=== PATIENT | male | born 1950 | race Caucasian/White ===

== ENCOUNTER → 2018-01-04 10:09 | Outpatient (CLI) | payer MEDICARE, OTHER, SELFPAY ==
[2018-01-04 11:40] LABS: Add Manual Diff / Slide Review NO; Basophils Percent Auto 0.6 % (0-2); Eosinophils Percent Auto 1.9 % (2-4); Hematocrit 44.1 % (41-53); Hemoglobin 15.1 g/dL (13.5-17.5); Lymphocytes Percent Auto 40.2 % (25-40); Mean Corpuscular HGB Conc 34.2 % (30-36); Mean Corpuscular Hemoglobin 31.9 PG (26-34); Mean Corpuscular Volume 93.3 fL (80-100); Monocytes Percent Auto 10.6 % (3-14); Neutrophils Absolute Auto 2100 /uL (3000-5900); Neutrophils Percent Auto 46.7 % (50-75); Platelet Count 180 X10^3/uL (150-400); Red Blood Cell Count 4.73 X10^6/uL (4.5-5.9); Red Cell Distribution Width 13.1 % (11.6-14.8); White Blood Cell Count 4.4 X10^3/uL (4.5-11.0)
[2018-01-04 12:17] LABS: BUN Creatinine Ratio 25.6 (6-22); Calcium 9.6 mg/dL (8.4-10.2); Estimated Glomerular Filt Rate > 60.0 mL/min (>60); Glucose 111 mg/dL (80-110); HEMOLYSIS < 15 (0-50); Sodium 140 mmol/L (137-145)
== END ==
PROVIDERS: PCP Physician Assistant; Visit Provider Orthopaedic Surgery Orthopaedic Surgery of the Spine
DX: M47.26 Other spondylosis with radiculopathy, lumbar region (principal)
CPT/HCPCS: 36415; 80048; 85025; 93005

== ENCOUNTER 2018-01-27 11:27 | Inpatient (IN) | payer MEDICARE, OTHER, SELFPAY ==
[2017-12-27 14:55] VITALS: TEMP 37.2
[2018-01-07 13:58] VITALS: BMI 22.4
[2018-01-27] VITALS (19 sets, daily range): BP systolic 98–136; BP diastolic 65–81; PULSE 67–92; RESP 8–19; TEMP 36.1–36.9; O2SAT 94–100; BMI 23.6
--- NOTE | 2018-01-27 11:50 | PM.PREOP ---
Pre-operative Note Interval Note Pre-op Check: History & Physical Reviewed by Physician, Exam Performed and History & Physical exam performed today
[2018-01-27] MEDS: LACTATED RINGERS 1,000 ML 42 ML IV ×2 (11:58→13:50)
[2018-01-27] MEDS: CLINDAMYCIN 600 MG/50 ML PIGGYBACK 50 MG IV (12:40)
--- NOTE | 2018-01-27 13:00 | DI.RAD.S_ITS ---
PROCEDURE: XR LUMBAR SPINE 2-3V INDICATIONS: 67-year-old male status post lower lumbar spine fixation. TECHNIQUE: 2 intraoperative views of the lumbar spine were acquired. COMPARISON: [facility], , -SPINE 2-3 VIEWS, 05/10/2017, 15:35. FINDINGS: Bones: Patient is status post L4-L5 and L5-S1 discectomies with interbody fusion and bilateral posterior fixation. Surgical hardware appears intact and in expected positions. Soft tissues: Overlying bowel gas pattern is normal. No suspicious soft tissue calcifications. IMPRESSION: Fluoroscopic guidance for L4-S1 posterior lumbar interbody fusion. Dictated by: Kal Galvan M.D. on 01/27/2018 at 15:59 Approved by: Kal Galvan M.D. on 01/27/2018 at 16:00
--- NOTE | 2018-01-27 13:25 | SUR.OPER ---
Prone on spine table, head in foam head support, padded chest and pelvic supports, gel pad at knees, lower legs supported by pillows; nipples, genitalia and toes free of pressure, arms secured on foam padded arm boards at <90 degrees abduction. Tape over blanket at thigh secured to table.
[2018-01-27] MEDS: BUPIVACAINE 0.25% W/ EPI 50 ML VIAL 30 ML INJ (13:29)
[2018-01-27] MEDS: BUPIVACAINE LIPOSOME 266 MG/20 ML VIAL SUBCUT (13:29)
--- NOTE | 2018-01-27 15:51 | P.OP_ITS ---
Operative Date/Time/Diagnoses - Date of procedure: 01/27/18 Time of procedure: 12:48 Pre-op diagnosis: 1. Status post laminotomy with epidural scarring L4-5 2. Spinal stenosis L4-5, L5-S1 3. Spondylosis with radiculopathy Post-op diagnosis: same Procedure & Clinicians Procedure: 1. L4-5, L5-S1 Postero-lateral and posterior interbody fusion 2. L4-5, L5-S1 interbody cage placement. 3. L4-5, L5-S1 decompressive laminectomy with bilateral facetecomies 4. L4-5, L5-S1 Posterior segmental instrumentation 5. [place] of bone marrow from iliac crest 6. Utilization of microsurgical technique and operating microscope Indications: Patient has been having chronic back pain and worsening lumbar radiculopathy. Patient failed multiple conservative management with worsening pain weakness and numbness in her lower extremity. Patient has been having difficulty performing activity of daily living. After discussing risks benefits of treatment options, patient elected proceed with surgery. Surgeon: Italo Andre Soccer Player: Orly Galan Click Yes if Unassisted: No Anesthesia Type: General Operative Notes Closure Type: primary Specimen(s): none sent Implants & Drains: Globus revolve screws, Globus Caliber cage Applied: catheter Estimated Blood Loss (mL): 100 Blood products transfused: none Procedure in detail: Patient was seen in the preoperative area. Risks and benefits of the surgery was discussed with the patient. Informed consent was obtained from the patient and placed in the chart. Surgical site was marked. Patient was taken to the operative room. General anesthesia was administered. Prophylactic antibiotic was given to the patient less than 30 min before the incision was made. Patient was placed into a prone position on the Nithin table. Patient's back was then prepped and draped in the sterile fashion. Time- out was performed at this time. Using AP and lateral C-arm imaging the interval between L4-S1 was identified and marked on patient's back. A 2 inch incision 2 in from midline was made on the left side first. The fascia was incised in line with skin incision. Globus MARS retractors was placed inside the incision and docked onto the L4 and L5 lamina. Using microsurgical technique and operating microscope, a L4 and L5 laminectomy and L4-5 L5-S1 facetectomy was performed using a Kerrison rongeur. The disc space at L4-5, L5-S1 was identified. And a total diskectomy was performed at L4-5, L5-S1 level. The endplates were decorticated using a rasp and shaver. The total diskectomy and decortication was performed at L4-5, L5- S1 level in order to to accomplish a L4-5, L5-S1 fusion. The local bone from the laminectomy and facetectomy was saved for local bone grafting. After the total diskectomy and decortication was completed, Globus viacell bone graft material was combined with local bone that was harvested earlier. At this time , a separate skin is incision was made over the iliac crest. A Jamshidi needle was inserted into the iliac crest through a separate skin incision. 5 cc of bone marrow aspiration was obtained through the separate skin incision using a Jamshidi needle from the iliac crest. The bone marrow aspiration was combined with local bone and the via cell bone grafting material. The bone grafting material was placed into the L4-5, L5-S1 interbody space along with two cages, one expandable cage at each level. The cages were expanded to their maximum height using the torque limiting screwdriver. At this time a mirror image incision was made on the right side. The fascia was incised in line with the skin incision. Globus MARS retractor was inserted and docked onto the L4-5, L5-S1 posterolateral gutter. Using the power drill, posterior-lateral decortication was performed at L4-5, L5-S1 level until bleeding cortical bone was identified. The remaining bone grafting material was placed into the L4-5 L5-S1 posterior lateral gutter he order to accomplish posterolateral fusion at the L4-5 L5-S1 levels. Using the double C-arm technique, pedicle screws were placed into the L4, L5, S1 pedicles bilaterally. This was done by placing the Jamshidi needle into the pedicles, then placing the guidewires over the Jamshidi needle, and finally placing the cannulated screws over the guidewires bilaterally. After the pedicle screws were placed, 2 titanium rods was locked into the heads of the pedicle screws using locking caps and torque limiting screwdriver. Total 6 pedicles screws were placed. After all the hardware was placed, and confirmed with AP and lateral C-arm imaging, the wound was then irrigated with sterile normal saline and packed with Ray-Anh gauze for 3 min to accomplish hemostasis. After the gauze was removed the deep fascia was closed with #1 Vicryl suture. The subcutaneous layer was closed with 2-0 Vicryl. The skin was closed with skin tiara. Patient tolerated the procedure well. There were no complications. Complications: none Condition: stable Disposition: PACU Plan for aftercare: Admit to inpatient hospital
[2018-01-27] MEDS: LORazepam 2 MG/ML SYRINGE 0.25 MG IV (16:10)
[2018-01-27] MEDS: MORPHINE 10 MG/ML INJ 2 MG IV ×5 (16:20→16:50)
[2018-01-27] MEDS: HYDROMORPHONE 2 MG INJ 0.5 MG IV (17:16)
--- NOTE | 2018-01-27 19:10 | PC.NURSE ---
Addendum entered by Tennille Ruiz R.N. 01/27/18 21:49: Medicated for pain with IV Dilaudid 05/05 to lower back, CMS intact to BLE. No c/o nausea. Calm and cooperative, sensitive to noise, no SI noted. States his needs, keeps communication with staff, very pleasant. Calls appropriately for assistance. at bedside providing supportive care, will spend the night. Environment kept clean, dim, and quiet. No seizure activity noted. Original Note: Admit note: Patient admitted to AC from PACU with RN, waiting in room providing supportive care to patient. On O2 via NC at 2L, O2 sat 96%. Large dressing to mid lower back, CDI. FC secured in place draining clear yellow urine to gravity. CMS to upper and lower extremities intact, bilateral SCDs to feet in place. No c/o nausea, educated regarding mobility precautions, which include no bending or twisting. BA active, call light within reach, oriented to room, routine, and plan of care. Occasionally noted to be tearful, reassurance provided. Calm, quiet, and cooperative. VSS
[2018-01-27] MEDS: SODIUM CHLORIDE 0.9% 1,000 ML 100 ML IV (19:52)
[2018-01-27] MEDS: HYDROMORPHONE 1 MG INJ 0.5 MG IV (20:59)
[2018-01-27] MEDS: CLINDAMYCIN 900 MG/50 ML PIGGYBACK 50 MG IV (21:00)
[2018-01-27] MEDS: SENNOSIDES 8.6 MG TABLET 17.2 MG PO (21:00)
[2018-01-27] MEDS: DOCUSATE 100 MG CAPSULE PO (21:02)
[2018-01-27] MEDS: lamoTRIgine 100 MG TABLET 300 MG PO (21:02)
[2018-01-27] MEDS: OXYCODONE IR 5 MG TABLET 10 MG PO (22:31)
[2018-01-28] VITALS (7 sets, daily range): BP systolic 120–143; BP diastolic 76–96; PULSE 67–80; RESP 16–19; TEMP 36.6–37.1; O2SAT 96–98
[2018-01-28] MEDS: HYDROMORPHONE 0.5 MG INJ IV ×3 (00:25→06:55)
[2018-01-28] MEDS: OXYCODONE IR 5 MG TABLET 10 MG PO ×3 (02:04→11:56)
--- NOTE | 2018-01-28 03:20 | PC.NURSE ---
Assumed care of pt from outgoing shift at 2300 6-4. Pt awake asleep at this time. PT , Dossy at bedside. Pt belongings and call light within reach. Pt complains of pain and given pain med per MAR. Pt refuses ice. Pt moving bed to different angles. discussed plan of care with pt for noc. pt compliant and verbalized understanding. will continue to monitor pt for safety. Pt bed alarm on. side rails up x4 per pt request. 0300- pt having difficulty falling asleep. Pain seems better controlled. Pt denies needs at this time. will continue to monitor pt for safety.
[2018-01-28] MEDS: CLINDAMYCIN 900 MG/50 ML PIGGYBACK 50 MG IV (04:32)
[2018-01-28] MEDS: SODIUM CHLORIDE 0.9% 1,000 ML 100 ML IV (04:32)
[2018-01-28] MEDS: hydrOXYzine pamoate 25 MG CAPSULE PO ×3 (04:32→15:54)
[2018-01-28 05:34] LABS: Hematocrit 35.3 % (41-53); Hemoglobin 12.2 g/dL (13.5-17.5)
[2018-01-28] MEDS: ONDANSETRON 4 MG/2 ML INJ IV (06:52)
[2018-01-28] MEDS: DEXAMETHASONE 4 MG TABLET 10 MG PO (08:37)
[2018-01-28] MEDS: ACETAMINOPHEN 325 MG TABLET 650 MG PO (08:38)
[2018-01-28] MEDS: DOCUSATE 100 MG CAPSULE PO ×2 (09:21→21:05)
[2018-01-28] MEDS: TAMSULOSIN 0.4 MG CAPSULE PO (09:22)
[2018-01-28] MEDS: lamoTRIgine 100 MG TABLET 300 MG PO ×2 (09:22→21:05)
[2018-01-28] MEDS: LEVOTHYROXINE PO (09:33)
--- NOTE | 2018-01-28 09:37 | P.PN_ITS ---
Subjective Date Patient Seen: 01/28/18 Time Patient Seen: 07:10 Interval history: POD #1 s/p L4-S1 lumbar fusion with Dr. Andre. Patient had difficulty with pain control and increased muscle spasms this morning. He has a Mcdonald catheter in. He has not been up physical therapy at. Has no prior issues taking prednisone. Exam Vital Signs (past 8 hours): Vital Signs - 8 hr 3 01/28/18 04:37 01/28/18 07:55 Temperature 98.4 F 98.5 F Pulse Rate 70 67 Respiratory Rate 18 16 Blood Pressure 120/76 122/79 H Pulse Oximetry 98 96 Pulse Oximetry 96 Oxygen Delivery Method Nasal Cannula Oxygen Flow Rate 0 Narrative Exam Narrative: Patient lying in bed in no acute distress. He is alert and oriented x3. He is able to actively dorsiflex and plantar flex. Sensation intact to light touch throughout bilateral lower extremities. Calves are soft, compressible, nontender bilaterally. Pulses are symmetrical. Objective Labs Result Diagrams: 01/28/18 04:47 Labs: Laboratory Results - last 24 hr 01/28/18 04:47 Hgb 12.2 L Hct 35.3 L Assessment & Plan Post-op (1) Anxiety: Current Visit: No Status: Acute (2) S/P lumbar fusion: Current Visit: Yes Status: Acute Postoperative Procedures Operation Date: 01/27/18 12:45 Actual Procedures Side Surgeon p L4-5, L5-S1 TLIF w/Posterior Instru Italo Andre MD POD #1 status post L4-S1 TLIF with Dr[address] Andre. Will start 24 hr steroid burst, 10 mg now, then 4 mg every 6 hr. If patient's pain does not decrease with steroid consider oral Dilaudid. Patient will get up and ambulate with physical therapy today. Once more mobile can DC Mcdonald, has history of urinary retention. Plan to discharge home with in next 1-2 days once stable, ambulating, and adequate pain control. Time Spent With Patient less than 15 minutes Quality VTE Deep Vein Thrombosis/Pulmonary Embolism Present on Admission: No
--- NOTE | 2018-01-28 12:50 | PT.IIE ---
Current Diagnoses Anxiety disorder, unspecified (01/27/18) Other spondylosis with radiculopathy, lumbar region (01/27/18) Spinal stenosis, lumbar region without neurogenic claudication (01/27/18) Arthrodesis status (01/27/18) Other specified postprocedural states (01/27/18) Surgery Performed Operation Date: 01/27/18 12:45 Actual Procedures p L4-5, L5-S1 TLIF w/Posterior Viola Andre MD Surgical History (Last Updated 01/07/18 @ 14:25 by Genesis Price RN) H/O laminectomy (Acute) History of arthroscopy of both knees (Acute) Hx of appendectomy (Acute) Hx of tonsillectomy (Acute) S/P left unicompartmental knee replacement (Acute) S/P right unicompartmental knee replacement (Acute) History of cataract removal with insertion of prosthetic lens Medical History (Last Updated 01/07/18 @ 15:00 by Genesis Price RN) Bone spur (Acute) Depression (Acute) History of ankle fracture (Acute) Hyperlipidemia (Acute) Hypothyroidism (Acute) Kidney stones (Acute) Lupus (Acute) Seizure disorder (Acute) Sleep apnea (Acute) Suicidal ideations (Acute) UTI (urinary tract infection) (Acute) Urinary dribbling (Acute) Urinary stream slowing (Acute) Physical Therapy Inpatient Evaluation/Re-Eval M1 PT/OT-IP Prior Functional Status Start: 01/28/18 12:41 Freq: NEEDED Status: Active Protocol: Document 01/28/18 12:42 AB (Rec: 01/28/18 12:49 AB [id number]) Medical Review Prior Functional Status Medical History Reviewed Yes Mobility and Gait Pt stated that he is independent with all mobilities and ambulation without AD indoors but uses a SPC or his staff outdoors. Social History Household Members spouse Living Arrangements House Number of Stairs To Enter/Railing? 14 steps to enter with L rail and pt uses SPC on R side Home Environment Standard Height Toilet Tub/Shower Home Equipment Hand Held Shower Grab Bars In Shower Employment Status Retired M2 PT-IP Current Condition Start: 01/28/18 12:41 Freq: NEEDED Status: Active Protocol: Document 01/28/18 12:42 AB (Rec: 01/28/18 12:49 AB [id number]) Physical Therapy Current Condition Current Condition Evaluation Date 01/28/18 Treatment Diagnosis s/p TLIF and laminectomy Onset Date 01/27/18 Precautions Lumbar Precautions Log Roll No Twisting Limit Bending Lifting Restriction of 10 lbs Gait Belt above Incisional Area M3 PT-IP Subjective Start: 01/28/18 12:41 Freq: NEEDED Status: Active Protocol: Document 01/28/18 12:42 AB (Rec: 01/28/18 12:49 AB [id number]) Subjective Physical Therapy Visit Type Type Initial Evaluation Visit Start Time 10:29 Visit Stop Time 11:01 Total Visit Minutes 32 Number of HOT KETTLE TENDER Visits 0 Physical Therapy Visit Comments Patient Comments pt requires motivation to participate Therapy Pain Assessment Pain When Pain Assessed During Mobility Pain Present Pain Present Pain Reported Location Lower Back Intensity 10 Scale Used Numeric (1 - 10) Description Spasm Pain Management Techniques Apply Cold Re-positioning Timing of Activity with Medications M4 PT-IP Mobility and Gait Start: 01/28/18 12:41 Freq: NEEDED Status: Active Protocol: Document 01/28/18 12:42 AB (Rec: 01/28/18 12:49 AB [id number]) PT-Bed Mobility Assessment Rolling Type of Rolling Log Rolling Level of Assist Maximal Assistance 2 Person Assistance Supine to Sit Supine to Sit Maximum Assistance 2 Person Assistance Bedrails Scooting Scooting to Edge of Bed Maximum Assistance PT-Transfer Assessment Sit to and From Stand Sit to and from Stand Maximum Assistance 2 Person Assistance Equipment Transfer Assistive Device Gait Belt Front Wheeled Walker Transfers Transfer Destination Chair Transfer Technique Stand Step Pivot Transfer Ability Level of Assist Maximum Assistance 2 Person Assistance Gait Assessment Comments Gait Comments unable at this time PT-Balance Assessment Sitting Balance and Reactions Static Sitting Balance Ability Good Dynamic Sitting Balance Ability Fair Standing Balance and Reactions Static Standing Balance Ability Poor Dynamic Standing Balance Ability Poor M5 PT-IP Objective Assessments Start: 01/28/18 12:41 Freq: NEEDED Status: Active Protocol: Document 01/28/18 12:42 AB (Rec: 01/28/18 12:49 AB [id number]) Orientation Orientation/Cognition Level of Alertness Alert Orientation Name Place Situation Safety Awareness Decreased Safety Awareness Strength Lower Extremity Strength Assessment Bilaterally Impaired Comments Strength Comments BLE 3-/5 M6 PT-IP Treatment Start: 01/28/18 12:41 Freq: NEEDED Status: Active Protocol: Document 01/28/18 12:42 AB (Rec: 01/28/18 12:49 AB [id number]) Physical Therapy Treatment Education Education Provided Precautions Weight Bearing Status Post-Op Packet Safety M7 PT-IP Assessment and Plan Start: 01/28/18 12:41 Freq: NEEDED Status: Active Protocol: Document 01/28/18 12:42 AB (Rec: 01/28/18 12:49 AB [id number]) PT Summary Assessment and Plan Potential Rehabilitation Potential Fair Status of Condition at Evaluation Evolving Summary Impairments Pain ROM Strength Balance Coordination Sensation Tone Cognition Bed Mobility Transfers Gait Activity Tolerance Assessment Summary pt requiring 2 person assist with mobility at this time. d /c plan depending on progress but at this time may require SNF rehab. pt unable to tolerate much activity with c/ o increase pain affecting mobility. Goals Bed Mobility Goal Standby Assistance Transfer Goal Standby Assistance Gait Goal Standby Assistance Gait Distance 150 Other Goals up/down 14 steps with L rail ascending Days to Meet Goals 3 Frequency of Treatment Frequency Of Treatment Twice a Day Treatment Plan Physical Therapy Treatment Plan Bed Mobility Training Transfer Training Gait Training Therapeutic Exercise Balance Retraining Post Op Education Discharge Planning Hot or Cold Pack Neuromuscular Re-ed Coordination Retraining Manual Therapy Other Recommendations and Next Treatment ambulation, bed mobility Focus Recommendations To Nursing Amount of Assist Needed 2 Person Assist Discharge Recommendations PT Discharge Recommendations Home with 24/7 Assist Home Health SNF Rehab Other Discharge Recommendations snf vs home with 24/7 and home health PT Provider Visit Care Team Role Provider Type Taylor Licona PA-C Primary Care Provider Physician Specialty: Internal Medicine Italo Andre MD Admit Provider Physician Attending Provider Specialty: Orthopedic Surgery
[2018-01-28] MEDS: DEXAMETHASONE 4 MG TABLET PO ×3 (13:22→22:10)
[2018-01-28] MEDS: SODIUM CHLORIDE 0.9% FLUSH 10 ML IV ×2 (13:22→22:10)
[2018-01-28] MEDS: HYDROMORPHONE 2 MG TABLET 4 MG PO ×3 (13:50→22:09)
[2018-01-28] MEDS: LORazepam 0.5 MG TABLET PO (13:50)
--- NOTE | 2018-01-28 14:20 | CM.DANOTE ---
DCP: assessment: case received, EMR reviewed,spoke with PT Zahira after her initial session with pt and then met with pt. Introduced self and role. PT is a 67 year old male who admitted yesterday for a planned spinal surgery. Surgeon: Dr. Andre PCP: Taylor Licona/[facility] Payer: Medicare and Commercial Insurance DCP template completed with info available thus far. PT Zahira is recommending at this point that pt either consider snf setting or have 24/7 hands on assist and HHS. He is needing 2 person assist at this point. He is noted to be having pain, nausea and is very tearful when discussing experiences both positive and negative. P: assured pt that the CM/d/c planning team would be available each day of his stay to assist him and his with d/c issues and options. Brief discussion of snf setting/rehab and Medicare payment for same. Pt states: no matter what I can take care of myself as long as Dassy () can drive me. At this point pt does not seem to have a clear picture of his needs but is only post op day one of extensive spinal surgery....will follow closely.
--- NOTE | 2018-01-28 14:57 | DIET.PN ---
Attempted to visit pt several times today for dietary consult. Pt was either with other providers or sleeping, and had requested not to be disturbed. Will f/u first thing tomorrow to complete consult. Ursula Dale, security intern
--- NOTE | 2018-01-28 16:57 | PT.IPTN ---
Current Diagnoses Anxiety disorder, unspecified (01/27/18) Other spondylosis with radiculopathy, lumbar region (01/27/18) Spinal stenosis, lumbar region without neurogenic claudication (01/27/18) Arthrodesis status (01/27/18) Other specified postprocedural states (01/27/18) Surgery Performed Operation Date: 01/27/18 12:45 Actual Procedures p L4-5, L5-S1 TLIF w/Posterior Viola Andre MD Physical Therapy Treatment Note M2 PT-IP Current Condition Start: 01/28/18 12:41 Freq: NEEDED Status: Active Protocol: Document 01/28/18 12:42 AB (Rec: 01/28/18 12:49 AB [id number]) Physical Therapy Current Condition Current Condition Evaluation Date 01/28/18 Treatment Diagnosis s/p TLIF and laminectomy Onset Date 01/27/18 Precautions Lumbar Precautions Log Roll No Twisting Limit Bending Lifting Restriction of 10 lbs Gait Belt above Incisional Area M3 PT-IP Subjective Start: 01/28/18 12:41 Freq: NEEDED Status: Active Protocol: Document 01/28/18 16:51 AB (Rec: 01/28/18 16:57 AB [id number]) Subjective Physical Therapy Visit Type Type Treatment Note Visit Start Time 15:50 Visit Stop Time 16:25 Total Visit Minutes 35 Number of AUTO RENTAL SUPERVISOR Visits 0 Physical Therapy Visit Comments Patient Comments pt agreeable to do therapy Therapy Pain Assessment Pain When Pain Assessed At Rest Pain Present Pain Present Pain Reported Location Lower Back Intensity 7 Scale Used Numeric (1 - 10) Description Spasm Pain Behaviors Crying Guarding Pain Management Techniques Re-positioning Timing of Activity with Medications M4 PT-IP Mobility and Gait Start: 01/28/18 12:41 Freq: NEEDED Status: Active Protocol: Document 01/28/18 16:51 AB (Rec: 01/28/18 16:57 AB [id number]) PT-Bed Mobility Assessment Rolling Type of Rolling Log Rolling Level of Assist Maximal Assistance Supine to Sit Supine to Sit Maximum Assistance 1 Person Assistance PT-Transfer Assessment Sit to and From Stand Sit to and from Stand Maximum Assistance 1 Person Assistance Equipment Transfer Assistive Device Gait Belt Front Wheeled Walker Orthotic/Prosthetic Devices or Brace: No Gait Assessment Gait Gait Assistance Required: Moderate Assistance Maximum Assistance Distance (Feet) (feet) 25 Able to Maintain Weight Bearing Status Yes During Gait Assistive Devices Assistive Device Gait Belt Front Wheeled Walker Orthotic/Prosthetic Devices or Brace: No Gait Deviations General Gait Pattern Decreased Stride Length Decreased Feet Clearance Factors Limiting Gait Function Factors Limiting Gait Function Decreased Activity Tolerance Decreased Strength Limited Range of Motion Pain Poor Balance Poor Safety Awareness Comments Gait Comments pt with increase guarding with c/o ms spasm and tend to stiffen whole body affecting mobility. M5 PT-IP Objective Assessments Start: 01/28/18 12:41 Freq: NEEDED Status: Active Protocol: Document 01/28/18 12:42 AB (Rec: 01/28/18 12:49 AB [id number]) Orientation Orientation/Cognition Level of Alertness Alert Orientation Name Place Situation Safety Awareness Decreased Safety Awareness Strength Lower Extremity Strength Assessment Bilaterally Impaired Comments Strength Comments BLE 3-/5 M6 PT-IP Treatment Start: 01/28/18 12:41 Freq: NEEDED Status: Active Protocol: Document 01/28/18 12:42 AB (Rec: 01/28/18 12:49 AB [id number]) Physical Therapy Treatment Education Education Provided Precautions Weight Bearing Status Post-Op Packet Safety M7 PT-IP Assessment and Plan Start: 01/28/18 12:41 Freq: NEEDED Status: Active Protocol: Document 01/28/18 16:51 AB (Rec: 01/28/18 16:57 AB [id number]) PT Summary Assessment and Plan Potential Rehabilitation Potential Fair Summary Impairments Pain ROM Strength Balance Coordination Sensation Tone Cognition Bed Mobility Transfers Gait Activity Tolerance Progress Towards Goals Slow Progress due to Pain Slow Progress due to Medical Issues Slow Progress due to Activity Tolerance Assessment Summary pt making slow progress but still requires max A with mobility and max cues. pt continues to c/o pain affecting activity tolerance and mobility. set up caregiver training with spouse tomorrow. d/c plan depending on caregiver training and stair training. pt may require SNF rehab at this time . Goals Bed Mobility Goal Standby Assistance Transfer Goal Standby Assistance Gait Goal Standby Assistance Gait Distance 150 Other Goals up/down 14 steps with L rail ascending Days to Meet Goals 3 Frequency of Treatment Frequency Of Treatment Twice a Day Treatment Plan Physical Therapy Treatment Plan Bed Mobility Training Transfer Training Gait Training Therapeutic Exercise Balance Retraining Post Op Education Discharge Planning Hot or Cold Pack Neuromuscular Re-ed Coordination Retraining Manual Therapy Other Recommendations and Next Treatment ambulation, bed mobility; Focus caregiver training 10 am tomorrow Recommendations To Nursing Amount of Assist Needed 2 Person Assist Discharge Recommendations PT Discharge Recommendations Home with 24/7 Assist Home Health SNF Rehab Other Discharge Recommendations snf vs home with 24/7 and home health PT
--- NOTE | 2018-01-28 17:12 | OT.IP.EVAL ---
Addendum entered and electronically signed by Madalyn Osorio OT 01/28/18 17:24: Original Note: Current Diagnoses Anxiety disorder, unspecified (01/27/18) Other spondylosis with radiculopathy, lumbar region (01/27/18) Spinal stenosis, lumbar region without neurogenic claudication (01/27/18) Arthrodesis status (01/27/18) Other specified postprocedural states (01/27/18) Surgery Performed Operation Date: 01/27/18 12:45 Actual Procedures p L4-5, L5-S1 TLIF w/Posterior Viola - Italo Andre MD Past Medical History (Last Updated 01/07/18 @ 15:00 by Genesis Price RN) Bone spur (Acute) Depression (Acute) History of ankle fracture (Acute) Hyperlipidemia (Acute) Hypothyroidism (Acute) Kidney stones (Acute) Lupus (Acute) Seizure disorder (Acute) Sleep apnea (Acute) Suicidal ideations (Acute) UTI (urinary tract infection) (Acute) Urinary dribbling (Acute) Urinary stream slowing (Acute) Surgical History (Last Updated 01/07/18 @ 14:25 by Genesis Price RN) H/O laminectomy (Acute) History of arthroscopy of both knees (Acute) Hx of appendectomy (Acute) Hx of tonsillectomy (Acute) S/P left unicompartmental knee replacement (Acute) S/P right unicompartmental knee replacement (Acute) History of cataract removal with insertion of prosthetic lens Occupational Therapy Inpatient Evaluation/Re-Eval M1 PT/OT-IP Prior Functional Status Start: 01/28/18 16:54 Freq: NEEDED Status: Active Protocol: Document 01/28/18 16:54 PJM (Rec: 01/28/18 17:11 PJM [id number]) Medical Review Prior Functional Status Medical History Reviewed Yes Diet/Fluid Consistency Regular Communication Very soft spoken, intermittently tearful Mobility and Gait Pt stated that he is independent with all mobilities and ambulation without AD indoors but uses a SPC or his walking stick outdoors. Activities of Daily Living and IADL's Pt independent with all self care. He is unable to drive due to recent seizure. Prior Functional Level (Other details) Pt states he is remodeling his house including working on [employer] project. not present this session to confirm home situation. Social History Household Members spouse Living Arrangements House Number of Floors (Floors) One Floor Number of Stairs To Enter/Railing? 14 through garage entrance Home Environment Standard Height Toilet Tub/Shower Home Equipment Shower Seat without Backrest Hand Held Shower Grab Bars In Shower Employment Status Retired Additional Social History Comment Pt has high anxiety overlay, tearful/anxious throughout session. Pt states he will do better with present. M2 OT-IP Current Condition Start: 01/28/18 16:54 Freq: Status: Active Protocol: Document 01/28/18 16:54 PJM (Rec: 01/28/18 17:11 [facility] [id number]) Occupational Therapy Current Condition Current Condition Evaluation Date 01/28/18 Treatment Diagnosis decreased self care and functional mobility skills Post Operative Precautions Lumbar Precautions Log Roll No Twisting Limit Bending Lifting Restriction of 10 lbs Gait Belt above Incisional Area M3 OT- IP Subjective and Pain Start: 01/28/18 16:54 Freq: Status: Active Protocol: Document 01/28/18 16:54 PJM (Rec: 01/28/18 17:11 [facility] [id number]) OT- Subjective Occupational Therapy Visit Type Type Initial Evaluation Visit Start Time 10:28 Visit Stop Time 11:02 Total Visit Minutes 34 Occupational Therapy Visit Comments Patient Comments I need my . Can you call my ? Patient/Caregiver Goals to control pain and go home; get back to remodeling his house OT Pain Assessment Pain When Pain Assessed During Mobility Pain Present Pain Present Pain Reported Location Lower Back Intensity 9 Scale Used Numeric (1 - 10) Description Acute Spasm Pain Behaviors Crying Facial Grimacing Guarding Moaning Restlessness Wincing Management Techniques Apply Cold Distraction Re-positioning Timing of Activity with Medications M4 OT- IP ADL's Start: 01/28/18 16:54 Freq: Status: Active Protocol: Document 01/28/18 16:54 PJM (Rec: 01/28/18 17:11 [facility] [id number]) OT QQR-Emtc-Lahnpfl General Evaluation Self-Feeding Ability Independent OT ADL-Grooming General Evaluation Grooming Ability Standby Assistance Comments OT Grooming Comments to wash face seated in chair OT ADL-Oral Care Comments Oral Care Comments to be assessed as activity tolerance improves OT ADL-Dressing General Eval Lower Body Dressing Ability Total Assistance Areas Needing Assistance Socks Comments OT Dressing Comments Pt total assist with lower body dressing at present due to high pain level. OT ADL-Toileting General Evaluation Toileting Ability Total Assistance Comments OT Toileting Comments carlson still in place OT ADL-Bathing Comments OT Bathing Comments to be assessed as activity tolerance improves M5 OT- IP IADL's Start: 01/28/18 16:54 Freq: Status: Active Protocol: Document 01/28/18 16:54 PJM (Rec: 01/28/18 17:11 [facility] [id number]) OT-Instrumental Activities of Daily Living Deficits IADL Deficits Identified Deficits Home Safety Awareness Awareness of Need for Assistance at Home Good Awareness Medication Management Medication Management Caregiver Provides Supervision Meal Preparation Meal Preparation Caregiver Provides Assist Hand Slitter Hand Slitter Caregiver Provides Assist Driving Driving Caregiver Provides Assist Driving Comments Pt unable to drive due to recent seizure. M6 OT- IP Functional Cognition Start: 01/28/18 16:54 Freq: Status: Active Protocol: Document 01/28/18 16:54 PJM (Rec: 01/28/18 17:11 [facility] NRTM) Cognitive Factors Limiting Selfcare Function Cognitive Ability Level of Alertness Alert Attention Span Ability Unable to Sustain Attention Ability to Follow Commands Able to Follow One Step Commands Safety Awareness Decreased Recall of Precautions Problem Solving Ability Needs Assist to Identify Solutions Cognitive Comments Cognitive Assessment Comments Pt distracted by high pain level with tangential conversation and high anxiety this session. OT- Vision and Hearing OT- Hearing Assessment OT- Hearing Assessment WFL OT- Vision Assessment Visual Acuity WFL M7 OT- IP Mobility and Balance Start: 01/28/18 16:54 Freq: Status: Active Protocol: Document 01/28/18 16:54 PJM (Rec: 01/28/18 17:11 [facility] [id number]) OT- Bed Mobility Assessment Rolling Type of Rolling Log Rolling Level of Assistance Moderate Assistance 2 Person Assistance Supine to Sit Supine to Sit Assist Moderate Assistance 2 Person Assistance Scooting Scooting to Edge of Bed Contact Guard Assistance OT-Transfer Assessment Sit to and From Stand Sit to and from Stand Moderate Assistance 2 Person Assistance Transfers Transfer Ability Moderate Assistance 2 Person Assistance Technique Transfer Destination Chair Transfer Technique Stand Step Pivot Devices Transfer Assistive Devices Gait Belt Front Wheeled Walker Comments Mobility Comments Pt fearful of falling; needs cues to fully extend knees. OT- Gait Assessment Comments Gait Ability Comments did not occur this session OT- Balance Assessment Sitting Balance and Reactions Static Sitting Balance Ability Fair Dynamic Sitting Balance Ability Poor Standing Balance and Reactions Static Standing Balance Ability Poor Dynamic Standing Balance Ability Poor M8 OT- IP Objective Assessments Start: 01/28/18 16:54 Freq: Status: Active Protocol: Document 01/28/18 16:54 PJM (Rec: 01/28/18 17:11 PJM [id number]) OT Gross Range of Motion Upper Extremity Range of Motion Assessment Within Functional Limits OT Strength Upper Extremity Strength Assessment Within Functional Limits OT- Coordination Assessment Comments Coordination Comments Intermittent B hand tremors noted as anxiety increased. OT-Muscle Tone Assessment Muscle Tone WNL Yes OT Sensation Assessment Comments Summary Comments No functional deficits noted. M9 OT- IP Assessment and Plan Start: 01/28/18 16:54 Freq: Status: Active Protocol: Document 01/28/18 16:54 PJM (Rec: 01/28/18 17:11 PJM [id number]) OT Summary Assessment and Plan Potential Rehabilitation Potential Good Analytic Complexity at Evaluation Moderate Summary OT Impairments Pain Balance Functional Mobility Grooming Dressing Toileting Bathing Toilet Transfers Shower Transfers Assessment Summary Moderate complexity OT assessment completed due to strong psych overlay with pt hx of bipolar, very high anxiety, references to [place] War experiences, and decreased pain control today. Pt has performance deficits in all functional mobility, currently requiring 2 assist for transfers. Pt also has deficits in all self care and still has carlson in place due to decreased mobility. Pt's not here this session and pt feels he will perform better when she is present. Pt will benefit from further OT services to address the goals below. Pt may need SNF vs home with 24 hr assist from and HH services. Further recommendations to follow as pt progresses here. Goals Self-Feeding Goal Independent Grooming Goal Standby Assistance Dressing Goal Minimal Assistance Toileting Goal Independent Bathing Goal Minimal Assistance Toilet Transfer Goal Standby Assistance Shower Transfer Goal Contact Guard Assistance Patient/Caregiver Education Goal Demonstrate Post-Op Precautions Caregiver Independent Assisting Patient Frequency of Treatment Frequency Of Treatment Once a Day Treatment Plan OT Treatment Plan ADL Training Functional Mobility Patient/Family Education Discharge Planning Other Treatment Recommendations and Next see when present, LB AED Treatment Focus Discharge Recommendations OT Discharge Recommendations Home with 24/7 Assist SNF Rehab Other Discharge Recommendations further recommendations to follow pending pt progress here Home Equipment Needs LB dressing equipt, shower seat, raised toilet seat
--- NOTE | 2018-01-28 17:19 | OT.IP.TRT ---
Current Diagnoses Anxiety disorder, unspecified (01/27/18) Other spondylosis with radiculopathy, lumbar region (01/27/18) Spinal stenosis, lumbar region without neurogenic claudication (01/27/18) Arthrodesis status (01/27/18) Other specified postprocedural states (01/27/18) Surgery Performed Operation Date: 01/27/18 12:45 Actual Procedures p L4-5, L5-S1 TLIF w/Posterior Viola Andre MD Occupational Therapy Treatment Note M2 OT-IP Current Condition Start: 01/28/18 16:54 Freq: Status: Active Protocol: Document 01/28/18 16:54 PJM (Rec: 01/28/18 17:11 PJ [id number]) Occupational Therapy Current Condition Current Condition Evaluation Date 01/28/18 Treatment Diagnosis decreased self care and functional mobility skills Post Operative Precautions Lumbar Precautions Log Roll No Twisting Limit Bending Lifting Restriction of 10 lbs Gait Belt above Incisional Area M3 OT- IP Subjective and Pain Start: 01/28/18 16:54 Freq: Status: Active Protocol: Document 01/28/18 17:14 PJM (Rec: 01/28/18 17:19 PJM [id number]) OT- Subjective Occupational Therapy Visit Type Type Treatment Note Visit Start Time 11:35 Visit Stop Time 11:45 Total Visit Minutes 10 Notes Pt requesting to go back to bed after ~30 min up in recliner. Occupational Therapy Visit Comments Patient Comments 'I need to get back to bed. It 's been 30 minutes. OT Pain Assessment Pain When Pain Assessed During Mobility Pain Present Pain Present Pain Reported Location Lower Back Intensity 8 Scale Used Numeric (1 - 10) Description Aching Acute Spasm Pain Behaviors Facial Grimacing Guarding Holding Area Restlessness Wincing Management Techniques Re-positioning Timing of Activity with Medications M4 OT- IP ADL's Start: 01/28/18 16:54 Freq: Status: Active Protocol: Document 01/28/18 16:54 PJM (Rec: 01/28/18 17:11 PJM [id number]) OT ILC-Wtun-Ltypljg General Evaluation Self-Feeding Ability Independent OT ADL-Grooming General Evaluation Grooming Ability Standby Assistance Comments OT Grooming Comments to wash face seated in chair OT ADL-Oral Care Comments Oral Care Comments to be assessed as activity tolerance improves OT ADL-Dressing General Eval Lower Body Dressing Ability Total Assistance Areas Needing Assistance Socks Comments OT Dressing Comments Pt total assist with lower body dressing at present due to high pain level. OT ADL-Toileting General Evaluation Toileting Ability Total Assistance Comments OT Toileting Comments carlson still in place OT ADL-Bathing Comments OT Bathing Comments to be assessed as activity tolerance improves M5 OT- IP IADL's Start: 01/28/18 16:54 Freq: Status: Active Protocol: Document 01/28/18 16:54 PJM (Rec: 01/28/18 17:11 PJ [id number]) OT-Instrumental Activities of Daily Living Deficits IADL Deficits Identified Deficits Home Safety Awareness Awareness of Need for Assistance at Home Good Awareness Medication Management Medication Management Caregiver Provides Supervision Meal Preparation Meal Preparation Caregiver Provides Assist [employer] Systems Administrator [employer] Systems Administrator Caregiver Provides Assist Driving Driving Caregiver Provides Assist Driving Comments Pt unable to drive due to recent seizure. M6 OT- IP Functional Cognition Start: 01/28/18 16:54 Freq: Status: Active Protocol: Document 01/28/18 16:54 PJM (Rec: 01/28/18 17:11 [facility] NR) Cognitive Factors Limiting Selfcare Function Cognitive Ability Level of Alertness Alert Attention Span Ability Unable to Sustain Attention Ability to Follow Commands Able to Follow One Step Commands Safety Awareness Decreased Recall of Precautions Problem Solving Ability Needs Assist to Identify Solutions Cognitive Comments Cognitive Assessment Comments Pt distracted by high pain level with tangential conversation and high anxiety this session. OT- Vision and Hearing OT- Hearing Assessment OT- Hearing Assessment WFL OT- Vision Assessment Visual Acuity WFL M7 OT- IP Mobility and Balance Start: 01/28/18 16:54 Freq: Status: Active Protocol: Document 01/28/18 17:14 PJM (Rec: 01/28/18 17:19 [facility] [id number]) OT- Bed Mobility Assessment Sit to Supine Sit to Supine Assist Moderate Assistance 2 Person Assistance OT-Transfer Assessment Sit to and From Stand Sit to and from Stand Minimal Assistance 2 Person Assistance Transfers Transfer Ability Minimal Assistance 2 Person Assistance Technique Transfer Destination Bed Transfer Technique Stand Step Pivot Devices Transfer Assistive Devices Gait Belt Front Wheeled Walker OT- Balance Assessment Sitting Balance and Reactions Static Sitting Balance Ability Good Dynamic Sitting Balance Ability Good Standing Balance and Reactions Static Standing Balance Ability Fair Dynamic Standing Balance Ability Fair M8 OT- IP Objective Assessments Start: 01/28/18 16:54 Freq: Status: Active Protocol: Document 01/28/18 16:54 PJM (Rec: 01/28/18 17:11 PJM [id number]) OT Gross Range of Motion Upper Extremity Range of Motion Assessment Within Functional Limits OT Strength Upper Extremity Strength Assessment Within Functional Limits OT- Coordination Assessment Comments Coordination Comments Intermittent B hand tremors noted as anxiety increased. OT-Muscle Tone Assessment Muscle Tone WNL Yes OT Sensation Assessment Comments Summary Comments No functional deficits noted. M9 OT- IP Assessment and Plan Start: 01/28/18 16:54 Freq: Status: Active Protocol: Document 01/28/18 17:14 PJM (Rec: 01/28/18 17:19 PJM [id number]) OT Summary Assessment and Plan Potential Rehabilitation Potential Good Summary OT Impairments Pain Balance Functional Mobility Progress Towards Goals Slow Progress due to Pain Slow Progress due to Activity Tolerance Assessment Summary Pt demonstrating improved sit to stand and transfer skills when getting back to bed this session, but still needs 2 person assist for safety. Pt still has very low activity tolerance and c/o being sleep deprived. RN working closely with pt on pain control and anxiety issues. not present this session. Frequency of Treatment Frequency Of Treatment Once a Day Treatment Plan OT Treatment Plan ADL Training Functional Mobility Patient/Family Education Discharge Planning Discharge Recommendations OT Discharge Recommendations Home with 24/ Assist SNF Rehab Other Discharge Recommendations further recommendations to foolow pending progress tomorrow when present
[2018-01-28] MEDS: SENNOSIDES 8.6 MG TABLET 17.2 MG PO (21:05)
[2018-01-29] MEDS: hydrOXYzine pamoate 25 MG CAPSULE PO (02:15)
[2018-01-29] MEDS: HYDROMORPHONE 2 MG TABLET 4 MG PO (02:16)
[2018-01-29] MEDS: LORazepam 0.5 MG TABLET PO ×2 (02:16→12:20)
[2018-01-29] MEDS: DEXAMETHASONE 4 MG TABLET PO (04:24)
[2018-01-29 04:40] VITALS: BP 106/66; PULSE 70; RESP 16; TEMP 36.4; O2SAT 96
[2018-01-29] MEDS: LEVOTHYROXINE 88 MCG TABLET 44 MCG PO (06:11)
[2018-01-29 08:09] VITALS: BP 112/70; PULSE 69; RESP 18; TEMP 37.3; O2SAT 99
--- NOTE | 2018-01-29 09:17 | CM.DPC ---
Addendum entered by Ely Calabrese LPN 01/29/18 11:21: D/C to home order is noted. Checked in with pt and Humberto. Pt is very eager to go home, Humberto is a bit surprised but is reassured by PT Zahira that he has done well and no more PT is indicated today. Ot also notes he did well. Humberto does say that NR Lonnie, training with RN Leanna told her that her will not d/c today if he does not void so this is pending. [place] and Leanna are currently not available. Will check in with them prn. P: home today pending void. Original Note: DCP: continued: OT and PT report pt is doing markedly better today. Met briefly with pt and his Humberto this morning. Paulcharleen is here to be part of caregiver training and d/c planning process. OT was just finishing treatment with pt. (I feel so much better today, I slept well last night). David Cooper is seeing pt now. PT will work with pt and Paulcharleen again later this morning. P: now looks doable for a d/c to home as per pt's desire. Pt is not expected to be ready for d/c today. Will follow. Confirmed now that pt will need a FWW at d/c. Humberto says the ortho clinic told them a walker will be provided by the hospital if you need one. Explained [facility] consignment closet and that is provider ordered the walker it could be billed to pt's insurance and issues at d/c. Humberto agrees this will be best. David Cooper is updated, is putting in order for same and will be given to PT dept to process and issue accordingly.
[2018-01-29] MEDS: lamoTRIgine 100 MG TABLET 300 MG PO (09:30)
[2018-01-29] MEDS: DOCUSATE 100 MG CAPSULE PO (09:31)
[2018-01-29] MEDS: TAMSULOSIN 0.4 MG CAPSULE PO (09:31)
[2018-01-29] MEDS: SODIUM CHLORIDE 0.9% FLUSH 10 ML IV (09:31)
--- NOTE | 2018-01-29 10:27 | P.DS_ITS ---
History of Present Illness Date Patient Seen: 01/29/18 Time Patient Seen: 10:27 Chief complaint: L4 L5-S1 TLIF w/posterior instrumentation-see note Narrative: Status post lumbar fusion Discharge Providers Date of admission: 01/27/18 11:27 Primary care physician: Taylor Licona PA-C Consults: 01/27/18 18:12 Consult to Dietitian, Adult Routine Comment: Reason For Exam: has had some recent weight loss per Consult to Occupational Therapy Evaluate & Treat Comment: Physician Instructions: Evaluate and treat Consult to Physical Therapy Evaluate & Treat Comment: Physician Instructions: Evaluate and Treat Discharge provider: Isa Gage PA-C Summary Discharge Diagnosis: Status post lumbar fusion Hospital Course: Dago was admitted for L4-S1 lumbar fusion and patient consented to procedure. Hospital course was unremarkable. On postop day 2. He is feeling well and wanted to go home. He was urinating and eating without difficulty or assistance. He has been working with physical therapy throughout his stay. He had steroids on post op day 1. This had significant relief of his pain. Date of discharge cover site dressing applied, calves were soft, compressible, nontender bilaterally. Status at Discharge Functional status at discharge: uses cane/walker Exam Vital Signs (past 8 hours): Vital Signs - 8 hr 3 01/29/18 04:40 01/29/18 08:09 Temperature 97.5 F L 99.1 F Pulse Rate 70 69 Respiratory Rate 16 18 Blood Pressure 106/66 112/70 Pulse Oximetry 96 99 Pulse Oximetry 99 Oxygen Delivery Method Room Air Oxygen Flow Rate 0 Narrative Exam Narrative: Patient is sitting at bedside chair in no acute distress. He is alert and oriented x3. Dressing on back has shadow drainage but cover site dressing will be applied prior to discharge. Calves are soft, compressible, nontender bilaterally. Sensation intact to light touch throughout bilateral lower extremities. Pulses are symmetrical. Patient's pain significantly better controlled today. Denies any nausea, vomiting, chest pain, or shortness of breath. Objective Labs Result Diagrams: 01/28/18 04:47 Discharge Plan Discharge Plan Patient Disposition: Home, Self-Care Discharge comment: DC home with after physical therapy this afternoon. Cover site dressing at time of discharge. Discharge Med Rec/Prescriptions Prescriptions: New acetaminophen 325 mg Tablet 650 mg PO Q6HR PRN (Reason: Pain, Mild) Qty: 60 RF: 0 hydromorphone 2 mg Tablet 2 mg PO Q4HR PRN (Reason: Pain, Severe) Qty: 60 RF: 0 docusate sodium 100 mg Capsule 100 mg PO BID PRN (Reason: constipation) Qty: 0 RF: 0 hydroxyzine pamoate 25 mg Capsule 25 mg PO Q6HR Qty: 60 RF: 0 walker misc .ROUTE .MEDSUPPLY Qty: 1 RF: 0 Continue lamotrigine [Lamictal] 150 mg Tablet 300 mg PO BID RF: 0 ibuprofen 200 mg Capsule 800 mg PO BID RF: 0 aspirin [Aspir-81] 81 mg Tablet,Delayed Release (Dr/Ec) 81 mg PO DAILY RF: 0 levothyroxine 88 mcg Capsule 44 mcg PO QAM RF: 0 tamsulosin 0.4 mg Capsule,Extended Release 24hr 0.4 mg PO DAILY RF: 0 mirtazapine 30 mg Tablet 30 mg PO BEDTIME RF: 0 Follow up/Referrals: Italo Andre MD [Physician] - (Please follow up in 10-14 days) Provider Discharge Instructions Diet: Diet as Tolerated Activity: No excessive bending, lifting, or twisting. Wound Care Report to your healthcare provider any signs of infection, such as:: chills, fever and increased pain Dressing: Cover site dressing at time of discharge until follow-up with [facility]. Visit Report/Discharge Packet Instructions: DI for Transforaminal Lumbar Interbody Fusion Discharge Data Primary Care Provider: Taylor Licona Attending Provider: Italo Andre Admit Date/Time: 01/27/18 11:27 Quality VTE Deep Vein Thrombosis/Pulmonary Embolism Present on Admission: No
--- NOTE | 2018-01-29 12:04 | PT.IPTN ---
Current Diagnoses Anxiety disorder, unspecified (01/27/18) Other spondylosis with radiculopathy, lumbar region (01/27/18) Spinal stenosis, lumbar region without neurogenic claudication (01/27/18) Arthrodesis status (01/27/18) Other specified postprocedural states (01/27/18) Surgery Performed Operation Date: 01/27/18 12:45 Actual Procedures p L4-5, L5-S1 TLIF w/Posterior Viola Andre MD Physical Therapy Treatment Note M2 PT-IP Current Condition Start: 01/28/18 12:41 Freq: NEEDED Status: Active Protocol: Document 01/28/18 12:42 AB (Rec: 01/28/18 12:49 AB [id number]) Physical Therapy Current Condition Current Condition Evaluation Date 01/28/18 Treatment Diagnosis s/p TLIF and laminectomy Onset Date 01/27/18 Precautions Lumbar Precautions Log Roll No Twisting Limit Bending Lifting Restriction of 10 lbs Gait Belt above Incisional Area M3 PT-IP Subjective Start: 01/28/18 12:41 Freq: NEEDED Status: Active Protocol: Document 01/29/18 11:49 AB (Rec: 01/29/18 12:02 AB [id number]) Subjective Physical Therapy Visit Type Type Treatment Note Visit Start Time 09:55 Visit Stop Time 10:50 Total Visit Minutes 55 Number of ASSISTANT [place] ATTORNEY Visits 0 Physical Therapy Visit Comments Patient Comments i feel better Therapy Pain Assessment Pain Present Pain Present Denied Pain M4 PT-IP Mobility and Gait Start: 01/28/18 12:41 Freq: NEEDED Status: Active Protocol: Document 01/29/18 11:49 AB (Rec: 01/29/18 12:02 AB [id number]) PT-Bed Mobility Assessment Rolling Level of Assist Standby Assistance Supine to Sit Supine to Sit Standby Assistance Sit to Supine Sit to Supine Standby Assistance PT-Transfer Assessment Sit to and From Stand Sit to and from Stand Contact Guard Assistance Equipment Transfer Assistive Device Gait Belt Front Wheeled Walker Orthotic/Prosthetic Devices or Brace: No Gait Assessment Gait Gait Assistance Required: Contact Guard Assist Distance (Feet) (feet) 200 Able to Maintain Weight Bearing Status Yes During Gait Assistive Devices Assistive Device Gait Belt Front Wheeled Walker Orthotic/Prosthetic Devices or Brace: No Factors Limiting Gait Function Factors Limiting Gait Function Decreased Activity Tolerance Decreased Strength Comments Gait Comments caregiver training conducted for bed mobility, transfers and ambulation and spouse was able to assist pt safely Stair Climbing Assessment Evaluation Level of Assist On Stairs Contact Guard Assistance Devices Stair Climbing Assistive Devices Straight Cane Left Railing Technique/Endurance Stair Climbing Direction Ascend and Descend Stair Climbing Technique Step to Step Number of Steps Climbed 3 Query Text: Stair Climbing Set # Repetitions (reps) 2 Comments Stair Climbing Comments pt completed stairs with PT assisting initially and pt's spouse educated and assist pt afterwards and was able to provide necessary assistance M5 PT-IP Objective Assessments Start: 01/28/18 12:41 Freq: NEEDED Status: Active Protocol: Document 01/28/18 12:42 AB (Rec: 01/28/18 12:49 AB [id number]) Orientation Orientation/Cognition Level of Alertness Alert Orientation Name Place Situation Safety Awareness Decreased Safety Awareness Strength Lower Extremity Strength Assessment Bilaterally Impaired Comments Strength Comments BLE 3-/5 M6 PT-IP Treatment Start: 01/28/18 12:41 Freq: NEEDED Status: Active Protocol: Document 01/29/18 12:02 AB (Rec: 01/29/18 12:04 AB [id number]) Physical Therapy Treatment Education Education Provided Safety Equipment Issued Equipment Type and Company FWW issued from [employer]. pt signed paper Other Treatments Other Treatment Performed caregiver training conducted: bed mobility, sit<>stand, transfers, ambulation and stair climbing, use of safety belt and cueing pt if needed. spouse was able to assist pt safely with all tasks. M7 PT-IP Assessment and Plan Start: 01/28/18 12:41 Freq: NEEDED Status: Active Protocol: Document 01/29/18 11:49 AB (Rec: 01/29/18 12:02 AB [id number]) PT Summary Assessment and Plan Potential Rehabilitation Potential Good Summary Impairments Pain ROM Strength Balance Coordination Sensation Tone Cognition Bed Mobility Transfers Gait Activity Tolerance Progress Towards Goals Progressing Toward Goals Assessment Summary caregiver training conducted and spouse was able to assist pt safely. received prescription for FWW and dispensed to pt and pt signed papers for FWW. Goals Bed Mobility Goal Standby Assistance Transfer Goal Standby Assistance Gait Goal Standby Assistance Gait Distance 150 Other Goals up/down 14 steps with L rail ascending Days to Meet Goals 3 Frequency of Treatment Frequency Of Treatment Twice a Day Treatment Plan Physical Therapy Treatment Plan Bed Mobility Training Transfer Training Gait Training Therapeutic Exercise Balance Retraining Post Op Education Discharge Planning Hot or Cold Pack Neuromuscular Re-ed Coordination Retraining Manual Therapy Other Recommendations and Next Treatment ambulation, bed mobility; Focus caregiver training 10 am tomorrow Recommendations To Nursing Amount of Assist Needed Standby Assistance Discharge Recommendations PT Discharge Recommendations Home with Assistance
[2018-01-29] MEDS: HYDROMORPHONE 2 MG TABLET PO (12:20)
--- NOTE | 2018-01-29 13:13 | PC.NURSE ---
Covrsite dressing placed prior to discharge.
--- NOTE | 2018-01-29 16:07 | OT.IP.TRT ---
Current Diagnoses Anxiety disorder, unspecified (01/27/18) Other spondylosis with radiculopathy, lumbar region (01/27/18) Spinal stenosis, lumbar region without neurogenic claudication (01/27/18) Arthrodesis status (01/27/18) Other specified postprocedural states (01/27/18) Surgery Performed Operation Date: 01/27/18 12:45 Actual Procedures p L4-5, L5-S1 TLIF w/Posterior Viola Andre MD Occupational Therapy Treatment Note M3 OT- IP Subjective and Pain Start: 01/28/18 16:54 Freq: Status: Active Protocol: Document 01/29/18 09:55 PJM (Rec: 01/29/18 16:07 PJM [id number]) OT- Subjective Occupational Therapy Visit Type Type Treatment Note Visit Start Time 09:01 Visit Stop Time 09:55 Total Visit Minutes 54 Occupational Therapy Visit Comments Patient Comments 'I feel much better today. I got 6 hrs of sleep and my is here. Patient/Caregiver Goals to go home later today OT Pain Assessment Pain When Pain Assessed After Treatment Pain Present Pain Present Pain Reported Location Lower Back Intensity 3 Scale Used Numeric (1 - 10) Description Aching Pain Behaviors Guarding Management Techniques Re-positioning Timing of Activity with Medications M4 OT- IP ADL's Start: 01/28/18 16:54 Freq: Status: Active Protocol: Document 01/29/18 09:55 PJM (Rec: 01/29/18 16:07 PJM [id number]) OT ADL-Grooming Comments OT Grooming Comments Provided education to to/ re: body mechanics during grooming and they verbalize understanding. [employer] provided for home use with waterpic. OT ADL-Dressing General Eval Upper Body Dressing Ability Independent Lower Body Dressing Ability Standby Assistance Areas Needing Assistance Pants/Shorts Socks Shoes Assistive Devices Dressing Assistive Devices Long Handled Shoe [employer]ing Machine Operator Sock Aid Comments OT Dressing Comments Provided education and pt practice re: lower body dressing with AED with observing and able to assist pt PRN. OT ADL-Toileting Devices Toileting Assistive Devices Commode Comments OT Toileting Comments Provided education to re: use of their BSC over toilet or in tub as tub seat. Provided BSC over toilet for pt use here. OT ADL-Bathing Comments OT Bathing Comments Provided education re: use of BSC in tub as tub seat and grab bar options and resources M7 OT- IP Mobility and Balance Start: 01/28/18 16:54 Freq: Status: Active Protocol: Document 01/29/18 09:55 PJM (Rec: 01/29/18 16:07 [facility] [id number]) OT-Transfer Assessment Sit to and From Stand Sit to and from Stand Contact Guard Assistance Technique Transfer Destination Car Comments Mobility Comments Provided education/demo re: car transfer and tub/shower transfer techniques. OT- Balance Assessment Sitting Balance and Reactions Static Sitting Balance Ability Good Dynamic Sitting Balance Ability Good Standing Balance and Reactions Static Standing Balance Ability Good Dynamic Standing Balance Ability Good Comments Other Balance Tests/Deviations/Treatment Pt using FWW in standing. : M9 OT- IP Assessment and Plan Start: 01/28/18 16:54 Freq: Status: Active Protocol: Document 01/29/18 09:55 PJM (Rec: 01/29/18 16:07 [facility] [id number]) OT Summary Assessment and Plan Potential Rehabilitation Potential Good Summary OT Impairments Pain Progress Towards Goals Progressing Toward Goals Assessment Summary Pt presents with much better pain control today and much improved participation and independence in self care skills. Pt/ have many questions about adapted ADL techniques within lumbar spine precautions.Will return later today for shower, as pt requesting to rest at present. Frequency of Treatment Frequency Of Treatment Twice a Day Treatment Plan OT Treatment Plan ADL Training Patient/Family Education Discharge Planning Discharge Recommendations OT Discharge Recommendations Home with 24 Assist Home Equipment Needs Provided solar installation helper, sock aid, long shoe horn, long bath sponge.
--- NOTE | 2018-01-29 16:17 | OT.IP.TRT ---
Current Diagnoses Anxiety disorder, unspecified (01/27/18) Other spondylosis with radiculopathy, lumbar region (01/27/18) Spinal stenosis, lumbar region without neurogenic claudication (01/27/18) Arthrodesis status (01/27/18) Other specified postprocedural states (01/27/18) Surgery Performed Operation Date: 01/27/18 12:45 Actual Procedures p L4-5, L5-S1 TLIF w/Posterior Viola Andre MD Occupational Therapy Treatment Note M3 OT- IP Subjective and Pain Start: 01/28/18 16:54 Freq: Status: Active Protocol: Document 01/29/18 11:51 PJM (Rec: 01/29/18 16:16 PJM [id number]) OT- Subjective Occupational Therapy Visit Type Type Treatment Note Visit Start Time 11:26 Visit Stop Time 11:51 Total Visit Minutes 25 Occupational Therapy Visit Comments Patient Comments I have to go to the bathroom and I'm ready to shower. OT Pain Assessment Pain When Pain Assessed After Treatment Pain Present Pain Present Pain Reported Location Lower Back Intensity 5 Scale Used Numeric (1 - 10) Description Acute Pain Behaviors Guarding Management Techniques Re-positioning Timing of Activity with Medications M4 OT- IP ADL's Start: 01/28/18 16:54 Freq: Status: Active Protocol: Document 01/29/18 11:51 PJM (Rec: 01/29/18 16:16 PJM [id number]) OT ADL-Toileting General Evaluation Toileting Ability Standby Assistance Comments OT Toileting Comments Pt stood to urinate in bathroom OT ADL-Bathing Bathing Type Bathing Type Shower General Evaluation Bathing Ability Minimal Assistance Devices Bathing Equipment Long Handled Sponge or Twister Doffer Held Shower Sprayer Shower Chair with Arms Grab Bars Comments OT Bathing Comments Provided education re: body mechanics and precautions and provided min assist and mod verbal cues for thoroughness. Pt relying on grab bars today and does not have these at home. Recommend pt sponge bathe initially at home until endurance/balance improve. Provided further education re: grab bar options M7 OT- IP Mobility and Balance Start: 01/28/18 16:54 Freq: Status: Active Protocol: Document 01/29/18 11:51 PJM (Rec: 01/29/18 16:16 PJM [id number]) OT- Bed Mobility Assessment Rolling Type of Rolling Log Rolling Level of Assistance Standby Assistance Sit to Supine Sit to Supine Assist Minimal Assistance OT-Transfer Assessment Sit to and From Stand Sit to and from Stand Contact Guard Assistance Transfers Transfer Ability Contact Guard Assistance Technique Transfer Destination Bed Shower Stall Transfer Technique Stand Step Pivot Devices Transfer Assistive Devices Front Wheeled Walker Comments Mobility Comments Pt needs min assist to get BLE 's onto bed when fatigued after shower. OT- Gait Assessment Gait Gait Assistance Required: Contact Guard Assist Assistive Devices Assistive Device Front Wheeled Walker OT- Balance Assessment Sitting Balance and Reactions Static Sitting Balance Ability Good Dynamic Sitting Balance Ability Good Standing Balance and Reactions Static Standing Balance Ability Fair Dynamic Standing Balance Ability Fair Comments Other Balance Tests/Deviations/Treatment heavy use of grab bars in : shower stall M9 OT- IP Assessment and Plan Start: 01/28/18 16:54 Freq: Status: Active Protocol: Document 01/29/18 11:51 PJM (Rec: 01/29/18 16:16 PJM [id number]) OT Summary Assessment and Plan Potential Rehabilitation Potential Good Summary Progress Towards Goals Goals Met Assessment Summary able to assist pt appropriately with seated/ standing shower. All OT goals achieved for this admission. Goals Self-Feeding Goal Independent Grooming Goal Standby Assistance Dressing Goal Minimal Assistance Toileting Goal Independent Bathing Goal Minimal Assistance Toilet Transfer Goal Standby Assistance Bedside Commode Patient/Caregiver Education Goal Demonstrate Post-Op Precautions Caregiver Independent Assisting Patient Discharge Recommendations OT Discharge Recommendations Home with 18/03 Assist Other Discharge Recommendations No further OT services needed.
== END 2018-01-29 13:10 | disposition home or self-care (01) | DRG 454 ==
PROVIDERS: Admitting Provider Orthopaedic Surgery Orthopaedic Surgery of the Spine; PCP Physician Assistant; Visit Provider Orthopaedic Surgery Orthopaedic Surgery of the Spine
PROC: 0SG00AJ Fusion of Lumbar Vertebral Joint with Interbody Fusion Device, Posterior Approach, Anterior Column, Open Approach (ICD-10-PCS; principal; 2018-01-27 12:45)
DX: M48.061 Spinal stenosis, lumbar region without neurogenic claudication (principal); F31.89 Other bipolar disorder; G40.909 Epilepsy, unspecified, not intractable, without status epilepticus; M32.9 Systemic lupus erythematosus, unspecified; M48.07 Spinal stenosis, lumbosacral region; G47.33 Obstructive sleep apnea (adult) (pediatric); F32.9 Major depressive disorder, single episode, unspecified; E03.9 Hypothyroidism, unspecified; M47.20 Other spondylosis with radiculopathy, site unspecified; M62.838 Other muscle spasm
CPT/HCPCS: 72100; 76001; 85014; 85018; 94760; 97162; 97166; 97530; 97535; C1776; C9290; J0131; J0330; J1100; J1170; J2060; J2250; J2270; J2405; J2704; J3010

== ENCOUNTER → 2018-02-21 10:14 | Outpatient (CLI) | payer MEDICARE, OTHER, SELFPAY ==
[2018-01-27 18:05] VITALS: BMI 23.6
== END ==
PROVIDERS: PCP Physician Assistant; Visit Provider Physician Assistant
DX: R52 Pain, unspecified (principal)
CPT/HCPCS: 87086

== ENCOUNTER 2018-05-15 11:59 | Observation (INO) | payer MEDICARE, OTHER, SELFPAY ==
[2018-01-27 18:05] VITALS: BMI 23.6
[2018-05-15] VITALS (14 sets, daily range): BP systolic 108–152; BP diastolic 65–94; PULSE 60–97; RESP 12–20; TEMP 36.5–36.9; O2SAT 95–99; BMI 25.2
--- NOTE | 2018-05-15 | DI.CT.S_ITS ---
PROCEDURE: CT HEAD/BRAIN WO CON INDICATIONS: CODE STROKE POSSIBLE TPA TECHNIQUE: Noncontrast 4.5 mm thick angled axial sections acquired from the foramen magnum to the vertex, with coronal and sagittal reformats. For radiation dose reduction, the following was used: automated exposure control, adjustment of mA and/or kV according to patient size. COMPARISON: [facility], CT, HEAD WITHOUT CONTRAST, 06/20/2016, 19:29. FINDINGS: Image quality: Excellent. CSF spaces: Basal cisterns are patent. No extra-axial fluid collections. The ventricles are symmetric in size and shape. Brain: No intracranial bleeds or masses. There is cerebral volume loss for age, with resultant ventricular and sulcal prominence. There are periventricular and deep white matter chronic small vessel ischemic changes. There is intracranial internal carotid artery atherosclerosis. Skull and face: Calvarium and visualized facial bones appear intact, without suspicious lesions. Sinuses: Visualized sinuses and mastoids are clear. IMPRESSION: No CT evidence of acute intracranial pathology. No significant changes from previous study. Findings were reported to the ER to Dr. Martinez at 12:23 PM on 05/15/18. Dictated by: Alfredito Gandhi M.D. on 05/15/2018 at 12:22 Approved by: Alfredito Gandhi M.D. on 05/15/2018 at 12:23
--- NOTE | 2018-05-15 12:54 | ED.NEUROSD ---
HPI - Neuro Symptoms/Deficit General Chief Complaint: Neuro Symptoms/Deficit Stated Complaint: CAN'T FOCUS,TINGLY AND NUMB Time Seen by Provider: 05/15/18 12:31 Source: patient and family () Mode of arrival: ambulatory Limitations: no limitations History of Present Illness HPI Narrative: This is a 68-year-old male comes to the emergency department with complaint of bloody vision. Healing surgical off balance, and feeling tingly in both of his arms and all over his body. Patient states that this started this morning he thinks around 8:00 a.m.. He was able to go take his dog for a walk he states that his vision feels fuzzy when he is evaluated it seems to be more on 1 side. Um he has had a little bit of a mild headache, he has felt slightly nauseated but had no vomiting. He denies any chest pain or shortness of breath. He has not had any new urinary or GI issues. He states he able to walk and does not really feel weak on 1 side or the other but feels weird. He does take Lamictal for seizure disorder. His last level was over a month ago and at that time was in the normal range. He states he is typically in her normal range for his Lamictal. He has not really had any issues with speech specifically. On Anticoagulants: No Related Data Home Medications Medication Instructions Recorded Confirmed ibuprofen 800 mg PO BID 01/07/18 05/15/18 lamotrigine [Lamictal] 300 mg PO BID 01/07/18 05/15/18 fluoxetine 1 cap PO BEDTIME 05/15/18 05/15/18 lamotrigine 25 mg PO BID 05/15/18 05/15/18 levothyroxine 44 mcg PO DAILY 05/15/18 05/15/18 methocarbamol 500 mg PO QID PRN 05/15/18 05/15/18 mirtazapine 0.5 tab PO BEDTIME 05/15/18 05/15/18 Previous Rx's Medication Instructions Recorded acetaminophen 650 mg PO Q6HR PRN #60 tab 01/29/18 docusate sodium 100 mg PO BID PRN #0 cap 01/29/18 hydroxyzine pamoate 25 mg PO Q6HR #60 cap 01/29/18 walker #1 each 01/29/18 Allergies Allergy/AdvReac Type Severity Reaction Status Date / Time latex Allergy Severe Rash Verified 02/21/18 10:08 Penicillins [PENICILLINS] Allergy Severe ANAPHYLAXIS Verified 02/21/18 10:08 vortioxetine AdvReac Severe Nausea Verified 02/21/18 10:08 [From Trintellix] Review of Systems Review of Systems All systems reviewed & are unremarkable except as noted in HPI and below PFSH Medical History Bone spur (Acute) Depression (Acute) History of ankle fracture (Acute) Hyperlipidemia (Acute) Hypothyroidism (Acute) Kidney stones (Acute) Lupus (Acute) Seizure disorder (Acute) Sleep apnea (Acute) Suicidal ideations (Acute) UTI (urinary tract infection) (Acute) Urinary dribbling (Acute) Urinary stream slowing (Acute) Surgical History H/O laminectomy (Acute) History of arthroscopy of both knees (Acute) Hx of appendectomy (Acute) Hx of tonsillectomy (Acute) S/P left unicompartmental knee replacement (Acute) S/P right unicompartmental knee replacement (Acute) History of cataract removal with insertion of prosthetic lens Family History Father Heart disease Hypertension High cholesterol Social History household members: spouse Smoking Status: Former smoker alcohol intake: current Exam Initial Vital Signs Initial Vital Signs: Vital Signs Pulse Rate 97 H 05/15/18 12:20 Respiratory Rate 18 05/15/18 12:20 Blood Pressure 152/94 H 05/15/18 12:20 Pulse Oximetry 97 05/15/18 12:20 Const General: cooperative and well developed Nutritional Appearance: well nourished Orientation: alert, awake, oriented x3 and not confused Eyes General: appearance normal, both eyes and all related structures Eyelids: eyelids normal Conjunctivae: conjunctivae normal Sclera: sclerae normal Pupils: PERRL EOM: EOM intact bilaterally Resp Effort & Inspection: normal respiratory effort, able to speak in complete sentences, no respiratory distress and no use of accessory muscles Auscultation: clear to auscultation bilaterally, no rales, no rhonchi and no wheezes Cardio Rate: regular rate Rhythm: regular rhythm Heart Sounds: no click, no gallops, no murmurs and no rubs Pulses: normal peripheral pulses GI Inspection: non-distended Palpation: soft, no hepatosplenomegaly, No guarding, No pulsatile mass and No tender Auscultation: normal bowel sounds Skin General: no rashes or lesions noted, No jaundice and No petechiae Neuro General: alert, oriented x3, gait normal and no focal motor deficits Cognition: normal cognition Speech: speech normal (patient occasionally has stutter) Gait: normal gait Motor: muscle tone normal throughout and strength 5/5 throughout Sensory Exam: no sensory deficits noted DTR's: Rt Biceps: 2+, Lt Biceps: 2+, Rt Patellar: 2+ and Lt Patellar: 2+ Coordination: [id number] test normal and dggo-[id number]-[id number] test normal Pupils: Normal pupillary reactivity/response: bilateral Scores NIH Stroke Scale Level of Conciousness: Alert, keenly responsive Ask month/age: Answers both questions correctly. Open/close eyes, close hand: Performs both tasks correctly Best gaze horizontal: Normal Visual guevara: Partial hemianopia (fuzzy vision, not a clear hemianopia.) Facial palsy: Normal symetrical movement Left arm drift: No drift for full 10 sec Right arm drift: No drift for full 10 sec Left leg drift: No drift for full 10 sec Right leg drift: No drift for full 10 sec Limb ataxia: Absent Sensory on face/arms/legs: Normal, no sensory loss Best language: No aphasia, normal Dysarthria: Normal Extinction or inattention: No abnormality Total NIH Stroke scale score: 1 Course Orders Ordered: ED Orders 05/15/18 12:25 Basic Metabolic Panel Stat Complete Blood Count AUTO DIFF Stat Lamotrigine Lamictal Stat Partial Thromboplastin Time Stat Prothrombin Time INR Stat 05/15/18 13:26 CT angio head and neck Stat 05/15/18 13:46 XR chest 1V Stat 05/15/18 13:52 Urine Drug Screen, Rapid Stat 05/15/18 18:05 Education, smoking cessation ONGOING 05/15/18 18:07 Consult to Physical Therapy Evaluate & Treat 05/16/18 MR head/brain wo con Routine 05/16/18 06:15 Basic Metabolic Panel DAILY Acetaminophen (Tylenol) 650 mg PO Q6HR PRN PRN Reason: As Needed for Fever/Mild Pain Enoxaparin Sodium (Lovenox) 40 mg SUBCUT DAILY LA Sodium Chloride (Normal Saline 0.9%) 1,000 mls @ 150 mls/hr IV CONT LA Last Infusion: 05/15/18 18:12 Dose: 75 mls/hr Infusion: 05/15/18 17:13 Dose: 0 mls/hr Admin: 05/15/18 13:13 Dose: 150 mls/hr Lamotrigine (Lamictal) 25 mg PO 0700,1900 [facility] Last Admin: 05/15/18 19:36 Dose: 25 mg Lamotrigine (Lamictal) 300 mg PO 0700,1900 [facility] Last Admin: 05/15/18 19:36 Dose: 300 mg Levothyroxine Sodium (Synthroid) 50 mcg PO 0600 [facility] Methocarbamol (Robaxin) 500 mg PO QID PRN PRN Reason: Muscle Spasm Last Admin: 05/15/18 19:36 Dose: 500 mg Mirtazapine (Remeron) 15 mg PO BEDTIME [facility] Last Admin: 05/15/18 19:36 Dose: 15 mg Morphine Sulfate (Morphine) 2 mg IV Q4HR PRN PRN Reason: Pain, Moderate (4-6) Ondansetron HCl (Zofran) 4 mg IV Q8HR PRN PRN Reason: Nausea And Vomiting Oxycodone HCl (Percolone) 5 mg PO Q6HR PRN PRN Reason: Pain, Moderate (4-6) Vital Signs - 8 hr 05/15/18 13:00 05/15/18 13:45 05/15/18 14:00 Temperature Pulse Rate 62 62 63 Respiratory Rate 16 16 13 Blood Pressure Blood Pressure [Right Arm] 135/88 146/85 H 135/81 Pulse Oximetry 05/15/18 14:30 05/15/18 15:30 05/15/18 16:00 Temperature Pulse Rate 60 64 66 Respiratory Rate 12 12 16 Blood Pressure Blood Pressure [Right Arm] 136/83 121/74 140/78 Pulse Oximetry 96 98 97 05/15/18 17:06 05/15/18 17:23 05/15/18 18:52 Temperature 97.9 F Pulse Rate 61 60 Respiratory Rate 20 18 Blood Pressure 139/87 138/93 H Blood Pressure [Right Arm] Pulse Oximetry 99 96 96 05/15/18 19:10 Temperature 98.1 F Pulse Rate 60 Respiratory Rate 16 Blood Pressure 108/65 Blood Pressure [Right Arm] Pulse Oximetry 96 MDM - Neuro Symptoms/Deficit Lab Data Attestation: I reviewed the patient's lab results. Result diagrams: 05/15/18 12:25 05/15/18 12:25 Lab Results 05/15/18 05/15/18 05/15/18 Range/Units 12:25 12:25 12:25 WBC 5.1 (4.5-11.0) X10^3/uL RBC 4.77 (4.5-5.9) X10^6/uL Hgb 14.4 (13.5-17.5) g/dL Hct 42.8 (41-53) % MCV 89.6 (80-100) fL MCH 30.2 (26-34) PG MCHC 33.7 (30-36) % RDW 13.9 (11.6-14.8) % Plt Count 187 (150-400) X10^3/uL Neut % (Auto) 51.0 (50-75) % Lymph % (Auto) 36.4 (25-40) % [place] % (Auto) 10.0 (3-14) % Eos % (Auto) 1.8 L (2-4) % Baso % (Auto) 0.8 (0-2) % Neut # (Auto) 2600 L (6100-8361) /uL PT 9.9 L (10.1-12.7) SECONDS INR 0.9 (0.9-1.3) APTT 29 (26.4-36.2) SECONDS Sodium 144 (137-145) mmol/L Potassium 4.1 (3.4-5.1) mmol/L Chloride 106 (98-107) mmol/L Carbon Dioxide 26 (22-32) mmol/L BUN 17 (9-20) mg/dL Creatinine 0.90 (0.66-1.25) mg/dL Estimated GFR > 60.0 (>60) mL/min BUN/Creatinine Ratio 18.9 (6-22) Glucose 97 (80-110) mg/dL Calcium 9.8 (8.4-10.2) mg/dL Urine Opiates Screen (Negative) Ur Oxycodone Screen (Negative) Urine Methadone Screen (Negative) Ur Barbiturates Screen (Negative) U Tricyclic Antidepress (Negative) Ur Phencyclidine Scrn (Negative) Ur Amphetamines Screen (Negative) U Methamphetamines Scrn (Negative) Ur MDMA Scrn (Ecstasy) (Negative) U Benzodiazepines Scrn (Negative) Urine Cocaine Screen (Negative) U Marijuana (THC) Screen (Negative) 05/15/18 Range/Units 13:52 WBC (4.5-11.0) X10^3/uL RBC (4.5-5.9) X10^6/uL Hgb (13.5-17.5) g/dL Hct (41-53) % MCV (80-100) fL MCH (26-34) PG MCHC (30-36) % RDW (11.6-14.8) % Plt Count (150-400) X10^3/uL Neut % (Auto) (50-75) % Lymph % (Auto) (25-40) % Blanco % (Auto) (3-14) % Eos % (Auto) (2-4) % Baso % (Auto) (0-2) % Neut # (Auto) (4907-7862) /uL PT (10.1-12.7) SECONDS INR (0.9-1.3) APTT (26.4-36.2) SECONDS Sodium (137-145) mmol/L Potassium (3.4-5.1) mmol/L Chloride (98-107) mmol/L Carbon Dioxide (22-32) mmol/L BUN (9-20) mg/dL Creatinine (0.66-1.25) mg/dL Estimated GFR (>60) mL/min BUN/Creatinine Ratio (6-22) Glucose (80-110) mg/dL Calcium (8.4-10.2) mg/dL Urine Opiates Screen Negative (Negative) Ur Oxycodone Screen Negative (Negative) Urine Methadone Screen Negative (Negative) Ur Barbiturates Screen Negative (Negative) U Tricyclic Antidepress Negative (Negative) Ur Phencyclidine Scrn Positive H (Negative) Ur Amphetamines Screen Negative (Negative) U Methamphetamines Scrn Negative (Negative) Ur MDMA Scrn (Ecstasy) Negative (Negative) U Benzodiazepines Scrn Positive H (Negative) Urine Cocaine Screen Negative (Negative) U Marijuana (THC) Screen Positive H (Negative) Point of Care Testing Glucose POC 95 Urine Dip Bedside Urine Glucose Negative Bedside Urine Bilirubin - Negative Bedside Urine Ketone - Negative Urine Specific [place] 1.015 Bedside Urine Occult Blood - Negative Bedside Urine pH 7.5 Bedside Urine Protein - Negative Bedside Urine Urobilinogen - Negative Bedside Urine Nitrite - Negative Bedside Urine Leukocytes - Negative Esterase Imaging Data CT scan - head: Radiologist's impression: [address] [address] [address] Scan Report Signed Patient: Dago Ferrara GMR#: [id number] : 8Acct:[id number] Age/Sex: 68 / MDate of Service: 05/15/18 Loc: ED Accession Number: [id number] Procedure: CT head/brain wo con Ordering Provider: Nusrat Martinez D.O. PROCEDURE: CT HEAD/BRAIN WO CON INDICATIONS: CODE STROKE POSSIBLE TPA TECHNIQUE: Noncontrast 4.5 mm thick angled axial sections acquired from the foramen magnum to the vertex, with coronal and sagittal reformats. For radiation dose reduction, the following was used: automated exposure control, adjustment of mA and/or kV according to patient size. COMPARISON: [facility], CT, HEAD WITHOUT CONTRAST, 06/20/2016, 19:29. FINDINGS: Image quality: Excellent. CSF spaces: Basal cisterns are patent. No extra-axial fluid collections. The ventricles are symmetric in size and shape. Brain: No intracranial bleeds or masses. There is cerebral volume loss for age, with resultant ventricular and sulcal prominence. There are periventricular and deep white matter chronic small vessel ischemic changes. There is intracranial internal carotid artery atherosclerosis. Skull and face: Calvarium and visualized facial bones appear intact, without suspicious lesions. Sinuses: Visualized sinuses and mastoids are clear. IMPRESSION: No CT evidence of acute intracranial pathology. No significant changes from previous study. Findings were reported to the ER to Dr. Martinez at 12:23 PM on 05/15/18. Dictated by: Alfredito Gandhi M.D. on 05/15/2018 at 12:22 Approved by: Alfredito Gandhi M.D. on 05/15/2018 at 12:23 CTA head and neck: Radiologist's impression: [address] [address] [address] Scan Report Signed Patient: Dago Ferrara GMR#: [id number] : 8Acct:[id number] Age/Sex: 68 / MDate of Service: 05/15/18 Loc: ED Accession Number: [id number] Procedure: CT head/brain wo con Ordering Provider: Nusrat Martinez D.O. PROCEDURE: CT HEAD/BRAIN WO CON INDICATIONS: CODE STROKE POSSIBLE TPA TECHNIQUE: Noncontrast 4.5 mm thick angled axial sections acquired from the foramen magnum to the vertex, with coronal and sagittal reformats. For radiation dose reduction, the following was used: automated exposure control, adjustment of mA and/or kV according to patient size. COMPARISON: [facility], CT, HEAD WITHOUT CONTRAST, 06/20/2016, 19:29. FINDINGS: Image quality: Excellent. CSF spaces: Basal cisterns are patent. No extra-axial fluid collections. The ventricles are symmetric in size and shape. Brain: No intracranial bleeds or masses. There is cerebral volume loss for age, with resultant ventricular and sulcal prominence. There are periventricular and deep white matter chronic small vessel ischemic changes. There is intracranial internal carotid artery atherosclerosis. Skull and face: Calvarium and visualized facial bones appear intact, without suspicious lesions. Sinuses: Visualized sinuses and mastoids are clear. IMPRESSION: No CT evidence of acute intracranial pathology. No significant changes from previous study. Findings were reported to the ER to Dr. Martinez at 12:23 PM on 05/15/18. Dictated by: Alfredito Gandhi M.D. on 05/15/2018 at 12:22 Approved by: Alfredito Gandhi M.D. on 05/15/2018 at 12:23 Chest x-ray: My impression: no acute process, mediastinum is normal, no cardiomegaly, no signs of infiltrates or pneumothorax. ECG Data Attestation: I personally reviewed and interpreted this ECG as follows: Interpretation: A rate of 71, P are 188, QRS of 98 and QTC of 418. Patient does not have any ST changes. MDM Narrative Medical decision making narrative: On evaluation patient is able to ambulate without major issues in the room. His NIH scale is 1, he does not clearly have a hemianopsia but more fuzzy vision from his description and possibly a visual field defect but it is difficult to know. he really notices it more with the imaging cards from the NIH scale and not on actual visual testing. Patient does have a Lamictal level pending although his is typically been normal this could potentially be a cause of his symptoms. Possible is also TIA versus CVA versus other causes or complications from his Lamictal. Does not sound like he has had any postictal period or seizure-like activity. Discussed with Dr. durant about observing him as there is questionable stroke-like symptoms. She asked that we contact his neurologist to have their input. I spoke with Dr. Mendez his neurologist we discussed his findings and that they were not clear cut stroke or TIA symptoms. He did recommend that patient be observed overnight for potential MRI. I re-contacted Dr. Wei and she accepts patient. Discharge Plan Departure Patient Disposition: Admitted as Observation Clinical Impression: Acute CVA (cerebrovascular accident) Discharge Date/Time: 05/15/18 17:04 Interventions: ED Discharge Assessment Last Done: 05/15/18 17:06 Admit Date/Time: 05/15/18 17:02 Admit Provider: Yenny Wei
[2018-05-15 12:59] LABS: Add Manual Diff / Slide Review NO; Basophils Percent Auto 0.8 % (0-2); Eosinophils Percent Auto 1.8 % (2-4); Hematocrit 42.8 % (41-53); Hemoglobin 14.4 g/dL (13.5-17.5); Lymphocytes Percent Auto 36.4 % (25-40); Mean Corpuscular HGB Conc 33.7 % (30-36); Mean Corpuscular Hemoglobin 30.2 PG (26-34); Mean Corpuscular Volume 89.6 fL (80-100); Neutrophils Absolute Auto 2600 /uL (3000-5900); Platelet Count 187 X10^3/uL (150-400); Red Blood Cell Count 4.77 X10^6/uL (4.5-5.9); Red Cell Distribution Width 13.9 % (11.6-14.8); White Blood Cell Count 5.1 X10^3/uL (4.5-11.0)
[2018-05-15 13:00] LABS: INR 0.9 (0.9-1.3); Prothrombin Time 9.9 SECONDS (10.1-12.7)
[2018-05-15 13:03] LABS: PTT Partial Thromboplastin Tim 29 SECONDS (26.4-36.2)
[2018-05-15 13:07] LABS: BUN Creatinine Ratio 18.9 (6-22); Blood Urea Nitrogen 17 mg/dL (9-20); Calcium 9.8 mg/dL (8.4-10.2); Carbon Dioxide 26 mmol/L (22-32); Chloride 106 mmol/L (98-107); Estimated Glomerular Filt Rate > 60.0 mL/min (>60); Glucose 97 mg/dL (80-110); HEMOLYSIS 18 (0-50); Potassium 4.1 mmol/L (3.4-5.1); Sodium 144 mmol/L (137-145)
[2018-05-15] MEDS: SODIUM CHLORIDE 0.9% 1,000 ML 150 ML IV (13:13)
--- NOTE | 2018-05-15 13:26 | DI.CT.S_ITS ---
PROCEDURE: CT ANGIO HEAD AND NECK INDICATIONS: feels off balance, fuzzy vision, tingling both sides arms TECHNIQUE: Noncontrast images were performed earlier in the day and were not repeated. After the administration of intravenous contrast, 1 mm thick sections acquired from the aortic arch through the [place]. Post-contrast 4.5 mm thick sections then re-acquired from the foramen magnum to the vertex. 3-dimensional ofkbvpl-vrpsdpxns-yeudxqtxfe (MIP) and/or volume rendering reformats were acquired of the central intracranial vasculature and neck separately. COMPARISON: [facility], CT, HEAD WITHOUT CONTRAST, 01/27/2015, 22:21. [facility], CT, HEAD WITHOUT CONTRAST, 06/20/2016, 19:29. [facility], CT, CT HEAD/BRAIN WO CON, 05/15/2018, 12:05. FINDINGS: Image quality: Excellent. BRAIN: CSF spaces: Ventricles are normal in size and shape. Basal cisterns are patent. No extra-axial fluid collections. Brain: No midline shift. No intracranial bleeds or masses. Chery-white matter interface appears intact. Skull and face: Calvarium and facial bones appear intact, without suspicious lesions. Orbits appear normal. Sinuses: Sinuses and mastoids are clear. HEAD CT ANGIOGRAPHY: Anterior circulation: Intracranial internal carotid arteries are normal in size and flow. The flow within the paired anterior cerebral arteries is normal and symmetric. The flow within the middle cerebral arteries is normal and symmetric. The anterior communicating artery is seen. No aneurysms are seen. Posterior circulation: Visualized portions of the vertebral arteries demonstrate normal caliber, and join to form a normal appearing basilar artery. Flow within the posterior cerebral arteries is normal and symmetric. No aneurysms are seen. NECK CT ANGIOGRAPHY: Carotid system: The great vessels demonstrate a conventional anatomy as they arise from the aortic arch. The origins of the common carotid arteries appear patent. The common carotid arteries demonstrate normal caliber and courses. The bifurcation regions are both widely patent. The internal carotid arteries demonstrate normal calibers and courses. Posterior circulation: The origins of the vertebral arteries both appear widely patent. The more superior extracranial portions of both vertebral arteries also demonstrate normal courses and calibers. They join to form a normal appearing basilar artery. Soft tissues: Visualized neck soft tissues demonstrate no suspicious abnormalities. Bones: No suspicious bony lesions. Visualized cervical spine appears normally aligned. There is mild degenerative changes are seen, which are more prominent on the left side than on the right. IMPRESSION: No significant intracranial arterial abnormality can be seen. No hemodynamically significant stenosis can be seen of the neck arteries. No enhancing lesions are seen. Any quantitative measurements of stenosis were performed using NASCET criteria. Dictated by: Sammy Matta M.D. on 05/15/2018 at 13:51 Approved by: Sammy Matta M.D. on 05/15/2018 at 13:53
--- NOTE | 2018-05-15 13:46 | DI.RAD.S_ITS ---
PROCEDURE: XR CHEST 1V INDICATIONS: feels off balance, fuzzy vision TECHNIQUE: One view of the chest was acquired. COMPARISON: [facility], CT, CT ANGIO HEAD AND NECK, 05/15/2018, 13:18. [facility], CT, CT HEAD/BRAIN WO CON, 05/15/2018, 12:05. FINDINGS: Surgical changes and devices: None. Lungs and pleura: An incomplete inspiratory result is noted, causing a crowded appearance to the lung markings. No focal infiltrates are seen. No pneumothorax or significant pleural effusions are seen. Mediastinum: Mediastinal contours appear normal. Heart size is normal. Bones and chest wall: No suspicious bony lesions. Age-appropriate bony degenerative changes are seen. Overlying soft tissues appear unremarkable. IMPRESSION: Limited portable chest examination, without a significant cardiopulmonary abnormality identified. Dictated by: Sammy Matta M.D. on 05/15/2018 at 14:21 Approved by: Sammy Matta M.D. on 05/15/2018 at 14:21
[2018-05-15 14:04] LABS: Urine Amphetamines Negative (Negative); Urine Barbiturates Negative (Negative); Urine Cocaine Negative (Negative); Urine MDMA Negative (Negative); Urine Methamphetamines Negative (Negative); Urine Morphine/Opi cutoff 2000 Negative (Negative); Urine Phencyclidine Positive (Negative); Urine Tetrahydrocannabinol Positive (Negative)
[2018-05-15 14:05] LABS: Urine Benzodiazepines Positive (Negative); Urine Methadone Negative (Negative); Urine Oxycodone Negative (Negative); Urine Tricyclic Antidepressant Negative (Negative)
--- NOTE | 2018-05-15 17:55 | PC.NURSE ---
1723: Pt to acute care from ER, transferred via stretcher/pivot transferred to bed. Reports dizzines with transfer. Pain 4/10 in lower back/spasms. Lami surgery on January 27. Reports blurry vision, intermittent nausea, headache on the left side and tingling in hands/arms/face/hair. Oriented to room/call light. Shift RN in room assessing per stroke protocol.
--- NOTE | 2018-05-15 18:22 | P.HP_ITS ---
History of Present Illness Date Patient Seen: 05/15/18 Chief complaint: CAN'T FOCUS,TINGLY AND NUMB Narrative: Patient awoke at 8:15 in his usual state. After breakfast he felt he could not focus with his in front of him. He developed tingling on the face and felt unsteady with walking. They symptoms did not subside and continue at present. He had no slurred speech, facial weakness, or unilateral focal weakness. He had not tonic/ clonic activity. no loss of bowel or bladder function. Patient developed a shart pain on the left side of the head that lasted a few minutes. He had no numbness on exam. Patient was evaluated in the ED. CTA/CT was negative. The patient is followed by his neurologist in [facility] who recomended observation and MRI of the brain. Patient is brought in for observation and further evaluation. Patient History Medical History Bone spur (Acute) Depression (Acute) History of ankle fracture (Acute) Hyperlipidemia (Acute) Hypothyroidism (Acute) Kidney stones (Acute) Lupus (Acute) Seizure disorder (Acute) Sleep apnea (Acute) Suicidal ideations (Acute) UTI (urinary tract infection) (Acute) Urinary dribbling (Acute) Urinary stream slowing (Acute) Surgical History H/O laminectomy (Acute) History of arthroscopy of both knees (Acute) Hx of appendectomy (Acute) Hx of tonsillectomy (Acute) S/P left unicompartmental knee replacement (Acute) S/P right unicompartmental knee replacement (Acute) History of cataract removal with insertion of prosthetic lens Family & Social History Social History: household members spouse Prior Living Arrangements House Safety & Behavioral: Feels Safe in Current Yes Environment Been Physically Hurt or No Threatened By a Person Suicidal Ideation Description None Tobacco & Substance use: Smoking Status Former smoker alcohol intake current alcohol intake frequency 0-2 drinks per day Substance Use Type does not use Meds Home Medications Medication Instructions Recorded Confirmed Type ibuprofen 800 mg PO BID 01/07/18 05/15/18 History lamotrigine [Lamictal] 300 mg PO BID 01/07/18 05/15/18 History acetaminophen 650 mg PO Q6HR PRN #60 tab 01/29/18 05/15/18 Rx docusate sodium 100 mg PO BID PRN #0 cap 01/29/18 05/15/18 Rx hydroxyzine pamoate 25 mg PO Q6HR #60 cap 01/29/18 05/15/18 Rx walker #1 each 01/29/18 05/15/18 Rx fluoxetine 1 cap PO BEDTIME 05/15/18 05/15/18 History lamotrigine 25 mg PO BID 05/15/18 05/15/18 History levothyroxine 44 mcg PO DAILY 05/15/18 05/15/18 History methocarbamol 500 mg PO QID PRN 05/15/18 05/15/18 History mirtazapine 0.5 tab PO BEDTIME 05/15/18 05/15/18 History Allergies Allergy/AdvReac Type Severity Reaction Status Date / Time latex Allergy Severe Rash Verified 02/21/18 10:08 Penicillins [PENICILLINS] Allergy Severe ANAPHYLAXIS Verified 02/21/18 10:08 vortioxetine AdvReac Severe Nausea Verified 02/21/18 10:08 [From [employer]] Review of Systems Review of Systems All systems reviewed & are unremarkable except as noted in HPI and below Exam Vital Signs (past 8 hours): - 05/15/18 12:20 05/15/18 12:24 05/15/18 12:30 Temperature 98.5 F Pulse Rate 97 H 75 65 Respiratory Rate 18 15 18 Blood Pressure Blood Pressure [Right Arm] 152/94 H 152/94 H 149/88 H Pulse Oximetry 97 97 95 05/15/18 13:00 05/15/18 13:45 05/15/18 14:00 Temperature Pulse Rate 62 62 63 Respiratory Rate 16 16 13 Blood Pressure Blood Pressure [Right Arm] 135/88 146/85 H 135/81 Pulse Oximetry 05/15/18 14:30 05/15/18 15:30 05/15/18 16:00 Temperature Pulse Rate 60 64 66 Respiratory Rate 12 12 16 Blood Pressure Blood Pressure [Right Arm] 136/83 121/74 140/78 Pulse Oximetry 96 98 97 05/15/18 17:06 05/15/18 17:23 Temperature 97.9 F Pulse Rate 61 60 Respiratory Rate 20 18 Blood Pressure 139/87 138/93 H Blood Pressure [Right Arm] Pulse Oximetry 99 96 Oxygen Delivery Method Room Air Oxygen Flow Rate 0 Narrative Exam Narrative: Patient is awake/alert, and in no acute distress HEENT: NC/ AT, EOMI, no facial droop, tongue is midline Neck : supple no adenopathy Lungs: clear to auscultation CV: RRR nl Sl S2 Abd: soft/ non tender/ non distended/ no HSM Ext: no edema Neuro: cranial nerves intact, strength symmetric and equal, sensation grossly intact, no pronator drift, heel to pisano in tact toes down going, gait not assessemd Psych: no active delusions or psychosis Objective Labs Result Diagrams: 05/15/18 12:25 05/15/18 12:25 Labs: Laboratory Results - last 24 hr 05/15/18 05/15/18 05/15/18 12:25 12:25 12:25 WBC 5.1 RBC 4.77 Hgb 14.4 Hct 42.8 MCV 89.6 MCH 30.2 MCHC 33.7 RDW 13.9 Plt Count 187 Neut % (Auto) 51.0 Lymph % (Auto) 36.4 Glades % (Auto) 10.0 Eos % (Auto) 1.8 L Baso % (Auto) 0.8 Neut # (Auto) 2600 L PT 9.9 L INR 0.9 APTT 29 Sodium 144 Potassium 4.1 Chloride 106 Carbon Dioxide 26 BUN 17 Creatinine 0.90 Estimated GFR > 60.0 BUN/Creatinine Ratio 18.9 Glucose 97 Calcium 9.8 Urine Opiates Screen Ur Oxycodone Screen Urine Methadone Screen Ur Barbiturates Screen U Tricyclic Antidepress Ur Phencyclidine Scrn Ur Amphetamines Screen U Methamphetamines Scrn Ur MDMA Scrn (Ecstasy) U Benzodiazepines Scrn Urine Cocaine Screen U Marijuana (THC) Screen 05/15/18 13:52 WBC RBC Hgb Hct MCV MCH MCHC RDW Plt Count Neut % (Auto) Lymph % (Auto) Glades % (Auto) Eos % (Auto) Baso % (Auto) Neut # (Auto) PT INR APTT Sodium Potassium Chloride Carbon Dioxide BUN Creatinine Estimated GFR BUN/Creatinine Ratio Glucose Calcium Urine Opiates Screen Negative Ur Oxycodone Screen Negative Urine Methadone Screen Negative Ur Barbiturates Screen Negative U Tricyclic Antidepress Negative Ur Phencyclidine Scrn Positive H Ur Amphetamines Screen Negative U Methamphetamines Scrn Negative Ur MDMA Scrn (Ecstasy) Negative U Benzodiazepines Scrn Positive H Urine Cocaine Screen Negative U Marijuana (THC) Screen Positive H Assessment & Plan (1) Anxiety: Problem details: Continue prozac Current visit: No Status: Acute (2) Blurred vision: Problem details: Will obtain MRI of brain to r/o CVA. IF negative, consider outpatient ophthalmology evaluation Current visit: Yes Status: Acute (3) TIA due to embolism: Current visit: Yes Status: Acute (4) TIA (transient ischemic attack): Problem details: MRI in am to confirm Current visit: Yes Status: Acute (5) Seizure disorder: Problem details: continue lamictal Current visit: Yes Status: Acute (6) Hypothyroidism: Problem details: continue levothyroxine, check TSH Current visit: Yes Status: Acute Plan: Assessment/Plan Narrative: Full code Quality VTE Deep Vein Thrombosis/Pulmonary Embolism Present on Admission: No
--- NOTE | 2018-05-15 18:43 | PC.NURSE ---
Lily shift note: Patient admitted to AC from ED in stable condition. Awake, alert, and oriented. Reports blurry vision, R > L, tingling to hands, extending from finger tips to lower arms bilaterally and tingling to BLE. No numbness. No weakness. No slurred speech. Facial symmetry noted, and is able to articulate well. Swallow evaluation performed and no cough, gurgling or difficulty swallowing. at bedside providing supportive care. Occasional muscle spasms noted, which is baseline. VSS. Call light within reach.
[2018-05-15] MEDS: METHOCARBAMOL 500 MG TABLET PO (19:36)
[2018-05-15] MEDS: MIRTAZAPINE 15 MG TABLET PO (19:36)
[2018-05-15] MEDS: lamoTRIgine 25 MG CHEW TABLET PO (19:36)
[2018-05-15] MEDS: lamoTRIgine 100 MG TABLET 300 MG PO (19:36)
[2018-05-15] MEDS: SODIUM CHLORIDE 0.9% 1,000 ML 75 ML IV (22:03)
[2018-05-16] VITALS: O2SAT 97
--- NOTE | 2018-05-16 | DI.MRI.S_ITS ---
PROCEDURE: MR HEAD/BRAIN WO CON INDICATIONS: blurred vision r/o CVA TECHNIQUE: Non-contrast axial T1 spin echo, axial T2 fast spin echo, sagittal and axial FLAIR, coronal T2 fast spin echo, axial gradient echo, axial diffusion and ADC through the brain. COMPARISON: [facility], CT, CT ANGIO HEAD AND NECK, 05/15/2018, 13:18. [facility], CT, CT HEAD/BRAIN WO CON, 05/15/2018, 12:05. [facility], MR, BRAIN WITHOUT CONTRAST, 05/23/2007, 7:05. FINDINGS: Image quality: Excellent. CSF spaces: Ventricles appear symmetric in size and shape. Basal cisterns are patent. No extra-axial fluid collections. Brain: No intracranial bleeds or mass effects. There is mild cerebral volume loss for age. Brainstem appears normal. Diffusion-weighted images show no acute ischemic insults. No chronic ischemic insults. Normal intravascular flow voids are present. Skull and face: Calvarial bone marrow is normal in signal. Orbits are normal. Sinuses: Mastoids are clear. Mild ethmoid and maxillary sinus mucosal thickening bilaterally. IMPRESSION: 1. No acute intracranial abnormalities. 2. Mild cerebral volume loss. 3. Mild ethmoid and maxillary sinus mucosal thickening bilaterally. Dictated by: Bev Vigil M.D. on 05/16/2018 at 10:04 Approved by: Bev Vigil M.D. on 05/16/2018 at 10:11
[2018-05-16] MEDS: SODIUM CHLORIDE 0.9% 1,000 ML 75 ML IV (00:27)
[2018-05-16 03:50] VITALS: BP 122/77; PULSE 63; RESP 22; TEMP 36.4; O2SAT 96
[2018-05-16] MEDS: LEVOTHYROXINE 50 MCG TABLET PO (05:37)
[2018-05-16] MEDS: lamoTRIgine 100 MG TABLET 300 MG PO (06:41)
[2018-05-16] MEDS: lamoTRIgine 25 MG CHEW TABLET PO (06:44)
[2018-05-16] MEDS: METHOCARBAMOL 500 MG TABLET PO ×2 (06:45→10:46)
[2018-05-16 07:00] VITALS: O2SAT 98
[2018-05-16 07:22] LABS: BUN Creatinine Ratio 15.6 (6-22); Blood Urea Nitrogen 14 mg/dL (9-20); Calcium 8.9 mg/dL (8.4-10.2); Carbon Dioxide 25 mmol/L (22-32); Chloride 108 mmol/L (98-107); Estimated Glomerular Filt Rate > 60.0 mL/min (>60); Glucose 96 mg/dL (80-110); HEMOLYSIS < 15 (0-50); Potassium 4.4 mmol/L (3.4-5.1); Sodium 141 mmol/L (137-145)
[2018-05-16 07:30] VITALS: BP 146/98; PULSE 73; RESP 16; TEMP 36.8; O2SAT 95
[2018-05-16] MEDS: ENOXAPARIN 40 MG/0.4 ML SYRINGE SUBCUT (08:23)
[2018-05-16] MEDS: ACETAMINOPHEN 325 MG TABLET 650 MG PO ×2 (08:24→15:42)
[2018-05-16 09:25] VITALS: O2SAT 96
--- NOTE | 2018-05-16 09:55 | PT.IIE ---
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) Surgical History (Last Updated 01/07/18 @ 14:25 by Genesis Price RN) H/O laminectomy (Acute) History of arthroscopy of both knees (Acute) Hx of appendectomy (Acute) Hx of tonsillectomy (Acute) S/P left unicompartmental knee replacement (Acute) S/P right unicompartmental knee replacement (Acute) History of cataract removal with insertion of prosthetic lens Medical History (Last Reviewed 05/15/18 @ 18:13 by Yenny Wei MD) Bone spur (Acute) Depression (Acute) History of ankle fracture (Acute) Hyperlipidemia (Acute) Hypothyroidism (Acute) Kidney stones (Acute) Lupus (Acute) Seizure disorder (Acute) Sleep apnea (Acute) Suicidal ideations (Acute) UTI (urinary tract infection) (Acute) Urinary dribbling (Acute) Urinary stream slowing (Acute) Physical Therapy Inpatient Evaluation/Re-Eval M1 PT/OT-IP Prior Functional Status Start: 05/16/18 11:31 Freq: NEEDED Status: Active Protocol: Document 05/16/18 09:55 AB (Rec: 05/16/18 11:59 AB [id number]) Medical Review Prior Functional Status Medical History Reviewed Yes Communication able to make needs known Mobility and Gait stated that he is independent with all mobilities and ambulation without AD. recently just stopped using a SPC a few weeks ago. used SPC after his back surgery january of this year. Social History Household Members spouse Living Arrangements House Number of Floors (Floors) One Floor Number of Stairs To Enter/Railing? from front of the house 5 steps L rail+walkway+7 steps L rail ascending from the garage: 14 steps with L rail ascending Home Environment Standard Height Toilet Tub/Shower Home Equipment Bedside Commode Hand Held Shower Employment Status Retired M2 PT-IP Current Condition Start: 05/16/18 11:31 Freq: NEEDED Status: Active Protocol: Document 05/16/18 09:55 AB (Rec: 05/16/18 11:59 AB [id number]) Physical Therapy Current Condition Current Condition Evaluation Date 01/28/18 Treatment Diagnosis CVA Onset Date 05/15/18 Precautions Other Precautions Falls M3 PT-IP Subjective Start: 05/16/18 11:31 Freq: NEEDED Status: Active Protocol: Document 05/16/18 09:55 AB (Rec: 05/16/18 11:59 AB [id number]) Subjective Physical Therapy Visit Type Type Initial Evaluation Visit Start Time 09:55 Visit Stop Time 10:10 Total Visit Minutes 15 Number of WELDER FITTER APPRENTICE Visits 0 Physical Therapy Visit Comments Patient Comments stated that he is steady on his feet but has difficulty with focusing and needs to have his eye closed Therapy Pain Assessment Pain When Pain Assessed During Mobility Pain Present Pain Present Pain Reported Location Lower Back Scale Used 8 Description Spasm M4 PT-IP Mobility and Gait Start: 05/16/18 11:31 Freq: NEEDED Status: Active Protocol: Document 05/16/18 09:55 AB (Rec: 05/16/18 11:59 AB [id number]) PT-Bed Mobility Assessment Rolling Type of Rolling Log Rolling Level of Assist Standby Assistance Supine to Sit Supine to Sit Standby Assistance Sit to Supine Sit to Supine Standby Assistance Scooting Scooting to Edge of Bed Standby Assistance PT-Transfer Assessment Sit to and From Stand Sit to and from Stand Contact Guard Assistance Equipment Transfer Assistive Device Gait Belt Front Wheeled Walker Orthotic/Prosthetic Devices or Brace: No Comments Mobility Comments pt does not want to sit up on chair and requested to go back to bed after ambulation Gait Assessment Gait Gait Assistance Required: Contact Guard Assist Distance (Feet) 40 Able to Maintain Weight Bearing Status Yes During Gait Assistive Devices Assistive Device None Gait Belt Orthotic/Prosthetic Devices or Brace: No Gait Deviations General Gait Pattern Antalgic Wide Based Gait Factors Limiting Gait Function Factors Limiting Gait Function Decreased Activity Tolerance Pain PT-Balance Assessment Sitting Balance and Reactions Static Sitting Balance Ability Good Dynamic Sitting Balance Ability Good Standing Balance and Reactions Static Standing Balance Ability Fair Dynamic Standing Balance Ability Fair Device Used without AD M5 PT-IP Objective Assessments Start: 05/16/18 11:31 Freq: NEEDED Status: Active Protocol: Document 05/16/18 09:55 AB (Rec: 05/16/18 11:59 AB [id number]) Orientation Orientation/Cognition Level of Alertness Alert Safety Awareness Understands Safety Issues Gross Range of Motion Lower Extremity ROM Assessment Within Functional Limits Strength Lower Extremity Strength Assessment Within Functional Limits Sensation Assessment Sensation Gross Sensation Left UE Impaired Left LE Impaired Sensation Description Numbness Tingling Comments Sensation Comments c/o L facial area tinglingling and numbness Muscle Tone Muscle Tone WNL Yes M6 PT-IP Treatment Start: 05/16/18 11:31 Freq: NEEDED Status: Active Protocol: Document 05/16/18 09:55 AB (Rec: 05/16/18 11:59 AB [id number]) Physical Therapy Treatment Education Education Provided Safety M7 PT-IP Assessment and Plan Start: 05/16/18 11:31 Freq: NEEDED Status: Active Protocol: Document 05/16/18 09:55 AB (Rec: 05/16/18 11:59 AB [id number]) PT Summary Assessment and Plan Potential Rehabilitation Potential Good Status of Condition at Evaluation Evolving Summary Impairments Pain ROM Strength Balance Coordination Sensation Tone Bed Mobility Transfers Gait Activity Tolerance Assessment Summary pt requiring SBA to CGA with mobility but able to tolerate much activity with c/o low back muscle spasm and unable to focus with his vision. d/c plan depending on progress. Pt wants to go home with spouse to assist him. Goals Bed Mobility Goal Independent Transfer Goal Independent Gait Goal Independent Gait Distance 200 ft Other Goals USP goal: up/down 14 steps with L rail ascending Days to Meet Goals 2 Frequency of Treatment Frequency Of Treatment Twice a Day Treatment Plan Physical Therapy Treatment Plan Bed Mobility Training Transfer Training Gait Training Therapeutic Exercise Balance Retraining Post Op Education Discharge Planning Hot or Cold Pack Neuromuscular Re-ed Coordination Retraining Manual Therapy Other Recommendations and Next Treatment stair climbing Focus Recommendations To Nursing Amount of Assist Needed 1 Person Assist Discharge Recommendations PT Discharge Recommendations Home with 18/03 Assist Outpatient PT
--- NOTE | 2018-05-16 09:55 | PT.IIE ---
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) Surgical History (Last Updated 01/07/18 @ 14:25 by Genesis Price RN) H/O laminectomy (Acute) History of arthroscopy of both knees (Acute) Hx of appendectomy (Acute) Hx of tonsillectomy (Acute) S/P left unicompartmental knee replacement (Acute) S/P right unicompartmental knee replacement (Acute) History of cataract removal with insertion of prosthetic lens Medical History (Last Reviewed 05/15/18 @ 18:13 by Yenny Wei MD) Bone spur (Acute) Depression (Acute) History of ankle fracture (Acute) Hyperlipidemia (Acute) Hypothyroidism (Acute) Kidney stones (Acute) Lupus (Acute) Seizure disorder (Acute) Sleep apnea (Acute) Suicidal ideations (Acute) UTI (urinary tract infection) (Acute) Urinary dribbling (Acute) Urinary stream slowing (Acute) Physical Therapy Inpatient Evaluation/Re-Eval M1 PT/OT-IP Prior Functional Status Start: 05/16/18 11:31 Freq: NEEDED Status: Active Protocol: Document 05/16/18 09:55 AB (Rec: 05/16/18 11:59 AB [id number]) Medical Review Prior Functional Status Medical History Reviewed Yes Communication able to make needs known Mobility and Gait stated that he is independent with all mobilities and ambulation without AD. recently just stopped using a SPC a few weeks ago. used SPC after his back surgery january of this year. Social History Household Members spouse Living Arrangements House Number of Floors (Floors) One Floor Number of Stairs To Enter/Railing? from front of the house 5 steps L rail+walkway+7 steps L rail ascending from the garage: 14 steps with L rail ascending Home Environment Standard Height Toilet Tub/Shower Home Equipment Bedside Commode Hand Held Shower Employment Status Retired M2 PT-IP Current Condition Start: 05/16/18 11:31 Freq: NEEDED Status: Active Protocol: Document 05/16/18 09:55 AB (Rec: 05/16/18 11:59 AB [id number]) Physical Therapy Current Condition Current Condition Evaluation Date 05/16/18 Treatment Diagnosis CVA Onset Date 05/15/18 Precautions Other Precautions Falls M3 PT-IP Subjective Start: 05/16/18 11:31 Freq: NEEDED Status: Active Protocol: Document 05/16/18 09:55 AB (Rec: 05/16/18 11:59 AB [id number]) Subjective Physical Therapy Visit Type Type Initial Evaluation Visit Start Time 09:55 Visit Stop Time 10:10 Total Visit Minutes 15 Number of QUANTITATIVE ANALYST Visits 0 Physical Therapy Visit Comments Patient Comments stated that he is steady on his feet but has difficulty with focusing and needs to have his eye closed Therapy Pain Assessment Pain When Pain Assessed During Mobility Pain Present Pain Present Pain Reported Location Lower Back Scale Used 8 Description Spasm M4 PT-IP Mobility and Gait Start: 05/16/18 11:31 Freq: NEEDED Status: Active Protocol: Document 05/16/18 09:55 AB (Rec: 05/16/18 11:59 AB [id number]) PT-Bed Mobility Assessment Rolling Type of Rolling Log Rolling Level of Assist Standby Assistance Supine to Sit Supine to Sit Standby Assistance Sit to Supine Sit to Supine Standby Assistance Scooting Scooting to Edge of Bed Standby Assistance PT-Transfer Assessment Sit to and From Stand Sit to and from Stand Contact Guard Assistance Equipment Transfer Assistive Device Gait Belt Front Wheeled Walker Orthotic/Prosthetic Devices or Brace: No Comments Mobility Comments pt does not want to sit up on chair and requested to go back to bed after ambulation Gait Assessment Gait Gait Assistance Required: Contact Guard Assist Distance (Feet) 40 Able to Maintain Weight Bearing Status Yes During Gait Assistive Devices Assistive Device None Gait Belt Orthotic/Prosthetic Devices or Brace: No Gait Deviations General Gait Pattern Antalgic Wide Based Gait Factors Limiting Gait Function Factors Limiting Gait Function Decreased Activity Tolerance Pain PT-Balance Assessment Sitting Balance and Reactions Static Sitting Balance Ability Good Dynamic Sitting Balance Ability Good Standing Balance and Reactions Static Standing Balance Ability Fair Dynamic Standing Balance Ability Fair Device Used without AD M5 PT-IP Objective Assessments Start: 05/16/18 11:31 Freq: NEEDED Status: Active Protocol: Document 05/16/18 09:55 AB (Rec: 05/16/18 11:59 AB [id number]) Orientation Orientation/Cognition Level of Alertness Alert Safety Awareness Understands Safety Issues Gross Range of Motion Lower Extremity ROM Assessment Within Functional Limits Strength Lower Extremity Strength Assessment Within Functional Limits Sensation Assessment Sensation Gross Sensation Left UE Impaired Left LE Impaired Sensation Description Numbness Tingling Comments Sensation Comments c/o L facial area tinglingling and numbness Muscle Tone Muscle Tone WNL Yes M6 PT-IP Treatment Start: 05/16/18 11:31 Freq: NEEDED Status: Active Protocol: Document 05/16/18 09:55 AB (Rec: 05/16/18 11:59 AB [id number]) Physical Therapy Treatment Education Education Provided Safety M7 PT-IP Assessment and Plan Start: 05/16/18 11:31 Freq: NEEDED Status: Active Protocol: Document 05/16/18 09:55 AB (Rec: 05/16/18 11:59 AB [id number]) PT Summary Assessment and Plan Potential Rehabilitation Potential Good Status of Condition at Evaluation Evolving Summary Impairments Pain ROM Strength Balance Coordination Sensation Tone Bed Mobility Transfers Gait Activity Tolerance Assessment Summary pt requiring SBA to CGA with mobility but able to tolerate much activity with c/o low back muscle spasm and unable to focus with his vision. d/c plan depending on progress. Pt wants to go home with spouse to assist him. Goals Bed Mobility Goal Independent Transfer Goal Independent Gait Goal Independent Gait Distance 200 ft Other Goals care home goal: up/down 14 steps with L rail ascending Days to Meet Goals 2 Frequency of Treatment Frequency Of Treatment Twice a Day Treatment Plan Physical Therapy Treatment Plan Bed Mobility Training Transfer Training Gait Training Therapeutic Exercise Balance Retraining Post Op Education Discharge Planning Hot or Cold Pack Neuromuscular Re-ed Coordination Retraining Manual Therapy Other Recommendations and Next Treatment stair climbing Focus Recommendations To Nursing Amount of Assist Needed 1 Person Assist Discharge Recommendations PT Discharge Recommendations Home with 18/03 Assist Outpatient PT
--- NOTE | 2018-05-16 11:31 | CM.DANOTE ---
Addendum entered by Fanny Limon 05/16/18 12:22: PT notes that loaded into the assessment recommending SNF loaded from the previous admission in January. Original Note: Addendum entered by Fanny Limon 05/16/18 11:44: Plan: Per PT notes may need SNF so ongoing. Patient is admitted under OBS so would be self pay. Discussed briefly with patient and that 3 day IP stay is required to access SNF benefit. Original Note: Discharge Planning/Care Management CM Discharge Assessment Start: 05/16/18 11:28 Freq: Status: Active Protocol: Document 05/16/18 11:29 TH (Rec: 05/16/18 11:31 TH [id number]) Discharge Planning Assessment DPOA/Assigned Designee Name Humberto Ferrara Advance Directives? Yes History Provided By Patient Family Member Significant Other Medical Record Has Patient been admitted in last 30 No days? Prior Living Arrangements House Household Members spouse Type of transporation used prior to Relies on Others admit Independent with ADL's Yes Is patient alert and oriented? Yes Caregiver for Another No Comment At this time PT has seen pt once with recomendation for snf vs home/18/03 hands on care and HH. DC dispo will become clearer as POC unfolds. Comment 14 stairs L railing Transportation Arrangement to be determined. If home, will be Humberto Whiteboard Updated in Patient Room with Yes name and ext. # of Fund Development Manager Review Status In Process Next Review Type Continued Stay Review Patient is a 68 yo male admitted for development of unsteady walking and facial tingling. Insurance; Medicare and commercial insurance. PCP Taylor Licona Met with the patient and his at the bedside. Patient is alert and oriented but not feeling well. He was hospitalized in January and they are expressing regret that he didn't go to SNF but they weren't given the option. I explained I wasn't familiar with that hospitalization so couldn't say why SNF wasn't discussed but he is out side the timeframe for SNF for that hospitalization and is admitted under OBS this visit. Patient doesn't drive but his does. They live [place] is [place]. They have 4 children 2 local and 2 out of state. states one of the daughters could come help is needed at discharge./
[2018-05-16 13:00] VITALS: BP 132/79; PULSE 74; RESP 14; TEMP 36.8; O2SAT 96
--- NOTE | 2018-05-16 13:32 | PC.NURSE ---
Pt states that his face did feel numb on the left side earlier and some of that has resolved now. He is on tele and IVF, tolerating well. Down to MRI earlier, Family waiting for to see him about results of MRI. Up with sba to the bathroom. States that he is seeing better now. NIH 0.
--- NOTE | 2018-05-16 14:46 | OT.IP.EVAL ---
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) Past Medical History (Last Reviewed 05/15/18 @ 18:13 by Yenny Wei MD) Bone spur (Acute) Depression (Acute) History of ankle fracture (Acute) Hyperlipidemia (Acute) Hypothyroidism (Acute) Kidney stones (Acute) Lupus (Acute) Seizure disorder (Acute) Sleep apnea (Acute) Suicidal ideations (Acute) UTI (urinary tract infection) (Acute) Urinary dribbling (Acute) Urinary stream slowing (Acute) Surgical History (Last Updated 01/07/18 @ 14:25 by Genesis Price RN) H/O laminectomy (Acute) History of arthroscopy of both knees (Acute) Hx of appendectomy (Acute) Hx of tonsillectomy (Acute) S/P left unicompartmental knee replacement (Acute) S/P right unicompartmental knee replacement (Acute) History of cataract removal with insertion of prosthetic lens Occupational Therapy Inpatient Evaluation/Re-Eval M1 PT/OT-IP Prior Functional Status Start: 05/16/18 11:31 Freq: NEEDED Status: Active Protocol: Document 05/16/18 09:55 AB (Rec: 05/16/18 11:59 AB [id number]) Medical Review Prior Functional Status Medical History Reviewed Yes Communication able to make needs known Mobility and Gait stated that he is independent with all mobilities and ambulation without AD. recently just stopped using a SPC a few weeks ago. used SPC after his back surgery january of this year. Social History Household Members spouse Living Arrangements House Number of Floors (Floors) One Floor Number of Stairs To Enter/Railing? from front of the house 5 steps L rail+walkway+7 steps L rail ascending from the garage: 14 steps with L rail ascending Home Environment Standard Height Toilet Tub/Shower Home Equipment Bedside Commode Hand Held Shower Employment Status Retired M1 PT/OT-IP Prior Functional Status Start: 05/16/18 14:16 Freq: NEEDED Status: Active Protocol: Document 05/16/18 14:20 [facility] (Rec: 05/16/18 14:44 [facility] [email or web address]) Medical Review Prior Functional Status Medical History Reviewed Yes Communication able to make needs known Mobility and Gait stated that he is independent with all mobilities and ambulation without AD. recently just stopped using a SPC a few weeks ago. used SPC after his back surgery january of this year. Activities of Daily Living and IADL's Pt states completely independent with all needs, does bills and shopping. Social History Household Members spouse Living Arrangements House Number of Floors (Floors) One Floor Number of Stairs To Enter/Railing? from front of the house 5 steps L rail+walkway+7 steps L rail ascending from the garage: 14 steps with L rail ascending Home Environment Standard Height Toilet Tub/Shower Home Equipment Bedside Commode Hand Held Shower Employment Status Retired M2 OT-IP Current Condition Start: 05/16/18 14:16 Freq: Status: Active Protocol: Document 05/16/18 14:20 [facility] (Rec: 05/16/18 14:44 [facility] [email or web address]) Occupational Therapy Current Condition Current Condition Evaluation Date 05/16/18 Treatment Diagnosis numbness, weakness, blurred vision Diagnosis Onset Date 05/15/18 Post Operative Precautions Other Precautions Falls M3 OT- IP Subjective and Pain Start: 05/16/18 14:16 Freq: Status: Active Protocol: Document 05/16/18 14:20 [facility] (Rec: 05/16/18 14:44 [facility] [email or web address]) OT- Subjective Occupational Therapy Visit Type Type Initial Evaluation Visit Start Time 13:35 Visit Stop Time 14:10 Total Visit Minutes 35 Occupational Therapy Visit Comments Patient/Caregiver Goals Pt wanting to go home today. OT Pain Assessment Pain When Pain Assessed At Rest Pain Present Pain Present Denied Pain M4 OT- IP ADL's Start: 05/16/18 14:16 Freq: Status: Active Protocol: Document 05/16/18 14:20 [facility] (Rec: 05/16/18 14:44 [facility] [email or web address]) OT [id number] Comments OT Self-Feeding Comments Per pt independent to take a few bites and drink some water , but not hungry to eat much. M5 OT- IP IADL's Start: 05/16/18 14:16 Freq: Status: Active Protocol: Document 05/16/18 14:20 [facility] (Rec: 05/16/18 14:44 [facility] [email or web address]) OT-Instrumental Activities of Daily Living Driving Driving Comments Pt states will not drive at this time due to decreased vision. M6 OT- IP Functional Cognition Start: 05/16/18 14:16 Freq: Status: Active Protocol: Document 05/16/18 14:20 [facility] (Rec: 05/16/18 14:44 [facility] [email or web address]) Cognitive Factors Limiting Selfcare Function Cognitive Ability Level of Alertness Alert Patient Orientation Name Age Birthday Month Date Year Day of Week Place Situation Attention Span Ability Capable of Focused Attention Capable of Sustained Attention Ability to Follow Commands Able to Follow Multi-Step Commands Memory Description No Deficits Noted Safety Awareness No Deficits Noted Cognitive Comments Cognitive Assessment Comments Pt scored 150 seconds on the [place] making Part b however needing 2 verbal cues to remember the directions. A score of 180 seconds or greater implies per [employer] someone would be at a greater risk for a car accident. Pt able to accurately answer all home safety situation questionnaire 100%. OT- Vision and Hearing OT- Hearing Assessment OT- Hearing Assessment WFL OT- Vision Assessment Visual Acuity Glasses All The Time Occular Pursuits WFL Visual [place] Impaired Vision Assessment Comments Pt having difficulty with lower right quadrant for visual field. Complaining of slight blurred vision. M7 OT- IP Mobility and Balance Start: 05/16/18 14:16 Freq: Status: Active Protocol: Document 05/16/18 14:20 [facility] (Rec: 05/16/18 14:44 [facility] [email or web address]) OT- Bed Mobility Assessment Rolling Type of Rolling Roll to Right Supine to Sit Supine to Sit Assist Independent Sit to Supine Sit to Supine Assist Independent OT-Transfer Assessment Sit to and From Stand Sit to and from Stand Standby Assistance Transfers Transfer Ability Standby Assistance Contact Guard Assistance Technique Transfer Destination Bed Comments Mobility Comments CGA to stand as having back spasms while standing. OT- Gait Assessment Comments Gait Ability Comments After back spasms able to walk in the room with SBA and wide base of support for gait without a device. 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 OT- Coordination Assessment Comments Coordination Comments Increased difficulty for in hand manipulation, speed, and coordination for right hand to brain picker coins and for hand writing. OT-Muscle Tone Assessment Muscle Tone WNL Yes OT Sensation Assessment Comments Summary Comments Decreased proprioception and kinesthesia for right fingers and wrist. Pt complaining of numbness in left hand. M9 OT- IP Assessment and Plan Start: 05/16/18 14:16 Freq: Status: Active Protocol: Document 05/16/18 14:20 [facility] (Rec: 05/16/18 14:44 [facility] [email or web address]) OT Summary Assessment and Plan Potential Rehabilitation Potential Excellent Analytic Complexity at Evaluation Low Summary OT Impairments Pain Coordination Functional Cognition Dressing Toileting Bathing Progress Towards Goals Progressing Toward Goals Assessment Summary Pt low complexity and main barrier is back spasms, decreased coordination and strength of right hand, and pt would benefit from outpt OT for the issues above and outpt PT to mobility needs. Goals Grooming Goal Independent Dressing Goal Independent Toileting Goal Independent Bathing Goal Standby Assistance Toilet Transfer Goal Independent Shower Transfer Goal Standby Assistance Patient/Caregiver Education Goal Demonstrate Energy Conservation and Pacing Caregiver Independent Assisting Patient OT-Other Goals STG: Independent with all hand exercises for coordination and strength. LTG: Pt to be independent to do IADl needs at home with good safety. Days to Meet Goals 3 Frequency of Treatment Frequency Of Treatment Once a Day Treatment Plan OT Treatment Plan ADL Training Functional Cognition Training Functional Mobility Therapeutic Exercises Vision Retraining Patient/Family Education Discharge Planning Other Treatment Recommendations and Next Family training, BUE exercises Treatment Focus . Discharge Recommendations OT Discharge Recommendations Home with Assistance Outpatient PT/OT
--- NOTE | 2018-05-16 15:03 | PT.IPTN ---
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) Physical Therapy Treatment Note M2 PT-IP Current Condition Start: 05/16/18 11:31 Freq: NEEDED Status: Discharge Protocol: Document 05/16/18 09:55 AB (Rec: 05/16/18 11:59 AB [id number]) Physical Therapy Current Condition Current Condition Evaluation Date 05/16/18 Treatment Diagnosis CVA Onset Date 05/15/18 Precautions Other Precautions Falls M3 PT-IP Subjective Start: 05/16/18 11:31 Freq: NEEDED Status: Discharge Protocol: Document 05/16/18 15:03 AB (Rec: 05/16/18 16:58 AB [email or web address]) Subjective Physical Therapy Visit Type Type Treatment Note Visit Start Time 15:03 Visit Stop Time 15:15 Total Visit Minutes 10 Number of MORTICIAN INVESTIGATOR Visits 0 Physical Therapy Visit Comments Patient Comments i want to go home Therapy Pain Assessment Pain When Pain Assessed At Rest Pain Present Pain Present Pain Reported Location Lower Back Scale Used pain scale not stated Description Spasm M4 PT-IP Mobility and Gait Start: 05/16/18 11:31 Freq: NEEDED Status: Discharge Protocol: Document 05/16/18 15:03 AB (Rec: 05/16/18 16:58 AB [email or web address]) PT-Bed Mobility Assessment Supine to Sit Supine to Sit Independent PT-Transfer Assessment Sit to and From Stand Sit to and from Stand Standby Assistance Gait Assessment Gait Gait Assistance Required: Standby Assistance Distance (Feet) 150 Able to Maintain Weight Bearing Status Yes During Gait Assistive Devices Assistive Device Gait Belt Gait Deviations General Gait Pattern Wide Based Gait Factors Limiting Gait Function Factors Limiting Gait Function Decreased Activity Tolerance Decreased Strength Pain Comments Gait Comments pt completed ambulation ~ 150 ft x 2 without AD SBA. Stair Climbing Assessment Evaluation Level of Assist On Stairs Contact Guard Assistance 1 Person Assistance Devices Stair Climbing Assistive Devices Left Railing Technique/Endurance Stair Climbing Direction Ascend and Descend Stair Climbing Technique Step Over Step Number of Steps Climbed 3 Query Text: Stair Climbing Set # Repetitions (reps) 2 M5 PT-IP Objective Assessments Start: 05/16/18 11:31 Freq: NEEDED Status: Discharge Protocol: Document 05/16/18 09:55 AB (Rec: 05/16/18 11:59 AB [id number]) Orientation Orientation/Cognition Level of Alertness Alert Safety Awareness Understands Safety Issues Gross Range of Motion Lower Extremity ROM Assessment Within Functional Limits Strength Lower Extremity Strength Assessment Within Functional Limits Sensation Assessment Sensation Gross Sensation Left UE Impaired Left LE Impaired Sensation Description Numbness Tingling Comments Sensation Comments c/o L facial area tinglingling and numbness Muscle Tone Muscle Tone WNL Yes M6 PT-IP Treatment Start: 05/16/18 11:31 Freq: NEEDED Status: Discharge Protocol: Document 05/16/18 15:03 AB (Rec: 05/16/18 16:58 AB [email or web address]) Physical Therapy Treatment Education Education Provided Safety M7 PT-IP Assessment and Plan Start: 05/16/18 11:31 Freq: NEEDED Status: Discharge Protocol: Document 05/16/18 15:03 AB (Rec: 05/16/18 16:58 AB [email or web address]) PT Summary Assessment and Plan Potential Rehabilitation Potential Good Summary Impairments Pain ROM Strength Balance Bed Mobility Transfers Gait Activity Tolerance Progress Towards Goals Progressing Toward Goals Assessment Summary pt steadier with ambulation this afternoon and able to do stair climbing with CGA. pt wanting to go home. pt will have his spouse to assist him at home. Goals Bed Mobility Goal Independent Transfer Goal Independent Gait Goal Independent Gait Distance 200 ft Other Goals manager intermediate goal: up/down 14 steps with L rail ascending Days to Meet Goals 2 Frequency of Treatment Frequency Of Treatment Twice a Day Treatment Plan Physical Therapy Treatment Plan Bed Mobility Training Transfer Training Gait Training Therapeutic Exercise Balance Retraining Post Op Education Discharge Planning Hot or Cold Pack Neuromuscular Re-ed Coordination Retraining Manual Therapy Other Recommendations and Next Treatment stair climbing Focus Recommendations To Nursing Amount of Assist Needed 1 Person Assist Discharge Recommendations PT Discharge Recommendations Home with 18/03 Assist Outpatient PT
--- NOTE | 2018-05-16 15:32 | P.DS_ITS ---
History of Present Illness Chief complaint: CAN'T FOCUS,TINGLY AND NUMB Discharge Providers Date of admission: 05/15/18 17:02 Primary care physician: Taylor Licona PA-C Consults: 05/15/18 18:07 Consult to Physical Therapy Evaluate & Treat Comment: Physician Instructions: Evaluate and Treat 05/16/18 12:14 Consult to Occupational Therapy Evaluate & Treat Comment: Physician Instructions: Evaluate and treat Discharge provider: Xavier Hirsch MD Summary Discharge Diagnosis: 1. Visual disturbance and bilateral finger numbness 2. Gait disturbance 3. seizure disorder 4. hypothyroidism CONSULTATION None PROCEDURES MRI brain without contrast: No acute intracranial abnormalities. Mild cerebral volume loss. Chest x-ray: Limited portable chest exam without significant cardiopulmonary abnormality CTA head and neck: No significant intracranial arterial abnormality. No hemodynamically significant stenosis of the arteries of the neck: No enhancing lesions CT head noncontrast: No CT evidence of acute intracranial abnormality no significant change from prior study Hospital Course: The patient is 68-year-old male who presented with difficulty focusing and having tingling of his face and fingers bilaterally. There was no facial weakness or droop slurred speech dysphagia tonic-clonic movements bowel or bladder incontinence. He was admitted to the hospital for further neurologic evaluation and workup. With the symptoms that he described of the tingling of his face and fingers bilaterally will wonder about anxiety reaction. Patient has not had a similar type of symptoms. He does have a history of seizure disorder and his seizures had not presented in this way. He also had gait instability at the time of his symptoms. With the bilateral nature of his tingling and facial tingling this is not consistent with stroke or TIA. Therefore do not think such problem was the cause of his symptomatology. At this time is hemodynamically stable symptoms have completely resolved. He was seen ambulating with physical therapy prior to discharge and was doing so without any assistance or guidance. He is therefore felt stable and ready for discharge. He has been advised to follow up with his neurologist with the [facility] [place]. Status at Discharge Cognitive/behavioral status at discharge: Hemodynamically stable He is cognitively intact Functional status at discharge: independent ambulation Time Spent with Patient Greater than 30 minutes Exam Vital Signs (past 8 hours): - 05/16/18 07:30 05/16/18 09:25 05/16/18 13:00 Temperature 98.3 F 98.2 F Pulse Rate 73 74 Respiratory Rate 16 14 Blood Pressure 146/98 H 132/79 Pulse Oximetry 95 96 96 Oxygen Delivery Method Room Air Oxygen Flow Rate 0 Narrative Exam Narrative: General: In no acute distress HEENT normocephalic atraumatic extraocular movement intact pupils equal round reactive fundi not visualized sclera were nonicteric oropharynx was clear Neck supple without thyromegaly bruits or jugular venous distention Respiratory clear to auscultation Cardiovascular regular rhythm S1-S2 is normal there are no lifts use rubs murmurs gallops present Abdomen rotund benign bowel sounds active Neurologic cranial nerves 2-12 were intact Motor was the 4 to 5+ over 5+ Gait was normal Psychiatric mood and affect were normal patient was awake alert oriented x4 Objective Labs Result Diagrams: 05/15/18 12:25 05/16/18 07:02 Labs: Laboratory Results - last 24 hr 05/16/18 07:02 Sodium 141 Potassium 4.4 Chloride 108 H Carbon Dioxide 25 BUN 14 Creatinine 0.90 Estimated GFR > 60.0 BUN/Creatinine Ratio 15.6 Glucose 96 Calcium 8.9 Discharge Plan Discharge Plan Patient Disposition: Home Discharge comment: Follow-up with their she is at [facility] in this upcoming week Discharge Med Rec/Prescriptions Prescriptions: Continue lamotrigine [Lamictal] 150 mg Tablet 300 mg PO BID RF: 0 ibuprofen 200 mg Capsule 800 mg PO BID RF: 0 acetaminophen 325 mg Tablet 650 mg PO Q6HR PRN (Reason: Pain, Mild) Qty: 60 RF: 0 docusate sodium 100 mg Capsule 100 mg PO BID PRN (Reason: constipation) Qty: 0 RF: 0 hydroxyzine pamoate 25 mg Capsule 25 mg PO Q6HR Qty: 60 RF: 0 walker misc .ROUTE .MEDSUPPLY Qty: 1 RF: 0 methocarbamol 500 mg tablet 500 mg PO QID PRN (Reason: Muscle Spasm) RF: 0 lamotrigine 25 mg tablet 25 mg PO BID RF: 0 mirtazapine 45 mg tablet 0.5 tab PO BEDTIME RF: 0 fluoxetine 20 mg capsule 1 cap PO BEDTIME RF: 0 levothyroxine 88 mcg Tablet 44 mcg PO DAILY RF: 0 Provider Discharge Instructions Diet: Diet as Tolerated Discharge Data Primary Care Provider: Taylor Licona Attending Provider: Wei,Yenny Admit Date/Time: 05/15/18 17:02 Quality VTE Deep Vein Thrombosis/Pulmonary Embolism Present on Admission: No
== END 2018-05-16 15:59 | disposition home or self-care (01) ==
LOC: ED 16:56 → AC 17:03
PROVIDERS: Admitting Provider Internal Medicine; Emergency Provider Emergency Medicine; PCP Physician Assistant; Visit Provider Internal Medicine
DX: H53.9 Unspecified visual disturbance (principal); R20.0 Anesthesia of skin; R26.9 Unspecified abnormalities of gait and mobility; G40.909 Epilepsy, unspecified, not intractable, without status epilepticus; E03.9 Hypothyroidism, unspecified
CPT/HCPCS: 36415; 36591; 70450; 70496; 70498; 70551; 71045; 80048; 80175; 80305; 81003; 82962; 85025; 85610; 85730; 93005; 94762; 96360; 96361; 97116; 97162; 97165; 97530; 99283; 99285; G0378; J1650; Q9967

== ENCOUNTER → 2018-05-29 09:28 | Outpatient (CLI) | payer MEDICARE, SELFPAY ==
[2018-05-15 17:30] VITALS: BMI 25.2
[2018-06-02 08:29] LABS: Lamotrigine Lamictal 10.2 mcg/mL (4.0-18.0)
== END ==
PROVIDERS: PCP Physician Assistant; Visit Provider Specialist
DX: G40.119 Localization-related (focal) (partial) symptomatic epilepsy and epileptic syndromes with simple partial seizures, intractable, without status epilepticus (principal)
CPT/HCPCS: 36415; 80175

== ENCOUNTER → 2018-12-08 12:26 | Outpatient (CLI) | payer MEDICARE, SELFPAY ==
[2018-05-15 17:30] VITALS: BMI 25.2
[2018-12-10 18:34] LABS: Lamotrigine Lamictal 6.3 mcg/mL (4.0-18.0)
== END ==
PROVIDERS: PCP Physician Assistant; Visit Provider Specialist
DX: G40.119 Localization-related (focal) (partial) symptomatic epilepsy and epileptic syndromes with simple partial seizures, intractable, without status epilepticus (principal)
CPT/HCPCS: 36415; 80175

== ENCOUNTER → 2018-12-31 12:43 | Outpatient (CLI) | payer MEDICARE, OTHER, SELFPAY ==
[2018-05-15 17:30] VITALS: BMI 25.2
--- NOTE | 2018-12-31 | DI.CT.S_ITS ---
PROCEDURE: CT LUMBAR SPINE WO CON INDICATIONS: LUMBAR STENOSIS TECHNIQUE: Noncontrast 3 mm thick sections acquired from the T12 level to the sacrum. Sagittal and coronal reformats were constructed. For radiation dose reduction, the following was used: automated exposure control. COMPARISON: [facility], MR, L-SPINE WITHOUT CONTRAST, 10/02/2016, 10:41. [facility], CR, L-SPINE 2-3 VIEWS, 05/10/2017, 15:35. FINDINGS: Image quality: Excellent. Bones: No acute vertebral body compression fractures. There is a remote appearing anterior wedge deformity seen involving the T10 level. No suspicious lytic or blastic bony lesions. No pars defects. Postoperative changes are seen, with bilateral pedicle screws at the L4, L5, and S1 levels. The screws appear well placed. Vertical fixation rods are seen. Disc spaces are seen at L4-L5 and L5-S1. No findings of hardware failure or hardware loosening are seen. There is streak artifact associated with the metallic hardware. There has been removal of portions of the posterior elements. Minimal levoconvex curvature is seen. Minimal retrolisthesis is seen at L5-S1 and T12-L1: Unremarkable. L1-L2: Within normal limits. L2-L3: The disc height is well-preserved. Moderate generalized disc bulge is seen. [id number] bilateral neural foraminal narrowing is seen. Mild to central canal narrowing is seen. When comparison is made with the prior examination, these findings are similar. L3-L4: The disc height is well-preserved. Moderate disc bulge is seen, which is eccentric to the left. Moderate bilateral neural foraminal narrowing is seen. Moderate central canal narrowing is seen. When comparison is made with the prior examination, these findings are similar. L4-L5: Postoperative changes are seen at this level. There is no left-sided neural foraminal narrowing. There is moderate right-sided neural foraminal narrowing. The central canal is widely patent. This level is improved compared to the preoperative MRI. L5-S1: There are postoperative changes at this level. Moderate generalized disc bulge is seen. Obio-ph-dzapofoq facet hypertrophy is seen. Mild bilateral neural foraminal narrowing is seen. No significant central canal narrowing is seen. The degree of neural foraminal narrowing is improved compared to the prior MRI. Soft tissues: No retroperitoneal masses or hematomas. Visualized aorta is normal in caliber. Atherosclerotic calcification is noted. Left-sided nonobstructing kidney stones are seen, with the largest seen on series 3 image 33 measuring 4-5 mm. IMPRESSION: Lumbosacral postoperative changes are seen, without postoperative complication identified. The degrees of degenerative narrowing are improved at L4-L5 and L5-S1 compared to the preoperative MRI. Incidental note is made of: Left-sided nonobstructing kidney stones Dictated by: Sammy Matta M.D. on 12/31/2018 at 14:29 Approved by: Sammy Matta M.D. on 12/31/2018 at 14:37
== END ==
PROVIDERS: PCP Student in an Organized Health Care Education/Training Program; Visit Provider Orthopaedic Surgery Orthopaedic Surgery of the Spine
DX: M48.061 Spinal stenosis, lumbar region without neurogenic claudication (principal); M48.07 Spinal stenosis, lumbosacral region; N20.0 Calculus of kidney; Z98.1 Arthrodesis status
CPT/HCPCS: 72131

== ENCOUNTER → 2019-01-28 11:49 | Outpatient (CLI) | payer MEDICARE, OTHER, SELFPAY ==
[2018-05-15 17:30] VITALS: BMI 25.2
[2019-01-28 12:32] LABS: Add Manual Diff / Slide Review NO; Basophils Absolute Auto 0 /uL (0-100); Basophils Percent Auto 0.7 % (0-2); Eosinophils Absolute Auto 100 /uL (0-450); Eosinophils Percent Auto 1.4 % (2-4); Hematocrit 47.1 % (41-53); Hemoglobin 15.8 g/dL (13.5-17.5); Lymphocytes Absolute Auto 2000 /uL (1100-4500); Lymphocytes Percent Auto 35.4 % (25-40); Mean Corpuscular HGB Conc 33.6 % (30-36); Mean Corpuscular Hemoglobin 30.5 PG (26-34); Mean Corpuscular Volume 90.9 fL (80-100); Monocytes Absolute Auto 600 /uL (0-900); Monocytes Percent Auto 10.9 % (3-14); Neutrophils Absolute Auto 2900 /uL (1500-7000); Neutrophils Percent Auto 51.6 % (50-75); Platelet Count 211 X10^3/uL (150-400); Red Blood Cell Count 5.18 X10^6/uL (4.5-5.9); Red Cell Distribution Width 13.5 % (11.6-14.8); White Blood Cell Count 5.6 X10^3/uL (4.5-11.0)
[2019-01-28 13:05] LABS: BUN Creatinine Ratio 31.1 (6-22); Blood Urea Nitrogen 28 mg/dL (9-20); Calcium 10.2 mg/dL (8.4-10.2); Carbon Dioxide 25 mmol/L (22-32); Chloride 103 mmol/L (98-107); Estimated Glomerular Filt Rate > 60.0 mL/min (>60); Glucose 99 mg/dL (80-110); HEMOLYSIS < 15 (0-50); Potassium 4.4 mmol/L (3.4-5.1); Sodium 137 mmol/L (137-145)
== END ==
PROVIDERS: PCP Student in an Organized Health Care Education/Training Program; Visit Provider Orthopaedic Surgery Orthopaedic Surgery of the Spine
DX: Z01.818 Encounter for other preprocedural examination (principal)
CPT/HCPCS: 36415; 80048; 85025; 93005

== ENCOUNTER 2019-02-04 12:19 | Inpatient (IN) | payer MEDICARE, OTHER, SELFPAY ==
[2018-05-15 17:30] VITALS: BMI 25.2
[2019-01-28 12:47] VITALS: BMI 25.8
[2019-02-04] VITALS (8 sets, daily range): BP systolic 115–146; BP diastolic 71–94; PULSE 70–83; RESP 12–17; TEMP 36.2–36.9; O2SAT 96–99; BMI 24.7
--- NOTE | 2019-02-04 | DI.RAD.S_ITS ---
PROCEDURE: XR LUMBAR SPINE 2-3V INDICATIONS: NEW SCREWS TO FIX LOOSE SCREWS TECHNIQUE: 32views of the lumbar spine were acquired. COMPARISON: [facility] [place], CR, XR LUMBAR SPINE 2 OR 3 VIEWS, 08/13/2018, 9:08. [facility], CR, XR LUMBAR SPINE 2-3V, 01/27/2018, 13:12. FINDINGS: 2 intraoperative fluoroscopy images demonstrate discectomy and revision of posterior fusion screws at L4-L5 and L5-S1. Surgical hardware are in appropriate position. IMPRESSION: Discectomy and posterior fusion at L4-L5 and L5-S1 with surgical hardware in expected position. Dictated by: Bev Vigil M.D. on 02/04/2019 at 16:48 Approved by: Bev Vigil M.D. on 02/04/2019 at 16:51
[2019-02-04] MEDS: LACTATED RINGERS 1,000 ML 42 ML IV ×2 (13:18→15:15)
--- NOTE | 2019-02-04 13:38 | PM.PREOP ---
Pre-operative Note Interval Note History & Physical reviewed/Exam performed by Physician: Yes Changes to H&P: No
[2019-02-04] MEDS: CLINDAMYCIN 600 MG/50 ML PIGGYBACK 50 MG IV (13:55)
[2019-02-04] MEDS: BUPIVACAINE 0.25% W/ EPI 30 ML VIAL INJ (14:49)
--- NOTE | 2019-02-04 15:42 | P.OP_ITS ---
Operative Date/Time/Diagnoses Date of procedure: 02/04/19 Time of procedure: 13:33 Pre-op diagnosis: 1. Hx of L4-5, L5-S1 fusion with hardware loosening 2. Epidural scarring and radiculopathy post laminectomies 3. Spondylosis with radiculopathy Post-op diagnosis: same Procedure & Clinicians Procedure: 1. L4-5, L5-S1 posterior segmental hardware removal 2. L4-5, L5-S1 revision decompression with repeat laminectomies at L4-5, L5-S1 3. L4-5, L5-S1 posterior segmental instrumentation with pedicle screw placement in L4, L5, S1 4. L4-5, L5-S1 posterolateral fusion 5. Utilization of microsurgical technique and operating microscope Same procedure as scheduled: Yes Indications: Patient has been having chronic back pain and worsening lumbar radiculopathy. Patient had lumbar fusion 1 year ago with relief of his pain over the prior 6 months. Patient has been having worsening back pain and leg pain over the last 6 month. Patient failed multiple conservative management with worsening pain weakness and numbness in her lower extremity. Patient has been having difficulty performing activity of daily living. After discussing risks benefits of treatment options, patient elected proceed with surgery. Surgeon: Italo Andre Wire Photo Operator News: Orly Galan Click Yes if Unassisted: No Anesthesia Type: General Operative Notes Closure Type: primary Specimen(s): none sent Prosthetic devices, grafts, tissues, transplants, or devices: Globus revolve screws Estimated Blood Loss (mL): 50 Blood products transfused: none Procedure in detail: Patient was seen in the preoperative area. Risks and benefits of the surgery was discussed with the patient. Informed consent was obtained from the patient and placed in the chart. Surgical site was marked. Patient was taken to the operative room. General anesthesia was administered. Prophylactic antibiotic was given to the patient less than 30 min before the incision was made. Patient was placed into a prone position on the Nithin table. Patient's back was then prepped and draped in the sterile fashion. Time- out was performed at this time. Using patient's previous scar incision was made over the L4-S1 interval on the left side. Fascia was incised in line with skin incision. Patient's previously placed hardware over the L4-5, L5-S1 level was identified by dissecting down to the level the hardware using a Bovie and a Leblanc. The locking caps which was removed using globus screwdriver. The locking sreedhar was then removed from the tulips of the pedicle screws using a Jose Antonio. The pedicle screws were then removed using the screwdriver. The screws were found to have loose purchase at S1 level. The Globus and MARS retractors was then placed into the wound and docked onto the L4, L5 lamina using C-arm guidance. Using microsurgical technique and operating microscope a revision laminectomy was performed by removing the L4, L5 lamina and epidural scarring from previous decompression surgery. There was some epidural scarring adjacent to patient's thecal sac and nerve roots without gross compression. The epidural scar was debridement using Kerrison rongeur and pituitary. The epidural space was fully decompressed at both the L4-5 L5-S1 level after the repeat decompression was completed. The fusion mass on the left side was exposed by performing a left-sided laminectomy at L4-5, L5-S1 level. The laminectomy was performed using the Kerrison rongeur to undercut the lamina as well removing additional epidural scar tissue for purpose of decompressing the epidural space. The fusion mass was explored and was found have visible motion indicating pseudoarthrosis. Globus MARS retractor was inserted and docked onto the L4-5, L5-S1 posterolateral gutter. Using the power drill, posterior-lateral decortication was performed at L4-5, L5-S1 level until bleeding cortical bone was identified. The remaining bone grafting material was placed into the L4-5, L5-S1 posterior lateral gutter he order to accomplish posterolateral fusion at the L4-5, L5-S1 level. Using the double C-arm technique, pedicle screws were placed into the L4, L5, S1 pedicles on the left. This was done by placing the Jamshidi needle into the pedicles, then placing the guidewires over the Jamshidi needle, and finally placing the cannulated screws over the guidewires bilaterally. After the pedicle screws were placed, a titanium sreedhar was locked into the heads of the pedicle screws using locking caps and torque limiting screwdriver. After all the hardware was placed, and confirmed with AP and lateral C-arm imaging, the wound was then irrigated with sterile normal saline and packed with Ray-Anh gauze for 3 min to accomplish hemostasis. After the gauze was removed the deep fascia was closed with #1 Vicryl suture. The subcutaneous layer was closed with 2-0 Vicryl. The skin was closed with skin tiara. Patient tolerated the procedure well. There were no complications. Complications: none Condition: stable Disposition: PACU Plan for aftercare: Discharge to home when criteria met
[2019-02-04] MEDS: OXYCODONE IR 5 MG TABLET PO (16:31)
--- NOTE | 2019-02-04 17:05 | SUR.PHASEII ---
Pt reported 3/10 back pain. Back drsg cdi. IV saline locked. +pp x2, BLE strong, cap refill wnl. Pt denied tingling or numbness to BLE.
== END 2019-02-04 22:57 | disposition home or self-care (01) | DRG 460 ==
PROVIDERS: Admitting Provider Orthopaedic Surgery Orthopaedic Surgery of the Spine; PCP Student in an Organized Health Care Education/Training Program; Visit Provider Orthopaedic Surgery Orthopaedic Surgery of the Spine
PROC: 0SG00K1 Fusion of Lumbar Vertebral Joint with Nonautologous Tissue Substitute, Posterior Approach, Posterior Column, Open Approach (ICD-10-PCS; principal; 2019-02-04 14:00)
DX: M48.061 Spinal stenosis, lumbar region without neurogenic claudication (principal); M96.0 Pseudarthrosis after fusion or arthrodesis; M54.16 Radiculopathy, lumbar region; M96.1 Postlaminectomy syndrome, not elsewhere classified
CPT/HCPCS: 72100; 76000; C1776; J0330; J1170; J2250; J2405; J2704; J3010

== ENCOUNTER → 2019-02-27 12:32 | Outpatient (CLI) | payer MEDICARE, OTHER, SELFPAY ==
[2018-05-15 17:30] VITALS: BMI 25.2
[2019-03-03 16:59] LABS: Lamotrigine Lamictal 11.8 mcg/mL (4.0-18.0)
== END ==
PROVIDERS: PCP Student in an Organized Health Care Education/Training Program; Visit Provider Specialist
DX: G40.119 Localization-related (focal) (partial) symptomatic epilepsy and epileptic syndromes with simple partial seizures, intractable, without status epilepticus (principal)
CPT/HCPCS: 36415; 80175

== ENCOUNTER → 2019-03-02 11:10 | Outpatient (CLI) | payer MEDICARE, OTHER, SELFPAY ==
[2018-05-15 17:30] VITALS: BMI 25.2
--- NOTE | 2019-03-02 | DI.RAD.S_ITS ---
PROCEDURE: XR RIBS LT MIN 3V W CXR1V INDICATIONS: rib pain, left side TECHNIQUE: 2 views of the left ribs were acquired, along with a single view chest. COMPARISON: None. FINDINGS: Surgical changes and devices: None. Bones and chest wall: No fractures or dislocations. No suspicious bony lesions. Overlying soft tissues appear unremarkable. Lungs and pleura: No pleural effusions or pneumothorax. Lungs appear clear. Mediastinum: Mediastinal contours appear normal. Heart size is normal. IMPRESSION: Normal for age, source of current left-sided rib pain symptoms is not seen. Dictated by: Naga Patterson M.D. on 03/02/2019 at 12:02 Approved by: Naga Patterson M.D. on 03/02/2019 at 12:03
== END ==
PROVIDERS: PCP Student in an Organized Health Care Education/Training Program; Visit Provider Student in an Organized Health Care Education/Training Program
DX: R07.81 Pleurodynia (principal)
CPT/HCPCS: 71101

== ENCOUNTER 2019-03-28 09:48 | Emergency (ER) | payer MEDICARE, OTHER, SELFPAY ==
[2018-05-15 17:30] VITALS: BMI 25.2
[2019-03-28 09:50] VITALS: BP 161/102; PULSE 68; RESP 21; TEMP 36.7; O2SAT 98
--- NOTE | 2019-03-28 10:02 | DI.CT.S_ITS ---
PROCEDURE: CT ABDOMEN PELVIS W CON INDICATIONS: pain gi bleed TECHNIQUE: After the administration of intravenous contrast, 5 mm thick sections acquired from the diaphragm to the symphysis. 5 mm coronal and sagittal reformats were acquired. For radiation dose reduction, the following was used: automated exposure control, adjustment of mA and/or kV according to patient size. COMPARISON: [facility], CR, XR LUMBAR SPINE 2-3V, 02/04/2019, 15:11. [facility], MR, MR HEAD/BRAIN WO CON, 05/16/2018, 9:21. [facility], CT, CT LUMBAR SPINE WO CON, 12/31/2018, 12:53. [facility], CT, KIDNEY/ URETER/BLADDER, 08/13/2017, 9:18. FINDINGS: Image quality: Excellent. ABDOMEN: Lung bases: Lung bases are clear. Heart size is normal. A small hiatal hernia is incidentally noted. Solid organs: Liver is normal in size and enhancement. Diffuse fatty liver infiltration is noted. Gallbladder wall is not thickened. Biliary system is non dilated. Pancreas enhances normally. Spleen is normal in size and enhancement. No adrenal nodules. Within the distal left ureter, there is a stone seen that measures 5 mm craniocaudal, as on series 2 image 75 and on series 4 image 43. There is no definite associated left-sided hydronephrosis. The kidneys demonstrate normal size. No right-sided hydronephrosis is seen. Peritoneum and bowel: Bowel loops demonstrate normal wall thickness and caliber. No free fluid or air. Diverticulosis is seen, without findings of active diverticulitis. Nodes and vessels: No retroperitoneal or mesenteric adenopathy by size criteria. Aorta and inferior vena cava are normal in size. Miscellaneous: No ventral hernias. PELVIS: Genitourinary: Bladder wall thickness is normal. The prostate is enlarged, measuring 5.7 cm transversely. Miscellaneous: No enlarged inguinal or pelvic lymph nodes are seen. There is a fat-containing left inguinal hernia seen. Bones: No suspicious bony lesions. No vertebral body compression fractures. Lumbosacral fixation hardware is seen. Degenerative changes are seen throughout. Mild levoconvex scoliotic curvature is noted. IMPRESSION: A cause of GI bleed is not identified on this study. There is a 2-3 mm stone seen within the distal left ureter, without associated hydronephrosis. This stone is smaller than in 2017. Incidental note is made of: Small hiatal hernia Fatty liver infiltration Diverticulosis, without findings of active diverticulitis. Lumbosacral fixation hardware Enlarged prostate Fat-containing left inguinal hernia Dictated by: Sammy Matta M.D. on 03/28/2019 at 10:19 Approved by: Sammy Matta M.D. on 03/28/2019 at 10:25
--- NOTE | 2019-03-28 10:04 | ED.GIBLEED ---
HPI - GI Bleed General Chief complaint: GI Bleed Stated complaint: BLOOD IN STOOL/DIZZY Time Seen by Provider: 03/28/19 09:54 Source: patient Mode of arrival: ambulatory Limitations: no limitations History of Present Illness HPI Narrative: Patient is a 69-year-old male who presents with rectal bleeding. He is on Plavix for what sounds like stroke prevention, he said he had a normal bowel movement at around 2 or 3:00 a.m. and then he has had multiple gross bloody bowel movement since then. He has had a colonoscopy he was noted to have multiple polyps however due to the Plavix that they did not know he was on they were unable to remove the polyps. He is scheduled to have a repeat colonoscopy for May to remove polyps. He is having some mild lower abdominal cramping as well. He denies any fever no nausea or vomiting. MD complaint: gross hematochezia Onset (ago): hour(s) Relieving factors: none Exacerbating factors: none Associated symptoms: abdominal pain Related Data Home Medications Medication Instructions Recorded Confirmed lamotrigine [Lamictal] 325 mg PO BID 01/07/18 02/04/19 fluoxetine 1 cap PO BEDTIME 05/15/18 02/04/19 levothyroxine 44 mcg PO DAILY 05/15/18 02/04/19 methocarbamol 500 mg PO QID PRN 05/15/18 02/04/19 mirtazapine 0.5 tab PO BEDTIME 05/15/18 02/04/19 clopidogrel 75 mg PO DAILY 01/28/19 02/04/19 Previous Rx's Medication Instructions Recorded acetaminophen 650 mg PO Q6HR PRN #60 tab 01/29/18 walker #1 each 01/29/18 oxycodone 10 mg PO Q4-6H PRN #60 each 02/04/19 Allergies Allergy/AdvReac Type Severity Reaction Status Date / Time latex Allergy Severe Rash Verified 02/04/19 12:54 Penicillins [PENICILLINS] Allergy Severe ANAPHYLAXIS Verified 02/04/19 12:54 vortioxetine AdvReac Severe Nausea Verified 02/04/19 12:54 [From Trintellix] Review of Systems Review of Systems GENERAL: Denies chills, fatigue, malaise, fever, sweats, travel HEENT: Denies sinus pain, ear pain, sore throat, difficulty swallowing, neck pain RESPIRATORY: Denies dyspnea, cough, wheezing, hemoptysis, sputum. CARDIOVASCULAR: Denies chest pain, palpitations, orthopnea, edema GASTROINTESTINAL: See HPI : Denies dysuria, frequency, incontinence, hematuria, urinary retention, flank pain. MUSCULOSKELETAL: Denies weakness, joint pain, or bony pain SKIN: No rash, no erythema, no pruritus NEUROLOGIC: Denies weakness, dizziness, headache, numbness, change in speech, confusion PSYCHIATRIC: No concerning psychosocial issues. 12 point review of systems is negative except for those stated above and HPI FORMERLY [facility] Medical History Bone spur (Acute) Depression (Acute) Epilepsy (Acute) History of ankle fracture (Acute) History of prosthetic unicompartmental arthroplasty of left knee (Acute) History of prosthetic unicompartmental arthroplasty of right knee (Acute) Hyperlipidemia (Acute) Hypothyroidism (Acute) Kidney stones (Acute) Lupus (Acute) Paresthesias (Acute ~03/2018) Sleep apnea (Acute) Suicidal ideations (Acute) UTI (urinary tract infection) (Acute) Urinary dribbling (Acute) Urinary stream slowing (Acute) Surgical History H/O laminectomy (Acute) History of arthroscopy of both knees (Acute) History of lumbar spinal fusion (Acute 01/27/18) Hx of appendectomy (Acute) Hx of tonsillectomy (Acute) S/P left unicompartmental knee replacement (Acute) S/P right unicompartmental knee replacement (Acute) History of cataract removal with insertion of prosthetic lens Family History (Updated 06/16/17 @ 00:00 by Conversion Provider) Father Heart disease Hypertension High cholesterol Social History household members: spouse Smoking Status: Former smoker alcohol intake: current Family History Father Heart disease Hypertension High cholesterol Social History household members: spouse Smoking Status: Former smoker alcohol intake: current Exam Initial Vital Signs Initial Vital Signs: Vital Signs Temperature 98.1 F 03/28/19 09:50 Pulse Rate 68 03/28/19 09:50 Respiratory Rate 21 03/28/19 09:50 Blood Pressure 161/102 H 03/28/19 09:50 Pulse Oximetry 98 03/28/19 09:50 GENERAL: Well-appearing, well-nourished and in no acute distress. HEENT: Head atraumatic,EOMI, pupils reactive, face symmetric CARDIOVASCULAR: Regular rate and rhythm without murmurs, rubs or gallops. RESPIRATORY: Breath sounds equal bilaterally, no wheezes rales or rhonchi. ABDOMEN: Soft, nontender. Normoactive bowel sounds all 4 quadrants. No guarding or rebound. RECTAL: guaiac-negative no hemorrhoid : No CVA tenderness EXTREMITIES: Normal range of motion, no clubbing or edema. Neurovascularly intact NEUROLOGICAL: Alert and oriented x4.Normal gait and speech. Cranial nerves II through XII grossly intact. SKIN: Warm, dry, no laceration, no petechiae, no rashes or lesions. Course Orders Ordered: ED Orders 03/28/19 09:51 EKG-12 Lead Stat 03/28/19 10:02 CT abdomen pelvis w con Stat 03/28/19 10:15 Complete Blood Count AUTO DIFF Stat Comprehensive Metabolic Panel Stat Lactate (Lactic Acid) Stat Partial Thromboplastin Time Stat Prothrombin Time INR Stat Type and Screen Stat 03/28/19 11:58 Consult to General Surgery Stat Vital Signs - 8 hr 03/28/19 09:50 03/28/19 10:29 03/28/19 11:08 Temperature 98.1 F Pulse Rate 68 66 69 Respiratory Rate 21 23 18 Blood Pressure 161/102 H Blood Pressure [Left Arm] 146/86 H 135/97 H Pulse Oximetry 98 98 03/28/19 12:30 03/28/19 13:00 03/28/19 13:22 Temperature Pulse Rate 67 67 67 Respiratory Rate 15 12 16 Blood Pressure 125/76 Blood Pressure [Left Arm] 127/88 125/85 Pulse Oximetry 96 97 99 MDM - GI Bleed Lab Data Attestation: I reviewed the patient's lab results. Result diagrams: 03/28/19 10:15 03/28/19 10:15 Lab Results 03/28/19 03/28/19 03/28/19 Range/Units 10:15 10:15 10:15 WBC 4.6 (4.5-11.0) X10^3/uL RBC 5.04 (4.5-5.9) X10^6/uL Hgb 15.1 (13.5-17.5) g/dL Hct 45.5 (41-53) % MCV 90.3 (80-100) fL MCH 30.1 (26-34) PG MCHC 33.3 (30-36) % RDW 13.8 (11.6-14.8) % Plt Count 220 (150-400) X10^3/uL Neut % (Auto) 58.0 (50-75) % Lymph % (Auto) 29.6 (25-40) % Camden % (Auto) 11.0 (3-14) % Eos % (Auto) 0.9 L (2-4) % Baso % (Auto) 0.5 (0-2) % Neut # (Auto) 2700 (8632-8969) /uL Lymph # (Auto) 1400 (5278-2097) /uL Camden # (Auto) 500 (0-900) /uL Eos # (Auto) 0 (0-450) /uL Baso # (Auto) 0 (0-100) /uL PT 11.0 (10.1-12.7) SECONDS INR 1.0 (0.9-1.3) APTT 31 D (26.4-36.2) SECONDS Sodium 140 (137-145) mmol/L Potassium 4.0 (3.4-5.1) mmol/L Chloride 107 (98-107) mmol/L Carbon Dioxide 23 (22-32) mmol/L BUN 23 H (9-20) mg/dL Creatinine 0.80 (0.66-1.25) mg/dL Estimated GFR > 60.0 (>60) mL/min BUN/Creatinine Ratio 28.8 H (6-22) Glucose 105 (80-110) mg/dL Lactate (0.7-2.1) mmol/L Calcium 9.7 (8.4-10.2) mg/dL Total Bilirubin 0.6 (0.2-1.3) mg/dL AST 29 (17-59) IU/L ALT 39 (21-72) IU/L Alkaline Phosphatase 98 (38-126) U/L Total Protein 6.9 (6.3-8.2) g/dL Albumin 4.6 (3.5-5.0) g/dL Globulin 2.3 (1.7-4.1) g/dL Albumin/Globulin Ratio 2.0 (1.0-2.8) Blood Type Antibody Screen 03/28/19 03/28/19 Range/Units 10:15 10:15 WBC (4.5-11.0) X10^3/uL RBC (4.5-5.9) X10^6/uL Hgb (13.5-17.5) g/dL Hct (41-53) % MCV (80-100) fL MCH (26-34) PG MCHC (30-36) % RDW (11.6-14.8) % Plt Count (150-400) X10^3/uL Neut % (Auto) (50-75) % Lymph % (Auto) (25-40) % Camden % (Auto) (3-14) % Eos % (Auto) (2-4) % Baso % (Auto) (0-2) % Neut # (Auto) (6652-0711) /uL Lymph # (Auto) (5227-9476) /uL Camden # (Auto) (0-900) /uL Eos # (Auto) (0-450) /uL Baso # (Auto) (0-100) /uL PT (10.1-12.7) SECONDS INR (0.9-1.3) APTT (26.4-36.2) SECONDS Sodium (137-145) mmol/L Potassium (3.4-5.1) mmol/L Chloride (98-107) mmol/L Carbon Dioxide (22-32) mmol/L BUN (9-20) mg/dL Creatinine (0.66-1.25) mg/dL Estimated GFR (>60) mL/min BUN/Creatinine Ratio (6-22) Glucose (80-110) mg/dL Lactate 0.9 (0.7-2.1) mmol/L Calcium (8.4-10.2) mg/dL Total Bilirubin (0.2-1.3) mg/dL AST (17-59) IU/L ALT (21-72) IU/L Alkaline Phosphatase (38-126) U/L Total Protein (6.3-8.2) g/dL Albumin (3.5-5.0) g/dL Globulin (1.7-4.1) g/dL Albumin/Globulin Ratio (1.0-2.8) Blood Type AB Positive Antibody Screen Negative ECG Data Attestation: I personally reviewed and interpreted this ECG as follows: Prior ECG tracings: available for review Interpretation: Normal sinus rhythm rate [address] changes or T-wave inversions appear interval 187 MDM Narrative Medical decision making narrative: Patient has had no further episodes of rectal bleeding in the ED. He is hemodynamically stable. Guaiac was negative. Surgery Dr. Perez in the ED to see and evaluate patient. At this time they have arranged outpatient follow-up for colonoscopy he is to call the office and schedule 1. He will return to the ED if he should have any more significant episodes of bleeding Discharge Plan Departure Patient Disposition: Home Clinical Impression: Acute GI bleeding Discharge Date/Time: 03/28/19 13:26 Interventions: ED Discharge Assessment Last Done: 03/28/19 13:22 Instructions: Gastrointestinal Bleeding Activity Restrictions/Additional Instructions: *You have been diagnosed with GI bleeding *What to do: If you should have further episodes of gross blood. Dizziness lightheadedness increased pain you need to return to the emergency department You will need a colonoscopy once her Plavix has stopped. *Continue to take medications as directed *Follow up with your primary care provider in 2-3 days *Return to ER if you should have worsening blood passing out dizziness lightheadedness or any new, worsening or concerning symptoms Prescriptions: No Action lamotrigine [Lamictal] 150 mg Tablet 325 mg PO BID RF: 0 acetaminophen 325 mg Tablet 650 mg PO Q6HR PRN (Reason: Pain, Mild) Qty: 60 RF: 0 walker misc .ROUTE .MEDSUPPLY Qty: 1 RF: 0 methocarbamol 500 mg tablet 500 mg PO QID PRN (Reason: Muscle Spasm) RF: 0 mirtazapine 45 mg tablet 0.5 tab PO BEDTIME RF: 0 fluoxetine 20 mg capsule 1 cap PO BEDTIME RF: 0 levothyroxine 88 mcg Tablet 44 mcg PO DAILY RF: 0 clopidogrel 75 mg Tablet 75 mg PO DAILY RF: 0 oxycodone 5 mg tablet, oral only 10 mg PO Q4-6H PRN (Reason: pain) Qty: 60 RF: 0 Referrals: Sherly Jara PA-C [Primary Care Provider] - Henry Perez MD [Physician] -
[2019-03-28 10:29] VITALS: BP 146/86; PULSE 66; RESP 23; O2SAT 98
[2019-03-28 10:30] LABS: Add Manual Diff / Slide Review NO; Basophils Absolute Auto 0 /uL (0-100); Basophils Percent Auto 0.5 % (0-2); Eosinophils Absolute Auto 0 /uL (0-450); Eosinophils Percent Auto 0.9 % (2-4); Hematocrit 45.5 % (41-53); Hemoglobin 15.1 g/dL (13.5-17.5); Lymphocytes Absolute Auto 1400 /uL (1100-4500); Lymphocytes Percent Auto 29.6 % (25-40); Mean Corpuscular HGB Conc 33.3 % (30-36); Mean Corpuscular Hemoglobin 30.1 PG (26-34); Mean Corpuscular Volume 90.3 fL (80-100); Monocytes Absolute Auto 500 /uL (0-900); Neutrophils Absolute Auto 2700 /uL (1500-7000); Platelet Count 220 X10^3/uL (150-400); Red Blood Cell Count 5.04 X10^6/uL (4.5-5.9); Red Cell Distribution Width 13.8 % (11.6-14.8); White Blood Cell Count 4.6 X10^3/uL (4.5-11.0)
[2019-03-28 10:37] LABS: PTT Partial Thromboplastin Tim 31 SECONDS (26.4-36.2)
[2019-03-28 10:44] LABS: Lactate (Lactic Acid) 0.9 mmol/L (0.7-2.1)
[2019-03-28 10:45] LABS: Alanine Aminotransferase 39 IU/L (21-72); Albumin 4.6 g/dL (3.5-5.0); Alkaline Phosphatase 98 U/L (38-126); Aspartate Aminotransferase 29 IU/L (17-59); BUN Creatinine Ratio 28.8 (6-22); Bilirubin Total 0.6 mg/dL (0.2-1.3); Blood Urea Nitrogen 23 mg/dL (9-20); Calcium 9.7 mg/dL (8.4-10.2); Carbon Dioxide 23 mmol/L (22-32); Chloride 107 mmol/L (98-107); Estimated Glomerular Filt Rate > 60.0 mL/min (>60); Globulin 2.3 g/dL (1.7-4.1); Glucose 105 mg/dL (80-110); HEMOLYSIS < 15 (0-50); Sodium 140 mmol/L (137-145); Total Protein 6.9 g/dL (6.3-8.2)
[2019-03-28 11:08] VITALS: BP 135/97; PULSE 69; RESP 18
[2019-03-28 12:30] VITALS: BP 127/88; PULSE 67; RESP 15; O2SAT 96
[2019-03-28 13:00] VITALS: BP 125/85; PULSE 67; RESP 12; O2SAT 97
[2019-03-28 13:22] VITALS: BP 125/76; PULSE 67; RESP 16; O2SAT 99
--- NOTE | 2019-03-28 13:28 | P.CONS_ITS ---
History of Present Illness Date Patient Seen: 03/28/19 Time Patient Seen: 13:23 Chief complaint: BLOOD IN STOOL/DIZZY Narrative: The patient is a 69-year-old male who presents to the emergency room for evaluation of hematochezia. Patient had a patient had the patient reports and several episodes of dark bloody stools over the past 24 hours period associated with feeling lightheaded and because of this he presented to the emergency room. He has had no further bloody bowel movements since his admission to ER. He has had no prior episodes of hematochezia. He is on Plavix for stroke prevention. He has had a recent colonoscopy in December of 2018 that demonstrated polyps but they were not removed at that time since he was on Plavix during the colonoscopy. He reports that he does have some baseline lightheadedness and dizziness related to his history of seizures. [facility] Medical History Bone spur (Acute) Depression (Acute) Epilepsy (Acute) History of ankle fracture (Acute) History of prosthetic unicompartmental arthroplasty of left knee (Acute) History of prosthetic unicompartmental arthroplasty of right knee (Acute) Hyperlipidemia (Acute) Hypothyroidism (Acute) Kidney stones (Acute) Lupus (Acute) Paresthesias (Acute ~03/2018) Sleep apnea (Acute) Suicidal ideations (Acute) UTI (urinary tract infection) (Acute) Urinary dribbling (Acute) Urinary stream slowing (Acute) Surgical History H/O laminectomy (Acute) History of arthroscopy of both knees (Acute) History of lumbar spinal fusion (Acute 01/27/18) Hx of appendectomy (Acute) Hx of tonsillectomy (Acute) S/P left unicompartmental knee replacement (Acute) S/P right unicompartmental knee replacement (Acute) History of cataract removal with insertion of prosthetic lens Family History (Updated 06/16/17 @ 00:00 by Conversion Provider) Father Heart disease Hypertension High cholesterol Social History household members: spouse Smoking Status: Former smoker alcohol intake: current Family History Father Heart disease Hypertension High cholesterol Social History household members: spouse Smoking Status: Former smoker alcohol intake: current Meds Home Medications Medication Instructions Recorded Confirmed Type lamotrigine [Lamictal] 325 mg PO BID 01/07/18 02/04/19 History acetaminophen 650 mg PO Q6HR PRN #60 tab 01/29/18 02/04/19 Rx walker #1 each 01/29/18 05/15/18 Rx fluoxetine 1 cap PO BEDTIME 05/15/18 02/04/19 History levothyroxine 44 mcg PO DAILY 05/15/18 02/04/19 History methocarbamol 500 mg PO QID PRN 05/15/18 02/04/19 History mirtazapine 0.5 tab PO BEDTIME 05/15/18 02/04/19 History clopidogrel 75 mg PO DAILY 01/28/19 02/04/19 History oxycodone 10 mg PO Q4-6H PRN #60 each 02/04/19 Rx Allergies Allergy/AdvReac Type Severity Reaction Status Date / Time latex Allergy Severe Rash Verified 02/04/19 12:54 Penicillins [PENICILLINS] Allergy Severe ANAPHYLAXIS Verified 02/04/19 12:54 vortioxetine AdvReac Severe Nausea Verified 02/04/19 12:54 [From Trintellix] Review of Systems Review of Systems General-no weight loss, fever or chills Head and Neck-no change in voice, no neck swelling Pulmonary-No cough, no shortness of breath at rest, no wheezing Cardiac-No syncope, caludiacation, palpitations or lower extremity edema Gastrointestinal-No nausea or vomiting, no abdominal distention, or jaundice Genitourinary-No hematuria or dysuria Hematology-No hypercoagulability, no bruising Neurological- +seizures, +dizziness, no new weakness Endocrine-No diabetes, no thyroid or adrenal disorders Psychiatric-No anxiety, depression or substance abuse disorder Exam Vital Signs (past 8 hours): - 03/28/19 09:50 03/28/19 10:29 03/28/19 11:08 Temperature 98.1 F Pulse Rate 68 66 69 Respiratory Rate 21 23 18 Blood Pressure 161/102 H Blood Pressure [Left Arm] 146/86 H 135/97 H Pulse Oximetry 98 98 03/28/19 12:30 03/28/19 13:00 Temperature Pulse Rate 67 67 Respiratory Rate 15 12 Blood Pressure Blood Pressure [Left Arm] 127/88 125/85 Pulse Oximetry 96 97 Oxygen Delivery Method Room Air Narrative Exam Narrative: General-Adult male no acute distress, well nourished HEENT-Moist mucous membranes, no scleral icteris Neck-Supple with full range of motion, no lymphadenopathy Chest- No labored respirations, clear to auscultation bilaterally Cardiac-Regular rate and rhythm Abdomen-Soft, nontender, non distended Extremities-No edema, warm well perfused Neurological-Alert and oriented x 3. No focal deficits Skin-Normal temperature and turgor, no rashes or ulcers Objective Labs Result Diagrams: 03/28/19 10:15 03/28/19 10:15 Labs: Laboratory Results - last 24 hr 03/28/19 03/28/19 03/28/19 10:15 10:15 10:15 WBC 4.6 RBC 5.04 Hgb 15.1 Hct 45.5 MCV 90.3 MCH 30.1 MCHC 33.3 RDW 13.8 Plt Count 220 Neut % (Auto) 58.0 Lymph % (Auto) 29.6 [place] % (Auto) 11.0 Eos % (Auto) 0.9 L Baso % (Auto) 0.5 Neut # (Auto) 2700 Lymph # (Auto) 1400 [place] # (Auto) 500 Eos # (Auto) 0 Baso # (Auto) 0 PT 11.0 INR 1.0 APTT 31 D Sodium 140 Potassium 4.0 Chloride 107 Carbon Dioxide 23 BUN 23 H Creatinine 0.80 Estimated GFR > 60.0 BUN/Creatinine Ratio 28.8 H Glucose 105 Lactate Calcium 9.7 Total Bilirubin 0.6 AST 29 ALT 39 Alkaline Phosphatase 98 Total Protein 6.9 Albumin 4.6 Globulin 2.3 Albumin/Globulin Ratio 2.0 Blood Type Antibody Screen 03/28/19 03/28/19 10:15 10:15 WBC RBC Hgb Hct MCV MCH MCHC RDW Plt Count Neut % (Auto) Lymph % (Auto) [place] % (Auto) Eos % (Auto) Baso % (Auto) Neut # (Auto) Lymph # (Auto) [place] # (Auto) Eos # (Auto) Baso # (Auto) PT INR APTT Sodium Potassium Chloride Carbon Dioxide BUN Creatinine Estimated GFR BUN/Creatinine Ratio Glucose Lactate 0.9 Calcium Total Bilirubin AST ALT Alkaline Phosphatase Total Protein Albumin Globulin Albumin/Globulin Ratio Blood Type AB Positive Antibody Screen Negative Assessment & Plan Assessment & Plan narrative: 69-year-old male on Plavix with 2 episodes of dark bloody stools. Hemodynamically stable. Hematocrit 46 medically at 46 platelets 220 INR 1.0. He has had no further bleeding at this time. He underwent a recent colonoscopy several months ago which demonstrated polyps which were not removed at the time because him being on Plavix. The Plavix is for stroke prevention and according to his neurologist he may be off for 5 days. Unless hemodynamically unstable, and or major GI bleed would not proceed with colonoscopy at this time. Ideally he would undergo bowel prep and have been off his Plavix for 5 days prior to the colonoscopy. We will follow him if he is admitted to the hospital or he may see us in the outpatient setting for his colonoscopy. Time Spent With Patient Time with patient: 25 - 35 minutes
== END 2019-03-28 13:26 | disposition home or self-care (01) ==
PROVIDERS: Emergency Provider Emergency Medicine; PCP Student in an Organized Health Care Education/Training Program
DX: K92.2 Gastrointestinal hemorrhage, unspecified (principal); Z79.01 Long term (current) use of anticoagulants
CPT/HCPCS: 36591; 74177; 80053; 83605; 85025; 85610; 85730; 86850; 86900; 86901; 93005; 99283; 99285; Q9967

== ENCOUNTER 2019-03-29 06:59 | Emergency (ER) | payer MEDICARE, OTHER, SELFPAY ==
[2018-05-15 17:30] VITALS: BMI 25.2
[2019-03-29 07:06] VITALS: BP 180/111; PULSE 76; RESP 19; TEMP 37.2; O2SAT 100; BMI 27.3
[2019-03-29] MEDS: SODIUM CHLORIDE 0.9% 1,000 ML 150 ML IV (07:16)
[2019-03-29] MEDS: MORPHINE 4 MG/ML INJ IV ×2 (07:16→08:44)
--- NOTE | 2019-03-29 07:18 | ED_ITS ---
HPI - Abdominal Pain General Chief Complaint: Abdominal Pain Stated Complaint: Abdominal pain Time Seen by Provider: 03/29/19 07:01 Source: patient Mode of arrival: ambulatory Limitations: no limitations History of Present Illness HPI narrative: This a 69-year-old male comes to emergency department for complaint left-sided abdominal pain back/flank pain. Patient states that he was actually here yesterday for bright red bleeding with bowel movements. Patient had 2 episodes after he left the emergency department. He states he was offered hospitalization but deferred and return home. Overnight he developed left-sided abdominal pain that is also into his flank. He states he has felt like he would need to have some bowel movements but has not had any stool. Patient denies any fevers. No chest pain or shortness of breath. No nausea or vomiting. Patient does take Plavix daily. He does stop it yesterday after being seen. He takes it for TIA or CVA. Patient states that he does drink about 4 alcoholic drinks daily. Chart notes that he was seen by General surgery yesterday in the emergency department. He has a history of polyps. Then scheduled for repeat colonoscopy in May the recovery to do sooner. Related Data Home Medications Medication Instructions Recorded Confirmed lamotrigine [Lamictal] 325 mg PO BID 01/07/18 02/04/19 fluoxetine 1 cap PO BEDTIME 05/15/18 02/04/19 levothyroxine 44 mcg PO DAILY 05/15/18 02/04/19 methocarbamol 500 mg PO QID PRN 05/15/18 02/04/19 mirtazapine 0.5 tab PO BEDTIME 05/15/18 02/04/19 clopidogrel 75 mg PO DAILY 01/28/19 02/04/19 Previous Rx's Medication Instructions Recorded acetaminophen 650 mg PO Q6HR PRN #60 tab 01/29/18 walker #1 each 01/29/18 oxycodone 10 mg PO Q4-6H PRN #60 each 02/04/19 ciprofloxacin HCl 500 mg PO Q12H #14 tab 03/29/19 oxycodone-acetaminophen [Percocet] 1 tab PO Q4-6H PRN #14 tab 03/29/19 tamsulosin [Flomax] 0.4 mg PO DAILY #5 cap 03/29/19 Allergies Allergy/AdvReac Type Severity Reaction Status Date / Time latex Allergy Severe Rash Verified 03/29/19 07:06 Penicillins [PENICILLINS] Allergy Severe ANAPHYLAXIS Verified 03/29/19 07:06 vortioxetine AdvReac Severe Nausea Verified 03/29/19 07:06 [From Trintellix] morphine AdvReac Verified 03/29/19 08:59 Review of Systems Review of Systems ROS Unobtainable: All systems reviewed & are unremarkable except as noted in HPI and below Constitutional Denies fever(s) and Denies lethargy Gastrointestinal Gastrointestinal: Reports abdominal pain, Denies melena, Denies hematochezia (had yesterday), Denies change in bowel habits, Denies diarrhea, Denies nausea and Denies vomiting Genitourinary Denies hematuria, Denies dysuria, Reports flank pain (Left), Denies urinary incontinence and Denies urinary urgency Musculoskeletal Reports back pain (Left) [facility] Medical History Bone spur (Acute) Depression (Acute) Epilepsy (Acute) History of ankle fracture (Acute) History of prosthetic unicompartmental arthroplasty of left knee (Acute) History of prosthetic unicompartmental arthroplasty of right knee (Acute) Hyperlipidemia (Acute) Hypothyroidism (Acute) Kidney stones (Acute) Lupus (Acute) Paresthesias (Acute ~03/2018) Sleep apnea (Acute) Suicidal ideations (Acute) UTI (urinary tract infection) (Acute) Urinary dribbling (Acute) Urinary stream slowing (Acute) Surgical History H/O laminectomy (Acute) History of arthroscopy of both knees (Acute) History of lumbar spinal fusion (Acute 01/27/18) Hx of appendectomy (Acute) Hx of tonsillectomy (Acute) S/P left unicompartmental knee replacement (Acute) S/P right unicompartmental knee replacement (Acute) History of cataract removal with insertion of prosthetic lens Family History Father Heart disease Hypertension High cholesterol Social History household members: spouse Smoking Status: Former smoker alcohol intake: current Family History Father Heart disease Hypertension High cholesterol Social History household members: spouse Smoking Status: Former smoker alcohol intake: current Exam Narrative Exam Narrative: GENERAL: Alert and oriented x three, well-nourished male in moderate distress. HEENT: Head normocephalic, atraumatic, EOMI, pupils reactive, face symmetric, moist mucous membranes NECK: Supple, full range of motion CARDIOVASCULAR: Regular rate and rhythm without murmurs, rubs or gallops. RESPIRATORY: Breath sounds equal bilaterally, no wheezes rales or rhonchi. ABDOMEN: Soft, mildly tender with left-sided palpation in the upper and lower quadrant. Normoactive bowel sounds all 4 quadrants. No guarding or rebound, rigidity, no mass. Stool occult is negative. Patient has some small hemorrhoids. No masses noted on [place]. : No CVA tenderness BACK: No cervical, thoracic or lumbar vertebral point tenderness. Patient has normal range of motion. Patient's gait is not tested. EXTREMITIES: Normal range of motion, no clubbing or edema. Neurovascularly intact NEUROLOGICAL: Cranial nerves II through XII grossly intact. Moving all extremities SKIN: Warm, dry, no petechiae, no rashes or lesions. Initial Vital Signs Initial Vital Signs: Vital Signs Temperature 98.9 F 03/29/19 07:06 Pulse Rate 76 03/29/19 07:06 Respiratory Rate 19 03/29/19 07:06 Blood Pressure 180/111 H 03/29/19 07:06 Pulse Oximetry 100 03/29/19 07:06 Course Orders Ordered: ED Orders 03/29/19 10:00 Urine Culture Stat Urine Microscopic Stat Discontinued Medications Sodium Chloride (Normal Saline 0.9%) 1,000 mls @ 150 mls/hr IV CONT LA Last Infusion: 03/29/19 11:13 Dose: 0 mls/hr Admin: 03/29/19 07:16 Dose: 150 mls/hr Morphine Sulfate (Morphine) 4 mg IV NOW ONE Stop: 03/29/19 07:10 Last Admin: 03/29/19 07:16 Dose: 4 mg Morphine Sulfate (Morphine) 4 mg IV NOW ONE Stop: 03/29/19 08:39 Last Admin: 03/29/19 08:44 Dose: 4 mg Oxycodone/Acetaminophen (Percocet 5/325) 2 tab PO NOW ONE Stop: 03/29/19 09:09 Last Admin: 03/29/19 09:19 Dose: 2 tab Tamsulosin HCl (Flomax) 0.4 mg PO NOW ONE Stop: 03/29/19 09:17 Last Admin: 03/29/19 09:19 Dose: 0.4 mg Vital Signs - 8 hr 03/29/19 11:00 Pulse Rate 66 Respiratory Rate 13 Blood Pressure [Right Arm] 128/83 Pulse Oximetry 97 MDM - Abdominal Pain Lab Data Attestation: I reviewed the patient's lab results. Result diagrams: 03/29/19 07:09 03/29/19 07:40 Lab Results 03/29/19 03/29/19 03/29/19 Range/Units 07:09 07:09 07:40 WBC 5.4 (4.5-11.0) X10^3/uL RBC 5.18 (4.5-5.9) X10^6/uL Hgb 15.8 (13.5-17.5) g/dL Hct 46.9 (41-53) % MCV 90.5 (80-100) fL MCH 30.5 (26-34) PG MCHC 33.7 (30-36) % RDW 14.0 (11.6-14.8) % Plt Count 294 (150-400) X10^3/uL Neut % (Auto) 42.3 L (50-75) % Lymph % (Auto) 44.6 H (25-40) % [place] % (Auto) 10.5 (3-14) % Eos % (Auto) 2.1 (2-4) % Baso % (Auto) 0.5 (0-2) % Neut # (Auto) 2300 (3291-1561) /uL Lymph # (Auto) 2400 (0504-5542) /uL [place] # (Auto) 600 (0-900) /uL Eos # (Auto) 100 (0-450) /uL Baso # (Auto) 0 (0-100) /uL PT 10.3 (10.1-12.7) SECONDS INR 0.9 (0.9-1.3) APTT 32 (26.4-36.2) SECONDS Sodium 143 (137-145) mmol/L Potassium 4.3 (3.4-5.1) mmol/L Chloride 111 H (98-107) mmol/L Carbon Dioxide 21 L (22-32) mmol/L BUN 25 H (9-20) mg/dL Creatinine 1.00 (0.66-1.25) mg/dL Estimated GFR > 60.0 (>60) mL/min BUN/Creatinine Ratio 25.0 H (6-22) Glucose 123 H (80-110) mg/dL Calcium 9.4 (8.4-10.2) mg/dL Total Bilirubin 0.5 (0.2-1.3) mg/dL AST 25 (17-59) IU/L ALT 30 (21-72) IU/L Alkaline Phosphatase 87 (38-126) U/L Total Protein 6.3 (6.3-8.2) g/dL Albumin 4.2 (3.5-5.0) g/dL Globulin 2.1 (1.7-4.1) g/dL Albumin/Globulin Ratio 2.0 (1.0-2.8) Lipase 157 (23-300) U/L Urine RBC (0-5/HPF) Urine WBC (0-5/HPF) Urine Bacteria (None) Ur Culture Indicated? Blood Type Rho(D) Type Antibody Screen 03/29/19 03/29/19 Range/Units 07:40 10:00 WBC (4.5-11.0) X10^3/uL RBC (4.5-5.9) X10^6/uL Hgb (13.5-17.5) g/dL Hct (41-53) % MCV (80-100) fL MCH (26-34) PG MCHC (30-36) % RDW (11.6-14.8) % Plt Count (150-400) X10^3/uL Neut % (Auto) (50-75) % Lymph % (Auto) (25-40) % [place] % (Auto) (3-14) % Eos % (Auto) (2-4) % Baso % (Auto) (0-2) % Neut # (Auto) (1204-5898) /uL Lymph # (Auto) (3116-3116) /uL [place] # (Auto) (0-900) /uL Eos # (Auto) (0-450) /uL Baso # (Auto) (0-100) /uL PT (10.1-12.7) SECONDS INR (0.9-1.3) APTT (26.4-36.2) SECONDS Sodium (137-145) mmol/L Potassium (3.4-5.1) mmol/L Chloride (98-107) mmol/L Carbon Dioxide (22-32) mmol/L BUN (9-20) mg/dL Creatinine (0.66-1.25) mg/dL Estimated GFR (>60) mL/min BUN/Creatinine Ratio (6-22) Glucose (80-110) mg/dL Calcium (8.4-10.2) mg/dL Total Bilirubin (0.2-1.3) mg/dL AST (17-59) IU/L ALT (21-72) IU/L Alkaline Phosphatase (38-126) U/L Total Protein (6.3-8.2) g/dL Albumin (3.5-5.0) g/dL Globulin (1.7-4.1) g/dL Albumin/Globulin Ratio (1.0-2.8) Lipase (23-300) U/L Urine RBC >100/hpf (0-5/HPF) Urine WBC 0-1/hpf (0-5/HPF) Urine Bacteria None seen (None) Ur Culture Indicated? Specimen cultured Blood Type Cancelled Rho(D) Type Cancelled Antibody Screen Cancelled Point of care testing: Urine Dip Bedside Urine Glucose Negative Bedside Urine Bilirubin - Negative Bedside Urine Ketone +/- 5 Urine Specific [place] 1.010 Bedside Urine Occult Blood +++ Bedside Urine pH 8.5 Bedside Urine Protein +/- 15 Bedside Urine Urobilinogen - Negative Bedside Urine Nitrite - Negative Bedside Urine Leukocytes +/- [address] scan - abdomen: Radiologist's impression: [address] [address] [address] Scan Report Signed Patient: Dago Ferrara GMR#: [id number] : 8Acct:[id number] Age/Sex: 69 / MDate of Service: 03/28/19 Loc: ED Accession Number: [id number] Procedure: CT abdomen pelvis w con Ordering Provider: Sophia Yates D.O. PROCEDURE: CT ABDOMEN PELVIS W CON INDICATIONS: pain gi bleed TECHNIQUE: After the administration of intravenous contrast, 5 mm thick sections acquired from the diaphragm to the symphysis. 5 mm coronal and sagittal reformats were acquired. For radiation dose reduction, the following was used: automated exposure control, adjustment of mA and/or kV according to patient size. COMPARISON: [facility], CR, XR LUMBAR SPINE 2-3V, 02/04/2019, 15:11. [facility], MR, MR HEAD/BRAIN WO CON, 05/16/2018, 9:21. [facility], CT, CT LUMBAR SPINE WO CON, 12/31/2018, 12:53. [facility], CT, KIDNEY/ URETER/BLADDER, 08/13/2017, 9:18. FINDINGS: Image quality: Excellent. ABDOMEN: Lung bases: Lung bases are clear. Heart size is normal. A small hiatal hernia is incidentally noted. Solid organs: Liver is normal in size and enhancement. Diffuse fatty liver infiltration is noted. Gallbladder wall is not thickened. Biliary system is non dilated. Pancreas enhances normally. Spleen is normal in size and enhancement. No adrenal nodules. Within the distal left ureter, there is a stone seen that measures 5 mm craniocaudal, as on series 2 image 75 and on series 4 image 43. There is no definite associated left-sided hydronephrosis. The kidneys demonstrate normal size. No right-sided hydronephrosis is seen. Peritoneum and bowel: Bowel loops demonstrate normal wall thickness and caliber. No free fluid or air. Diverticulosis is seen, without findings of active diverticulitis. Nodes and vessels: No retroperitoneal or mesenteric adenopathy by size criteria. Aorta and inferior vena cava are normal in size. Miscellaneous: No ventral hernias. PELVIS: Genitourinary: Bladder wall thickness is normal. The prostate is enlarged, measuring 5.7 cm transversely. Miscellaneous: No enlarged inguinal or pelvic lymph nodes are seen. There is a fat-containing left inguinal hernia seen. Bones: No suspicious bony lesions. No vertebral body compression fractures. Lumbosacral fixation hardware is seen. Degenerative changes are seen throughout. Mild levoconvex scoliotic curvature is noted. IMPRESSION: A cause of GI bleed is not identified on this study. There is a 2-3 mm stone seen within the distal left ureter, without associated hydronephrosis. This stone is smaller than in 2017. Incidental note is made of: Small hiatal hernia Fatty liver infiltration Diverticulosis, without findings of active diverticulitis. Lumbosacral fixation hardware Enlarged prostate Fat-containing left inguinal hernia Dictated by: Sammy Matta M.D. on 03/28/2019 at 10:19 Approved by: Sammy Matta M.D. on 03/28/2019 at 10:25 ECG Data Attestation: I personally reviewed and interpreted this ECG as follows: Interpretation: Sinus bradycardia with rate of 67 NM 187 QRS of [address] elevation or depression. MDM Narrative Medical decision making narrative: Patient has CT from yesterday which shows some diffuse fatty liver infiltration, a distal left ureteral stone that is 5 mm, no left-sided hydro. Bowel loops were normal, prostate was enlarged. A fat containing left inguinal hernia. Stone noted in the distal left ureter and is smaller than in 2017. Enlarged prostate. Prelim renal US shows large stone in distal ureter, patient has hematuria when voiding. Labs did not show an elevated white count, hemoglobin is stable, coags are normal. Patient's chloride is slightly elevated and CO2 is 21. This could be related to recent IV fluids yesterday as well as today. Creatinine is in normal range with no acute changes. Electrolytes are otherwise normal. Urine shows Patient has not had any further GI/rectal bleeding yesterday with stable hemoglobin and hematocrit. Patient was hypertensive on arrival but has been improving during stay and as patient is more comfortable. Most recent BP was 143/67 while I was in the room. Discussed all findings with patient and . He has seen urology before in [facility] with prior kidney stone which he successfully passed at home. Patient pain is likely secondary to kidney stone. CT imaging yesterday showed a stone that was 5 mm. No hydro noted today on US. Patient is feeling much better after Morphine. He had two doses as pain had returned. Plan for oral pain medication for longer relief. Patient forgot to give sample when doing post void for US and waiting for urine sample. Discussed a length regarding repeat CT vs. using imaging yesterday, along with todays US and labs. Plan to wait on CT unless cannot control pain in ED, pain control, and follow up with urology. Discharge Plan Departure Patient Disposition: Home Clinical Impression: Kidney stone on left side Discharge Date/Time: 03/29/19 11:14 Interventions: ED Discharge Assessment Last Done: 03/29/19 11:13 Instructions: DI for Kidney Stones Activity Restrictions/Additional Instructions: Follow up in the next 24-48 hours for recheck. Call tomorrow morning to set up your follow up with General surgery for colonoscopy this week as discussed with Dr. Perez yesterday. Continue home medication as prescribed except for your plavix. Continue to hold in anticipation of your colonoscopy with Dr. Perez. Take pain medication as prescribed, this medication can make you sleepy do not drive, perform hazardous activities or make any major decisions while taking it. Take flomax once daily until gone. Return to the emergency department for fevers greater 100.4 F, new or worsening abdominal or flank pain, persistent vomiting, black or bloody stools that are continuing or increasing in frequency, lightheadedness, passing out, inability to urinate or other new or concerning symptoms. Prescriptions: New tamsulosin [Flomax] 0.4 mg capsule 0.4 mg PO DAILY Qty: 5 RF: 0 oxycodone-acetaminophen [Percocet] 5-325 mg tablet 1 tab PO Q4-6H PRN (Reason: pain) Qty: 14 RF: 0 ciprofloxacin HCl 500 mg tablet 500 mg PO Q12H Qty: 14 RF: 0 No Action lamotrigine [Lamictal] 150 mg Tablet 325 mg PO BID RF: 0 acetaminophen 325 mg Tablet 650 mg PO Q6HR PRN (Reason: Pain, Mild) Qty: 60 RF: 0 walker misc .ROUTE .MEDSUPPLY Qty: 1 RF: 0 methocarbamol 500 mg tablet 500 mg PO QID PRN (Reason: Muscle Spasm) RF: 0 mirtazapine 45 mg tablet 0.5 tab PO BEDTIME RF: 0 fluoxetine 20 mg capsule 1 cap PO BEDTIME RF: 0 levothyroxine 88 mcg Tablet 44 mcg PO DAILY RF: 0 clopidogrel 75 mg Tablet 75 mg PO DAILY RF: 0 oxycodone 5 mg tablet, oral only 10 mg PO Q4-6H PRN (Reason: pain) Qty: 60 RF: 0 Referrals: Scarlett Carrion MD [Non-Staff] - Sherly Jara PA-C [Primary Care Provider] -
[2019-03-29 07:19] LABS: Add Manual Diff / Slide Review NO; Basophils Absolute Auto 0 /uL (0-100); Basophils Percent Auto 0.5 % (0-2); Eosinophils Absolute Auto 100 /uL (0-450); Eosinophils Percent Auto 2.1 % (2-4); Hematocrit 46.9 % (41-53); Hemoglobin 15.8 g/dL (13.5-17.5); Lymphocytes Absolute Auto 2400 /uL (1100-4500); Lymphocytes Percent Auto 44.6 % (25-40); Mean Corpuscular HGB Conc 33.7 % (30-36); Mean Corpuscular Hemoglobin 30.5 PG (26-34); Mean Corpuscular Volume 90.5 fL (80-100); Monocytes Absolute Auto 600 /uL (0-900); Monocytes Percent Auto 10.5 % (3-14); Neutrophils Absolute Auto 2300 /uL (1500-7000); Neutrophils Percent Auto 42.3 % (50-75); Platelet Count 294 X10^3/uL (150-400); Red Blood Cell Count 5.18 X10^6/uL (4.5-5.9); White Blood Cell Count 5.4 X10^3/uL (4.5-11.0)
--- NOTE | 2019-03-29 07:22 | DI.US.S_ITS ---
PROCEDURE: US RENAL COMPLETE INDICATIONS: LEFT FLANK PAIN TECHNIQUE: Real-time scanning was performed of the kidneys and bladder, with image documentation. COMPARISON: [facility], CT, CT ABDOMEN PELVIS W CON, 03/28/2019, 10:51. [facility], US, RENAL COMPLETE, 09/04/2017, 9:01. FINDINGS: Kidneys: Kidneys are normal in size. Right kidney measures 10.7 cm long; left kidney measures 11.4 cm long. Right renal cortical thickness is 1.5 cm; left renal cortical thickness is 1.8 cm. Renal cortical echotexture is normal. No hydronephrosis is seen. There is an 8mm nonobstructing stone seen within the upper pole the left renal collecting system No suspicious solid mass lesions. Bladder: There is a 9 mm stone seen within the left ureterovesicular junction. This stone measured up to 5 mm on the recent prior CT. Pre-void bladder volume is 243 mL. Post-void residual is 0 mL. Pre-void images demonstrate no intraluminal masses or stones. On pre-void images, only the right ureteral jet can be seen with color Doppler interrogation. (Of note, ureteral jets may not be detectable in up to 25% of cases due to insufficient differences in specific gravity between ureteral and bladder urine). Miscellaneous: No free pelvic fluid. IMPRESSION: Obstructing stone seen at the left ureterovesicular junction. Of interest, no hydronephrosis is seen. There is a nonobstructing 8mm left-sided kidney stone seen. Dictated by: Sammy Matta M.D. on 03/29/2019 at 8:16 Approved by: Sammy Matta M.D. on 03/29/2019 at 8:20
[2019-03-29 07:26] LABS: INR 0.9 (0.9-1.3); Prothrombin Time 10.3 SECONDS (10.1-12.7)
[2019-03-29 07:28] LABS: PTT Partial Thromboplastin Tim 32 SECONDS (26.4-36.2)
[2019-03-29 08:06] LABS: Alanine Aminotransferase 30 IU/L (21-72); Albumin 4.2 g/dL (3.5-5.0); Alkaline Phosphatase 87 U/L (38-126); Aspartate Aminotransferase 25 IU/L (17-59); Bilirubin Total 0.5 mg/dL (0.2-1.3); Blood Urea Nitrogen 25 mg/dL (9-20); Calcium 9.4 mg/dL (8.4-10.2); Carbon Dioxide 21 mmol/L (22-32); Chloride 111 mmol/L (98-107); Estimated Glomerular Filt Rate > 60.0 mL/min (>60); Globulin 2.1 g/dL (1.7-4.1); Glucose 123 mg/dL (80-110); HEMOLYSIS < 15 (0-50); Lipase 157 U/L (23-300); Potassium 4.3 mmol/L (3.4-5.1); Sodium 143 mmol/L (137-145); Total Protein 6.3 g/dL (6.3-8.2)
[2019-03-29 08:45] VITALS: BP 168/90; PULSE 72; RESP 25; O2SAT 99
[2019-03-29] MEDS: TAMSULOSIN 0.4 MG CAPSULE PO (09:19)
[2019-03-29] MEDS: OXYCODONE/ACETAMINOPHEN 5/325 TABLET 2 TAB PO (09:19)
[2019-03-29 10:00] VITALS: BP 132/87; PULSE 69; RESP 15; O2SAT 96
[2019-03-29 10:35] LABS: Bacteria Urine None Seen
[2019-03-29 10:46] LABS: Culture Indicated Urine Specimen Cultured; RBC Urine >100/HPF (0-5/HPF); WBC Urine 0-1/HPF (0-5/HPF)
[2019-03-29 11:00] VITALS: BP 128/83; PULSE 66; RESP 13; O2SAT 97
== END 2019-03-29 11:14 | disposition home or self-care (01) ==
PROVIDERS: Emergency Provider Emergency Medicine; PCP Student in an Organized Health Care Education/Training Program
DX: N20.0 Calculus of kidney (principal); R00.1 Bradycardia, unspecified; R10.9 Unspecified abdominal pain
CPT/HCPCS: 36415; 36591; 76770; 80053; 81003; 81015; 83690; 85025; 85610; 85730; 87086; 93005; 96361; 96374; 96375; 99283; 99285; J2270

== ENCOUNTER 2019-04-02 14:59 | Day surgery (SDC) | payer MEDICARE, OTHER, SELFPAY ==
[2018-05-15 17:30] VITALS: BMI 25.2
[2019-04-02] VITALS (8 sets, daily range): BP systolic 126–140; BP diastolic 77–97; PULSE 68–79; RESP 8–19; TEMP 36.7–36.9; O2SAT 94–99; BMI 26.1
--- NOTE | 2019-04-02 | PATH_ITS ---
[facility] Accession Number: [id number] . 01 Material submitted: . PART A: colon - CECAL POLYP PART B: colon - POLYP AT 30 CM . 02 Diagnosis: A. Cecal Polyp: Portion of tubular adenoma x1; negative for high-grade dysplasia. Superficial portions of colorectal mucosa x2 with occasional prominent benign lymphoid aggregates and no significant histomorphologic abnormality. Additional levels through the block are noncontributory. . B. Polyp at 30 cm: Very scant portions of colorectal mucosa with no significant histomorphologic abnormality. The specimen consists predominantly of vegetable matter. . MRV/04/06/2019 . 02 Electronically signed: . Lucía Chapman MD, Pathologist NPI- [id number] . 01 Gross description: . Part A: CECAL POLYP: Received in formalin 3 fragment(s) of plummer, soft tissue measuring 0.2 x 0.2 x 0.2 cm to 0.3 x 0.2 x 0.2 cm which is entirely submitted and submitted entirely in 1 cassette(s). Part B: POLYP AT 30 CM: Received in formalin are multiple fragment of plummer soft tissue measuring 0.1 x 0.1 x 0.1 cm in aggregate. Specimen is submitted in its entirety in 1 cassette. /D[facility] /DM . 02 Pathologist provided ICD-10: K63.5 . 02 CPT . 795241, [id number] Performed at: 01 [facility] [address] [facility] [place][note 2], [place], [place] [id number] MD Denver Haider MD Phone: [phone] Performed at: [address] [facility] [address] [place], [place] [id number] MD Gertrudis Lorenzo MD Phone: [phone]
--- NOTE | 2019-04-02 15:29 | PM.PREOP ---
Pre-operative Note Interval Note History & Physical reviewed/Exam performed by Physician: Yes Changes to H&P: No ASA Class (for procedural sedation): II
[2019-04-02] MEDS: SODIUM CHLORIDE 0.9% 1,000 ML 200 ML IV (15:30)
[2019-04-02] MEDS: GLUCAGON,HUMAN RECOMBINANT 1 MG/ML VIAL IV (16:00)
--- NOTE | 2019-04-02 16:57 | P.OP.ENDO_ITS ---
Operative Date/Time/Diagnoses Date of procedure: 04/02/19 Time of procedure: 16:53 Pre-op diagnosis: Melena Post-op diagnosis: same Procedure & Clinicians Study performed: Colonoscopy Esophagoduodenoscopy Same procedure as scheduled: Yes Indications: Melena Surgeon: Henry Perez Procedure Notes SCOAP/Timeout: performed Procedure in detail: Patient was placed in the left lateral decubitus position. A digital rectal exam was performed that demonstrated normal prostate. The scope was gently inserted into the anus rectum sigmoid descending colon transverse colon and reached the ileocecal valve. A polyp was identified at the cecum and was biopsied. The scope was then carefully withdrawn. Another polyp approximately 2 cm was identified at 30 cm from the anal verge and this was removed with snare electrocautery. The site was found to be hemostatic. The scope was then removed. We next proceeded with EGD. Bite block was placed. The endoscope was inserted into the mouth passed down into the esophagus stoma ch. The scope was retroflexed and there was no evidence of hiatal hernia. The pylorus was examined ports was intubated in demonstrated no peptic ulcer disease. The stomach was notable for gastritis. The scope was stomach was then desufflated and the scope was carefully withdrawn. The total sedation was 450 mcg and fentanyl 10 mg of Versed. Scope withdrawal time: 12 Sedation minutes: 20 Findings: gastritis and polyp Specimen(s): other (polyp from cecum and at 30 cm) Impression: gastritis Recommendations: Colonscopy in 10 years Plan for aftercare: Protonix 20 mg once daily Follow up: as needed Disposition: same day surgery
[2019-04-02] MEDS: MIDAZOLAM 5 MG/5 ML VIAL IV (17:08)
[2019-04-02] MEDS: fentaNYL 250 MCG/5 ML INJ IV (17:09)
== END 2019-04-02 18:01 | disposition home or self-care (01) ==
PROVIDERS: PCP Student in an Organized Health Care Education/Training Program; Visit Provider Surgery
PROC: 0DJD8ZZ Inspection of Lower Intestinal Tract, Via Natural or Artificial Opening Endoscopic (ICD-10-PCS; CPT 45378; principal; 2019-04-02 16:00)
PROC: 0DJ08ZZ Inspection of Upper Intestinal Tract, Via Natural or Artificial Opening Endoscopic (ICD-10-PCS; CPT 43235; 2019-04-02 16:00)
DX: K92.1 Melena (principal); D12.0 Benign neoplasm of cecum; K63.5 Polyp of colon; K29.70 Gastritis, unspecified, without bleeding; R42 Dizziness and giddiness; F32.9 Major depressive disorder, single episode, unspecified; G40.909 Epilepsy, unspecified, not intractable, without status epilepticus; E78.5 Hyperlipidemia, unspecified; E03.9 Hypothyroidism, unspecified; G47.30 Sleep apnea, unspecified; Z79.02 Long term (current) use of antithrombotics/antiplatelets; Z87.891 Personal history of nicotine dependence
CPT/HCPCS: 45385; 45380; 43235; 88305; 99152; J1610; J2250; J3010

== ENCOUNTER → 2019-05-11 11:33 | Outpatient (CLI) | payer MEDICARE, OTHER, SELFPAY ==
[2018-05-15 17:30] VITALS: BMI 25.2
--- NOTE | 2019-05-11 | DI.US.S_ITS ---
PROCEDURE: US ABDOMEN COMPLETE INDICATIONS: GASTRITIS TECHNIQUE: Real-time scanning was performed of the abdominal and retroperitoneal organs, with image documentation. COMPARISON: [facility], CT, CT ABDOMEN PELVIS W CON, 03/28/2019, 10:51. FINDINGS: Liver: The liver demonstrates normal size. The liver demonstrates generalized increased echogenicity. This decreases ultrasound sensitivity for detection of hepatic masses. Focal fatty sparing can be seen adjacent to the gallbladder. Gallbladder: No findings of gallstones or sludge are seen. The gallbladder wall is not thickened, measuring 3 mm or less. No specific pericholecystic fluid is seen. The sonographic Altman sign is negative. Biliary ducts: Intrahepatic bile ducts are non-dilated. Extrahepatic bile duct caliber measures 5-6 mm. Normal is 6-7 mm or less in diameter, or 10 mm or less post-cholecystectomy. Pancreas: Visualized portions of the pancreas are sonographically normal. Spleen: Spleen is normal in size and homogeneous in echotexture. Kidneys: Kidneys are normal in size and echotexture. Right kidney measures 10.9 cm long; left kidney measures 11 cm long. No hydronephrosis. There is a 7 mm stone seen involving the left kidney. No solid masses. Aorta: Visualized aorta is normal in caliber at less than 3 cm. Iliacs: Proximal common iliac arteries are normal in caliber at less than 2.5 cm. IVC: Intrahepatic inferior vena cava is patent. Miscellaneous: No free abdominal fluid. Additional, dedicated ultrasound scanning is performed at the area of abdominal wall palpable abnormality involving the left abdomen. There is apparent lipoma seen at this site measures 3.3 x 1.5 x 0.6 cm. No hernias can be seen at this site. IMPRESSION: The gallbladder demonstrates a normal sonographic appearance. No biliary dilatation is seen. There is a likely lipoma seen involving the area of palpable abnormality of the left abdominal wall. 7 mm nonobstructing left-sided kidney stone. Fatty liver infiltration, with focal fatty sparing adjacent to the gallbladder. Dictated by: Sammy Matta M.D. on 05/11/2019 at 16:33 Approved by: Sammy Matta M.D. on 05/11/2019 at 16:36
== END ==
PROVIDERS: PCP Student in an Organized Health Care Education/Training Program; Visit Provider Student in an Organized Health Care Education/Training Program
DX: K29.70 Gastritis, unspecified, without bleeding (principal); N20.0 Calculus of kidney; K76.0 Fatty (change of) liver, not elsewhere classified
CPT/HCPCS: 76700

== ENCOUNTER → 2020-02-11 12:13 | Outpatient (CLI) | payer MEDICARE, OTHER, SELFPAY ==
[2018-05-15 17:30] VITALS: BMI 25.2
[2020-02-11 12:50] LABS: Add Manual Diff / Slide Review NO; Basophils Absolute Auto 0 /uL (0-100); Basophils Percent Auto 0.5 % (0-2); Eosinophils Absolute Auto 100 /uL (0-450); Hemoglobin 14.8 g/dL (13.5-17.5); Lymphocytes Absolute Auto 1700 /uL (1100-4500); Mean Corpuscular HGB Conc 34.3 % (30-36); Mean Corpuscular Hemoglobin 30.5 PG (26-34); Mean Corpuscular Volume 88.8 fL (80-100); Monocytes Absolute Auto 500 /uL (0-900); Monocytes Percent Auto 9.1 % (3-14); Neutrophils Absolute Auto 3300 /uL (1500-7000); Neutrophils Percent Auto 59.4 % (50-75); Platelet Count 205 X10^3/uL (150-400); Red Blood Cell Count 4.84 X10^6/uL (4.5-5.9); Red Cell Distribution Width 14.1 % (11.6-14.8); White Blood Cell Count 5.6 X10^3/uL (4.5-11.0)
[2020-02-11 14:38] LABS: Alanine Aminotransferase 23 IU/L (<50); Albumin 4.7 g/dL (3.5-5.0); Albumin Globulin Ratio 2.4 (1.0-2.8); Alkaline Phosphatase 67 U/L (38-126); Aspartate Aminotransferase 25 IU/L (17-59); Bilirubin Total 0.4 mg/dL (0.2-1.3); Bilirubin Unconjugated 0.2 mg/dL (0.0-1.1); HEMOLYSIS < 15 (0-50); Total Protein 6.7 g/dL (6.3-8.2)
[2020-02-16 08:09] LABS: Lamotrigine Lamictal 10.5 ug/mL (2.0-20.0)
== END ==
PROVIDERS: PCP Student in an Organized Health Care Education/Training Program; Referring Provider Specialist; Visit Provider Specialist
DX: G40.109 Localization-related (focal) (partial) symptomatic epilepsy and epileptic syndromes with simple partial seizures, not intractable, without status epilepticus (principal)
CPT/HCPCS: 36415; 80076; 80175; 85025

== ENCOUNTER → 2020-03-03 15:35 | Outpatient (CLI) | payer MEDICARE, OTHER, SELFPAY ==
[2018-05-15 17:30] VITALS: BMI 25.2
[2020-03-07 09:06] LABS: Lamotrigine Lamictal 7.8 ug/mL (2.0-20.0)
== END ==
PROVIDERS: PCP Student in an Organized Health Care Education/Training Program; Referring Provider Specialist; Visit Provider Specialist
DX: G40.109 Localization-related (focal) (partial) symptomatic epilepsy and epileptic syndromes with simple partial seizures, not intractable, without status epilepticus (principal)
CPT/HCPCS: 36415; 80175

== ENCOUNTER → 2020-03-08 11:58 | Outpatient (CLI) | payer MEDICARE, OTHER, SELFPAY ==
[2018-05-15 17:30] VITALS: BMI 25.2
[2020-03-08 12:49] LABS: Add Manual Diff / Slide Review NO; Basophils Absolute Auto 0 /uL (0-100); Basophils Percent Auto 0.8 % (0-2); Eosinophils Absolute Auto 100 /uL (0-450); Eosinophils Percent Auto 2.5 % (2-4); Hematocrit 39.9 % (41-53); Hemoglobin 13.3 g/dL (13.5-17.5); Lymphocytes Absolute Auto 1500 /uL (1100-4500); Lymphocytes Percent Auto 36.2 % (25-40); Mean Corpuscular HGB Conc 33.4 % (30-36); Mean Corpuscular Hemoglobin 29.8 PG (26-34); Mean Corpuscular Volume 89.2 fL (80-100); Monocytes Absolute Auto 400 /uL (0-900); Monocytes Percent Auto 10.4 % (3-14); Neutrophils Absolute Auto 2100 /uL (1500-7000); Neutrophils Percent Auto 50.1 % (50-75); Platelet Count 202 X10^3/uL (150-400); Red Blood Cell Count 4.47 X10^6/uL (4.5-5.9); Red Cell Distribution Width 13.8 % (11.6-14.8); White Blood Cell Count 4.2 X10^3/uL (4.5-11.0)
[2020-03-08 13:17] LABS: Alanine Aminotransferase 23 IU/L (<50); Albumin 4.2 g/dL (3.5-5.0); Albumin Globulin Ratio 2.5 (1.0-2.8); Alkaline Phosphatase 57 U/L (38-126); Aspartate Aminotransferase 26 IU/L (17-59); Bilirubin Total 0.4 mg/dL (0.2-1.3); Bilirubin Unconjugated 0.4 mg/dL (0.0-1.1); Globulin 1.7 g/dL (1.7-4.1); HEMOLYSIS < 15 (0-50); Total Protein 5.9 g/dL (6.3-8.2)
[2020-03-09 04:08] LABS: Valproic Acid (Depakene) Total 38 ug/mL (50-100)
== END ==
PROVIDERS: PCP Student in an Organized Health Care Education/Training Program; Referring Provider Specialist; Visit Provider Specialist
DX: G40.109 Localization-related (focal) (partial) symptomatic epilepsy and epileptic syndromes with simple partial seizures, not intractable, without status epilepticus (principal); G44.89 Other headache syndrome
CPT/HCPCS: 36415; 80076; 80164; 85025

== ENCOUNTER → 2020-03-23 13:44 | Outpatient (CLI) | payer MEDICARE, OTHER, SELFPAY ==
[2018-05-15 17:30] VITALS: BMI 25.2
[2020-03-23 14:17] LABS: Add Manual Diff / Slide Review NO; Basophils Absolute Auto 0 /uL (0-100); Basophils Percent Auto 0.5 % (0-2); Eosinophils Absolute Auto 100 /uL (0-450); Eosinophils Percent Auto 2.6 % (2-4); Hematocrit 40.6 % (41-53); Hemoglobin 13.9 g/dL (13.5-17.5); Lymphocytes Absolute Auto 1900 /uL (1100-4500); Lymphocytes Percent Auto 35.5 % (25-40); Mean Corpuscular HGB Conc 34.2 % (30-36); Mean Corpuscular Hemoglobin 30.5 PG (26-34); Mean Corpuscular Volume 89.1 fL (80-100); Monocytes Absolute Auto 600 /uL (0-900); Monocytes Percent Auto 10.5 % (3-14); Neutrophils Absolute Auto 2700 /uL (1500-7000); Neutrophils Percent Auto 50.9 % (50-75); Platelet Count 185 X10^3/uL (150-400); Red Blood Cell Count 4.55 X10^6/uL (4.5-5.9); Red Cell Distribution Width 13.9 % (11.6-14.8); White Blood Cell Count 5.3 X10^3/uL (4.5-11.0)
[2020-03-24 07:40] LABS: Valproic Acid (Depakene) Total 38 ug/mL (50-100)
[2020-03-25 14:08] LABS: Lamotrigine Lamictal 10.5 ug/mL (2.0-20.0)
== END ==
PROVIDERS: PCP Student in an Organized Health Care Education/Training Program; Referring Provider Specialist; Visit Provider Specialist
DX: R26.9 Unspecified abnormalities of gait and mobility (principal); G40.109 Localization-related (focal) (partial) symptomatic epilepsy and epileptic syndromes with simple partial seizures, not intractable, without status epilepticus; D64.9 Anemia, unspecified; D72.819 Decreased white blood cell count, unspecified
CPT/HCPCS: 36415; 80164; 80175; 85025

== ENCOUNTER → 2020-04-20 13:22 | Outpatient (CLI) | payer MEDICARE, OTHER, SELFPAY ==
[2018-05-15 17:30] VITALS: BMI 25.2
[2020-04-20 14:08] LABS: Add Manual Diff / Slide Review NO; Basophils Absolute Auto 0 /uL (0-100); Basophils Percent Auto 0.8 % (0-2); Eosinophils Absolute Auto 100 /uL (0-450); Eosinophils Percent Auto 1.5 % (2-4); Hematocrit 42.4 % (41-53); Hemoglobin 14.5 g/dL (13.5-17.5); Lymphocytes Absolute Auto 1900 /uL (1100-4500); Lymphocytes Percent Auto 38.9 % (25-40); Mean Corpuscular HGB Conc 34.1 % (30-36); Mean Corpuscular Hemoglobin 30.6 PG (26-34); Mean Corpuscular Volume 89.7 fL (80-100); Monocytes Absolute Auto 500 /uL (0-900); Monocytes Percent Auto 9.3 % (3-14); Neutrophils Absolute Auto 2400 /uL (1500-7000); Neutrophils Percent Auto 49.5 % (50-75); Platelet Count 164 X10^3/uL (150-400); Red Blood Cell Count 4.73 X10^6/uL (4.5-5.9); White Blood Cell Count 4.9 X10^3/uL (4.5-11.0)
[2020-04-20 14:19] LABS: Alanine Aminotransferase 40 IU/L (<50); Albumin 4.3 g/dL (3.5-5.0); Albumin Globulin Ratio 2.5 (1.0-2.8); Alkaline Phosphatase 55 U/L (38-126); Aspartate Aminotransferase 33 IU/L (17-59); Bilirubin Total 0.4 mg/dL (0.2-1.3); Bilirubin Unconjugated 0.3 mg/dL (0.0-1.1); Globulin 1.7 g/dL (1.7-4.1); HEMOLYSIS < 15 (0-50)
[2020-04-21 05:10] LABS: Valproic Acid (Depakene) Total 62 ug/mL (50-100)
[2020-04-22 09:08] LABS: Lamotrigine Lamictal 8.7 ug/mL (2.0-20.0)
== END ==
PROVIDERS: PCP Student in an Organized Health Care Education/Training Program; Referring Provider Specialist; Visit Provider Specialist
DX: G40.109 Localization-related (focal) (partial) symptomatic epilepsy and epileptic syndromes with simple partial seizures, not intractable, without status epilepticus (principal); D72.819 Decreased white blood cell count, unspecified; D64.9 Anemia, unspecified
CPT/HCPCS: 36415; 80076; 80164; 80175; 85025

== ENCOUNTER → 2020-07-20 09:38 | Outpatient (CLI) | payer MEDICARE, OTHER, SELFPAY ==
[2018-05-15 17:30] VITALS: BMI 25.2
[2020-07-20 10:51] LABS: Add Manual Diff / Slide Review NO; Basophils Absolute Auto 0 /uL (0-100); Basophils Percent Auto 0.7 % (0-2); Eosinophils Absolute Auto 100 /uL (0-450); Eosinophils Percent Auto 2.4 % (2-4); Hemoglobin 14.1 g/dL (13.5-17.5); Lymphocytes Absolute Auto 1800 /uL (1100-4500); Lymphocytes Percent Auto 39.9 % (25-40); Mean Corpuscular HGB Conc 33.5 % (30-36); Mean Corpuscular Hemoglobin 30.5 PG (26-34); Mean Corpuscular Volume 91.2 fL (80-100); Monocytes Absolute Auto 500 /uL (0-900); Monocytes Percent Auto 10.8 % (3-14); Neutrophils Absolute Auto 2100 /uL (1500-7000); Neutrophils Percent Auto 46.2 % (50-75); Platelet Count 148 X10^3/uL (150-400); Red Blood Cell Count 4.61 X10^6/uL (4.5-5.9); Red Cell Distribution Width 14.2 % (11.6-14.8); White Blood Cell Count 4.6 X10^3/uL (4.5-11.0)
[2020-07-20 11:16] LABS: Alanine Aminotransferase 47 IU/L (<50); Albumin 4.1 g/dL (3.5-5.0); Albumin Globulin Ratio 2.2 (1.0-2.8); Alkaline Phosphatase 58 U/L (38-126); Aspartate Aminotransferase 47 IU/L (17-59); Bilirubin Total 0.4 mg/dL (0.2-1.3); Bilirubin Unconjugated 0.4 mg/dL (0.0-1.1); Globulin 1.9 g/dL (1.7-4.1); HEMOLYSIS < 15 (0-50)
== END ==
PROVIDERS: PCP Student in an Organized Health Care Education/Training Program; Referring Provider Specialist; Visit Provider Specialist
DX: G40.109 Localization-related (focal) (partial) symptomatic epilepsy and epileptic syndromes with simple partial seizures, not intractable, without status epilepticus (principal)
CPT/HCPCS: 36415; 80076; 85025

== ENCOUNTER 2020-10-09 18:57 | Inpatient (IN) | payer MEDICARE, OTHER, SELFPAY ==
[2018-05-15 17:30] VITALS: BMI 25.2
[2020-10-09] VITALS (51 sets, daily range): BP systolic 69–190; BP diastolic 45–111; PULSE 50–74; RESP 0–40; TEMP 35.9; O2SAT 99–100; BMI 25.0; BMI 23.6
--- NOTE | 2020-10-09 19:00 | PC.NURSE ---
argument with took 150mg Valium and drank Sake.
[2020-10-09] MEDS: KETAMINE 500 MG/5 ML INJ (19:05)
--- NOTE | 2020-10-09 19:10 | DI.RAD.S_ITS ---
PROCEDURE: XR CHEST 1V INDICATIONS: post intubation TECHNIQUE: One view of the chest was acquired. COMPARISON: [facility], CR, XR CHEST 1V, 05/15/2018, 13:51. FINDINGS: Surgical changes and devices: Endotracheal tube is in place with the distal tip projecting approximately 7 cm above the nathanael. A nasogastric tube is visualized although the distal tip is not definitively visualized and is difficult to determine if it extends beyond the field of view. The most likely candidate for the tip appears to project over the T11 vertebral body, to the left of midline. Distal side port seen a short distance proximally. Lungs and pleura: Minimal diffuse interstitial prominence. No focal consolidation. No pleural effusions or pneumothorax. Mediastinum: Mediastinal contours appear normal. Heart size is normal. Bones and chest wall: No suspicious bony lesions. Overlying soft tissues appear unremarkable. IMPRESSION: Status post intubation with the distal tip of the endotracheal tube projecting approximately 7.0 cm above the nathanael. The distal tip of the nasogastric tube not definitively visualized although the most likely candidate appears to project at the level of the T10 vertebral body and above the level of the diaphragm. Recommend repositioning by advancing the nasogastric to at least 12-15 cm. No change in cardiopulmonary examination. Findings were discussed with Dr. Araiza at 1958 hrs. Dictated by: Gerber Coffman M.D. on 10/09/2020 at 19:51 Approved by: Gerber Coffman M.D. on 10/09/2020 at 20:00
[2020-10-09] MEDS: propofoL 200 MG/20 ML VIAL 40 MG IV (19:12)
--- NOTE | 2020-10-09 19:14 | PC.NURSE ---
Patient pre oxygenated 15L NRB, Medic, ER Dr Capellan, RT and two RN at bedside. Patient medicated with Ketamine 200mg @1906 Rocuronium 100mg 1906. 8 ET tube 23 at teeth. Positive color change, equal breath sounds. Post intubation medicated with 40mg Propofol by Dr Capellan. OG and carlson placed.
[2020-10-09] MEDS: SODIUM CHLORIDE 0.9% 1,000 ML 150 ML IV (19:21)
[2020-10-09] MEDS: propofoL 1,000 MG/100 ML VIAL 2.517 MG IV ×2 (19:21→21:45)
[2020-10-09] MEDS: propofoL 1,000 MG/100 ML VIAL 2.5 MG IV (19:21)
[2020-10-09 19:22] LABS: COVID19 -Nasal RAPID Negative (Negative)
[2020-10-09 19:26] LABS: Add Manual Diff / Slide Review NO; Basophils Absolute Auto 0 /uL (0-100); Basophils Percent Auto 0.5 % (0-2); Eosinophils Absolute Auto 100 /uL (0-450); Eosinophils Percent Auto 2.2 % (2-4); Hematocrit 45.3 % (41-53); Hemoglobin 15.2 g/dL (13.5-17.5); Lymphocytes Absolute Auto 1800 /uL (1100-4500); Lymphocytes Percent Auto 42.3 % (25-40); Mean Corpuscular HGB Conc 33.6 % (30-36); Mean Corpuscular Hemoglobin 31.2 PG (26-34); Mean Corpuscular Volume 92.9 fL (80-100); Monocytes Absolute Auto 400 /uL (0-900); Neutrophils Absolute Auto 1900 /uL (1500-7000); Platelet Count 153 X10^3/uL (150-400); Red Blood Cell Count 4.88 X10^6/uL (4.5-5.9); Red Cell Distribution Width 13.7 % (11.6-14.8); White Blood Cell Count 4.3 X10^3/uL (4.5-11.0)
[2020-10-09 19:30] LABS: Lactate (Lactic Acid) 1.8 mmol/L (0.7-2.1)
[2020-10-09 19:31] LABS: Alanine Aminotransferase 36 IU/L (<50); Albumin 4.3 g/dL (3.5-5.0); Albumin Globulin Ratio 1.9 (1.0-2.8); Alkaline Phosphatase 63 U/L (38-126); Aspartate Aminotransferase 38 IU/L (17-59); BUN Creatinine Ratio 18.7 (6-22); Bilirubin Total 0.2 mg/dL (0.2-1.3); Blood Urea Nitrogen 20 mg/dL (9-20); Calcium 9.1 mg/dL (8.4-10.2); Carbon Dioxide 28 mmol/L (22-32); Chloride 106 mmol/L (98-107); Creatine Kinase 53 U/L (55-170); Estimated Glomerular Filt Rate > 60.0 mL/min (>60); Globulin 2.3 g/dL (1.7-4.1); Glucose 95 mg/dL (80-110); HEMOLYSIS < 15 (0-50); Potassium 3.7 mmol/L (3.4-5.1); Sodium 140 mmol/L (137-145); Total Protein 6.6 g/dL (6.3-8.2)
[2020-10-09 19:43] LABS: Acetaminophen < 10 ug/mL (10-30); Ethanol (ETOH) 75 mg/dL; Salicylate < 1.0 mg/dL (<20); Troponin I < 0.012 ng/mL (0.01-0.034)
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
[2020-10-09 19:45] LABS: Ur Creatinine Normal (Normal); Ur Specific Gravity Normal (Normal); Urine pH Normal (Normal)
[2020-10-09 19:46] LABS: UR Morphine/Opiate cutoff 300 Negative (Negative); Urine Amphetamines Negative (Negative); Urine Barbiturates Negative (Negative); Urine Benzodiazepines Positive (Negative); Urine Cocaine Negative (Negative); Urine MDMA Negative (Negative); Urine Methadone Negative (Negative); Urine Methamphetamines Negative (Negative); Urine Oxycodone Negative (Negative); Urine Phencyclidine Negative (Negative); Urine Tetrahydrocannabinol Positive (Negative); Urine Tricyclic Antidepressant Negative (Negative)
--- NOTE | 2020-10-09 19:50 | PC.NURSE ---
Proprofal overide done ofr intubation, obtained order for titration, see MAR.
--- NOTE | 2020-10-09 20:08 | PC.NURSE ---
At 2004, ET tube advanced to 25 at the teeth by the RT, OG tube advance a few centimeter as well. X-ray taken to recheck placement.
--- NOTE | 2020-10-09 20:09 | DI.RAD.S_ITS ---
PROCEDURE: XR CHEST 1V INDICATIONS: tube placement TECHNIQUE: One view of the chest was acquired. COMPARISON: [facility], CR, XR CHEST 1V, 10/09/2020, 19:13. FINDINGS: Surgical changes and devices: Endotracheal tube tip projects approximately 5.0 cm above the nathanael. Nasogastric tube has been advanced and is now noted below the level of the diaphragm . Lungs and pleura: Previously described diffuse interstitial prominence is not as evident on this exam. Minimal left basilar atelectasis. No focal consolidation. No pleural effusions or pneumothorax. Mediastinum: Mediastinal contours appear normal. Heart size is normal. Bones and chest wall: No suspicious bony lesions. Overlying soft tissues appear unremarkable. IMPRESSION: 1. Endotracheal tube tip projects approximately 5.0 cm above the nathanael. 2. Nasogastric tube has been repositioned with the distal tip below the level of the diaphragm. Dictated by: Gerber Coffman M.D. on 10/09/2020 at 20:30 Approved by: Gerber Coffman M.D. on 10/09/2020 at 20:31
[2020-10-09] MEDS: fentaNYL 100 MCG/2 ML INJ (20:32)
[2020-10-09 20:35] LABS: Fractionated Inspired Oxygen 45; HCO3 ABG 23 mmol/L (22-26); Oxygen Saturation ABG 99 % (95-100); PCO2 ABG 44.1 mmHg (35-45); TCO2 ABG 24 mmol/L (21-31); pH ABG 7.32 (7.35-7.45)
[2020-10-09 20:36] LABS: PO2 ABG 162 mmHg (80-100)
--- NOTE | 2020-10-09 21:25 | PC.NURSE ---
2049 Propofol paused due to BP, NS bolus started, at 2099 propofol restarted at 5ml/hr. IVP fentanyl given prior to transfer to ICU. Pt transferred to room 227 at 2114.
[2020-10-09] MEDS: fentaNYL 1,000 MCG in DEXTROSE 5% IN WATER 230 ML 14.685 ML IV (21:39)
[2020-10-09] MEDS: LACTATED RINGERS 1,000 ML 100 ML IV (21:49)
[2020-10-09] MEDS: LORazepam 2 MG/ML INJ (22:14)
[2020-10-09] MEDS: NOREPINEPHRINE 4 MG in DEXTROSE 5% IN WATER 250 ML 30.48 ML IV (22:23)
[2020-10-09 23:26] LABS: Fractionated Inspired Oxygen 25; HCO3 ABG 21 mmol/L (22-26); Oxygen Saturation ABG 98 % (95-100); PCO2 ABG 46.7 mmHg (35-45); PO2 ABG 115 mmHg (80-100); TCO2 ABG 23 mmol/L (21-31); pH ABG 7.27 (7.35-7.45)
[2020-10-09 23:35] LABS: HCO3 ABG 20 mmol/L (22-26); PO2 ABG 132 mmHg (80-100); TCO2 ABG 21 mmol/L (21-31)
[2020-10-09 23:36] LABS: Fractionated Inspired Oxygen 25; Oxygen Saturation ABG 99 % (95-100)
[2020-10-09 23:37] LABS: pH ABG 7.38 (7.35-7.45)
[2020-10-10] VITALS (128 sets, daily range): BP systolic 79–135; BP diastolic 50–86; PULSE 48–92; RESP 0–46; TEMP 35.8–37.2; O2SAT 93–100
--- NOTE | 2020-10-10 00:02 | PC.NURSE ---
0000- Patient is wide awake. Feels uncomfortable able to nod yes/no to questions. Able to write on note pad. Patient states he is cold. Covered with a warm blanket. Rass score 1. Sedation increased for comfort. Levophed titrated down to 5mic/min. Uop is adequate will monitor every two hours. Urine is clear yellow. Vitals are stable at this time.
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
[2020-10-10] MEDS: LACTATED RINGERS 1,000 ML 150 ML IV (04:21)
[2020-10-10 04:33] LABS: PTT Partial Thromboplastin Tim 30 SECONDS (26.4-36.2)
[2020-10-10 04:38] LABS: Add Manual Diff / Slide Review NO; Basophils Absolute Auto 0 /uL (0-100); Basophils Percent Auto 0.5 % (0-2); Eosinophils Absolute Auto 100 /uL (0-450); Eosinophils Percent Auto 1.3 % (2-4); Hematocrit 39.2 % (41-53); Hemoglobin 13.1 g/dL (13.5-17.5); Lymphocytes Absolute Auto 3200 /uL (1100-4500); Lymphocytes Percent Auto 39.7 % (25-40); Mean Corpuscular HGB Conc 33.5 % (30-36); Mean Corpuscular Hemoglobin 30.9 PG (26-34); Monocytes Absolute Auto 800 /uL (0-900); Monocytes Percent Auto 10.5 % (3-14); Neutrophils Absolute Auto 3800 /uL (1500-7000); Platelet Count 161 X10^3/uL (150-400); Red Blood Cell Count 4.25 X10^6/uL (4.5-5.9); Red Cell Distribution Width 13.7 % (11.6-14.8)
[2020-10-10 04:40] LABS: Triglycerides 193 mg/dL (35-150)
[2020-10-10 04:41] LABS: Alanine Aminotransferase 31 IU/L (<50); Albumin 3.2 g/dL (3.5-5.0); Albumin Globulin Ratio 1.8 (1.0-2.8); Alkaline Phosphatase 48 U/L (38-126); Aspartate Aminotransferase 35 IU/L (17-59); BUN Creatinine Ratio 23.2 (6-22); Bilirubin Total 0.3 mg/dL (0.2-1.3); Blood Urea Nitrogen 19 mg/dL (9-20); Calcium 8.2 mg/dL (8.4-10.2); Carbon Dioxide 26 mmol/L (22-32); Chloride 110 mmol/L (98-107); Estimated Glomerular Filt Rate > 60.0 mL/min (>60); Globulin 1.8 g/dL (1.7-4.1); Glucose 103 mg/dL (80-110); HEMOLYSIS < 15 (0-50); Potassium 3.8 mmol/L (3.4-5.1); Sodium 137 mmol/L (137-145)
[2020-10-10] MEDS: propofoL 1,000 MG/100 ML VIAL 12.587 MG IV (04:51)
[2020-10-10 05:31] LABS: TSH w/ Reflex to FT4 2.42 uIU/mL (0.47-4.68)
[2020-10-10] MEDS: PANTOPRAZOLE 40 MG VIAL IV (09:56)
[2020-10-10] MEDS: ENOXAPARIN 40 MG/0.4 ML SYRINGE SUBCUT (09:56)
--- NOTE | 2020-10-10 09:57 | PC.NURSE ---
Rt [place] at bedside for SBT at 0900. Propofol drip and fentanyl drip paused. Pt alert and moves all four extremities. Pt apneic with SBT trial. Pt placed back on vent at SIMV setting at 0925 and is resting calmly in bed.
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
[2020-10-10] MEDS: SODIUM CHLORIDE 0.9% 1,000 ML 150 ML IV (11:12)
[2020-10-10] MEDS: LACTATED RINGERS 1,000 ML 100 ML IV ×2 (11:30→20:42)
--- NOTE | 2020-10-10 13:11 | PC.NURSE ---
Pt was on SBT trial from 1000 to 1310. Pt is easily arrousable to voice but when unstimulated has apneic periods. Pt placed on SIMV setting on the ventilator at 1310 due to apneic episodes.
--- NOTE | 2020-10-10 14:25 | PC.NURSE ---
Amarjit from Poison Control called for an update on patient condition at 1425.
--- NOTE | 2020-10-10 15:06 | P.PN_ITS ---
Subjective Subjective Date Patient Seen: 10/10/20 Time Patient Seen: 15:06 Interval history: Patient is a 68-year-old male Dago Browner with a past medical history of hypothyroidism, epilepsy, lupus, GERD, hyperlipidemia who was admitted after an intentional overdose/suicide attempt with benzodiazepines and alcohol. He had a pressure support trial today but continued to be bradypnic and fell asleep easily, likely due to continued benzodiazepine and alcohol. Patient was placed back on ventilatory support. Will re-attempt tomorrow likely. Exam Vital Signs (past 8 hours): - 10/10/20 07:10 10/10/20 07:15 10/10/20 07:18 Temperature 96.5 F L Pulse Rate 49 L 49 L Respiratory Rate 18 18 Blood Pressure 83/55 L Pulse Oximetry 100 99 10/10/20 07:20 10/10/20 07:30 10/10/20 07:40 Temperature Pulse Rate 49 L 49 L 49 L Respiratory Rate 18 18 18 Blood Pressure 86/57 L Pulse Oximetry 99 99 99 10/10/20 07:45 10/10/20 07:50 10/10/20 08:00 Temperature Pulse Rate 48 L 48 L 49 L Respiratory Rate 18 18 19 Blood Pressure 87/54 L Pulse Oximetry 100 100 100 10/10/20 08:01 10/10/20 08:10 10/10/20 08:15 Temperature Pulse Rate 49 L 56 L 57 L Respiratory Rate 18 25 H 20 Blood Pressure 92/55 L 114/71 Pulse Oximetry 100 99 100 10/10/20 08:20 10/10/20 08:30 10/10/20 08:31 Temperature Pulse Rate 50 L 50 L 54 L Respiratory Rate 18 18 Blood Pressure 86/60 L Pulse Oximetry 100 100 99 10/10/20 09:01 10/10/20 10:00 10/10/20 10:40 Temperature Pulse Rate 57 L 67 60 Respiratory Rate 15 11 L Blood Pressure 112/69 103/74 Pulse Oximetry 100 100 100 10/10/20 10:50 10/10/20 11:00 10/10/20 11:10 Temperature Pulse Rate 65 64 63 Respiratory Rate Blood Pressure 113/73 Pulse Oximetry 100 100 100 10/10/20 11:16 10/10/20 12:00 10/10/20 13:00 Temperature 98.2 F Pulse Rate 75 60 Respiratory Rate 12 8 L Blood Pressure 125/74 109/65 Pulse Oximetry 100 100 Oxygen Delivery Method Mechanical Ventilation Oxygen Flow Rate 25 Narrative Exam Narrative: General: Patient is a well-developed, well-nourished male intubated. falls asleep easily, opens eyes to name, follows commands. HEENT: Normocephalic, atraumatic, extraocular muscles intact, oral pharynx is clear and mucous membranes are moist. Neck is supple and symmetric, trachea is midline. ETT and gastric tube in place. Chest: Normal AP diameter and contour without kyphoscoliosis, equal rise bilaterally with ventilator. Lungs: Auscultation of all lung guevara are clear without adventitious sounds, wheezes, rhonchi, or rales. Cardio: S1 & S2 with regular rate and rhythm without murmur, rubs, or gallops. Abdomen: S NT ND Musculoskeletal: Muscle strength and tone are equal within normal limits, no deformities. Skin: Warm dry and intact without rashes, ulcerations or petechiae. Neuro: No gross deficits observed on initial exam. Moves all extremities equally when alert. falls asleep easily despite sedation vacation. Objective Labs Result Diagrams: 10/10/20 04:10 10/10/20 04:10 Labs: Laboratory Results - last 24 hr 10/09/20 10/09/20 10/09/20 19:00 19:00 19:00 WBC 4.3 L RBC 4.88 Hgb 15.2 Hct 45.3 MCV 92.9 MCH 31.2 MCHC 33.6 RDW 13.7 Plt Count 153 Neut % (Auto) 45.0 L Lymph % (Auto) 42.[address] [place] % (Auto) 10.0 Eos % (Auto) 2.2 Baso % (Auto) 0.5 Neut # (Auto) 1900 Lymph # (Auto) 1800 [facility] # (Auto) 400 Eos # (Auto) 100 Baso # (Auto) 0 APTT ABG pH ABG pCO2 ABG pO2 ABG HCO3 ABG Total CO2 ABG O2 Saturation ABG Base Excess FiO2 Sodium 140 Potassium 3.7 Chloride 106 Carbon Dioxide 28 BUN 20 Creatinine 1.07 Estimated GFR > 60.0 BUN/Creatinine Ratio 18.7 Glucose 95 Lactate Calcium 9.1 Total Bilirubin 0.2 AST 38 ALT 36 Alkaline Phosphatase 63 Total Creatine Kinase 53 L CK-MB (CK-2) TNP CK-MB (CK-2) Rel Index TNP Troponin I < 0.012 Total Protein 6.6 Albumin 4.3 Globulin 2.3 Albumin/Globulin Ratio 1.9 Triglycerides TSH Nasal Screen MRSA (PCR) Salicylates < 1.0 U Opiates 300ng/mL cut Ur Oxycodone Screen Urine Methadone Screen Acetaminophen < 10 L Ur Barbiturates Screen U Tricyclic Antidepress Ur Phencyclidine Scrn Ur Amphetamines Screen U Methamphetamines Scrn Ur MDMA Scrn (Ecstasy) U Benzodiazepines Scrn Urine Cocaine Screen U Marijuana (THC) Screen Ethyl Alcohol 75 H SARS-CoV-2 (PCR) Negative 10/09/20 10/09/20 10/09/20 19:00 19:15 19:28 WBC RBC Hgb Hct MCV MCH MCHC RDW Plt Count Neut % (Auto) Lymph % (Auto) [facility] [place] % (Auto) Eos % (Auto) Baso % (Auto) Neut # (Auto) Lymph # (Auto) [facility] # (Auto) Eos # (Auto) Baso # (Auto) APTT ABG pH 7.32 L ABG pCO2 44.1 ABG pO2 162 H ABG HCO3 23 ABG Total CO2 24 ABG O2 Saturation 99 ABG Base Excess -4.0 L FiO2 45 Sodium Potassium Chloride Carbon Dioxide BUN Creatinine Estimated GFR BUN/Creatinine Ratio Glucose Lactate 1.8 Calcium Total Bilirubin AST ALT Alkaline Phosphatase Total Creatine Kinase CK-MB (CK-2) CK-MB (CK-2) Rel Index Troponin I Total Protein Albumin Globulin Albumin/Globulin Ratio Triglycerides TSH Nasal Screen MRSA (PCR) Salicylates U Opiates 300ng/mL cut Negative Ur Oxycodone Screen Negative Urine Methadone Screen Negative Acetaminophen Ur Barbiturates Screen Negative U Tricyclic Antidepress Negative Ur Phencyclidine Scrn Negative Ur Amphetamines Screen Negative U Methamphetamines Scrn Negative Ur MDMA Scrn (Ecstasy) Negative U Benzodiazepines Scrn Positive H Urine Cocaine Screen Negative U Marijuana (THC) Screen Positive H Ethyl Alcohol SARS-CoV-2 (PCR) 10/09/20 10/09/20 10/09/20 21:43 22:30 22:55 WBC RBC Hgb Hct MCV MCH MCHC RDW Plt Count Neut % (Auto) Lymph % (Auto) [facility] [place] % (Auto) Eos % (Auto) Baso % (Auto) Neut # (Auto) Lymph # (Auto) [facility] [place] # (Auto) Eos # (Auto) Baso # (Auto) APTT ABG pH 7.27 L* 7.38 ABG pCO2 46.7 H 34.0 L ABG pO2 115 H 132 H ABG HCO3 21 L 20 L ABG Total CO2 23 21 ABG O2 Saturation 98 99 ABG Base Excess -6.0 L -5.0 L FiO2 25 25 Sodium Potassium Chloride Carbon Dioxide BUN Creatinine Estimated GFR BUN/Creatinine Ratio Glucose Lactate Calcium Total Bilirubin AST ALT Alkaline Phosphatase Total Creatine Kinase CK-MB (CK-2) CK-MB (CK-2) Rel Index Troponin I Total Protein Albumin Globulin Albumin/Globulin Ratio Triglycerides TSH Nasal Screen MRSA (PCR) Negative for mrsa Salicylates U Opiates 300ng/mL cut Ur Oxycodone Screen Urine Methadone Screen Acetaminophen Ur Barbiturates Screen U Tricyclic Antidepress Ur Phencyclidine Scrn Ur Amphetamines Screen U Methamphetamines Scrn Ur MDMA Scrn (Ecstasy) U Benzodiazepines Scrn Urine Cocaine Screen U Marijuana (THC) Screen Ethyl Alcohol SARS-CoV-2 (PCR) 10/10/20 10/10/20 10/10/20 04:10 04:10 04:10 WBC 8.0 D RBC 4.25 L Hgb 13.1 L Hct 39.2 L MCV 92.0 MCH 30.9 MCHC 33.5 RDW 13.7 Plt Count 161 Neut % (Auto) 48.0 L Lymph % (Auto) 39.7 [facility] [place] % (Auto) 10.5 Eos % (Auto) 1.3 L Baso % (Auto) 0.5 Neut # (Auto) 3800 Lymph # (Auto) 3200 [facility] [place] # (Auto) 800 Eos # (Auto) 100 Baso # (Auto) 0 APTT ABG pH ABG pCO2 ABG pO2 ABG HCO3 ABG Total CO2 ABG O2 Saturation ABG Base Excess FiO2 Sodium 137 Potassium 3.8 Chloride 110 H Carbon Dioxide 26 BUN 19 Creatinine 0.82 Estimated GFR > 60.0 BUN/Creatinine Ratio 23.2 H Glucose 103 Lactate Calcium 8.2 L Total Bilirubin 0.3 AST 35 ALT 31 Alkaline Phosphatase 48 Total Creatine Kinase CK-MB (CK-2) CK-MB (CK-2) Rel Index Troponin I Total Protein 5.0 L Albumin 3.2 L Globulin 1.8 Albumin/Globulin Ratio 1.8 Triglycerides 193 H TSH Nasal Screen MRSA (PCR) Salicylates U Opiates 300ng/mL cut Ur Oxycodone Screen Urine Methadone Screen Acetaminophen Ur Barbiturates Screen U Tricyclic Antidepress Ur Phencyclidine Scrn Ur Amphetamines Screen U Methamphetamines Scrn Ur MDMA Scrn (Ecstasy) U Benzodiazepines Scrn Urine Cocaine Screen U Marijuana (THC) Screen Ethyl Alcohol SARS-CoV-2 (PCR) 10/10/20 10/10/20 04:10 04:10 WBC RBC Hgb Hct MCV MCH MCHC RDW Plt Count Neut % (Auto) Lymph % (Auto) [facility] [place] % (Auto) Eos % (Auto) Baso % (Auto) Neut # (Auto) Lymph # (Auto) [facility] [place] # (Auto) Eos # (Auto) Baso # (Auto) APTT 30 ABG pH ABG pCO2 ABG pO2 ABG HCO3 ABG Total CO2 ABG O2 Saturation ABG Base Excess FiO2 Sodium Potassium Chloride Carbon Dioxide BUN Creatinine Estimated GFR BUN/Creatinine Ratio Glucose Lactate Calcium Total Bilirubin AST ALT Alkaline Phosphatase Total Creatine Kinase CK-MB (CK-2) CK-MB (CK-2) Rel Index Troponin I Total Protein Albumin Globulin Albumin/Globulin Ratio Triglycerides TSH 2.42 Nasal Screen MRSA (PCR) Salicylates U Opiates 300ng/mL cut Ur Oxycodone Screen Urine Methadone Screen Acetaminophen Ur Barbiturates Screen U Tricyclic Antidepress Ur Phencyclidine Scrn Ur Amphetamines Screen U Methamphetamines Scrn Ur MDMA Scrn (Ecstasy) U Benzodiazepines Scrn Urine Cocaine Screen U Marijuana (THC) Screen Ethyl Alcohol SARS-CoV-2 (PCR) PFSH Medical History Bone spur Depression Epilepsy GERD (gastroesophageal reflux disease) History of ankle fracture History of prosthetic unicompartmental arthroplasty of left knee Hyperlipidemia Hypothyroidism Kidney stones Lupus Paresthesias (~03/2018) Sleep apnea Suicidal ideations Urinary dribbling Urinary stream slowing UTI (urinary tract infection) Surgical History H/O laminectomy History of arthroscopy of both knees History of cataract removal with insertion of prosthetic lens History of knee replacement History of lumbar spinal fusion (01/27/18) History of prosthetic unicompartmental arthroplasty of right knee Hx of appendectomy Hx of tonsillectomy S/P left unicompartmental knee replacement S/P right unicompartmental knee replacement Family History Father Heart disease Hypertension High cholesterol Mother Leukemia Social History marital status: household members: spouse Smoking Status: Former smoker alcohol intake: never Assessment & Plan Assessment & Plan narrative: Patient is a 68-year-old male Dago Ferrara with a past medical history of hypothyroidism, epilepsy, lupus, GERD, hyperlipidemia who was admitted after an intentional overdose/suicide attempt with benzodiazepines and alcohol. 1. Acute hypoxic respiratory failure secondary to intential benzodiazepine and alcohol intoxication, present on admission - patient remains intubated, failed pressure support trial today with continued bradypnea in setting of intentional benzo and EtOH intoxication. - will assess suicidality after extubation, as attempt does show features of impulsivity but also features of reaching out for assistance including calling family and driving to a location for assistance. - SW consulted, appreciate assistance. - continue pressure support and sedation vacations during the daylight hours, anticipate extubation likely tomorrow. 2. Seizure disorder reported secondarily to lupus, chronic, not present on admission, control unknown -will hold patient Divalproex as he is expected to be extubated tomorrow, will p rovide keppra 500 mg q24 hours as a precaution today. -patient on seizure precautions 3.Major depressive disorder, acute, present on admission -Patient's fluoxetine lamotrigine Remeron are held at this time due to intubation. -recommend social service consult tomorrow following extubation for suicidal ideation, depression. -patient on CIWA and suicide precautions 4. Hypothyroidism, chronic, stability unknown, not present on admission -TSH unremkarkable, patient's levothyroxine 44 mcg held today, resume tomorrow via g-tube or PO if extubated. I spent 32 minutes providing critical care management this patient. This excludes time spent in performing separately billed procedures. Code: full
[2020-10-10] MEDS: levETIRAcetam 500 MG in SODIUM CHLORIDE 0.9% 100 ML 420 ML IV (16:16)
[2020-10-10] MEDS: propofoL 1,000 MG/100 ML VIAL 15.105 MG IV (19:52)
[2020-10-10 20:21] LABS: Add Manual Diff / Slide Review NO; Basophils Absolute Auto 0 /uL (0-100); Basophils Percent Auto 0.4 % (0-2); Eosinophils Absolute Auto 100 /uL (0-450); Eosinophils Percent Auto 1.7 % (2-4); Hematocrit 36.6 % (41-53); Hemoglobin 12.4 g/dL (13.5-17.5); Lymphocytes Absolute Auto 1700 /uL (1100-4500); Mean Corpuscular HGB Conc 33.8 % (30-36); Mean Corpuscular Volume 91.6 fL (80-100); Monocytes Absolute Auto 700 /uL (0-900); Monocytes Percent Auto 12.2 % (3-14); Neutrophils Absolute Auto 3200 /uL (1500-7000); Neutrophils Percent Auto 56.7 % (50-75); Platelet Count 126 X10^3/uL (150-400); Red Cell Distribution Width 13.6 % (11.6-14.8); White Blood Cell Count 5.7 X10^3/uL (4.5-11.0)
[2020-10-10 20:33] LABS: Alanine Aminotransferase 27 IU/L (<50); Albumin Globulin Ratio 1.8 (1.0-2.8); Alkaline Phosphatase 47 U/L (38-126); Aspartate Aminotransferase 28 IU/L (17-59); BUN Creatinine Ratio 18.5 (6-22); Bilirubin Total 0.4 mg/dL (0.2-1.3); Blood Urea Nitrogen 15 mg/dL (9-20); Carbon Dioxide 24 mmol/L (22-32); Chloride 109 mmol/L (98-107); Estimated Glomerular Filt Rate > 60.0 mL/min (>60); Globulin 1.7 g/dL (1.7-4.1); Glucose 90 mg/dL (80-110); HEMOLYSIS < 15 (0-50); Potassium 3.8 mmol/L (3.4-5.1); Sodium 134 mmol/L (137-145); Total Protein 4.7 g/dL (6.3-8.2)
[2020-10-10] MEDS: fentaNYL 1,000 MCG in DEXTROSE 5% IN WATER 230 ML 14.685 ML IV (21:21)
--- NOTE | 2020-10-10 22:36 | PC.NURSE ---
Shift Note: Pt Intubated and sedated with propofol and fentanyl to RASS score of 0 to -1. Cooperative when awake but forgetful and impulsive. Soft limb restraints remain in place and order renewed per hospitalist. Tube feeding of Glucerna 1.5 for BG 78. Will titrate TF as ordered. Mcdonald draining clear yellow urine. Pt aware of plans to extubate in AM if SBT goes well.
[2020-10-11] VITALS (31 sets, daily range): BP systolic 88–149; BP diastolic 53–80; PULSE 60–86; RESP 0–21; TEMP 36.3–37.2; O2SAT 92–100
[2020-10-11 04:54] LABS: BUN Creatinine Ratio 16.8 (6-22); Blood Urea Nitrogen 16 mg/dL (9-20); Calcium 8.2 mg/dL (8.4-10.2); Carbon Dioxide 26 mmol/L (22-32); Chloride 108 mmol/L (98-107); Estimated Glomerular Filt Rate > 60.0 mL/min (>60); Glucose 110 mg/dL (80-110); HEMOLYSIS < 15 (0-50); Sodium 135 mmol/L (137-145)
[2020-10-11] MEDS: propofoL 1,000 MG/100 ML VIAL 10.07 MG IV (05:25)
[2020-10-11] MEDS: LACTATED RINGERS 1,000 ML 100 ML IV (06:37)
--- NOTE | 2020-10-11 06:48 | PC.NURSE ---
Church Musician Note-Patient remained on ventilator overnight, FIO2 .25, TV 470, PEEP 5, RR 16, SpO2 98-100%, lung sounds CTA. Oriented x4, propofol gtt 10-25mcg/min, Fentanyl gtt started at 0.77mcg/min, titrated down to 0.5mcg/min by 0645, anticipating extubation this am. Glucerna 1.5 tube feed infused at 30ml/hr until 0500, then titrated up to goal rate of 40ml/hr per order, tolerating well with zero residuals. 200ml osmel UOP in Mcdonald. SR, VSS, see trends. Soft wrist restraints on to keep patient from pulling at ETT.
--- NOTE | 2020-10-11 08:53 | PC.NURSE ---
Addendum entered by Can Martínez R.N. 10/11/20 12:56: Pt did well on second SBT. No episodes of apnea. Maintained RR 10-12 and SPO2 98-100%. Order received to extubate. Pt was extubated to RA at 1100. Pt is coughing and expectorating small amounts of clear-white thin sputum. He is able to use the yankeur and orally suction himself independently. Voice is raspy but he is AO x4 and able to make his needs known. Utilizing 1:1 sitter for safety per protocol. Original Note: 0815- Pt sedated to RASS -1. Sedative gtts titrated to off for SBT. Pt is alert and cooperative when engaged. RT at bedside- started pressure support trial. Pt becomes bradypneic/apneac with decreased stimuli. RR as low as 7. Pt awakens to alarms and is able to initiate breaths pulling volumes greater than 1000. SPO2 remains 98-100% throughout the trial. Pt was placed back on vent settings per RT at 0835. Will leave sedation off. Plan to reinitiate PS/CPAP when pt is more awake and participative.
[2020-10-11] MEDS: PANTOPRAZOLE 40 MG VIAL IV (09:31)
[2020-10-11] MEDS: ENOXAPARIN 40 MG/0.4 ML SYRINGE SUBCUT (09:31)
[2020-10-11] MEDS: SODIUM CHLORIDE 0.9% FLUSH 10 ML IV ×2 (09:31→21:42)
--- NOTE | 2020-10-11 15:20 | PM.PN.1 ---
Subjective Subjective Date Patient Seen: 10/11/20 Time Patient Seen: 15:21 Interval history: Patient is a 68-year-old male Dago Browner with a past medical history of hypothyroidism, epilepsy, lupus, GERD, hyperlipidemia who was admitted after an intentional overdose/suicide attempt with benzodiazepines and alcohol. He had a pressure support trial today but continued to be bradypnic and fell asleep easily, but repeated later in the afternoon and he did well after 30 minutes. Patient was successfully extubated to room air, now doing well. Exam Vital Signs (past 8 hours): - 10/11/20 10:45 10/11/20 11:00 10/11/20 11:05 Temperature 99.0 F Pulse Rate 70 73 Respiratory Rate Blood Pressure 129/72 Pulse Oximetry 99 92 99 10/11/20 14:18 10/11/20 14:19 Temperature 98.6 F Pulse Rate 69 72 Respiratory Rate 18 Blood Pressure 103/57 L Pulse Oximetry 84 L 97 Fraction of Inspired Oxygen 0.25 Oxygen Delivery Method Room Air Oxygen Flow Rate 25 Narrative Exam Narrative: (prior to extubation) General: Patient is a well-developed, well-nourished male intubated. HEENT: Normocephalic, atraumatic, extraocular muscles intact, oral pharynx is clear and mucous membranes are moist. Neck is supple and symmetric, trachea is midline. ETT and gastric tube in place. Chest: Normal AP diameter and contour without kyphoscoliosis, equal rise bilaterally with ventilator. Lungs: Auscultation of all lung guevara are clear without adventitious sounds, wheezes, rhonchi, or rales. Cardio: S1 & S2 with regular rate and rhythm without murmur, rubs, or gallops. Abdomen: S NT ND Musculoskeletal: Muscle strength and tone are equal within normal limits, no deformities. Skin: Warm dry and intact without rashes, ulcerations or petechiae. Neuro: No gross deficits observed on initial exam. Moves all extremities equally when alert. falls asleep easily despite sedation vacation. Objective Labs Result Diagrams: 10/10/20 20:15 10/11/20 04:35 Labs: Laboratory Results - last 24 hr 10/09/20 10/10/20 10/10/20 22:45 20:15 20:15 WBC 5.7 RBC 4.00 L Hgb 12.4 L Hct 36.6 L MCV 91.6 MCH 31.0 MCHC 33.8 RDW 13.6 Plt Count 126 L Neut % (Auto) 56.7 Lymph % (Auto) 29.0 Webb % (Auto) 12.2 Eos % (Auto) 1.7 L Baso % (Auto) 0.4 Neut # (Auto) 3200 Lymph # (Auto) 1700 [place] # (Auto) 700 Eos # (Auto) 100 Baso # (Auto) 0 ABG pH 7.38 ABG pCO2 34.0 L ABG pO2 132 H ABG HCO3 20 L ABG Total CO2 21 ABG O2 Saturation 99 ABG Base Excess -5.0 L FiO2 25 Sodium 134 L Potassium 3.8 Chloride 109 H Carbon Dioxide 24 BUN 15 Creatinine 0.81 Estimated GFR > 60.0 BUN/Creatinine Ratio 18.5 Glucose 90 Calcium 8.0 L Magnesium Total Bilirubin 0.4 AST 28 ALT 27 Alkaline Phosphatase 47 Total Protein 4.7 L Albumin 3.0 L Globulin 1.7 Albumin/Globulin Ratio 1.8 10/11/20 04:35 WBC RBC Hgb Hct MCV MCH MCHC RDW Plt Count Neut % (Auto) Lymph % (Auto) Webb % (Auto) Eos % (Auto) Baso % (Auto) Neut # (Auto) Lymph # (Auto) Webb # (Auto) Eos # (Auto) Baso # (Auto) ABG pH ABG pCO2 ABG pO2 ABG HCO3 ABG Total CO2 ABG O2 Saturation ABG Base Excess FiO2 Sodium 135 L Potassium 4.0 Chloride 108 H Carbon Dioxide 26 BUN 16 Creatinine 0.95 Estimated GFR > 60.0 BUN/Creatinine Ratio 16.8 Glucose 110 Calcium 8.2 L Magnesium 2.0 Total Bilirubin AST ALT Alkaline Phosphatase Total Protein Albumin Globulin Albumin/Globulin Ratio [facility] Medical History Bone spur Depression Epilepsy GERD (gastroesophageal reflux disease) History of ankle fracture History of prosthetic unicompartmental arthroplasty of left knee Hyperlipidemia Hypothyroidism Kidney stones Lupus Paresthesias (~03/2018) Sleep apnea Suicidal ideations Urinary dribbling Urinary stream slowing UTI (urinary tract infection) Surgical History H/O laminectomy History of arthroscopy of both knees History of cataract removal with insertion of prosthetic lens History of knee replacement History of lumbar spinal fusion (01/27/18) History of prosthetic unicompartmental arthroplasty of right knee Hx of appendectomy Hx of tonsillectomy S/P left unicompartmental knee replacement S/P right unicompartmental knee replacement Family History Father Heart disease Hypertension High cholesterol Mother Leukemia Social History marital status: household members: spouse Smoking Status: Former smoker alcohol intake: never Assessment & Plan Assessment & Plan narrative: Patient is a 68-year-old male Dago Ferrara with a past medical history of hypothyroidism, epilepsy, lupus, GERD, hyperlipidemia who was admitted after an intentional overdose/suicide attempt with benzodiazepines and alcohol. 1. Acute hypoxic respiratory failure secondary to intential benzodiazepine and alcohol intoxication, present on admission, resolved - patient initially failed pressure support trials on HD#1 and morning of HD#2. Successfully extubated HD#2 to room air. - continue to monitor for signs of respiratory depression and continue supportive care. O2 to maintain oxygen saturation >90%. 2. Seizure disorder reported secondarily to lupus, chronic, not present on admission, control unknown -can now resume home medications after extubation. Given a dose of keppra yesterday out of an abundance of precaution. 3.Major depressive disorder, acute, present on admission -continue home medications. - will need further discussions with patient after extubation about his intentions and assessment on risk moving forward. Social work consulted for assistance. 4. Hypothyroidism, chronic, stability unknown, not present on admission -TSH unremkarkable, can now resume home levothyroxine. 5. Alcohol use / intoxication - placed on CIWA protocol, monitor for signs of withdrawal. - EtOH level 70 on admission. I spent 30 minutes providing critical care management this patient. This excludes time spent in performing separately billed procedures. Code: full
[2020-10-11] MEDS: ACETAMINOPHEN 325 MG TABLET 650 MG PO (15:59)
--- NOTE | 2020-10-11 16:52 | DIET.PN ---
Dietary Progress Note 70y M extubated this afternoon and assigned general diet. Pt dinner and breakfast POs will be monitored by RD, will add ONS or appropriate food based suppplement if POs <75% such as yogurt c trays or ONS Ensure.
--- NOTE | 2020-10-11 20:15 | DI.RAD.S_ITS ---
PROCEDURE: XR CHEST 1V INDICATIONS: Intubation TECHNIQUE: One view of the chest was acquired. COMPARISON: [facility], CR, XR CHEST 1V, 10/09/2020, 20:11. FINDINGS: Surgical changes and devices: Enteric tube is present with the tip not included on the study however beyond the GE junction. Endotracheal tube with the tip projecting approximately 3 cm above the nathanael. Lungs and pleura: Lungs are clear. No pleural effusions or pneumothorax. Mediastinum: Mediastinal contours appear normal. Heart size is normal. Bones and chest wall: No suspicious bony lesions. Overlying soft tissues appear unremarkable. IMPRESSION: Support equipment as above. No acute consolidation. Dictated by: Can Hernandez M.D. on 10/11/2020 at 9:38 Approved by: Can Hernandez M.D. on 10/11/2020 at 9:40
--- NOTE | 2020-10-11 20:45 | PC.NURSE ---
Patient is resting and has been sleeping off and on since 1799.
[2020-10-11] MEDS: MIRTAZAPINE 15 MG TABLET 45 MG PO (21:42)
[2020-10-11] MEDS: DIVALPROEX ER 250 MG TAB 500 MG PO (21:42)
[2020-10-11] MEDS: FLUoxetine 20 MG CAPSULE PO (21:42)
[2020-10-11] MEDS: lamoTRIgine 100 MG TABLET PO (21:56)
[2020-10-12 05:00] VITALS: BP 150/72; PULSE 70; RESP 16; TEMP 37; O2SAT 97
[2020-10-12 05:31] LABS: Blood Urea Nitrogen 14 mg/dL (9-20); Calcium 8.5 mg/dL (8.4-10.2); Carbon Dioxide 30 mmol/L (22-32); Chloride 110 mmol/L (98-107); Estimated Glomerular Filt Rate > 60.0 mL/min (>60); Glucose 87 mg/dL (80-110); HEMOLYSIS < 15 (0-50); Magnesium 2.2 mg/dL (1.6-2.3); Potassium 4.7 mmol/L (3.4-5.1); Sodium 141 mmol/L (137-145)
[2020-10-12] MEDS: ENOXAPARIN 40 MG/0.4 ML SYRINGE SUBCUT (08:03)
[2020-10-12] MEDS: DIVALPROEX ER 250 MG TAB PO (08:03)
[2020-10-12] MEDS: SODIUM CHLORIDE 0.9% FLUSH 10 ML IV (08:03)
[2020-10-12] MEDS: LEVOTHYROXINE 88 MCG TABLET 44 MCG PO (08:03)
[2020-10-12] MEDS: lamoTRIgine 100 MG TABLET PO (08:03)
[2020-10-12 08:26] VITALS: BP 116/69; PULSE 71; RESP 17; TEMP 36.6; O2SAT 97
--- NOTE | 2020-10-12 08:44 | PC.NURSE ---
Addendum entered by Can Martínez R.N. 10/12/20 14:08: Pt left via w/c with all belongings in no distress at 1300. 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 Addendum entered by Can Martínez R.N. 10/12/20 12:05: Plan is for pt to dc home with outpt psych f/u this afternoon. Reviewed d/c packet, educational materials, and medication schedule with pt and . Both verbalize understanding of teaching. Pt continues to deny SI at this time and feels safe with current plan to dc home. Removed PIV with cath tip intact. is going to get clothes for pt and return around 1230 to transport pt home. Original Note: Rec'd pt in bed sleeping. Pt woke 0800. AO x4 and making his needs known with clear, logical speech. VSS. He denies SI at this time. Reports a hx of ongoing SI without previous attempt. Pleasant with appropriate affect. Calm and cooperative with care. Ambulated to BR independently with a steady gait. Pt does not require any AD for mobility. He is able to perform ADLs independently. He verbalizes understanding of safety measures in place. Maintaining 1:1 sitter per policy. Awaiting safe dc plan.
--- NOTE | 2020-10-12 10:16 | P.DS_ITS ---
History of Present Illness History of Present Illness Date Patient Seen: 10/12/20 Time Patient Seen: 08:00 Chief complaint: OD/SI Narrative: As per SAVAGE Gilliam: Patient is a 68-year-old male Dago Ferrara who was presented to the ED via EMS, for overdose/suicide attempt. 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 In the ED the patient's reported the following 1 prior suicide attempt, tonight reportedly the pt got into a fight with his took somewhere between 30 and 4o 5 mg diazepam tablets (150- 200mg wifes prescription) along with some sake in an attempt to kill himself. He apparently called his daughter and drove to a fire house. He was sedated and becoming more more sedated and was transported to the emergency department. On arrival in the emergency department had shallow respirations with decreasing respiratory rate and clearly and impending respiratory arrest and unprotected airway. He was safely intubated almost immediately on arrival. He was too sedated to answer further questions or remainder of history as well as review of systems are per medics. Upon admit to the floor patient was intubated, transported respiratory at bedside. Patient's admit vital signs BP 74/49, HR 51, RR 16, O2 saturation 99% on ventilator. ABGs pH 7.32, PO2 162, base excess -4.0, FiO2 45. Labs WBC 4.3, lactate negative, troponin negative, drug screen positive for benzodiazepine, marijuana, alcohol 75. Patient was restless and continued to robert the vent and was consistently producing abdominal contents coffee grounds in appearance, NG tube was in place and was connected to intermittent suction on a medium setting, pt was not alert, nor did he respond to commands, patient had a drop in his map and became hypotensive, fentanyl and norepinephrine drips were ordered along with LR. Provided bedside critical care management with the nursing and respiratory staff for approximately an hour and half until patient was stabilized with a blood pressure of 108/69, HR 56, R 16, O2 saturation rate 100 on 15 liters/minute map of 83. Patient's youngest daughter Stella, came up with her father and was outside the room. Reviewed patient's health instructions, we reviewed the health instructions with the patient's daughter, and the nursing human resources department supervisor. It was agreed that the patient's instructions gave for revisions to implement intubation and life saving measures in the event of a curable or reversible health condition his daughter verbalize that his over does met those parameters and to continue with a full code status at this time. Discharge Providers Provider Date of admission: 10/09/20 20:11 Discharge Date: 10/12/20 Primary care physician: Sherly Jara PA-C Consults: 10/09/20 20:11 Consult to Dietitian, Adult Routine Comment: Reason For Exam: Patient on Ventilator and NPO Discharge provider: Nain Wahl DO Summary Hospital Course Discharge Diagnosis: 1. Acute hypoxic respiratory failure secondary to intential benzodiazepine and alcohol intoxication, present on admission, resolved 2. Seizure disorder reported secondarily to lupus, chronic, not present on admission, control unknown 3.Major depressive disorder, acute, present on admission 4. Hypothyroidism, chronic 5. Alcohol use / intoxication, present on admission. Hospital Course: Patient is a 68-year-old male Dago Ferrara with a past medical history of hypothyroidism, epilepsy, lupus, GERD, hyperlipidemia who was admitted after an intentional overdose/suicide attempt with benzodiazepines and alcohol. He was intubated the emergency room. On hospital day 1 he failed multiple pressure support trials due to bradypnea. He was able to be extubated successfully on hospital day 2. Afterwards he remained in no acute respiratory distress and was doing well. The patient felt embarrassed about his attempt and was deemed not actively suicidal after extensive evaluation with the assistance of care management and older adult social work specialist. He was able to be scheduled for follow-up with his regular psychologist later in the afternoon and was discharged home. Status at Discharge Cognitive/behavioral status at discharge: oriented Functional status at discharge: independent ambulation Overall status at discharge: patient is back to baseline Exam Vital Signs (past 8 hours): - 10/12/20 05:00 10/12/20 08:26 Temperature 98.6 F 97.9 F Pulse Rate 70 71 Respiratory Rate 16 17 Blood Pressure 150/72 H 116/69 Pulse Oximetry 97 97 Fraction of Inspired Oxygen 0.25 Oxygen Delivery Method Room Air Oxygen Flow Rate 0 Narrative Exam Narrative: GENERAL APPEARANCE: Well developed, well nourished, in no acute distress. SKIN: Inspection of the skin reveals no rashes, ulcerations or petechiae. HEENT: Normocephalic atraumatic, extraocular muscles are intact, oropharynx is clear and mucous membranes are moist, neck is supple without adenopathy NECK: Supple and symmetric. There was no thyroid enlargement, and no tenderness, or masses were felt. CHEST: Normal AP diameter and normal contour without any kyphoscoliosis. LUNGS: Auscultation of the lungs revealed no wheezes, rhonchi, or rales. CARDIOVASCULAR: There was a regular rate and rhythm without any murmurs, gallops, rubs. Peripheral pulses were 2+ and symmetric. ABDOMEN: Soft and nontender with normal bowel sounds. No ascites was noted. MUSCULOSKELETAL: There was no tenderness or effusions noted. Muscle strength and tone were normal. EXTREMITIES: No cyanosis, clubbing or edema. NEUROLOGIC: Alert and oriented x 3. Gait was normal. Strength is +5/5 in the Upper Extremities and Lower Extremities Bilaterally. Sensation to touch was normal. PSYCH: Slightly flat affect, calm cooperative with stable behavior. Denies active SI or HI. Objective Labs Result Diagrams: 10/10/20 20:15 10/12/20 04:35 Labs: Laboratory Results - last 24 hr 10/09/20 10/12/20 22:32 04:35 ABG pH 7.38 ABG pCO2 34.0 L ABG pO2 132 H ABG HCO3 20 L ABG Total CO2 21 ABG O2 Saturation 99 ABG Base Excess -5.0 L FiO2 25 Sodium 141 Potassium 4.7 Chloride 110 H Carbon Dioxide 30 BUN 14 Creatinine 1.00 Estimated GFR > 60.0 BUN/Creatinine Ratio 14.0 Glucose 87 Calcium 8.5 Magnesium 2.2 PFSH Medical History Bone spur Depression Epilepsy GERD (gastroesophageal reflux disease) History of ankle fracture History of prosthetic unicompartmental arthroplasty of left knee Hyperlipidemia Hypothyroidism Kidney stones Lupus Paresthesias (~03/2018) Sleep apnea Suicidal ideations Urinary dribbling Urinary stream slowing UTI (urinary tract infection) Surgical History H/O laminectomy History of arthroscopy of both knees History of cataract removal with insertion of prosthetic lens History of knee replacement History of lumbar spinal fusion (01/27/18) History of prosthetic unicompartmental arthroplasty of right knee Hx of appendectomy Hx of tonsillectomy S/P left unicompartmental knee replacement S/P right unicompartmental knee replacement Family History Father Heart disease Hypertension High cholesterol Mother Leukemia Social History marital status: household members: spouse Smoking Status: Former smoker alcohol intake: never Discharge Plan Discharge Plan Patient Disposition: Home Provider Discharge Comment: You were admitted to the hospital after an overdose with benzodiazepines. You needed to be intubated for difficulty breathing. It took a while for these medications to wear off but once the breathing tube was removed you did well. You have a follow up with your psychiatrist this aftern oon. No medication changes are recommended at this time. Discharge orders & Medications Prescriptions: Continued multivitamin Capsule 1 cap PO DAILY RF: 0 divalproex 500 mg Tablet Extended Release 24 Hr 500 mg PO QPM RF: 0 lamotrigine 100 mg Tablet 100 mg PO BID RF: 0 divalproex 250 mg Tablet Extended Release 24 Hr 250 mg PO QAM RF: 0 fluoxetine 20 mg capsule 1 cap PO BEDTIME RF: 0 levothyroxine 88 mcg Tablet 44 mcg PO DAILY RF: 0 mirtazapine 45 mg tablet 45 mg PO BEDTIME RF: 0 Follow up/Referrals: Sherly Jara PA-C [Primary Care Provider] - Visit Report/Discharge Packet Instructions: DI for Drug Overdose in Adults, How to Create a Suicide Prevention Safety Plan Discharge Data Primary Care Provider: Sherly Jara
--- NOTE | 2020-10-12 14:15 | CM.DANOTE ---
GERENTOLOGICAL PHYSIOTHERAPIST Note: Reviewed chart. Spoke with Dr. Wahl this AM. Provider reports that patient is medically stable. GERENTOLOGICAL PHYSIOTHERAPIST to evaluate for discharge disposition. Met with patient explained role. Patient alert, oriented, and ambulating in room at time of visit. Patient reports that he has had h/o depression. Patient denies current SI and reports that he would like to d/c home today. Patient currently resides with spouse/Dascharleen in [place]. Patient reports that he took overdose of sedatives after agrguement with spouse. Per notes, spouse and daughter were made aware of patient's intention. Patient denies any previous attempts but does report that he has had thoughts of suicide for years. Patient active with psychiatrist//Dr. Wong in [place]. Pateint in agreement for GERENTOLOGICAL PHYSIOTHERAPIST to call office and make follow up appointment. Release of information signed. Placed call to Dr. Wong's office and spoke with Vanessa. She indicates that patient can be seen today by Dr. Wong at 3:00pm. Dr. Wahl updated and agreeable for patient to d/c home. Pateint reports no active suicidal ideation. In addition to the above with patient's permission met with spouse. Spouse reports concerns about patient's depression and mood changes. Spouse in agreement to take patient to appointment today. Spouse also reports that daughter will be coming to stay with them. Clinical faxed to Dr. Wong's office for afternoon appointment. Resources provided to spouse for outpatient follow up. P: Home today with psychiatry appointment made for today at 3:00pm. SULTANA Marmolejo
--- NOTE | 2020-11-04 13:46 | PC.NURSE ---
Late entry for 10/10/20 at 1300- Bilateral soft wrist restraints continued due to pt's inconsistent ability to follow directions and repeated spontaneous attempts to reach toward ETT with BUE. Pt is drowsy/forgetful. Soft wrist restraints checked/left in place and order continued. Bed locked/low, call light in reach.
== END 2020-10-12 13:00 | disposition home or self-care (01) | DRG 917 ==
LOC: ED 19:00 → AC 20:12 → ICU 20:23
PROVIDERS: Internal Medicine; Admitting Provider Nurse Practitioner Family; Emergency Provider Emergency Medicine; PCP Student in an Organized Health Care Education/Training Program; Referring Provider Emergency Medicine; Visit Provider Nurse Practitioner Family
DX: T42.4X2A Poisoning by benzodiazepines, intentional self-harm, initial encounter (principal); J96.01 Acute respiratory failure with hypoxia; F33.9 Major depressive disorder, recurrent, unspecified; G40.909 Epilepsy, unspecified, not intractable, without status epilepticus; M32.19 Other organ or system involvement in systemic lupus erythematosus; F10.129 Alcohol abuse with intoxication, unspecified; I95.2 Hypotension due to drugs; T41.295A Adverse effect of other general anesthetics, initial encounter; E03.9 Hypothyroidism, unspecified; F10.120 Alcohol abuse with intoxication, uncomplicated; Y90.3 Blood alcohol level of 60-79 mg/100 ml; Z87.891 Personal history of nicotine dependence; Z20.822 Contact with and (suspected) exposure to COVID-19
CPT/HCPCS: 36415; 36600; 71045; 80048; 80053; 80305; 80320; 80329; 82550; 82805; 82962; 83605; 83735; 84443; 84478; 84484; 85025; 85730; 87635; 87797; 93005; 93010; 94002; 94003; 94010; 94762; 94799; 96360; 96361; 99285; 99291; C9803; C9113; G0480; J1650; J1953; J2060; J2704; J3010

== ENCOUNTER → 2020-11-02 07:05 | Outpatient (CLI) | payer MEDICARE, OTHER, SELFPAY ==
[2020-10-09 22:27] VITALS: BMI 23.6
[2020-10-11 10:27] VITALS: PULSE 68; RESP 11; O2SAT 99
[2020-11-02 08:04] LABS: Add Manual Diff / Slide Review NO; Basophils Absolute Auto 0 /uL (0-100); Basophils Percent Auto 0.3 % (0-2); Eosinophils Absolute Auto 200 /uL (0-450); Eosinophils Percent Auto 2.5 % (2-4); Hematocrit 42.8 % (41-53); Hemoglobin 14.2 g/dL (13.5-17.5); Lymphocytes Absolute Auto 2000 /uL (1100-4500); Lymphocytes Percent Auto 32.4 % (25-40); Mean Corpuscular HGB Conc 33.2 % (30-36); Mean Corpuscular Hemoglobin 30.2 PG (26-34); Monocytes Absolute Auto 500 /uL (0-900); Neutrophils Absolute Auto 3400 /uL (1500-7000); Neutrophils Percent Auto 55.8 % (50-75); Platelet Count 214 X10^3/uL (150-400); Red Cell Distribution Width 13.6 % (11.6-14.8); White Blood Cell Count 6.1 X10^3/uL (4.5-11.0)
[2020-11-02 08:30] LABS: Alanine Aminotransferase 26 IU/L (<50); Albumin 4.2 g/dL (3.5-5.0); Alkaline Phosphatase 59 U/L (38-126); Aspartate Aminotransferase 30 IU/L (17-59); BUN Creatinine Ratio 19.6 (6-22); Bilirubin Total 0.4 mg/dL (0.2-1.3); Blood Urea Nitrogen 21 mg/dL (9-20); Calcium 9.7 mg/dL (8.4-10.2); Carbon Dioxide 28 mmol/L (22-32); Chloride 106 mmol/L (98-107); Cholesterol 200 mg/dL (140-199); Estimated Glomerular Filt Rate > 60.0 mL/min (>60); Globulin 2.1 g/dL (1.7-4.1); Glucose 106 mg/dL (80-110); HDL Cholesterol 50 mg/dL (40-60); HEMOLYSIS < 15 (0-50); LDL Cholesterol Calculated 121 mg/dL (<100); Potassium 4.2 mmol/L (3.4-5.1); Sodium 140 mmol/L (137-145); Total Protein 6.3 g/dL (6.3-8.2); Triglycerides 147 mg/dL (35-150)
[2020-11-02 08:54] LABS: Thyroid Stimulating Hormone 2.45 uIU/mL (0.47-4.68)
== END ==
PROVIDERS: PCP Student in an Organized Health Care Education/Training Program; Referring Provider Student in an Organized Health Care Education/Training Program; Visit Provider Student in an Organized Health Care Education/Training Program
DX: E03.9 Hypothyroidism, unspecified (principal)
CPT/HCPCS: 80053; 80061; 84443; 85025

== ENCOUNTER 2021-03-02 15:47 | Emergency (ER) | payer MEDICARE, OTHER, SELFPAY ==
[2020-10-09 22:27] VITALS: BMI 23.6
[2020-10-11 10:27] VITALS: PULSE 68; RESP 11; O2SAT 99
[2021-03-02 15:52] VITALS: BP 173/96; PULSE 68; RESP 14; TEMP 36.2; O2SAT 99
--- NOTE | 2021-03-02 15:54 | DI.RAD.S_ITS ---
PROCEDURE: XR CHEST 1V INDICATIONS: Chest pain TECHNIQUE: One view of the chest was acquired. COMPARISON: [facility], CR, XR CHEST 1V, 10/11/2020, 5:11. FINDINGS: Surgical changes and devices: None. Lungs and pleura: Lungs are clear. No pleural effusions or pneumothorax. Mediastinum: Mediastinal contours appear normal. Heart size is normal. Bones and chest wall: No suspicious bony lesions. Overlying soft tissues appear unremarkable. IMPRESSION: No acute cardiopulmonary process demonstrated radiographically. Dictated by: Fawad Mcdowell M.D. on 03/02/2021 at 16:46 Approved by: Fawad Mcdowell M.D. on 03/02/2021 at 16:46
[2021-03-02 17:07] LABS: Alanine Aminotransferase 37 IU/L (<50); Albumin 4.1 g/dL (3.5-5.0); Albumin Globulin Ratio 2.3 (1.0-2.8); Alkaline Phosphatase 49 U/L (38-126); Aspartate Aminotransferase 35 IU/L (17-59); BUN Creatinine Ratio 21.7 (6-22); Bilirubin Total 0.3 mg/dL (0.2-1.3); Blood Urea Nitrogen 20 mg/dL (9-20); Calcium 9.5 mg/dL (8.4-10.2); Carbon Dioxide 25 mmol/L (22-32); Chloride 106 mmol/L (98-107); Creatine Kinase 52 U/L (55-170); Estimated Glomerular Filt Rate > 60.0 mL/min (>60); Globulin 1.8 g/dL (1.7-4.1); Glucose 114 mg/dL (80-110); HEMOLYSIS 18 (0-50); Lipase 210 U/L (23-300); Potassium 3.9 mmol/L (3.4-5.1); Sodium 139 mmol/L (137-145); Total Protein 5.9 g/dL (6.3-8.2)
[2021-03-02 17:11] LABS: Add Manual Diff / Slide Review NO; Basophils Absolute Auto 0 /uL (0-100); Basophils Percent Auto 0.7 % (0-2); Eosinophils Absolute Auto 100 /uL (0-450); Eosinophils Percent Auto 1.9 % (2-4); Hematocrit 42.2 % (41-53); Hemoglobin 14.1 g/dL (13.5-17.5); Lymphocytes Absolute Auto 1800 /uL (1100-4500); Lymphocytes Percent Auto 32.3 % (25-40); Mean Corpuscular HGB Conc 33.5 % (30-36); Mean Corpuscular Hemoglobin 30.6 PG (26-34); Mean Corpuscular Volume 91.2 fL (80-100); Monocytes Absolute Auto 600 /uL (0-900); Monocytes Percent Auto 10.5 % (3-14); Neutrophils Absolute Auto 3000 /uL (1500-7000); Neutrophils Percent Auto 54.6 % (50-75); Platelet Count 166 X10^3/uL (150-400); Red Blood Cell Count 4.63 X10^6/uL (4.5-5.9); Red Cell Distribution Width 13.3 % (11.6-14.8); White Blood Cell Count 5.5 X10^3/uL (4.5-11.0)
[2021-03-02 17:18] LABS: Troponin I < 0.012 ng/mL (0.01-0.034)
[2021-03-02 17:38] LABS: TSH w/ Reflex to FT4 2.12 uIU/mL (0.47-4.68)
[2021-03-02 19:05] VITALS: PULSE 66; O2SAT 96
[2021-03-02 19:08] VITALS: BP 137/88; PULSE 65; RESP 16; O2SAT 96
--- NOTE | 2021-03-02 19:18 | ED_ITS ---
HPI - General Adult General Chief complaint: Abdominal Pain Stated complaint: chest pain, not going away Time Seen by Provider: 03/02/21 19:10 Source: patient Mode of arrival: Ambulatory Limitations: no limitations History of Present Illness HPI narrative: 70-year-old male who is here for evaluation of what was initially described as chest discomfort however upon further evaluation was more left upper quadrant discomfort. He states that earlier today he had a fairly sudden onset of very sharp and uncomfortable left upper quadrant pain. Unsure as to how long it has lasted and has improved somewhat however does not completely gone. Did not seem to get worse with movement or palpation. Not worse with breathing. Not worse with urination. He has had kidney stones in the past and states this feels different than a kidney stone. No skin rashes. Related Data Home Medications Medication Instructions Recorded Confirmed fluoxetine 20 mg capsule 1 cap PO BEDTIME 05/15/18 10/09/20 levothyroxine 88 mcg tablet 44 mcg PO DAILY 05/15/18 10/09/20 multivitamin 1 cap PO DAILY 07/16/19 10/09/20 mirtazapine 45 mg tablet 45 mg PO BEDTIME tab 05/06/20 10/09/20 divalproex 250 mg tablet,extended 250 mg PO QAM 10/09/20 10/09/20 release 24 hr divalproex 500 mg tablet,extended 500 mg PO QPM 10/09/20 10/09/20 release 24 hr lamotrigine 100 mg tablet 100 mg PO BID 10/09/20 10/09/20 Allergies Allergy/AdvReac Type Severity Reaction Status Date / Time latex Allergy Severe Rash Verified 03/02/21 15:54 Penicillins [PENICILLINS] Allergy Severe ANAPHYLAXIS Verified 03/02/21 15:54 vortioxetine AdvReac Severe Nausea Verified 03/02/21 15:54 [From Trintellix] morphine AdvReac Verified 03/02/21 15:54 Review of Systems Constitutional Constitutional: Denies fever(s) Cardiovascular Cardiovascular: Denies chest pain and Reports dyspnea Respiratory Respiratory: Reports dyspnea Gastrointestinal Gastrointestinal: Reports as per HPI Genitourinary Genitourinary: Denies dysuria, Denies genital pain and Denies testicular pain Musculoskeletal Musculoskeletal: Reports system reviewed and no additional complaints, except as documented Integumentary/Breasts Skin/Breast: Denies rash Neurologic Neurologic: Reports system reviewed and no additional complaints, except as documented Psychiatric Psychiatric: Reports system reviewed and no additional complaints, except as documented Hematologic/Lymphatic On Anticoagulants: No Allergic/Immunologic Allergic/Immunologic: Reports system reviewed and no additional complaints, except as documented Patient History Medical History Bone spur Depression Epilepsy GERD (gastroesophageal reflux disease) History of ankle fracture History of prosthetic unicompartmental arthroplasty of left knee Hyperlipidemia Hypothyroidism Kidney stones Lupus Paresthesias (~03/2018) Sleep apnea Suicidal ideations Urinary dribbling Urinary stream slowing UTI (urinary tract infection) Surgical History H/O laminectomy History of arthroscopy of both knees History of cataract removal with insertion of prosthetic lens History of knee replacement History of lumbar spinal fusion (01/27/18) History of prosthetic unicompartmental arthroplasty of right knee Hx of appendectomy Hx of tonsillectomy S/P left unicompartmental knee replacement S/P right unicompartmental knee replacement Family History Father Heart disease Hypertension High cholesterol Mother Leukemia Social History marital status: household members: spouse Smoking Status: Former smoker alcohol intake: never Smoking Status: Former smoker alcohol intake frequency: 3 or more drinks per day Substance Use Type: does not use and other Exam Initial Vital Signs Initial Vital Signs: Vital Signs Temperature 97.1 F L 03/02/21 15:52 Pulse Rate 68 03/02/21 15:52 Respiratory Rate 14 03/02/21 15:52 Blood Pressure 173/96 H 03/02/21 15:52 Pulse Oximetry 99 03/02/21 15:52 Const General: cooperative HENMT Head: normal to inspection and normocephalic Resp Effort & Inspection: normal respiratory effort Auscultation: clear to auscultation bilaterally Cardio Rate: regular rate Rhythm: regular rhythm GI Inspection: normal to inspection Palpation: soft and tender (Left upper quadrant) Back/Spine/Pelvis Back: No CVA tenderness Skin General: no rashes or lesions noted Neuro General: patient alert, patient awake and patient oriented x3 Extrem General: normal to inspection and capillary refill normal Psych Appearance: grossly normal and well kempt Course Orders Ordered: ED Orders 03/02/21 15:54 XR chest 1V Stat EKG-12 Lead Stat 03/02/21 16:45 Complete Blood Count AUTO DIFF Stat Comprehensive Metabolic Panel Stat Lipase Stat Magnesium Stat TSH w/ Reflex to FT4 Stat Troponin & CK Cardiac Panel Stat Vital Signs Vital signs: Vital Signs - 8 hr 03/02/21 19:05 03/02/21 19:08 Pulse Rate 66 65 Respiratory Rate 16 Blood Pressure 137/88 Pulse Oximetry 96 96 Medical Decision Making Lab Data Lab results reviewed: Yes I reviewed the patient's lab results. Result diagrams: 03/02/21 16:45 03/02/21 16:45 Labs: Lab Results 03/02/21 03/02/21 03/02/21 Range/Units 16:45 16:45 16:45 WBC 5.5 (4.5-11.0) X10^3/uL RBC 4.63 (4.5-5.9) X10^6/uL Hgb 14.1 (13.5-17.5) g/dL Hct 42.2 (41-53) % MCV 91.2 (80-100) fL MCH 30.6 (26-34) PG MCHC 33.5 (30-36) % RDW 13.3 (11.6-14.8) % Plt Count 166 (150-400) X10^3/uL Neut % (Auto) 54.6 (50-75) % Lymph % (Auto) 32.3 (25-40) % [place] % (Auto) 10.5 (3-14) % Eos % (Auto) 1.9 L (2-4) % Baso % (Auto) 0.7 (0-2) % Neut # (Auto) 3000 (6069-1419) /uL Lymph # (Auto) 1800 (4742-1410) /uL [place] # (Auto) 600 (0-900) /uL Eos # (Auto) 100 (0-450) /uL Baso # (Auto) 0 (0-100) /uL Sodium 139 (137-145) mmol/L Potassium 3.9 (3.4-5.1) mmol/L Chloride 106 (98-107) mmol/L Carbon Dioxide 25 (22-32) mmol/L BUN 20 (9-20) mg/dL Creatinine 0.92 (0.66-1.25) mg/dL Estimated GFR > 60.0 (>60) mL/min BUN/Creatinine Ratio 21.7 (6-22) Glucose 114 H (80-110) mg/dL Calcium 9.5 (8.4-10.2) mg/dL Magnesium 2.0 (1.6-2.3) mg/dL Total Bilirubin 0.3 (0.2-1.3) mg/dL AST 35 (17-59) IU/L ALT 37 (<50) IU/L Alkaline Phosphatase 49 (38-126) U/L Total Creatine Kinase 52 L (55-170) U/L CK-MB (CK-2) TNP CK-MB (CK-2) Rel Index TNP Troponin I < 0.012 (0.01-0.034) ng/mL Total Protein 5.9 L (6.3-8.2) g/dL Albumin 4.1 (3.5-5.0) g/dL Globulin 1.8 (1.7-4.1) g/dL Albumin/Globulin Ratio 2.3 (1.0-2.8) Lipase 210 (23-300) U/L TSH 2.12 (0.47-4.68) uIU/mL Imaging Data Chest x-ray: Radiologist's Impression: [place] [id number] 21XRay ReportSigned Patient: Dago Ferrara GMR#: [id number]: 8Acct:[id number] /Sex: 70 / MDate of Service: 03/02/21Loc: EDAccession Number: [id number] Procedure: XR chest 1V Ordering Provider: Nusrat Martinez D.O. PROCEDURE: XR CHEST 1V INDICATIONS: Chest pain TECHNIQUE: One view of the chest was acquired. COMPARISON: [facility], , XR CHEST 1V, 10/11/2020, 5:11. FINDINGS: Surgical changes and devices: None. Lungs and pleura: Lungs are clear. No pleural effusions or pneumothorax. Mediastinum: Mediastinal contours appear normal. Heart size is normal. Bones and chest wall: No suspicious bony lesions. Overlying soft tissues appear unremarkable. IMPRESSION: No acute cardiopulmonary process demonstrated radiographically. Dictated by: Fawad Mcdowell M.D. on 03/02/2021 at 16:46 Approved by: Fawad Mcdowell M.D. on 03/02/2021 at 16:46 ECG Data Attestation: I personally reviewed and interpreted this ECG as follows: Interpretation: Sinus rhythm Ventricular rate is 74 Normal axis Normal QRS Normal QTC No ST T wave changes MDM Narrative Medical decision making narrative: Labs are unremarkable. Skin does not have any concern for zoster. His discomfort has improved since the onset earlier today but is not completely resolved. Had a discussion with him regarding his labs. We discussed the possibility of obtaining a CT scan for further evaluation verses observing at home to see if his symptoms do not change. After this discussion he would like to hold on any radiologic studies for now. He expressed understanding of the return precautions. Discharge Plan Departure Patient Disposition: Home Clinical Impression: Abdominal pain Instructions: DI for Abdominal Pain-Adult Activity Restrictions/Additional Instructions: After our discussion we will hold on any CT scan for now. You have no restrictions on your activities. Recommend you continue all of your medications as directed. Return to the emergency department for any new or worsening symptoms. Prescriptions: No Action multivitamin Capsule 1 cap PO DAILY RF: 0 divalproex 500 mg Tablet Extended Release 24 Hr 500 mg PO QPM RF: 0 lamotrigine 100 mg Tablet 100 mg PO BID RF: 0 divalproex 250 mg Tablet Extended Release 24 Hr 250 mg PO QAM RF: 0 fluoxetine 20 mg capsule 1 cap PO BEDTIME RF: 0 levothyroxine 88 mcg Tablet 44 mcg PO DAILY RF: 0 mirtazapine 45 mg tablet 45 mg PO BEDTIME RF: 0 Referrals: Sherly Jara PA-C [Primary Care Provider] -
== END 2021-03-02 19:32 | disposition home or self-care (01) ==
PROVIDERS: Emergency Medicine; Emergency Provider Emergency Medicine; PCP Student in an Organized Health Care Education/Training Program
DX: R10.12 Left upper quadrant pain (principal); R06.00 Dyspnea, unspecified; R07.9 Chest pain, unspecified
CPT/HCPCS: 36415; 71045; 80053; 82550; 83690; 83735; 84443; 84484; 85025; 93005; 99284

== ENCOUNTER 2021-08-01 11:21 | Emergency (ER) | payer MEDICARE, OTHER, SELFPAY ==
[2020-10-09 22:27] VITALS: BMI 23.6
[2020-10-11 10:27] VITALS: PULSE 68; RESP 11; O2SAT 99
[2021-08-01] VITALS (10 sets, daily range): BP systolic 123–187; BP diastolic 81–118; PULSE 66–73; RESP 12–30; TEMP 36.9; O2SAT 94–99; BMI 26.6
--- NOTE | 2021-08-01 11:35 | DI.RAD.S_ITS ---
PROCEDURE: XR CHEST 1V INDICATIONS: chest pain TECHNIQUE: One view of the chest was acquired. COMPARISON: [facility], CR, XR CHEST 1V, 05/15/2018, 13:51. [facility], CR, XR CHEST 1V, 10/09/2020, 20:11. [facility], CR, XR CHEST 1V, 10/11/2020, 5:11. [facility], CR, XR CHEST 1V, 03/02/2021, 16:12. FINDINGS: Surgical changes and devices: None. Lungs and pleura: No acute consolidation. There is a right suprahilar nodular opacity measuring up to 1.7 cm. There is mild linear atelectasis in the left lung base. No pleural effusions or pneumothorax. Mediastinum: Mediastinal contours appear normal. Heart size is normal. Bones and chest wall: No suspicious bony lesions. Overlying soft tissues appear unremarkable. IMPRESSION: 1. Right suprahilar nodular opacity may have been present on prior studies but is seen to greater advantage on the current study. Findings are suggestive of a pulmonary nodule. Consider further evaluation with chest CT. 2. No acute consolidation. Dictated by: Denver Rodriguez M.D. on 08/01/2021 at 11:25 Approved by: Denver Rodriguez M.D. on 08/01/2021 at 11:29
[2021-08-01 12:09] LABS: Lymphocytes Percent Auto 33.9 % (25-40); Mean Corpuscular HGB Conc 33.7 % (30-36); Mean Corpuscular Volume 92.6 fL (80-100); Neutrophils Percent Auto 52.7 % (50-75)
[2021-08-01 12:18] LABS: Alkaline Phosphatase 47 U/L (38-126); Glucose 122 mg/dL (80-110); Potassium 3.8 mmol/L (3.4-5.1); Sodium 140 mmol/L (137-145)
--- NOTE | 2021-08-01 12:42 | ED.CHESTPAIN ---
HPI - Chest Pain General Chief Complaint: Chest Pain Stated Complaint: CHEST PAIN Time Seen by Provider: 08/01/21 12:07 Source: patient Mode of arrival: Ambulatory Limitations: no limitations History of Present Illness HPI narrative: This is a 71-year-old male comes emergency department complaint of left-sided chest he states symptoms started around . He has been persistent feeling of bruise on the left side of his chest Saturday, July 30 he had what felt like several muscle spasm on the left and about an hour later had about 3 more episodes. States lying down seems to make it worse. Nothing really seems to make it go away. Exertion and activity do not make it worse. He went for 2 mi hike today which did not seem to exacerbate it. He denies any fevers or chills. No cold cough or congestion. No nausea or vomiting. He has not had any shortness of breath. No new swelling in his extremities. No rash, bruising or skin changes. He has not any trauma or injury to the area or falls. He does note yesterday he felt lightheaded but did not have any syncope. His blood pressure was 150/103 over several hours he took a nap and it seemed to improved to 120 and the symptoms resolved. Has a history of depression with prior suicide attempt. He is following with a counselor, doing intranasal ketamine and taking oral medications and states that this is quite helpful. He still has thoughts but has no intent or goal to harm himself. He has had prior back surgery and knee surgery remotely. Allergic to penicillin. No tobacco, typically no alcohol but did have some over the holiday with his son and typically no illicit but had some marijuana over the weekend holiday with his son. His primary care is Sherly Jara. Related Data Home Medications Medication Instructions Recorded Confirmed fluoxetine 20 mg capsule 1 cap PO BEDTIME 05/15/18 10/09/20 levothyroxine 88 mcg tablet 44 mcg PO DAILY 05/15/18 10/09/20 multivitamin 1 cap PO DAILY 07/16/19 10/09/20 mirtazapine 45 mg tablet 45 mg PO BEDTIME tab 05/06/20 10/09/20 divalproex 250 mg tablet,extended 250 mg PO QAM 10/09/20 10/09/20 release 24 hr divalproex 500 mg tablet,extended 500 mg PO QPM 10/09/20 10/09/20 release 24 hr lamotrigine 100 mg tablet 100 mg PO BID 10/09/20 10/09/20 Allergies Allergy/AdvReac Type Severity Reaction Status Date / Time latex Allergy Severe Rash Verified 08/01/21 11:34 Penicillins [PENICILLINS] Allergy Severe ANAPHYLAXIS Verified 08/01/21 11:34 vortioxetine AdvReac Severe Nausea Verified 08/01/21 11:34 [From Trintellix] morphine AdvReac Verified 08/01/21 11:34 Review of Systems Review of Systems ROS Unobtainable: All systems reviewed & are unremarkable except as noted in HPI and below Patient History Medical History (Updated 08/01/21 @ 12:59 by Nusrat Martinez DO) Bone spur Depression Epilepsy GERD (gastroesophageal reflux disease) History of ankle fracture History of prosthetic unicompartmental arthroplasty of left knee Hyperlipidemia Hypothyroidism Kidney stones Lupus Paresthesias (~03/2018) Sleep apnea Suicidal ideations Urinary dribbling Urinary stream slowing UTI (urinary tract infection) Surgical History H/O laminectomy History of arthroscopy of both knees History of cataract removal with insertion of prosthetic lens History of knee replacement History of lumbar spinal fusion (01/27/18) History of prosthetic unicompartmental arthroplasty of right knee Hx of appendectomy Hx of tonsillectomy S/P left unicompartmental knee replacement S/P right unicompartmental knee replacement Family History Father Heart disease Hypertension High cholesterol Mother Leukemia Social History marital status: household members: spouse Smoking Status: Former smoker alcohol intake: never Smoking Status: Former smoker alcohol intake frequency: 3 or more drinks per day Substance Use Type: does not use and other Exam Narrative Exam Narrative: GENERAL: Alert and oriented x three, male in mild distress. HEENT: Head normocephalic, atraumatic, EOMI, pupils reactive, face symmetric, moist mucous membranes NECK: Supple, full range of motion CARDIOVASCULAR: Regular rate and rhythm without murmurs, rubs or gallops. Non reproducible chest pain. No tenderness to palpation. No rash, erythema, ecchymosis or skin changes. RESPIRATORY: Breath sounds equal bilaterally, no wheezes rales or rhonchi. ABDOMEN: Soft, nontender. Normoactive bowel sounds all 4 quadrants. No guarding or rebound, rigidity, no mass : No CVA tenderness EXTREMITIES: Normal range of motion, no edema bilateral extremities. Neurovascularly intact NEUROLOGICAL: Cranial nerves II through XII grossly intact. Moving all extremities SKIN: Warm, dry, no petechiae, no rashes or lesions. Initial Vital Signs Initial Vital Signs: Vital Signs Temperature 98.4 F 08/01/21 11:31 Pulse Rate 73 08/01/21 11:31 Respiratory Rate 16 08/01/21 11:31 Blood Pressure 187/118 H 08/01/21 11:31 Pulse Oximetry 99 08/01/21 11:31 Scores HEART Score Heart Score history: Slightly Suspicious Heart Score EKG: Normal Heart Score Age: > or = 65 years old Heart Score risk factors: No known risk factors Heart Score troponin: < or = to normal limit Heart Score Total: 2 PERC Score Age greater than or equal to 50 years: Yes Heart rate greater than or equal to 100 bpm: No Room Air O2 Sat less than 95%: No Unilateral leg swelling: No Recent trauma or surgery: No Hemoptysis: No Prior PE or DVT: No Hormone Use: No Total PERC Score: 1 Course Orders Ordered: ED Orders 08/01/21 11:35 XR chest 1V Stat EKG-12 Lead Stat 08/01/21 11:50 BNP [NT-proBNP (BNP-Adult 18+)] Stat Complete Blood Count AUTO DIFF Stat Comprehensive Metabolic Panel Stat Lipase Stat Troponin & CK Cardiac Panel Stat 08/01/21 13:00 CT angio chest PE protocol Stat Vital Signs Vital signs: Vital Signs - 8 hr 08/01/21 11:31 08/01/21 11:33 08/01/21 11:35 Temperature 98.4 F Pulse Rate 73 69 69 Respiratory Rate 16 27 H 22 Blood Pressure 187/118 H 148/93 H Pulse Oximetry 99 96 95 08/01/21 12:00 08/01/21 12:30 08/01/21 13:07 Temperature Pulse Rate 70 69 70 Respiratory Rate 14 12 30 H Blood Pressure 141/94 H 132/83 Pulse Oximetry 94 94 98 08/01/21 13:38 08/01/21 13:39 08/01/21 14:00 Temperature Pulse Rate 68 68 68 Respiratory Rate 27 H 20 14 Blood Pressure 148/86 H 142/93 H Pulse Oximetry 98 98 97 08/01/21 14:30 Temperature Pulse Rate 66 Respiratory Rate 15 Blood Pressure 123/81 Pulse Oximetry 94 MDM - Chest Pain Lab Data Result diagrams: 08/01/21 11:50 08/01/21 11:50 Labs: Lab Results 08/01/21 08/01/21 Range/Units 11:50 11:50 WBC 5.0 (4.5-11.0) X10^3/uL RBC 4.66 (4.5-5.9) X10^6/uL Hgb 14.5 (13.5-17.5) g/dL Hct 43.2 (41-53) % MCV 92.6 (80-100) fL MCH 31.2 (26-34) PG MCHC 33.7 (30-36) % RDW 13.9 (11.6-14.8) % Plt Count 188 (150-400) X10^3/uL Neut % (Auto) 52.7 (50-75) % Lymph % (Auto) 33.9 (25-40) % Davison % (Auto) 11.0 (3-14) % Eos % (Auto) 1.7 L (2-4) % Baso % (Auto) 0.7 (0-2) % Neut # (Auto) 2600 (1004-7231) /uL Lymph # (Auto) 1700 (3038-3056) /uL Davison # (Auto) 500 (0-900) /uL Eos # (Auto) 100 (0-450) /uL Baso # (Auto) 0 (0-100) /uL Sodium 140 (137-145) mmol/L Potassium 3.8 (3.4-5.1) mmol/L Chloride 104 (98-107) mmol/L Carbon Dioxide 27 (22-32) mmol/L BUN 19 (9-20) mg/dL Creatinine 1.01 (0.66-1.25) mg/dL Estimated GFR > 60.0 (>60) mL/min BUN/Creatinine Ratio 18.8 (6-22) Glucose 122 H (80-110) mg/dL Calcium 9.9 (8.4-10.2) mg/dL Total Bilirubin 0.4 (0.2-1.3) mg/dL AST 26 (17-59) IU/L ALT 23 (<50) IU/L Alkaline Phosphatase 47 (38-126) U/L Total Creatine Kinase 38 L (55-170) U/L CK-MB (CK-2) TNP CK-MB (CK-2) Rel Index TNP Troponin I < 0.012 (0.01-0.034) ng/mL NT-Pro-B Natriuret Pep 43 (<125) pg/mL Total Protein 6.3 (6.3-8.2) g/dL Albumin 4.3 (3.5-5.0) g/dL Globulin 2.0 (1.7-4.1) g/dL Albumin/Globulin Ratio 2.2 (1.0-2.8) Lipase 186 (23-300) U/L Imaging Data Chest x-ray: Radiologist's Impression: Dago Ferrara??71??M??1950 ? Allergy/Adv: latex, Penicillins, vortioxetine, morphine (More??) Close Chest X-Ray (Signed) Denver Rodriguez - 08/01/21 Chest X-Ray (Signed) Fawad Mcdowell - 03/02/21 Chest X-Ray (Signed) Can Hernandez - 10/11/20 Telemetry Strips 10/09/20 Chest X-Ray (Signed) Gerber Coffman - 10/09/20 Chest X-Ray (Signed) Gerber Coffman - 10/09/20 Abdomen Ultrasound (Signed) Sammy Matta - 05/11/19 Telemetry Strips 04/02/19 Renal Ultrasound (Signed) Sammy Matta - 03/29/19 Abdomen/Pelvis CT (Addendum) Sammy Matta - 03/28/19 Ribs X-Ray (Signed) Naga Patterson - 03/02/19 Lumbar Spine X-Ray (Signed) Yao Vigil - 02/04/[address] (Signed) Sammy Matta - 12/31/18 Brain MRI (Signed) Yao Vigil - 05/16/18 Telemetry Strips 05/15/18 Chest X-Ray (Signed) Sammy Matta - 05/15/18 Head/Neck CTA (Signed) Sammy Matta - 05/15/[address] (Signed) GandhiAlfredito - 05/15/18 Lumbar Spine X-Ray (Signed) ColeKal - 01/27/18 Radiology - Historical 06/20/16 Radiology - Historical 03/17/16 Launch?Image [address] [address] XRay Report Signed Patient: Dago Ferrara MR#: [id number] : 1950 Acct:[id number] Age/Sex: 71 / M Date of Service: 08/01/21 Loc: ED Accession Number: [id number] ?? Procedure: XR chest 1V Ordering Provider: Nusrat Martinez D.O. PROCEDURE:? XR CHEST 1V ? INDICATIONS:? chest pain ? TECHNIQUE:? One view of the chest was acquired.? ? COMPARISON:? [facility], CR, XR CHEST 1V, 05/15/2018, 13:51.? [facility], CR, XR CHEST 1V, 10/09/2020, 20:11.? [facility], CR, XR CHEST 1V, 10/11/2020, 5:11.? [facility], CR, XR CHEST 1V, 03/02/2021, 16:12. ? FINDINGS:? ? Surgical changes and devices:? None.? ? Lungs and pleura:? No acute consolidation.? There is a right suprahilar nodular opacity measuring up to 1.7 cm.? There is mild linear atelectasis in the left lung base.? No pleural effusions or pneumothorax.? ? Mediastinum:? Mediastinal contours appear normal.? Heart size is normal.? ? Bones and chest wall:? No suspicious bony lesions.? Overlying soft tissues appear unremarkable.? ? IMPRESSION:? ? 1. Right suprahilar nodular opacity may have been present on prior studies but is seen to greater advantage on the current study.? Findings are suggestive of a pulmonary nodule.? Consider further evaluation with chest CT. ? 2. No acute consolidation.? ? Dictated by: Denver Rodriguez M.D. on 08/01/2021 at 11:25 ? ? Approved by: Denver Rodriguez M.D. on 08/01/2021 at 11:29?? CT scan - chest: Radiologist's Impression: [address] [address] [address] Scan Report Signed Patient: Dago Ferrara MR#: [id number] : 1950 Acct:[id number] Age/Sex: 71 / M Date of Service: 08/01/21 Loc: ED Accession Number: [id number] ?? Procedure: CT angio chest PE protocol Ordering Provider: Nusrat Martinez D.O. PROCEDURE:? CT ANGIO CHEST PE PROTOCOL ? INDICATIONS:? left sided chest pain, pulm nodule R CXR ? TECHNIQUE:? After the administration of intravenous contrast, 2 mm thick sections acquired from the pulmonary apices to the posterior costophrenic angles.? 3-dimensional maximum intensity projection (MIP) coronal and sagittal reformats were then acquired through the thorax.? For radiation dose reduction, the following was used:? automated exposure control, adjustment of mA and/or kV according to patient size.? ? COMPARISON:? [facility], CT, PE STUDY (CTA CHEST), 03/17/2016, 9:59. ? FINDINGS:? Image quality:? Excellent.? ? Pulmonary arteries:? Pulmonary arteries are normal in size, and demonstrate no intraluminal filling defects to suggest central pulmonary embolism.? ? Lungs and pleura:? Bibasal atelectasis.? No consolidation pleural effusions or pneumothorax.? Central and peripheral airways are patent.? 6.4 mm pleural based nodular density in the right lower lobe (series 5, image 141), unchanged and may reflect scarring. ? Mediastinum:? Heart size is normal, without pericardial effusion.? Coronary artery calcifications. ? No mediastinal or hilar adenopathy.? Thoracic aorta is normal in caliber but not well opacified.? Esophagus is normal in caliber.? Small hiatal hernia.? ? Bones and chest wall:? Multifocal degenerative change.? Ribs and thoracic spine appear intact throughout.? ? Thyroid gland is predominantly homogeneous.? ? No axillary or supraclavicular adenopathy.? ? Abdomen:? Visualized upper abdominal solid organs appear normal in the early arterial phase of enhancement.? ? IMPRESSION:? 1. No CT evidence of pulmonary embolism.? ? Dictated by: Demian Nunn M.D. on 08/01/2021 at 13:16 ? ? Approved by: Demian Nunn M.D. on 08/01/2021 at 13:38?? ECG Data Attestation: I personally reviewed and interpreted this ECG as follows: Prior ECG tracings: available for review Interpretation: Sinus rhythm rate of 70 [place] 186 QRS 86 and QTC 414. RSR in 3 and AVF. No other acute changes appreciated. Patient has prior EKG from 03/02/2021 which appears similar with no new changes. MDM Narrative Medical decision making narrative: This is a 71-year-old male who comes to emergency department with complaint of left-sided chest pain for greater than a week he has noticed spasm on the left side of his chest. Patient's labs are reassuring as well as his EKG. It has been persistent and is not worsened with exertion or other typical cardiac equivalents. It is noted on his x-ray he has a right opacity that may be a 1.7 cm pulmonary nodule so CT chest with contrast was obtained. CT of was obtained shows a 6.4 mm pleural nodular density which is unchanged could reflect scarring. No other acute changes. Patient has had days of chest pain without provocative changes since discharge home. Discharge Plan Departure Patient Disposition: Home Clinical Impression: Atypical chest pain, Pulmonary nodule Instructions: DI for Atypical Chest Pain Activity Restrictions/Additional Instructions: Follow-up with your physician for recheck. Your labs and imaging today are reassuring. CT of your chest shows a 6.4 mm nodular density which is unchanged from prior imaging and could be scarring otherwise there is no major changes on your imaging. Please return for new or worsening chest pain, shortness of breath, lightheadedness or passing out, new skin changes, nausea or vomiting, swelling in her extremities or other new or concerning symptoms. Prescriptions: No Action multivitamin Capsule 1 cap PO DAILY 0RF divalproex 500 mg Tablet Extended Release 24 Hr 500 mg PO QPM 0RF lamotrigine 100 mg Tablet 100 mg PO BID 0RF divalproex 250 mg Tablet Extended Release 24 Hr 250 mg PO QAM 0RF fluoxetine 20 mg capsule 1 cap PO BEDTIME 0RF Label Comments: TAKE 1 CAPSULE BY MOUTH EVERY DAY levothyroxine 88 mcg Tablet 44 mcg PO DAILY 0RF mirtazapine 45 mg tablet 45 mg PO BEDTIME 0RF Referrals: Sherly Jara PA-C [Primary Care Provider] -
--- NOTE | 2021-08-01 13:00 | DI.CT.S_ITS ---
PROCEDURE: CT ANGIO CHEST PE PROTOCOL INDICATIONS: left sided chest pain, pulm nodule R CXR TECHNIQUE: After the administration of intravenous contrast, 2 mm thick sections acquired from the pulmonary apices to the posterior costophrenic angles. 3-dimensional maximum intensity projection (MIP) coronal and sagittal reformats were then acquired through the thorax. For radiation dose reduction, the following was used: automated exposure control, adjustment of mA and/or kV according to patient size. COMPARISON: [facility], CT, PE STUDY (CTA CHEST), 03/17/2016, 9:59. FINDINGS: Image quality: Excellent. Pulmonary arteries: Pulmonary arteries are normal in size, and demonstrate no intraluminal filling defects to suggest central pulmonary embolism. Lungs and pleura: Bibasal atelectasis. No consolidation pleural effusions or pneumothorax. Central and peripheral airways are patent. 6.4 mm pleural based nodular density in the right lower lobe (series 5, image 141), unchanged and may reflect scarring. Mediastinum: Heart size is normal, without pericardial effusion. Coronary artery calcifications. No mediastinal or hilar adenopathy. Thoracic aorta is normal in caliber but not well opacified. Esophagus is normal in caliber. Small hiatal hernia. Bones and chest wall: Multifocal degenerative change. Ribs and thoracic spine appear intact throughout. Thyroid gland is predominantly homogeneous. No axillary or supraclavicular adenopathy. Abdomen: Visualized upper abdominal solid organs appear normal in the early arterial phase of enhancement. IMPRESSION: 1. No CT evidence of pulmonary embolism. Dictated by: Demian Nunn M.D. on 08/01/2021 at 13:16 Approved by: Demian Nunn M.D. on 08/01/2021 at 13:38
== END 2021-08-01 15:12 | disposition home or self-care (01) ==
PROVIDERS: Emergency Provider Emergency Medicine; PCP Student in an Organized Health Care Education/Training Program
DX: R07.89 Other chest pain (principal); R91.1 Solitary pulmonary nodule
CPT/HCPCS: 36415; 71045; 71275; 80053; 82550; 83690; 83880; 84484; 85025; 93005; 93010; 99284; Q9967

== ENCOUNTER → 2022-03-29 09:46 | Outpatient (CLI) | payer MEDICARE, OTHER, SELFPAY ==
[2020-10-09 22:27] VITALS: BMI 23.6
[2020-10-11 10:27] VITALS: PULSE 68; RESP 11; O2SAT 99
--- NOTE | 2022-03-29 | DI.MRI.S_ITS ---
PROCEDURE: MR HEAD/BRAIN WO CON INDICATIONS: unspecified abnormalities of gait TECHNIQUE: Non-contrast axial T1 spin echo, axial T2 fast spin echo, sagittal and axial FLAIR, coronal T2 fast spin echo, axial gradient echo, axial diffusion and ADC through the brain. COMPARISON: [facility], MR, MR HEAD/BRAIN WO CON, 05/16/2018, 9:21. FINDINGS: Image quality: Excellent. CSF spaces: Ventricles appear symmetric in size and shape. Basal cisterns are patent. No extra-axial fluid collections. Brain: No intracranial bleeds or mass effects. There is cerebral volume loss for age. There are periventricular and deep white matter chronic small vessel ischemic changes. Brainstem appears normal. Diffusion-weighted images show no acute ischemic insults. No chronic ischemic insults. Normal intravascular flow voids are present. Skull and face: Calvarial bone marrow is normal in signal. Orbits are normal. Sinuses: Sinuses and mastoids are clear. IMPRESSION: 1. Volume loss and small vessel ischemic disease. 2. No acute process. No recent infarct. Dictated by: Izabella Shaw M.D. on 03/29/2022 at 10:23 Approved by: Izabella Shaw M.D. on 03/29/2022 at 10:24
== END ==
PROVIDERS: PCP Student in an Organized Health Care Education/Training Program; Referring Provider Specialist; Visit Provider Specialist
DX: R26.9 Unspecified abnormalities of gait and mobility (principal)
CPT/HCPCS: 70551

== ENCOUNTER → 2022-06-13 09:51 | Outpatient (CLI) | payer MEDICARE, OTHER, SELFPAY ==
[2020-10-09 22:27] VITALS: BMI 23.6
[2020-10-11 10:27] VITALS: PULSE 68; RESP 11; O2SAT 99
[2022-06-13 11:28] LABS: Add Manual Diff / Slide Review NO; Basophils Absolute Auto 0 /uL (0-100); Basophils Percent Auto 0.3 % (0-2); Eosinophils Absolute Auto 100 /uL (0-450); Eosinophils Percent Auto 1.4 % (2-4); Hematocrit 44.3 % (41-53); Hemoglobin 14.8 g/dL (13.5-17.5); Lymphocytes Absolute Auto 1400 /uL (1100-4500); Lymphocytes Percent Auto 24.9 % (25-40); Mean Corpuscular HGB Conc 33.5 % (30-36); Mean Corpuscular Volume 92.3 fL (80-100); Monocytes Absolute Auto 500 /uL (0-900); Monocytes Percent Auto 8.4 % (3-14); Neutrophils Absolute Auto 3700 /uL (1500-7000); Platelet Count 178 X10^3/uL (150-400); Red Blood Cell Count 4.79 X10^6/uL (4.5-5.9); Red Cell Distribution Width 13.8 % (11.6-14.8); White Blood Cell Count 5.7 X10^3/uL (4.5-11.0)
[2022-06-13 12:34] LABS: BUN Creatinine Ratio 28.4 (6-22); Blood Urea Nitrogen 25 mg/dL (9-20); Estimated Glomerular Filt Rate > 60 mL/min (>60)
[2022-06-13 12:59] LABS: Appearance Urine UA CLEAR; Bilirubin Urine UA NEGATIVE (NEGATIVE); Color Urine UA YELLOW; Glucose Urine UA NEGATIVE (Negative); Ketones Urine UA NEGATIVE (NEGATIVE); Leukocyte Esterase Urine UA 1+ (NEGATIVE); Nitrite Urine UA POSITIVE (Negative); Occult Blood Urine UA NEGATIVE (Negative); Protein Urine UA TRACE (Negative); Specific Gravity Urine UA 1.015 (1.000-1.035); Urobilinogen Urine UA 0.2 E.U./dL (0.2); pH Urine UA 6.5 (4.5-8.0)
[2022-06-13 13:13] LABS: Bacteria Urine None Seen; RBC Urine None Seen (0-5/HPF); Squamous Epithelial Cell Urine 1-5 /HPF (0-5/HPF); WBC Urine 5-10/HPF (0-5/HPF)
[2022-06-15 18:13] LABS: ANA Screen, IFA Positive (.)
== END ==
PROVIDERS: PCP Student in an Organized Health Care Education/Training Program; Referring Provider Physician Assistant Medical; Visit Provider Physician Assistant Medical
DX: L93.0 Discoid lupus erythematosus (principal)
CPT/HCPCS: 36415; 81001; 82565; 84520; 85025; 86038

== ENCOUNTER 2023-02-01 20:03 | Emergency (ER) | payer MEDICARE, OTHER, SELFPAY ==
[2020-10-09 22:27] VITALS: BMI 23.6
[2020-10-11 10:27] VITALS: PULSE 68; RESP 11; O2SAT 99
[2023-02-01 20:05] VITALS: BP 147/85; PULSE 75; RESP 16; TEMP 36.4; O2SAT 98; BMI 24.9
--- NOTE | 2023-02-01 20:16 | DI.RAD.S_ITS ---
PROCEDURE: XR SHOULDER LT MIN 2V INDICATIONS: fall with pain to left shoulder TECHNIQUE: 3 views of the shoulder were acquired. COMPARISON: None. FINDINGS: Bones: No fractures or dislocations. No suspicious bony lesions. Visualized ribs appear intact. Soft tissues: No suspicious soft tissue calcifications. IMPRESSION: 1. No fracture or dislocation. Dictated by: Denver Rodriguez M.D. on 02/01/2023 at 21:56 Approved by: Denver Rodriguez M.D. on 02/01/2023 at 22:04
--- NOTE | 2023-02-01 20:17 | ED_ITS ---
HPI - Fall General Chief Complaint: Fall Stated Complaint: GLF Time Seen by Provider: 02/01/23 20:17 Source: patient and EMS Mode of arrival: EMS History of Present Illness HPI Narrative: 72-year-old gentleman with a history of depression, hypertension, hyperlipidemia, lupus, hypothyroidism epilepsy who presents after a ground level fall. Reportedly pulled off balance while he was walking his dog, rolled down the hill a couple of times and is complaining of left shoulder pain and mid back pain. Related Data Home Medications Medication Instructions Recorded Confirmed fluoxetine 20 mg capsule 1 cap PO BEDTIME 05/15/18 10/09/20 levothyroxine 88 mcg tablet 44 mcg PO DAILY 05/15/18 10/09/20 multivitamin 1 cap PO DAILY 07/16/19 10/09/20 mirtazapine 45 mg tablet 45 mg PO BEDTIME 05/06/20 10/09/20 divalproex 250 mg tablet,extended 250 mg PO QAM 10/09/20 10/09/20 release 24 hr divalproex 500 mg tablet,extended 500 mg PO QPM 10/09/20 10/09/20 release 24 hr lamotrigine 100 mg tablet 100 mg PO BID 10/09/20 10/09/20 Previous Rx's Medication Instructions Recorded oxycodone-acetaminophen 5 mg-325 1 tab PO Q6H PRN pain #10 tabs 02/02/23 mg tablet Allergies Allergy/AdvReac Type Severity Reaction Status Date / Time latex Allergy Severe Rash Verified 08/01/21 11:34 Penicillins [PENICILLINS] Allergy Severe ANAPHYLAXIS Verified 08/01/21 11:34 vortioxetine AdvReac Severe Nausea Verified 08/01/21 11:34 [From Trintellix] morphine AdvReac Verified 08/01/21 11:34 Review of Systems Review of Systems Narrative: Pertinent positive and negative findings as per HPI Patient History Medical History (Updated 02/02/23 @ 01:34 by Mehreen Capellan MD) Bone spur Depression Epilepsy GERD (gastroesophageal reflux disease) History of ankle fracture History of prosthetic unicompartmental arthroplasty of left knee Hyperlipidemia Hypothyroidism Kidney stones Lupus Paresthesias (~03/2018) Sleep apnea Suicidal ideations Urinary dribbling Urinary stream slowing UTI (urinary tract infection) Surgical History H/O laminectomy History of arthroscopy of both knees History of cataract removal with insertion of prosthetic lens History of knee replacement History of lumbar spinal fusion (01/27/18) History of prosthetic unicompartmental arthroplasty of right knee Hx of appendectomy Hx of tonsillectomy S/P left unicompartmental knee replacement S/P right unicompartmental knee replacement Family History Father Heart disease Hypertension High cholesterol Mother Leukemia Social History marital status: household members: spouse Smoking Status: Former smoker alcohol intake: never Smoking Status: Former smoker alcohol intake frequency: 3 or more drinks per day Substance Use Type: marijuana and other Exam Initial Vital Signs Initial Vital Signs: Vital Signs Temperature 97.6 F 02/01/23 20:05 Pulse Rate 75 02/01/23 20:05 Respiratory Rate 16 02/01/23 20:05 Blood Pressure 147/85 H 02/01/23 20:05 Pulse Oximetry 98 02/01/23 20:05 Oxygen Delivery Method Room Air 02/01/23 20:05 General: no acute distress. Able to give a complete and coherent history. Well-nourished well-developed. He is in a C-collar and on a backboard. HEENT: Moist mucous membranes, normal sclera with reactive pupils, no abrasions to the face or scalp Neck: No JVD, supple, no midline point tenderness Respiratory: Lungs are clear to auscultation, no wheezing no rales no rhonchi. Full and symmetrical air movement Spine: Tenderness T10-11 and 12 midline without abrasions or contusions appreciated. Cardiac: Regular rate and rhythm no murmurs no bruits Abdomen: Soft, nontender, good bowel tones, no flank pain Skin: Warm and dry, no rashes Neurologic: Grossly neurologically intact with no obvious asymmetries or abnormalities Extremities: Complaining of significant left shoulder pain with difficulty abducting the arm. An abrasion to the elbow but he does have full range of motion at the elbow. He is neurovascularly intact distally. No other extremity injuries or appreciated. Psych: Cooperative, appropriate insight and affect Course Orders Ordered: ED Orders 02/01/23 20:16 XR shoulder LT min 2V Stat 02/01/23 20:26 CT cervical spine wo con Stat CT chest abd pel w con Stat CT head/brain wo con Stat 02/01/23 22:22 Complete Blood Count AUTO DIFF Stat Comprehensive Metabolic Panel Stat Troponin I Stat Hydromorphone HCl (Hydromorphone 0.5 Mg Inj) 0.5 mg IV Q15MIN PRN PRN Reason: Pain, Last Admin: 02/01/23 22:28 Dose: 0.5 mg Documented By: BS Discontinued Medications Ketorolac Tromethamine (Ketorolac 30 Mg/Ml Vial) 15 mg IV NOW ONE Stop: 02/01/23 22:17 Last Admin: 02/01/23 22:28 Dose: 15 mg Documented By: BS Ondansetron HCl (Ondansetron 4 Mg/2 Ml Inj) 4 mg IV NOW ONE Stop: 02/01/23 22:17 Last Admin: 02/01/23 23:34 Dose: Not Given Documented By: VIRGINIE Vital Signs Vital signs: Vital Signs - 8 hr 02/01/23 20:05 02/02/23 00:45 02/02/23 00:46 Temperature 97.6 F 98 F Pulse Rate 75 63 63 Respiratory Rate 16 Blood Pressure 147/85 H 123/70 Pulse Oximetry 98 95 95 Oxygen Delivery Method Room Air 02/02/23 00:46 02/02/23 01:00 Temperature Pulse Rate 63 68 Respiratory Rate Blood Pressure Pulse Oximetry 95 94 Oxygen Delivery Method [facility] - Fall Lab Data 02/01/23 22:22 02/01/23 22:22 Labs: Lab Results 02/01/23 02/01/23 Range/Units 22:22 22:22 WBC 8.7 (4.5-11.0) X10^3/uL RBC 4.33 L (4.5-5.9) X10^6/uL Hgb 14.0 (13.5-17.5) g/dL Hct 40.2 L (41-53) % MCV 92.8 (80-100) fL MCH 32.2 (26-34) PG MCHC 34.7 (30-36) % RDW 13.9 (11.6-14.8) % Plt Count 149 L (150-400) X10^3/uL Neut % (Auto) 74.2 (50-75) % Lymph % (Auto) 18.0 L (25-40) % [place] % (Auto) 6.5 (3-14) % Eos % (Auto) 0.9 L (2-4) % Baso % (Auto) 0.4 (0-2) % Neut # (Auto) 6400 (1477-9970) /uL Lymph # (Auto) 1600 (5233-9930) /uL [place] # (Auto) 600 (0-900) /uL Eos # (Auto) 100 (0-450) /uL Baso # (Auto) 0 (0-100) /uL Sodium 137 (137-145) mmol/L Potassium 3.7 (3.4-5.1) mmol/L Chloride 107 (98-107) mmol/L Carbon Dioxide 24 (22-32) mmol/L BUN 26 H (9-20) mg/dL Creatinine 0.93 (0.66-1.25) mg/dL Estimated GFR > 60 (>60) mL/min BUN/Creatinine Ratio 28.0 H (6-22) Glucose 112 H (80-110) mg/dL Calcium 8.6 (8.4-10.2) mg/dL Total Bilirubin 0.3 (0.2-1.3) mg/dL AST 36 (17-59) IU/L ALT 26 (<50) IU/L Alkaline Phosphatase 56 (38-126) U/L Troponin I < 0.012 (0.01-0.034) ng/mL Total Protein 5.6 L (6.3-8.2) g/dL Albumin 3.7 (3.5-5.0) g/dL Globulin 1.9 (1.7-4.1) g/dL Albumin/Globulin Ratio 1.9 (1.0-2.8) MDM Narrative Medical decision making narrative: CC: Fall with rolling down a hill, left shoulder pain. Acute problem with uncertain prognosis Complicating co-morbidities: Seizure disorder Data collected from: patient, medics Medical records reviewed: Admit from 10/12/21 Differential considered: Multi trauma including head neck chest abdomen pelvis and extremity injuries. Possibility of seizure or acute coronary event that caused the fall rather than just being pulled off balanced by his dog Exam documented above, pertinent findings include: Left shoulder pain and abrasion to the left elbow. No obvious bony deformity. Lab Test results independently reviewed as above. Pertinent findings: CBC is unremarkable Chemistries are reassuring Independently reviewed EKG as above Imaging studies independently reviewed: Because of the shoulder distracting injury, had cervical spine as well as chest abdomen pelvis CTs are ordered. CT scan of the head does not show any intracranial pathology or skull fracture. No cervical spine injuries. Chest abdomen and pelvis show chronic findings with no acute changes or evidence of fractures. X-ray of the shoulder shows no fracture or dislocation. Consultations: Treatments: Left shoulder is placed in a sling. Sling is placed by nursing staff. Patient is neurovascularly intact after sling placement Re-evaluations: 1:20 am patient is feeling better at this time. Passing his ambulatory test. Discussion: 72-year-old gentleman who was walking his dog was pulled off balance when rolling down a hill comes in complaining of left shoulder pain. [facility] is called. He has been scanned and there is no evidence of fractures intracranial intra-abdominal or intrathoracic bleeding. Pain has been adequately controlled at this point he is an abrasion to his left elbow that has been dressed and will need dressing changes daily. I am still concerned that he may have soft tissue or rotator cuff injury to the left shoulder. He already has a follow-up appointment scheduled with his primary care provider later this week encouraged him to discuss the shoulder pain and fall with her. May benefit from physical therapy and at some point in the future may need advanced imaging and orthopedic referral. All of this is reviewed with him. Questions are answered and he is safe for discharge home Discharge Plan Departure Patient Disposition: Home Clinical Impression: Injury of shoulder, left Qualifiers: Encounter type: initial encounter Qualified Code(s): S49.92XA - Unspecified injury of left shoulder and upper arm, initial encounter Fall Qualifiers: Encounter type: initial encounter Qualified Code(s): W19.XXXA - Unspecified fall, initial encounter Abrasion of left elbow Qualifiers: Encounter type: initial encounter Qualified Code(s): S50.312A - Abrasion of left elbow, initial encounter Instructions: DI for Shoulder Pain Activity Restrictions/Additional Instructions: Thank you for coming in tonight Fortunately, there is no bleeding in your head, no skull fractures cervical spine fractures. You did not break your collarbone or her arm. The CT scans of the chest abdomen and pelvis are all equally reassuring. I am a bit concerned that you have interviewed your rotator cuff or other soft tissue portions of your shoulder. You have been given a sling to use for comfort. You do need to discuss this with your primary care provider later this week. You may benefit from physical therapy and at some point you may also need an MRI to see what actually was injured. Using 400 mg of ibuprofen (2 xacd-jyt-tctwrwa pills) and 1 Tylenol every 6 hours can be very helpful in controlling pain. For severe pain you can use to ibuprofen and 1 Percocet. If you do to use to use Percocet recognize that it is a narcotic and will make you constipated. Please make sure you are using a stool softener. A prescription for Percocet was electronically transmitted to [facility] pharmacy in [facility] to picker / packer tomorrow. If you find that you are getting worse or develop any new symptoms, please feel free to return to the emergency department for further evaluation. Prescriptions: New oxycodone-acetaminophen 5-325 mg tablet 1 tab PO Q6H PRN (Reason: pain) Qty: 10 0RF No Action multivitamin Capsule 1 cap PO DAILY divalproex 500 mg Tablet Extended Release 24 Hr 500 mg PO QPM lamotrigine 100 mg Tablet 100 mg PO BID divalproex 250 mg Tablet Extended Release 24 Hr 250 mg PO QAM fluoxetine 20 mg capsule 1 cap PO BEDTIME Patient Comments: TAKE 1 CAPSULE BY MOUTH EVERY DAY levothyroxine 88 mcg Tablet 44 mcg PO DAILY mirtazapine 45 mg tablet 45 mg PO BEDTIME Referrals: Sherly Jara PA-C [Primary Care Provider] - Stand Alone Forms: Patient Portal/API
--- NOTE | 2023-02-01 20:26 | DI.CT.S_ITS ---
PROCEDURE: CT HEAD/BRAIN WO CON INDICATIONS: trauma TECHNIQUE: Noncontrast 4.5 mm thick angled axial sections acquired from the foramen magnum to the vertex, with coronal and sagittal reformats. For radiation dose reduction, the following was used: automated exposure control, adjustment of mA and/or kV according to patient size. COMPARISON: [facility], CT, CT HEAD/BRAIN WO CON, 05/15/2018, 12:05. FINDINGS: Image quality: Excellent. CSF spaces: Basal cisterns are patent. No extra-axial fluid collections. There is mild cerebral volume loss, with resultant ventricular and sulcal prominence. Brain: No intracranial hemorrhage, mass, or mass effect. There are subcortical, periventricular and deep white matter hypodensities consistent with mild chronic small vessel ischemic changes. The rodriguez-white matter junction appears preserved. There is intracranial internal carotid artery atherosclerosis. Skull and face: Calvarium and visualized facial bones appear intact, without suspicious lesions. Sinuses: Visualized sinuses and mastoids are clear. IMPRESSION: 1. No acute intracranial abnormality. Dictated by: Denver Rodriguez M.D. on 02/01/2023 at 21:37 Approved by: Denevr Rodriguez M.D. on 02/01/2023 at 21:39
--- NOTE | 2023-02-01 20:26 | DI.CT.S_ITS ---
P or ROCEDURE: CT CERVICAL SPINE WO CON INDICATIONS: trauma TECHNIQUE: Noncontrast 3 mm thick sections acquired from the skull base to the T4 level. Sagittal and coronal reformats were then constructed. For radiation dose reduction, the following was used: automated exposure control, adjustment of mA and/or kV according to patient size. COMPARISON: None. FINDINGS: Image quality: Excellent. Bones: No fractures or subluxation. There is minimal anterolisthesis at C4-C5. There is multilevel degenerative disc disease and facet joint arthropathy. Visualized superior ribs are intact. Soft tissues: Prevertebral soft tissues are normal in thickness. No paravertebral hematomas. No apical pneumothoraces. IMPRESSION: 1. No fracture or subluxation. Dictated by: Denver Rodriguez M.D. on 02/01/2023 at 21:39 Approved by: Denver Rodriguez M.D. on 02/01/2023 at 21:41
--- NOTE | 2023-02-01 20:26 | DI.CT.S_ITS ---
PROCEDURE: CT CHEST ABD PEL W CON INDICATIONS: fall, mid thorasic pain, L shoulder pain TECHNIQUE: After the administration of intravenous contrast, 5 mm thick sections acquired from the lung apices to the symphysis. 2.5 mm thick coronal and sagittal reformats were acquired. Additional 7 mm thick coronal maximum intensity projection (MIP) reformats acquired through the lungs. Optional 10-minute delayed imaging may be performed from the kidneys to the bladder. For radiation dose reduction, the following was used: automated exposure control, adjustment of mA and/or kV according to patient size. COMPARISON: CT, CT ABDOMEN PELVIS W CON, 03/28/2019, 10:51. [facility], CT, CT ANGIO CHEST PE PROTOCOL, 08/01/2021, 13:06. FINDINGS: Image quality: There is metallic streak artifact from patient's spinal fixation hardware. CHEST: Lower Neck: No lymphadenopathy by size criteria. Thyroid: Visualized thyroid demonstrates no discrete nodules. Axillae: No lymphadenopathy by size criteria. Chest Wall: Unremarkable. Lungs and Airways: No pulmonary contusions or lacerations. No acute consolidation. There is a subpleural nodule medially in the right lower lobe measuring up to 0.6 cm on series 5, image 191 which appears similar in size compared to the prior study. Mild dependent atelectasis demonstrated bilaterally. The trachea and central airways are patent. Pleura: No pneumothorax or pleural effusions. Heart: Heart size is normal. No pericardial effusion. Thoracic Vessels: The aorta and pulmonary arteries are normal in size. Mediastinum and Ana: No lymphadenopathy by size criteria. No definite mediastinal hematomas. Esophagus: No wall thickening. There is a small hiatal hernia. ABDOMEN: Liver: No hepatic lacerations or perihepatic fluid collections. Gallbladder: Within normal limits without calcified gallstones. Biliary ducts: No biliary ductal dilatation. Pancreas: Unremarkable. Spleen: Normal in size. No splenic lacerations or perisplenic fluid collections. Adrenal Glands: No adrenal nodules. Kidneys and Ureters: No hydronephrosis. There are 2-3 nonobstructing left renal stones, with the largest stone measuring up to 0.7 cm with attenuation values of approximately 5896-5775 Hounsfield units. Stomach and Bowel: Stomach, small bowel loops, and colon are normal in caliber and wall thickness. No pericecal inflammatory changes to suggest appendicitis. Peritoneum: No abnormal intraperitoneal fluid. No free air. Ventral Wall: No hernia. Abdominal Nodes: No retroperitoneal or mesenteric adenopathy by size criteria. Vessels: Aorta and inferior vena cava are normal in size. PELVIS: Pelvic Organs: There is moderate heterogeneous enlargement of the prostate. Bladder: Unremarkable. Pelvic Nodes: No enlarged lymph nodes. Miscellaneous: No inguinal hernias are seen. Bones: No acute fractures identified. Mild superior endplate scalloping of the T10 vertebral body appears unchanged. Postsurgical changes are redemonstrated status post posterior fixation and fusion at L4 through S1. Visualized osseous structures demonstrate no suspicious focal lesions. IMPRESSION: 1. No acute traumatic abnormality within the chest, abdomen, or pelvis. 2. Left nephrolithiasis without evidence of obstructive uropathy. 3. Right lower lobe 0.6 cm nodule appears stable compared to the prior chest CT. Dictated by: Denver Rodriguez M.D. on 02/01/2023 at 21:46 Approved by: Denver Rodriguez M.D. on 02/01/2023 at 21:54
[2023-02-01] MEDS: KETOROLAC 30 MG/ML VIAL 15 MG IV (22:28)
[2023-02-01] MEDS: HYDROMORPHONE 0.5 MG INJ IV (22:28)
[2023-02-01 22:34] LABS: Add Manual Diff / Slide Review NO; Basophils Absolute Auto 0 /uL (0-100); Basophils Percent Auto 0.4 % (0-2); Eosinophils Absolute Auto 100 /uL (0-450); Eosinophils Percent Auto 0.9 % (2-4); Hematocrit 40.2 % (41-53); Lymphocytes Absolute Auto 1600 /uL (1100-4500); Mean Corpuscular HGB Conc 34.7 % (30-36); Mean Corpuscular Hemoglobin 32.2 PG (26-34); Mean Corpuscular Volume 92.8 fL (80-100); Monocytes Absolute Auto 600 /uL (0-900); Monocytes Percent Auto 6.5 % (3-14); Neutrophils Absolute Auto 6400 /uL (1500-7000); Neutrophils Percent Auto 74.2 % (50-75); Platelet Count 149 X10^3/uL (150-400); Red Blood Cell Count 4.33 X10^6/uL (4.5-5.9); Red Cell Distribution Width 13.9 % (11.6-14.8); White Blood Cell Count 8.7 X10^3/uL (4.5-11.0)
[2023-02-01 22:42] LABS: Alanine Aminotransferase 26 IU/L (<50); Albumin 3.7 g/dL (3.5-5.0); Albumin Globulin Ratio 1.9 (1.0-2.8); Alkaline Phosphatase 56 U/L (38-126); Aspartate Aminotransferase 36 IU/L (17-59); Bilirubin Total 0.3 mg/dL (0.2-1.3); Blood Urea Nitrogen 26 mg/dL (9-20); Calcium 8.6 mg/dL (8.4-10.2); Carbon Dioxide 24 mmol/L (22-32); Chloride 107 mmol/L (98-107); Estimated Glomerular Filt Rate > 60 mL/min (>60); Globulin 1.9 g/dL (1.7-4.1); Glucose 112 mg/dL (80-110); HEMOLYSIS 26 (0-50); Potassium 3.7 mmol/L (3.4-5.1); Sodium 137 mmol/L (137-145); Total Protein 5.6 g/dL (6.3-8.2)
[2023-02-01 22:53] LABS: Troponin I < 0.012 ng/mL (0.01-0.034)
[2023-02-02 00:45] VITALS: PULSE 63; O2SAT 95
[2023-02-02 00:46] VITALS: BP 123/70; PULSE 63; TEMP 36.6; O2SAT 95
[2023-02-02 01:00] VITALS: PULSE 68; O2SAT 94
[2023-02-02 01:30] VITALS: PULSE 62; O2SAT 95
[2023-02-02] MEDS: IBUPROFEN 400 MG TABLET PO (01:51)
[2023-02-02] MEDS: OXYCODONE/APAP 5/325 PREPACK 1 BOTTLE MISC (01:51)
[2023-02-02] MEDS: OXYCODONE/ACETAMINOPHEN 5/325 TABLET 1 TAB PO (01:52)
== END 2023-02-02 02:00 | disposition home or self-care (01) ==
PROVIDERS: Emergency Provider Emergency Medicine; PCP Student in an Organized Health Care Education/Training Program
DX: S49.92XA Unspecified injury of left shoulder and upper arm, initial encounter (principal); S50.312A Abrasion of left elbow, initial encounter; M54.6 Pain in thoracic spine; W15.XXXA Fall from cliff, initial encounter; S09.90XA Unspecified injury of head, initial encounter; S19.9XXA Unspecified injury of neck, initial encounter
CPT/HCPCS: 70450; 71260; 72125; 73030; 74177; 80053; 84484; 85025; 96374; 96375; 99284; J1170; J1885; Q9967

== ENCOUNTER → 2023-07-10 11:50 | Outpatient (CLI) | payer MEDICARE, OTHER, SELFPAY ==
[2020-10-09 22:27] VITALS: BMI 23.6
[2020-10-11 10:27] VITALS: PULSE 68; RESP 11; O2SAT 99
--- NOTE | 2023-07-10 | DI.RAD.S_ITS ---
PROCEDURE: XR CERVICAL SPINE 2V OR 3V INDICATIONS: CHRONIC NECK PAIN TECHNIQUE: 4 view(s) of the cervical spine were acquired. COMPARISON: CT cervical spine 02/01/2023. FINDINGS: Bones: No fractures or dislocations to the C7 level. The lateral masses of C1 appear intact on the odontoid view. No suspicious bony lesions. Trace anterolisthesis of C4 on C5. Mild multilevel disc height loss, osteophytosis and facet hypertrophy. Soft tissues: No prevertebral soft tissue swelling. IMPRESSION: No acute radiographic abnormality. Trace anterolisthesis of C4 on C5. Multilevel degenerative disc disease and facet arthropathy. Dictated by: Chayo Hanley M.D. on 07/10/2023 at 22:08 Approved by: Chayo Hanley M.D. on 07/10/2023 at 22:11
== END ==
PROVIDERS: PCP Student in an Organized Health Care Education/Training Program; Referring Provider Student in an Organized Health Care Education/Training Program; Visit Provider Student in an Organized Health Care Education/Training Program
DX: M47.812 Spondylosis without myelopathy or radiculopathy, cervical region (principal); M50.30 Other cervical disc degeneration, unspecified cervical region
CPT/HCPCS: 72040

== ENCOUNTER → 2023-09-10 08:21 | Outpatient (CLI) | payer MEDICARE, OTHER, SELFPAY ==
[2020-10-09 22:27] VITALS: BMI 23.6
[2020-10-11 10:27] VITALS: PULSE 68; RESP 11; O2SAT 99
--- NOTE | 2023-09-10 08:24 | DI.MRI.S_ITS ---
PROCEDURE: MR LUMBAR SPINE WO CON INDICATIONS: LOW BACK PAIN/RADICULOPATHY TECHNIQUE: Noncontrast sagittal T1 spin echo and T2 fast echo, sagittal STIR, and T2 fast spin echo through the lumbar spine. In cases with scoliosis, additional coronal T2 fast spin echo may be performed. COMPARISON: [facility], , L-SPINE WITHOUT CONTRAST, 10/02/2016, 10:41. FINDINGS: Image quality: Excellent. Alignment and Curvature: There is normal bony alignment. Patient is status post posterior fixation and discectomy from L4-S1. Bone Marrow: Marrow is of normal overall signal. No acute vertebral body compression fractures. Spinal Cord: Conus medullaris terminates at the L1 level. Visualized cord demonstrates normal signal and size. Paraspinous Soft Tissues: No paravertebral masses. A T2 hyperintense focus is present at the lower pole of the left kidney suggesting the presence of a cyst which is incompletely characterized. T12-L1: Normal appearance. L1-L2: Mild disc desiccation. Broad-based disc bulge. Mild facet ligamentum flavum hypertrophy. No canal stenosis. Mild right foraminal narrowing. No left neural foraminal stenosis. No interval change from the prior MRI dated October 02, 2016. L2-L3: Mild disc desiccation and height loss. Broad-based disc bulge. Moderate facet and ligamentum flavum hypertrophy. No canal stenosis. Mild right foraminal narrowing. No left neural foraminal stenosis. L3-L4: Mild disc desiccation and height loss. Broad-based disc bulge. Severe facet ligamentum flavum hypertrophy. Moderate canal stenosis. Moderate bilateral foraminal narrowing. The degree of canal stenosis and foraminal narrowing is slightly increased when compared with the study dated October 02, 2016. L4-L5: Status post left hemilaminectomy and discectomy. No canal stenosis. Moderate bilateral foraminal stenosis similar to 2017. L5-S1: Status post discectomy and fusion. No canal stenosis. Mild bilateral foraminal stenosis. This is likely decreased from the prior study. IMPRESSION: 1. Interval posterior fixation and discectomy when compared with the 2017 MRI. 2. Slightly increased canal stenosis and foraminal narrowing at L3-4 when compared with the prior study. 3. Decreased foraminal stenosis at L5-S1 when compared with the prior study. Dictated by: Jaqueline العلي M.D. on 09/10/2023 at 12:07 Approved by: Jaqueline العلي M.D. on 09/10/2023 at 12:32
== END ==
LOC: MRI 08:23
PROVIDERS: PCP Student in an Organized Health Care Education/Training Program; Referring Provider Student in an Organized Health Care Education/Training Program; Visit Provider Student in an Organized Health Care Education/Training Program
DX: M48.061 Spinal stenosis, lumbar region without neurogenic claudication; M48.07 Spinal stenosis, lumbosacral region; M47.26 Other spondylosis with radiculopathy, lumbar region; M51.16 Intervertebral disc disorders with radiculopathy, lumbar region; G89.29 Other chronic pain; Z98.1 Arthrodesis status
CPT/HCPCS: 72148

== ENCOUNTER → 2024-05-27 15:46 | Outpatient (CLI) | payer MEDICARE, OTHER, SELFPAY ==
[2020-10-09 22:27] VITALS: BMI 23.6
[2020-10-11 10:27] VITALS: PULSE 68; RESP 11; O2SAT 99
[2024-05-28 23:13] LABS: Valproic Acid (Depakene) Total 58 ug/mL (50-100)
== END ==
PROVIDERS: PCP Student in an Organized Health Care Education/Training Program; Referring Provider Internal Medicine; Visit Provider Internal Medicine
DX: G40.109 Localization-related (focal) (partial) symptomatic epilepsy and epileptic syndromes with simple partial seizures, not intractable, without status epilepticus (principal)
CPT/HCPCS: 36415; 80164; 80175

== ENCOUNTER 2024-12-07 10:22 | Emergency (ER) | payer MEDICARE, OTHER, SELFPAY ==
[2020-10-09 22:27] VITALS: BMI 23.6
[2020-10-11 10:27] VITALS: PULSE 68; RESP 11; O2SAT 99
[2024-12-07] VITALS (15 sets, daily range): BP systolic 120–167; BP diastolic 76–92; PULSE 65–75; RESP 14–20; TEMP 36.8; O2SAT 93–99; BMI 23.6
--- NOTE | 2024-12-07 10:44 | DI.RAD.S_ITS ---
PROCEDURE: XR RIBS LT MIN 3V W CXR1V INDICATIONS: Fall landing on light pain at strike point left upper chest. TECHNIQUE: 2 views of the ribs were acquired, along with a single view chest. COMPARISON: [facility], CR, XR RIBS LT MIN 3V W CXR1V, 03/02/2019, 11:35. FINDINGS: Surgical changes and devices: None. Bones and chest wall: Displaced 6th, 7th, 8th, 9th rib fractures. The 9th rib is demonstrates fractures in 2 locations. Lungs and pleura: No pleural effusions or pneumothorax. Lungs appear clear. Mediastinum: Mediastinal contours appear normal. Heart size is normal. IMPRESSION: Displaced left 6th through 9th rib fractures. The left 9th rib has fractures in 2 locations, which may set up for flail chest pathology. No pneumothorax. Dictated by: Grayson Lane M.D. on 12/07/2024 at 11:54 Approved by: Grayson Lane M.D. on 12/07/2024 at 12:08
--- NOTE | 2024-12-07 12:23 | ED_ITS ---
HPI - Fall General Chief Complaint: Fall Stated Complaint: Per patient, Possible cracked left rib Time Seen by Provider: 12/07/24 12:21 Source: patient Mode of arrival: Wheelchair Limitations: no limitations History of Present Illness HPI Narrative: 74-year-old male history of depression, hypertension, dyslipidemia, lupus, hypothyroidism, seizure disorder presents with complaint of mechanical fall yesterday. Patient states he was looking in the wrong direction and was stepping down in missed a step. He fell onto his left side onto a outdoor light that has a pointed edge that is about 2 or 3 ft tall. Has had persistent pain since then throughout the night and today. Worse with movement, laugh cough or deep inhalation. Denies hitting his head. No loss of consciousness. Denies any neck or back pain, denies any other abdominal back or flank pain. Denies any other injuries. He has not appreciate any bruising or skin changes but has not looked. Patient denies any nausea or vomiting no other GI or urinary symptoms. Patient is not on any anticoagulants, he did not take his evening medications by accident but has taken them today. Patient has reported allergies to latex, penicillin, Trintellix. Did take a dose of tramadol last night but states it was not helpful although was very old. Related Data Home Medications Medication Instructions Recorded Confirmed fluoxetine 20 mg capsule 1 cap PO BEDTIME 05/15/18 10/09/20 levothyroxine 88 mcg tablet 44 mcg PO DAILY 05/15/18 10/09/20 multivitamin 1 cap PO DAILY 07/16/19 10/09/20 mirtazapine 45 mg tablet 45 mg PO BEDTIME 05/06/20 10/09/20 divalproex 250 mg tablet,extended 250 mg PO QAM 10/09/20 10/09/20 release 24 hr divalproex 500 mg tablet,extended 500 mg PO QPM 10/09/20 10/09/20 release 24 hr lamotrigine 100 mg tablet 100 mg PO BID 10/09/20 10/09/20 Previous Rx's Medication Instructions Recorded oxycodone-acetaminophen 5 mg-325 1 tab PO Q6H PRN pain #10 tabs 02/02/23 mg tablet sulfamethoxazole 800 1 tab PO Q12H #14 tabs 03/31/23 mg-trimethoprim 160 mg tablet (Bactrim DS) oxycodone 5 mg tablet 5 mg PO QID PRN pain #20 tabs 12/07/24 Allergies Allergy/AdvReac Type Severity Reaction Status Date / Time latex Allergy Severe Rash Verified 03/31/23 14:33 Penicillins [PENICILLINS] Allergy Severe ANAPHYLAXIS Verified 03/31/23 14:33 vortioxetine AdvReac Severe Nausea Verified 03/31/23 14:33 [From Trintellix] morphine AdvReac Verified 03/31/23 14:33 Review of Systems Review of Systems ROS Unobtainable: All systems reviewed & are unremarkable except as noted in HPI and below Patient History Medical History (Updated 12/07/24 @ 15:10 by Pam Hawkins RN) GERD (gastroesophageal reflux disease) Paresthesias (~03/2018) Epilepsy History of prosthetic unicompartmental arthroplasty of left knee Suicidal ideations UTI (urinary tract infection) Hyperlipidemia Sleep apnea Depression Lupus History of ankle fracture Bone spur Hypothyroidism Kidney stones Urinary stream slowing Urinary dribbling Surgical History History of lumbar spinal fusion (01/27/18) History of prosthetic unicompartmental arthroplasty of right knee S/P right unicompartmental knee replacement S/P left unicompartmental knee replacement History of arthroscopy of both knees H/O laminectomy Hx of tonsillectomy Hx of appendectomy History of knee replacement History of cataract removal with insertion of prosthetic lens Family History Father Heart disease Hypertension High cholesterol Mother Leukemia Social History marital status: household members: spouse Smoking Status: Never smoker alcohol intake: never Smoking Status: Never smoker alcohol intake frequency: 3 or more drinks per day Exam Narrative Exam Narrative: GEN: Patient appears in moderate distress. HEAD: No evidence of trauma, no raccoon/[place] sign. NECK: Nontender, painless range of motion, trachea midline Nine Nexus criteria, no midline line tenderness, distracting injury, altered mental status, neuro deficit, recent EtOH. EYES: PERRLA, EOMI ENT: External inspection normal, trachea is midline, TM's are normal no hemotypanum, Nares are clear, no septal hematoma, no dental or oral injury, airway is normal and with normal occlusion, No bony tenderness RESP: Chest is tender over the left mid chest around ribs 5 through 9, has symmetric movement with no flail chest appreciated, no ecchymosis, breath sounds are normal no crackles, wheezes or rales, no tachypnea or accessory muscle use. Patient was discomfort with movement and laughing. CVS: Heart sounds are normal, no murmur noted, No JVD. ABG/GI: Nontender, soft, normal bowel sounds, no distention, no organomegaly, pelvic rock is negative NEURO: Oriented AOx3, neuro is grossly intact, sensation and motor is normal all 4 extremities moving, cranial nerves II through XII are intact, GCS is 15 PSYCH: Normal mood and affect SKIN: Intact, warm and dry, no crepitus and without decubitus BACK: No CVA tenderness, no vertebral tenderness, no step-off's, no crepitus EXT: Atraumatic, hips are nontender, no pedal edema, normal color and temperature, normal range of motion of extremities with normal tendon exam, 2+ pulses in all four extremities Initial Vital Signs Initial Vital Signs: Vital Signs Pulse Rate 74 12/07/24 10:28 Pulse Oximetry 99 12/07/24 10:28 Course Orders Ordered: ED Orders 12/07/24 10:44 XR ribs LT min 3V w CXR1V Stat 12/07/24 12:29 CT chest abd pel w con Stat 12/07/24 12:38 CBC Auto Diff [Complete Blood Count AUTO DIFF] Stat CMP [Comprehensive Metabolic Panel] Stat Discontinued Medications Hydrocodone Bitart/Acetaminophen (Hydrocodone/Acet 5/325 Tablet) 2 tab PO NOW ONE Stop: 12/07/24 12:31 Last Admin: 12/07/24 12:44 Dose: 2 tab Documented By: DEEPIKA Ondansetron HCl (Ondansetron 4 Mg/2 Ml Inj) 4 mg IV Q6HR PRN PRN Reason: Nausea And Vomiting Vital Signs Vital signs: Vital Signs - 8 hr 12/07/24 10:28 12/07/24 10:30 12/07/24 10:31 Temperature Pulse Rate 74 73 73 Respiratory Rate Blood Pressure Pulse Oximetry 99 98 99 Oxygen Delivery Method 12/07/24 10:31 12/07/24 10:33 12/07/24 11:13 Temperature 98.2 F Pulse Rate 75 71 Respiratory Rate 14 Blood Pressure 149/85 H 149/85 H Pulse Oximetry 99 98 Oxygen Delivery Method Room Air 12/07/24 11:24 12/07/24 11:24 12/07/24 11:30 Temperature Pulse Rate 71 72 Respiratory Rate 16 Blood Pressure 133/87 Pulse Oximetry 96 93 Oxygen Delivery Method 12/07/24 11:30 12/07/24 12:00 12/07/24 12:00 Temperature Pulse Rate 72 Respiratory Rate Blood Pressure 132/88 120/81 Pulse Oximetry 96 Oxygen Delivery Method 12/07/24 12:30 12/07/24 12:30 12/07/24 13:00 Temperature Pulse Rate 69 65 Respiratory Rate 20 Blood Pressure 145/83 H Pulse Oximetry 95 98 Oxygen Delivery Method 12/07/24 13:00 12/07/24 13:30 12/07/24 13:30 Temperature Pulse Rate 70 Respiratory Rate Blood Pressure 166/85 H 132/84 Pulse Oximetry 93 Oxygen Delivery Method 12/07/24 14:00 12/07/24 14:00 12/07/24 14:08 Temperature Pulse Rate 69 70 Respiratory Rate Blood Pressure 121/76 Pulse Oximetry 94 98 Oxygen Delivery Method 12/07/24 14:08 12/07/24 14:30 12/07/24 14:30 Temperature Pulse Rate 70 Respiratory Rate Blood Pressure 167/92 H 141/81 H Pulse Oximetry 96 Oxygen Delivery Method 12/07/24 15:00 12/07/24 15:00 Temperature Pulse Rate 70 Respiratory Rate 16 Blood Pressure 132/83 Pulse Oximetry 96 Oxygen Delivery Method MDM - Fall Lab Data 12/07/24 12:38 12/07/24 12:38 Labs: Lab Results 12/07/24 Range/Units 12:38 WBC 6.5 (4.5-11.0) X10^3/uL RBC 4.74 (4.5-5.9) X10^6/uL Hgb 15.2 (13.5-17.5) g/dL Hct 44.3 (41-53) % MCV 93.6 (80-100) fL MCH 32.1 (26-34) PG MCHC 34.3 (30-36) % RDW 13.6 (11.6-14.8) % Plt Count 126 L (150-400) X10^3/uL Neut % (Auto) 54.5 (50-75) % Lymph % (Auto) 30.6 (25-40) % [place] % (Auto) 13.5 (3-14) % Eos % (Auto) 1.0 L (2-4) % Baso % (Auto) 0.4 (0-2) % Neut # (Auto) 3600 (4614-6062) /uL Lymph # (Auto) 2000 (7719-9491) /uL [place] # (Auto) 900 (0-900) /uL Eos # (Auto) 100 (0-450) /uL Baso # (Auto) 0 (0-100) /uL Sodium 136 L (137-145) mmol/L Potassium 4.2 (3.4-5.1) mmol/L Chloride 106 (98-107) mmol/L Carbon Dioxide 21 L (22-32) mmol/L BUN 20 (9-20) mg/dL Creatinine 0.78 (0.66-1.25) mg/dL Estimated GFR > 60 (>60) mL/min BUN/Creatinine Ratio 25.6 H (6-22) Glucose 93 (80-110) mg/dL Calcium 9.1 (8.4-10.2) mg/dL Total Bilirubin 0.8 (0.2-1.3) mg/dL AST 49 (17-59) IU/L ALT 43 (<50) IU/L Alkaline Phosphatase 61 (38-126) U/L Total Protein 6.3 (6.3-8.2) g/dL Albumin 4.2 (3.5-5.0) g/dL Globulin 2.1 (1.7-4.1) g/dL Albumin/Globulin Ratio 2.0 (1.0-2.8) MDM Narrative Medical decision making narrative: CXR/Rib on the left, displaced left 6 through 9th rib fractures left 9th rib fracture has fractures in 2 locations which may set up for flail chest pathology. No pneumothorax. Discussed with the patient based on his age and multiple rib fractures we will obtain labs as well as CT for further evaluation. Labs show normal white count, hemoglobin and platelets of 126 patient has been intermittently thrombocytopenic over the past 4 years. Chemistries shows sodium 136 CO2 of 21 otherwise appropriate electrolytes glucose of [address] chest abdomen pelvis with contrast shows no pulmonary contusions or lacerations no acute airspace opacities no hemo or pneumothorax. No mediastinal hematoma is heart size is normal no pericardial effusion, patient has multiple nonobstructing left-sided nephrolithiasis large stone is 1.6 x 1.4 cm. A few small ill-defined stone in the urinary bladder lumen largest measuring 4 mm. Small left inguinal hernia containing fat. Fractures through the anterior 4th through 7th costal cartilage of the last ribs remote fracture deformity of the lateral left 10th rib surgical fusion of the lower lumbar sacral spine. Patient ambulated here in the department maintained above 96%, heart rate in the 80s, no hypoxia tachypnea. Patient received Beatrice po here in the department. Discussed observation as patient would meet criteria for 3 or more rib fractures but has been greater than 12 hours no concerning vital signs patient's pain is improved with oral pain medication. He feels comfortable with return home. We will discharge home with incentive spirometry and teaching plan for short term follow up. We will continue with pain management with Tylenol and oxycodone for breakthrough pain. Patient did not note he had some good improvement with the Beatrice but this we will give him more control. Reviewed patient's findings from his CT imaging. Discussed return precautions all questions answered. Discharge Plan Departure Patient Disposition: Home Clinical Impression: Fracture, ribs, Inguinal hernia, Nephrolithiasis, Calculus of left kidney Instructions: DI for Rib Fracture Activity Restrictions/Additional Instructions: You broke your left ribs 4 through 7. There is an old rib fracture at left rib 10. Incidentally you do have kidney stones within the left kidney itself the largest being 1.6 x 1.4 cm I and some small bladder stones as well as a fat containing inguinal hernia on the left. Please call to follow up in the next several days for recheck. Use incentive spirometer hourly while awake for the next 1-2 weeks Continue with the acetaminophen up to a 1000 mg every 6 hours. Can take oxycodone 1-2 tablets every 6 hours as needed. This medication can make you sleepy do not drive, perform hazardous activities or make any major decisions while taking it. This medication will make you constipated please take a stool softener such as colace once to twice daily until stools are soft and regular. Prescription sent to [facility] in [place]. Please return for fevers, worsening pain, lightheadedness or passing out, difficulty with breathing, new bruising or skin changes or other new or concerning changes. Prescriptions: New oxycodone 5 mg tablet 5 mg PO QID PRN (Reason: pain) Qty: 20 0RF No Action sulfamethoxazole-trimethoprim [Bactrim DS] 800-160 mg tablet 1 tab PO Q12H Qty: 14 0RF multivitamin Capsule 1 cap PO DAILY divalproex 500 mg Tablet Extended Release 24 Hr 500 mg PO QPM lamotrigine 100 mg Tablet 100 mg PO BID divalproex 250 mg Tablet Extended Release 24 Hr 250 mg PO QAM oxycodone-acetaminophen 5-325 mg tablet 1 tab PO Q6H PRN (Reason: pain) Qty: 10 0RF fluoxetine 20 mg capsule 1 cap PO BEDTIME Patient Comments: TAKE 1 CAPSULE BY MOUTH EVERY DAY levothyroxine 88 mcg Tablet 44 mcg PO DAILY mirtazapine 45 mg tablet 45 mg PO BEDTIME Referrals: Sherly Jara PA-C [Primary Care Provider] - Stand Alone Forms: Patient Portal/API/Survey
--- NOTE | 2024-12-07 12:29 | DI.CT.S_ITS ---
PROCEDURE: CT CHEST ABD PEL W CON INDICATIONS: L rib fractures, fall TECHNIQUE: After the administration of intravenous contrast, 5 mm thick sections acquired from the lung apices to the symphysis. 2.5 mm thick coronal and sagittal reformats were acquired. Additional 7 mm thick coronal maximum intensity projection (MIP) reformats acquired through the lungs. Optional 10-minute delayed imaging may be performed from the kidneys to the bladder. For radiation dose reduction, the following was used: automated exposure control, adjustment of mA and/or kV according to patient size. COMPARISON: [facility], CR, XR RIBS LT MIN 3V W CXR1V, 12/07/2024, 10:56. [facility], CT, CT CHEST ABD PEL W CON, 02/01/2023, 20:32. FINDINGS: Image quality: Diagnostic. CHEST: Lower Neck: No enlarged lymph nodes. Thyroid: No thyroid nodules which require sonographic evaluation. Axillae: No enlarged lymph nodes. Chest Wall: No subcutaneous gas. Lungs and Pleura: No pulmonary contusions or lacerations. No acute airspace opacities. No pneumothorax or hemothorax. Mediastinum: No mediastinal hematomas. Heart size is normal. No pericardial effusion. Thoracic aorta and pulmonary arteries demonstrate normal size and enhancement. No mediastinal or hilar adenopathy. Esophagus is normal in caliber. No hiatal hernia. ABDOMEN: Liver: No lacerations. Gallbladder: No radiopaque gallstones or wall thickening. Biliary ducts: No biliary dilation. Pancreas: Homogenous enhancement. Spleen: Homogenous enhancement without laceration or hematoma. Adrenal Glands: Symmetric enhancement. Kidneys and Ureters: Symmetric enhancement. No hydronephrosis. No solid mass. No complex renal cystic lesion which requires follow up. Multiple nonobstructing left-sided nephrolithiasis, largest stone measuring 1.6 x 1.4 centimeter. Stomach and Bowel: Normal colonic caliber, without significant wall thickening. Peritoneum: No abnormal intraperitoneal fluid. No free air. Ventral Wall: No hernia. Abdominal Nodes: No retroperitoneal or mesenteric adenopathy by size criteria. Vessels: Aorta and inferior vena cava are normal in size. PELVIS: Pelvic Organs: Unremarkable. Bladder: A few small, ill-defined stones within the urinary bladder lumen, largest measuring 4 millimeters. Pelvic Nodes: No enlarged lymph nodes. Miscellaneous: Small left inguinal hernia containing fat. Bones: Pelvic ring and hip joints appear intact. There are fractures through the anterior 4th through 7th costal cartilage of the left ribs. Remote fracture deformity of the lateral left 10th rib. Surgical fusion the lower lumbosacral spine. IMPRESSION: Fractures through the anterior 4th through 7th costal cartilage of the left ribs. Remote fracture deformity of the lateral left 10th rib. No pneumothorax or contusions. Nonobstructing left-sided nephrolithiasis and a couple of ill-defined bladder stones. Dictated by: Grayson Lane M.D. on 12/07/2024 at 13:14 Approved by: Grayson Lane M.D. on 12/07/2024 at 13:22
[2024-12-07] MEDS: HYDROCODONE/ACET 5/325 TABLET 2 TAB PO (12:44)
[2024-12-07 12:51] LABS: Add Manual Diff / Slide Review NO; Basophils Absolute Auto 0 /uL (0-100); Basophils Percent Auto 0.4 % (0-2); Eosinophils Absolute Auto 100 /uL (0-450); Hematocrit 44.3 % (41-53); Hemoglobin 15.2 g/dL (13.5-17.5); Lymphocytes Absolute Auto 2000 /uL (1100-4500); Lymphocytes Percent Auto 30.6 % (25-40); Mean Corpuscular HGB Conc 34.3 % (30-36); Mean Corpuscular Hemoglobin 32.1 PG (26-34); Mean Corpuscular Volume 93.6 fL (80-100); Monocytes Absolute Auto 900 /uL (0-900); Monocytes Percent Auto 13.5 % (3-14); Neutrophils Absolute Auto 3600 /uL (1500-7000); Neutrophils Percent Auto 54.5 % (50-75); Platelet Count 126 X10^3/uL (150-400); Red Blood Cell Count 4.74 X10^6/uL (4.5-5.9); Red Cell Distribution Width 13.6 % (11.6-14.8); White Blood Cell Count 6.5 X10^3/uL (4.5-11.0)
[2024-12-07 13:05] LABS: Alanine Aminotransferase 43 IU/L (<50); Albumin 4.2 g/dL (3.5-5.0); Alkaline Phosphatase 61 U/L (38-126); Aspartate Aminotransferase 49 IU/L (17-59); BUN Creatinine Ratio 25.6 (6-22); Bilirubin Total 0.8 mg/dL (0.2-1.3); Blood Urea Nitrogen 20 mg/dL (9-20); Calcium 9.1 mg/dL (8.4-10.2); Carbon Dioxide 21 mmol/L (22-32); Chloride 106 mmol/L (98-107); Estimated Glomerular Filt Rate > 60 mL/min (>60); Globulin 2.1 g/dL (1.7-4.1); Glucose 93 mg/dL (80-110); HEMOLYSIS 20 (0-50); Potassium 4.2 mmol/L (3.4-5.1); Sodium 136 mmol/L (137-145); Total Protein 6.3 g/dL (6.3-8.2)
== END 2024-12-07 15:10 | disposition home or self-care (01) ==
PROVIDERS: Emergency Provider Emergency Medicine; PCP Student in an Organized Health Care Education/Training Program
DX: S22.42XA Multiple fractures of ribs, left side, initial encounter for closed fracture (principal); K40.90 Unilateral inguinal hernia, without obstruction or gangrene, not specified as recurrent; N20.0 Calculus of kidney; W10.9XXA Fall (on) (from) unspecified stairs and steps, initial encounter
CPT/HCPCS: 36415; 71101; 71260; 74177; 80053; 85025; 99283; 99284

== ENCOUNTER 2025-02-05 11:23 | Emergency (ER) | payer MEDICARE, OTHER, SELFPAY ==
[2020-10-09 22:27] VITALS: BMI 23.6
[2020-10-11 10:27] VITALS: PULSE 68; RESP 11; O2SAT 99
[2025-02-05] VITALS (7 sets, daily range): BP systolic 113–164; BP diastolic 71–89; PULSE 62–75; RESP 12–22; TEMP 36.4–36.8; O2SAT 95–98; BMI 23.6
--- NOTE | 2025-02-05 14:43 | DI.CT.S_ITS ---
PROCEDURE: CT CERVICAL SPINE WO CON INDICATIONS: fall hit head yesterday no focal neck pain TECHNIQUE: Noncontrast 3 mm thick sections acquired from the skull base to the T4 level. Sagittal and coronal reformats were then constructed. For radiation dose reduction, the following was used: automated exposure control, adjustment of mA and/or kV according to patient size. COMPARISON: [facility], CT, CT CERVICAL SPINE WO CON, 02/01/2023, 20:32. FINDINGS: Image quality: Excellent. Bones: No fractures or dislocations. Loss of disc height, degenerative endplate changes and bilateral facet hypertrophic changes are noted throughout cervical spine. Visualized superior ribs are intact. Soft tissues: Prevertebral soft tissues are normal in thickness. No paravertebral hematomas. No apical pneumothoraces. IMPRESSION: 1. No displaced fracture or traumatic subluxation. 2. Multilevel spondylitic changes throughout cervical spine. Dictated by: Alfredito Gandhi M.D. on 02/05/2025 at 16:17 Approved by: Alfredito Gandhi M.D. on 02/05/2025 at 16:19
--- NOTE | 2025-02-05 14:43 | DI.CT.S_ITS ---
PROCEDURE: CT HEAD/BRAIN WO CON INDICATIONS: fall hit head yesterday; hx tremors TECHNIQUE: Noncontrast 4.5 mm thick angled axial sections acquired from the foramen magnum to the vertex, with coronal and sagittal reformats. For radiation dose reduction, the following was used: automated exposure control, adjustment of mA and/or kV according to patient size. COMPARISON: [facility], CT, CT HEAD/BRAIN WO CON, 02/01/2023, 20:32. FINDINGS: Image quality: Diagnostic. CSF spaces: Basal cisterns are patent. No extra-axial fluid collections. The ventricles are symmetric in size and shape. Brain: No intracranial bleeds or mass effect. There is cerebral volume loss, with resultant ventricular and sulcal prominence. There are periventricular and deep white matter chronic small vessel ischemic changes. There is intracranial internal carotid artery atherosclerosis. Skull and face: Calvarium and visualized facial bones appear intact, without suspicious lesions. Sinuses: Visualized sinuses and mastoids are clear. IMPRESSION: No acute intracranial pathology. Age related volume loss and mild white matter small vessel chronic ischemic changes. Dictated by: Alfredito Gandhi M.D. on 02/05/2025 at 16:17 Approved by: Alfredito Gandhi M.D. on 02/05/2025 at 16:17
[2025-02-05 15:18] LABS: Add Manual Diff / Slide Review NO; Basophils Absolute Auto 0 /uL (0-100); Basophils Percent Auto 0.5 % (0-2); Eosinophils Absolute Auto 100 /uL (0-450); Eosinophils Percent Auto 2.5 % (2-4); Hematocrit 40.9 % (41-53); Lymphocytes Absolute Auto 2200 /uL (1100-4500); Lymphocytes Percent Auto 38.8 % (25-40); Mean Corpuscular HGB Conc 34.3 % (30-36); Mean Corpuscular Hemoglobin 32.1 PG (26-34); Mean Corpuscular Volume 93.6 fL (80-100); Monocytes Absolute Auto 600 /uL (0-900); Monocytes Percent Auto 11.2 % (3-14); Neutrophils Absolute Auto 2600 /uL (1500-7000); Platelet Count 152 X10^3/uL (150-400); Red Blood Cell Count 4.37 X10^6/uL (4.5-5.9); Red Cell Distribution Width 14.2 % (11.6-14.8); White Blood Cell Count 5.6 X10^3/uL (4.5-11.0)
--- NOTE | 2025-02-05 15:19 | ED.NEUROSD ---
HPI - Neuro Symptoms/Deficit <Pretty Caldwell PA-C - Last Filed: 02/05/25 19:18> General Chief Complaint: Neuro Symptoms/Deficit Stated Complaint: Unsteady on his feet . fell not on blood thinners Time Seen by Provider: 02/05/25 14:43 Source: patient Mode of arrival: Ambulatory History of Present Illness HPI Narrative: Mr. Ferrara is a pleasant 74-year-old male with a past medical history of controlled seizure disorder, hypertension, hyperlipidemia, hypothyroidism, depression, lupus who presents to the emergency department with his for concerns of increasing tremor, weakness, unsteady gait, frequent falls x 2 weeks. They reports symptoms have been actually progressing over the last multiple months however in the last 2 weeks they have gotten even worse and he has been falling more. The patient feels well in the morning when he wakes up but as the day goes on he gets weaker and weaker, his tremor gets worse, and his states he has worsening brain fog and issues with his memory. He typically does not walk with an ambulation device but he does have a cane. Last night he fell after attempting to sit on a couch, and was crawling around the house trying to find a chair low enough in order to pull himself up. He denies loss of consciousness, neck pain, back pain, extremity pain or any other injury after this fall but he did hit his head. At this time he denies any symptoms, he is not having chest pain, shortness of breath, dizziness, lightheadedness, visual disturbance, focal weakness, numbness, tingling, visual disturbance or any pain. He does have a mild tremor of his bilateral upper and lower extremities, and he does also feel diffusely weak. His PCP with [facility] is currently in the process of trying to refer him to Neurology however he is unable to get an appointment until May. This morning his called all of his doctors offices and all of the nurses advised he come to the emergency department. At this time they are concerned for the development of Parkinson's Disease. On Anticoagulants: No Related Data Home Medications ?Medication ?Instructions ?Recorded ?Confirmed fluoxetine 20 mg capsule 1 cap PO BEDTIME 05/15/18 02/09/25 levothyroxine 88 mcg tablet 44 mcg PO DAILY 05/15/18 02/09/25 multivitamin 1 cap PO DAILY 07/16/19 10/09/20 mirtazapine 45 mg tablet 45 mg PO BEDTIME 05/06/20 02/09/25 divalproex 250 mg tablet,extended 250 mg PO QAM 10/09/20 02/09/25 release 24 hr divalproex 500 mg tablet,extended 500 mg PO QPM 10/09/20 02/09/25 release 24 hr lamotrigine 100 mg tablet 100 mg PO BID 10/09/20 02/09/25 losartan 25 mg tablet 25 mg PO DAILY 02/09/25 02/09/25 Previous Rx's ?Medication ?Instructions ?Recorded oxycodone-acetaminophen 5 mg-325 1 tab PO Q6H PRN pain #10 tabs 02/02/23 mg tablet sulfamethoxazole 800 1 tab PO Q12H #14 tabs 03/31/23 mg-trimethoprim 160 mg tablet (Bactrim DS) oxycodone 5 mg tablet 5 mg PO QID PRN pain #20 tabs 12/07/24 Allergies Allergy/AdvReac Type Severity Reaction Status Date / Time latex Allergy Severe Rash Verified 02/09/25 12:18 Penicillins (PENICILLINS) Allergy Severe ANAPHYLAXIS Verified 02/09/25 12:18 vortioxetine (From AdvReac Severe Nausea Verified 02/09/25 12:18 Trintellix) Review of Systems <Pretty Caldwell PA-C - Last Filed: 02/05/25 19:18> Review of Systems ROS Unobtainable: All systems reviewed & are unremarkable except as noted in HPI and below Hematologic/Lymphatic On Anticoagulants: No Patient History <Pretty Caldwell PA-C - Last Filed: 02/05/25 19:18> Medical History (Updated 02/10/25 @ 18:01 by Neeraj Gross, DO) GERD (gastroesophageal reflux disease) Paresthesias (~03/2018) Epilepsy History of prosthetic unicompartmental arthroplasty of left knee Suicidal ideations UTI (urinary tract infection) Hyperlipidemia Sleep apnea Depression Lupus History of ankle fracture Bone spur Hypothyroidism Kidney stones Urinary stream slowing Urinary dribbling Surgical History History of lumbar spinal fusion (01/27/18) History of prosthetic unicompartmental arthroplasty of right knee S/P right unicompartmental knee replacement S/P left unicompartmental knee replacement History of arthroscopy of both knees H/O laminectomy Hx of tonsillectomy Hx of appendectomy History of knee replacement History of cataract removal with insertion of prosthetic lens Family History Father Heart disease Hypertension High cholesterol Mother Leukemia Social History marital status: household members: spouse Smoking Status: Never smoker alcohol intake: never Smoking Status: Never smoker alcohol intake frequency: 3 or more drinks per day Exam <Pretty Caldwell PA-C - Last Filed: 02/05/25 19:18> Narrative Exam Narrative: GENERAL: 74 year old patient appears stated age. Well-developed patient, in no acute distress. HEAD: Atraumatic. Normocephalic. EYES: PERRL. Extraocular motions intact. No scleral icterus. No injection or drainage. ENT: Nose without bleeding, purulent drainage. Airway patent. NECK: Trachea midline. Cervical ROM intact. No tenderness to palpation of mid cervical spine however patient did later report tenderness with palpation of C7 with nursing staff, C-collar placed. CARDIOVASCULAR: Regular rate and rhythm. RESPIRATORY: ?Nonlabored respirations. ?Speaking in clear, full sentences. ?Somewhat more coarse breath sounds on the left side compared to the right. No rales or wheezing. GASTROINTESTINAL: Abdomen soft, non-tender, nondistended. EXTREMITIES: No edema or joint tenderness. Patient does have extremely subtle tremor of upper and lower extremities. BACK: Nontender without deformity or crepitance. No flank tenderness. NEURO: Alert to person, place, time, location. ?Clear speech. ?No pronator drift or leg drift however patient does struggle to lift his legs off the bed initially. Sensation intact to light touch throughout the face and extremities. Normal [id number]. SKIN: No rash or erythema of visible areas Initial Vital Signs Initial Vital Signs: Vital Signs Temperature 97.6 F 02/05/25 11:33 Pulse Rate 75 02/05/25 11:33 Respiratory Rate 20 02/05/25 11:33 Blood Pressure 113/71 02/05/25 11:33 Pulse Oximetry 96 02/05/25 11:33 Oxygen Delivery Method Room Air 02/05/25 11:33 <Nusrat Martinez DO - Last Filed: 02/15/25 19:20> Initial Vital Signs Initial Vital Signs: Vital Signs Temperature 97.6 F 02/05/25 11:33 Pulse Rate 75 02/05/25 11:33 Respiratory Rate 20 02/05/25 11:33 Blood Pressure 113/71 02/05/25 11:33 Pulse Oximetry 96 02/05/25 11:33 Oxygen Delivery Method Room Air 02/05/25 11:33 Course <Pretty Caldwell PA-C - Last Filed: 02/05/25 19:18> Orders Ordered: Discontinued Medications Trimethoprim/Sulfamethoxazole (Trimeth/Sulfa 160/800 (Ds) Tablet) 1 tab PO NOW ONE Stop: 02/05/25 17:22 Last Admin: 02/05/25 17:53 Dose: 1 tab Documented By: LM Vital Signs Vital signs: Vital Signs - 8 hr 02/05/25 11:33 02/05/25 14:59 02/05/25 15:00 Temperature 97.6 F Pulse Rate 75 63 Respiratory Rate 20 20 Blood Pressure 113/71 135/84 Pulse Oximetry 96 98 Oxygen Delivery Method Room Air 02/05/25 15:00 02/05/25 15:30 02/05/25 15:30 Temperature Pulse Rate 62 68 Respiratory Rate 17 22 Blood Pressure 137/86 Pulse Oximetry 98 95 Oxygen Delivery Method 02/05/25 15:57 02/05/25 15:57 02/05/25 16:00 Temperature Pulse Rate 63 Respiratory Rate 12 Blood Pressure 164/83 H 145/89 H Pulse Oximetry 97 Oxygen Delivery Method 02/05/25 16:00 02/05/25 18:41 Temperature 98.3 F Pulse Rate 65 69 Respiratory Rate 15 19 Blood Pressure 132/87 Pulse Oximetry 95 96 Oxygen Delivery Method Room Air <Nusrat Martinez DO - Last Filed: 02/15/25 19:20> Orders Ordered: Discontinued Medications Trimethoprim/Sulfamethoxazole (Trimeth/Sulfa 160/800 (Ds) Tablet) 1 tab PO NOW ONE Stop: 02/05/25 17:22 Last Admin: 02/05/25 17:53 Dose: 1 tab Documented By: LM Vital Signs Vital signs: Vital Signs - 8 hr 02/05/25 11:33 02/05/25 14:59 02/05/25 15:00 Temperature 97.6 F Pulse Rate 75 63 Respiratory Rate 20 20 Blood Pressure 113/71 135/84 Pulse Oximetry 96 98 Oxygen Delivery Method Room Air 02/05/25 15:00 02/05/25 15:30 02/05/25 15:30 Temperature Pulse Rate 62 68 Respiratory Rate 17 22 Blood Pressure 137/86 Pulse Oximetry 98 95 Oxygen Delivery Method 02/05/25 15:57 02/05/25 15:57 02/05/25 16:00 Temperature Pulse Rate 63 Respiratory Rate 12 Blood Pressure 164/83 H 145/89 H Pulse Oximetry 97 Oxygen Delivery Method 02/05/25 16:00 02/05/25 18:41 Temperature 98.3 F Pulse Rate 65 69 Respiratory Rate 15 19 Blood Pressure 132/87 Pulse Oximetry 95 96 Oxygen Delivery Method Room Air MDM - Neuro Symptoms/Deficit <Pretty Caldwell PA-C - Last Filed: 02/05/25 19:18> Medical Records Attestation: I reviewed the patient's medical records. Lab Data 02/05/25 15:10 02/05/25 15:10 Labs: Lab Results 02/05/25 02/05/25 02/05/25 Range/Units 15:10 15:20 15:24 WBC 5.6 (4.5-11.0) X10^3/uL RBC 4.37 L (4.5-5.9) X10^6/uL Hgb 14.0 (13.5-17.5) g/dL Hct 40.9 L (41-53) % MCV 93.6 (80-100) fL MCH 32.1 (26-34) PG MCHC 34.3 (30-36) % RDW 14.2 (11.6-14.8) % Plt Count 152 (150-400) X10^3/uL Neut % (Auto) 47.0 L (50-75) % Lymph % (Auto) 38.8 (25-40) % [place] % (Auto) 11.2 (3-14) % Eos % (Auto) 2.5 (2-4) % Baso % (Auto) 0.5 (0-2) % Neut # (Auto) 2600 (4864-1689) /uL Lymph # (Auto) 2200 (4830-6434) /uL [place] # (Auto) 600 (0-900) /uL Eos # (Auto) 100 (0-450) /uL Baso # (Auto) 0 (0-100) /uL PT 10.8 (9.4-12.5) SECONDS INR 1.0 (0.9-1.3) APTT 32 (25.1-36.5) SECONDS Sodium 138 (137-145) mmol/L Potassium 4.3 (3.4-5.1) mmol/L Chloride 105 (98-107) mmol/L Carbon Dioxide 27 (22-32) mmol/L BUN 26 H (9-20) mg/dL Creatinine 0.90 (0.66-1.25) mg/dL Estimated GFR > 60 (>60) mL/min BUN/Creatinine Ratio 28.9 H (6-22) Glucose 88 (70-99) mg/dL Calcium 9.3 (8.4-10.2) mg/dL Total Bilirubin 0.6 (0.2-1.3) mg/dL AST 25 (17-59) IU/L ALT 17 (<50) IU/L Alkaline Phosphatase 56 (38-126) U/L Total Protein 6.3 (6.3-8.2) g/dL Albumin 4.2 (3.5-5.0) g/dL Globulin 2.1 (1.7-4.1) g/dL Albumin/Globulin Ratio 2.0 (1.0-2.8) Urine Color Yellow Urine Appearance Cloudy Urine pH 6.5 (4.5-8.0) Ur Specific [place] 1.020 (1.000-1.035) Urine Protein Negative (Negative) Urine Glucose (UA) Negative (Negative) g/dL Urine Ketones Negative (NEGATIVE) Urine Occult Blood Negative (Negative) Urine Nitrate Positive H (Negative) Urine Bilirubin Negative (NEGATIVE) Urine Urobilinogen 0.2 (0.2) E.U./dL Ur Leukocyte Esterase 1+ H (NEGATIVE) Urine RBC None seen (0-5/HPF) Urine WBC 10-30/hpf H (0-5/HPF) Ur Squamous Epith Cells None seen (0-5/HPF) Amorphous Sediment 3+ Urine Bacteria Many (>30) H (None) Ur Culture Indicated? Specimen cultured Vol Urine Centrifuged 10ml (spun) Lamotrigine 9.9 (2.0-20.0) ug/mL Imaging Data Chest x-ray: Radiologist's Impression: PROCEDURE: XR CHEST 1V INDICATIONS: weakness, falls TECHNIQUE: One view of the chest was acquired. COMPARISON: [facility], CR, XR CHEST 1V, 08/01/2021, 11:55. FINDINGS: Surgical changes and devices: None. Lungs and pleura: Lungs are clear. No pleural effusions or pneumothorax. Mediastinum: Mediastinal contours appear normal. Heart size is normal. Bones and chest wall: No suspicious bony lesions. Overlying soft tissues appear unremarkable. IMPRESSION: No acute cardiopulmonary pathology. Dictated by: Alfredito Gandhi M.D. on 02/05/2025 at 16:16 Approved by: Alfredito Gandhi M.D. on 02/05/2025 at 16:16 CT scan - head: Radiologist's Impression: PROCEDURE: CT HEAD/BRAIN WO CON INDICATIONS: fall hit head yesterday; hx tremors TECHNIQUE: Noncontrast 4.5 mm thick angled axial sections acquired from the foramen magnum to the vertex, with coronal and sagittal reformats. For radiation dose reduction, the following was used: automated exposure control, adjustment of mA and/or kV according to patient size. COMPARISON: [facility], CT, CT HEAD/BRAIN WO CON, 02/01/2023, 20:32. FINDINGS: Image quality: Diagnostic. CSF spaces: Basal cisterns are patent. No extra-axial fluid collections. The ventricles are symmetric in size and shape. Brain: No intracranial bleeds or mass effect. There is cerebral volume loss, with resultant ventricular and sulcal prominence. There are periventricular and deep white matter chronic small vessel ischemic changes. There is intracranial internal carotid artery atherosclerosis. Skull and face: Calvarium and visualized facial bones appear intact, without suspicious lesions. Sinuses: Visualized sinuses and mastoids are clear. IMPRESSION: No acute intracranial pathology. Age related volume loss and mild white matter small vessel chronic ischemic changes. Dictated by: Alfredito Gandhi M.D. on 02/05/2025 at 16:17 Approved by: Alfredito Gandhi M.D. on 02/05/2025 at 16:17 CT - cervical spine: Radiologist's Impression: PROCEDURE: CT CERVICAL SPINE WO CON INDICATIONS: fall hit head yesterday no focal neck pain TECHNIQUE: Noncontrast 3 mm thick sections acquired from the skull base to the T4 level. Sagittal and coronal reformats were then constructed. For radiation dose reduction, the following was used: automated exposure control, adjustment of mA and/or kV according to patient size. COMPARISON: [facility], CT, CT CERVICAL SPINE WO CON, 02/01/2023, 20:32. FINDINGS: Image quality: Excellent. Bones: No fractures or dislocations. Loss of disc height, degenerative endplate changes and bilateral facet hypertrophic changes are noted throughout cervical spine. Visualized superior ribs are intact. Soft tissues: Prevertebral soft tissues are normal in thickness. No paravertebral hematomas. No apical pneumothoraces. IMPRESSION: 1. No displaced fracture or traumatic subluxation. 2. Multilevel spondylitic changes throughout cervical spine. Dictated by: Alfredito Gandhi M.D. on 02/05/2025 at 16:17 Approved by: Alfredito Gandhi M.D. on 02/05/2025 at 16:19 MDM Narrative Medical decision making narrative: 74-year-old male with a past medical history of controlled seizure disorder, hypertension, hyperlipidemia, hypothyroidism, depression, lupus who presents to the emergency department with his for concerns of increasing tremor, weakness, unsteady gait, frequent falls x 2 weeks. Differential diagnosis includes but isn't limited to neurologic condition, Parkinson's, ICH, intracerebral mass, infection, electrolyte derangement, etc. On exam patient is in no acute distress, nontoxic-appearing, all vital signs within normal limits. Patient is alert and oriented, no focal neurologic deficits however he does have diffuse generalized weakness. No pain, no tenderness to palpation of extremities, spine, abdomen. He has been having progressively worsening neurologic symptoms and is concerned that they have not been able to see Neurology in a timely manner which is resulting in more frequent falls. Will discuss case with ED attending. We will proceed with a CT head, neck, chest x-ray, baseline labs and urinalysis. Lamotrigine and valproate levels ordered however these are send out labs and will not return today. UA reveals nitrite positive UTI. We will treat with Bactrim as patient has anaphylaxis to penicillins. Labs overall reassuring with normal WBC count 5.6, hemoglobin is 14.0, normal coags, normal sodium 138, potassium 4.3, BUN slightly elevated at 26 with a normal creatinine of 0.90. Glucose 88. Normal LFTs. Chest x-ray reveals no acute cardiopulmonary pathology. Head CT reveals no acute intracranial pathology, there is age-related volume loss and mild white matter small vessel chronic ischemic changes. CT cervical spine reveals no displaced fracture or traumatic subluxation. I had an extensive discussion with the patient and his about today's workup, they are reassured that we have ruled out intracranial mass or hemorrhage but they also understand that he needs follow up with Neurology for further evaluation of potential neurologic disorder. He is not interested in staying in the hospital, would like to go the comfort of his own home, however they are agreeable to possible home health, he also has a walker at home and he is agreeable to start using. He ambulated here in the ED with his cane. Patient does already have a standing referral to Neurology but does not yet have a scheduled appointment. Recommended completing antibiotics, following up promptly with PCP for further evaluation, we also discussed very strict ED return precautions and fall precautions. Patient his verbalized understanding of all information agreeable with the plan. He is stable for discharge home. <Nusrat Martinez, - Last Filed: 02/15/25 19:20> Lab Data Labs: Lab Results 02/05/25 02/05/25 02/05/25 Range/Units 15:10 15:20 15:24 WBC 5.6 (4.5-11.0) X10^3/uL RBC 4.37 L (4.5-5.9) X10^6/uL Hgb 14.0 (13.5-17.5) g/dL Hct 40.9 L (41-53) % MCV 93.6 (80-100) fL MCH 32.1 (26-34) PG MCHC 34.3 (30-36) % RDW 14.2 (11.6-14.8) % Plt Count 152 (150-400) X10^3/uL Neut % (Auto) 47.0 L (50-75) % Lymph % (Auto) 38.8 (25-40) % [place] % (Auto) 11.2 (3-14) % Eos % (Auto) 2.5 (2-4) % Baso % (Auto) 0.5 (0-2) % Neut # (Auto) 2600 (5817-8348) /uL Lymph # (Auto) 2200 (6499-4104) /uL [place] # (Auto) 600 (0-900) /uL Eos # (Auto) 100 (0-450) /uL Baso # (Auto) 0 (0-100) /uL PT 10.8 (9.4-12.5) SECONDS INR 1.0 (0.9-1.3) APTT 32 (25.1-36.5) SECONDS Sodium 138 (137-145) mmol/L Potassium 4.3 (3.4-5.1) mmol/L Chloride 105 (98-107) mmol/L Carbon Dioxide 27 (22-32) mmol/L BUN 26 H (9-20) mg/dL Creatinine 0.90 (0.66-1.25) mg/dL Estimated GFR > 60 (>60) mL/min BUN/Creatinine Ratio 28.9 H (6-22) Glucose 88 (70-99) mg/dL Calcium 9.3 (8.4-10.2) mg/dL Total Bilirubin 0.6 (0.2-1.3) mg/dL AST 25 (17-59) IU/L ALT 17 (<50) IU/L Alkaline Phosphatase 56 (38-126) U/L Total Protein 6.3 (6.3-8.2) g/dL Albumin 4.2 (3.5-5.0) g/dL Globulin 2.1 (1.7-4.1) g/dL Albumin/Globulin Ratio 2.0 (1.0-2.8) Urine Color Yellow Urine Appearance Cloudy Urine pH 6.5 (4.5-8.0) Ur Specific [place] 1.020 (1.000-1.035) Urine Protein Negative (Negative) Urine Glucose (UA) Negative (Negative) g/dL Urine Ketones Negative (NEGATIVE) Urine Occult Blood Negative (Negative) Urine Nitrate Positive H (Negative) Urine Bilirubin Negative (NEGATIVE) Urine Urobilinogen 0.2 (0.2) E.U./dL Ur Leukocyte Esterase 1+ H (NEGATIVE) Urine RBC None seen (0-5/HPF) Urine WBC 10-30/hpf H (0-5/HPF) Ur Squamous Epith Cells None seen (0-5/HPF) Amorphous Sediment 3+ Urine Bacteria Many (>30) H (None) Ur Culture Indicated? Specimen cultured Vol Urine Centrifuged 10ml (spun) Lamotrigine 9.9 (2.0-20.0) ug/mL Discharge Plan Departure Patient Disposition: Home Clinical Impression: Acute UTI, Weakness, Ground-level fall Instructions: DI for Urinary Tract Infection (UTI) Activity Restrictions/Additional Instructions: Dear Mr. Ferrara, Thank you for coming to the emergency department. Today you were evaluated for worsening tremor, weakness, and a fall. Your urine test revealed a urinary tract infection. The urine has been cultured, and you will be called in 2-3 days if you need to have a change to her antibiotics. Otherwise complete the full course of antibiotic. Please increase hydration, use a walker to ambulate, and call your primary care doctor thing Saturday morning for an ER follow up appointment. We do recommend that you follow up with Neurology for further evaluation of a possible neurologic condition causing your tremors. The CT scan of your head today did not reveal any masses, tumors or bleeds. Please return to the ER immediately if you develop any new or worsening symptoms, severe pain, fevers, inability to walk or other concerns. Please follow up with your primary care doctor within the next 2-3 days for ER follow-up. (If you do not have a PCP you can call [phone]. ?to schedule an appointment with an [facility] Primary Care Provider) IF YOU DEVELOP ANY NEW OR WORSENING SYMPTOMS, RETURN TO THE ER! Please read the attached instructions, they highlight more specific treatments and interventions for you at home. Thank you for letting me participate in your care, Pretty Caldwell PA-C Prescriptions: No Action sulfamethoxazole-trimethoprim [Bactrim DS] 800-160 mg tablet 1 tab PO Q12H Qty: 14 0RF multivitamin Capsule 1 cap PO DAILY divalproex 500 mg Tablet Extended Release 24 Hr 500 mg PO QPM lamotrigine 100 mg Tablet 100 mg PO BID divalproex 250 mg Tablet Extended Release 24 Hr 250 mg PO QAM oxycodone-acetaminophen 5-325 mg tablet 1 tab PO Q6H PRN (Reason: pain) Qty: 10 0RF fluoxetine 20 mg capsule 1 cap PO BEDTIME Patient Comments: TAKE 1 CAPSULE BY MOUTH EVERY DAY levothyroxine 88 mcg Tablet 44 mcg PO DAILY mirtazapine 45 mg tablet 45 mg PO BEDTIME oxycodone 5 mg tablet 5 mg PO QID PRN (Reason: pain) Qty: 20 0RF losartan 25 mg tablet 25 mg PO DAILY Referrals: Melisa Gillespie I, DORYS [Primary Care Provider, Medical] Stand Alone Forms: Patient Portal/API ED Sign-out <Nusrat Martinez, - Last Filed: 02/15/25 19:20> Cosign ED Attending Cosignature Attestation: I was immediately available in the department for consultation. Case was discussed with myself.
[2025-02-05 15:30] LABS: Prothrombin Time 10.8 SECONDS (9.4-12.5)
[2025-02-05 15:33] LABS: PTT Partial Thromboplastin Tim 32 SECONDS (25.1-36.5)
[2025-02-05 15:34] LABS: Alanine Aminotransferase 17 IU/L (<50); Albumin 4.2 g/dL (3.5-5.0); Alkaline Phosphatase 56 U/L (38-126); Aspartate Aminotransferase 25 IU/L (17-59); BUN Creatinine Ratio 28.9 (6-22); Bilirubin Total 0.6 mg/dL (0.2-1.3); Blood Urea Nitrogen 26 mg/dL (9-20); Calcium 9.3 mg/dL (8.4-10.2); Carbon Dioxide 27 mmol/L (22-32); Chloride 105 mmol/L (98-107); Estimated Glomerular Filt Rate > 60 mL/min (>60); Globulin 2.1 g/dL (1.7-4.1); Glucose 88 mg/dL (70-99); HEMOLYSIS < 15 (0-50); Potassium 4.3 mmol/L (3.4-5.1); Sodium 138 mmol/L (137-145); Total Protein 6.3 g/dL (6.3-8.2)
[2025-02-05 15:36] LABS: Bilirubin Urine UA NEGATIVE (NEGATIVE); Color Urine UA YELLOW; Glucose Urine UA NEGATIVE (Negative); Ketones Urine UA NEGATIVE (NEGATIVE); Leukocyte Esterase Urine UA 1+ (NEGATIVE); Nitrite Urine UA POSITIVE (Negative); Occult Blood Urine UA NEGATIVE (Negative); Protein Urine UA NEGATIVE (Negative); Urobilinogen Urine UA 0.2 E.U./dL (0.2); pH Urine UA 6.5 (4.5-8.0)
[2025-02-05 15:37] LABS: Appearance Urine UA CLOUDY; Urine Volume 10mL (spun)
--- NOTE | 2025-02-05 15:39 | DI.RAD.S_ITS ---
PROCEDURE: XR CHEST 1V INDICATIONS: weakness, falls TECHNIQUE: One view of the chest was acquired. COMPARISON: [facility], CR, XR CHEST 1V, 08/01/2021, 11:55. FINDINGS: Surgical changes and devices: None. Lungs and pleura: Lungs are clear. No pleural effusions or pneumothorax. Mediastinum: Mediastinal contours appear normal. Heart size is normal. Bones and chest wall: No suspicious bony lesions. Overlying soft tissues appear unremarkable. IMPRESSION: No acute cardiopulmonary pathology. Dictated by: Alfredito Gandhi M.D. on 02/05/2025 at 16:16 Approved by: Alfredito Gandhi M.D. on 02/05/2025 at 16:16
[2025-02-05 15:44] LABS: Amorphous Sediment Urine 3+; Bacteria Urine Many (>30); Culture Indicated Urine Specimen Cultured; RBC Urine None Seen (0-5/HPF); Squamous Epithelial Cell Urine None Seen (0-5/HPF); WBC Urine 10-30/HPF (0-5/HPF)
--- NOTE | 2025-02-05 16:41 | PC.NURSE ---
c-collar removed as per provider order
--- NOTE | 2025-02-05 17:41 | PC.NURSE ---
Pt ambulated approx 25ft with cane with shuffling gait. Pt endorses feeling tired with walking and it's hard to get my feet to do what I want them to do. Pt was able to return to room without incident. Warm blankets given and call light within reach, no other needs at this time
[2025-02-05] MEDS: TRIMETH/SULFA 160/800 (DS) TABLET 1 TAB PO (17:53)
[2025-02-09 09:09] LABS: Lamotrigine Lamictal 9.9 ug/mL (2.0-20.0)
== END 2025-02-05 18:43 | disposition home or self-care (01) ==
PROVIDERS: Emergency Provider Physician Assistant; PCP Physician Assistant
DX: N39.0 Urinary tract infection, site not specified (principal); R53.1 Weakness; R29.6 Repeated falls; R26.81 Unsteadiness on feet; R25.1 Tremor, unspecified; W18.30XA Fall on same level, unspecified, initial encounter
CPT/HCPCS: 36415; 70450; 71045; 72125; 80053; 80175; 81001; 85025; 85610; 85730; 87086; 99284

== ENCOUNTER 2025-02-09 11:39 | Emergency (ER) | payer MEDICARE, OTHER, SELFPAY ==
[2020-10-09 22:27] VITALS: BMI 23.6
[2020-10-11 10:27] VITALS: PULSE 68; RESP 11; O2SAT 99
[2025-02-09] VITALS (12 sets, daily range): BP systolic 99–117; BP diastolic 59–75; PULSE 75–89; RESP 20; TEMP 36.6; O2SAT 93–97; BMI 23.6
--- NOTE | 2025-02-09 12:31 | DI.RAD.S_ITS ---
PROCEDURE: XR CHEST 1V INDICATIONS: altered mental status TECHNIQUE: One view of the chest was acquired. COMPARISON: [facility], , XR CHEST 1V, 02/05/2025, 15:37. [facility], CR, XR CHEST 1V, 08/01/2021, 11:55. FINDINGS: Surgical changes and devices: None. Lungs and pleura: Lungs are clear. No pleural effusions or pneumothorax. Mediastinum: Mediastinal contours appear normal. Heart size is normal. Bones and chest wall: No suspicious bony lesions. Overlying soft tissues appear unremarkable. IMPRESSION: No acute cardiopulmonary abnormality is seen. Dictated by: Refugio Gabriel M.D. on 02/09/2025 at 13:10 Approved by: Refugio Gabriel M.D. on 02/09/2025 at 13:17
--- NOTE | 2025-02-09 12:31 | EKG_ITS ---
[address] [address] Test Date: 2025-02-09 Pat Name: Dago Ferrara Department: Room: Gender: Male [employer]r: ARNOLD : [id number] Requested By: Order Number: [id number] Reading MD: Neeraj Coronado MD Measurements Intervals [place] Rate: 81 P: 25 VA: 160 QRS: 13 QRSD: 84 T: 51 QT: 366 QTc: 425 Interpretive Statements Normal sinus rhythm Electronically Signed On 02-10-2025 8:44:43 PDT by Neeraj Coronado MD
--- NOTE | 2025-02-09 12:32 | DI.CT.S_ITS ---
PROCEDURE: CT HEAD/BRAIN WO CON INDICATIONS: 4 falls since saturday 3 head strikes TECHNIQUE: Noncontrast 4.5 mm thick angled axial sections acquired from the foramen magnum to the vertex, with coronal and sagittal reformats. For radiation dose reduction, the following was used: automated exposure control, adjustment of mA and/or kV according to patient size. COMPARISON: [facility], CT, CT HEAD/BRAIN WO CON, 02/05/2025, 15:47. FINDINGS: Image quality: Diagnostic. CSF spaces: Basal cisterns are patent. No extra-axial fluid collections. The ventricles are symmetric in size and shape. Brain: No intracranial bleeds or mass effect. There is cerebral volume loss, with resultant ventricular and sulcal prominence. There are periventricular and deep white matter chronic small vessel ischemic changes. There is intracranial internal carotid artery atherosclerosis. Skull and face: Calvarium and visualized facial bones appear intact, without suspicious lesions. Sinuses: Visualized sinuses and mastoids are clear. IMPRESSION: No acute intracranial pathology. Dictated by: Refugio Gabriel M.D. on 02/09/2025 at 13:18 Approved by: Refugio Gabriel M.D. on 02/09/2025 at 13:19
--- NOTE | 2025-02-09 12:32 | DI.CT.S_ITS ---
PROCEDURE: CT CERVICAL SPINE WO CON INDICATIONS: 4 falls in 4days 3 head strikes head and neck pain TECHNIQUE: Noncontrast 3 mm thick sections acquired from the skull base to the T4 level. Sagittal and coronal reformats were then constructed. For radiation dose reduction, the following was used: automated exposure control, adjustment of mA and/or kV according to patient size. COMPARISON: [facility], CT, CT CERVICAL SPINE WO CON, 02/01/2023, 20:32. [facility], CT, CT CERVICAL SPINE WO CON, 02/05/2025, 15:47. FINDINGS: Image quality: Excellent. Bones: No fractures or dislocations. Multilevel degenerative changes of the cervical spine. Visualized superior ribs are intact. Scattered sclerotic foci are present, stable back to 2022 exam and likely representing bone islands. Soft tissues: Prevertebral soft tissues are normal in thickness. No paravertebral hematomas. No apical pneumothoraces. IMPRESSION: No displaced fracture or traumatic subluxation. Multilevel degenerative changes of the cervical spine. Dictated by: Refugio Gabriel M.D. on 02/09/2025 at 13:20 Approved by: Refugio Gabriel M.D. on 02/09/2025 at 13:23
--- NOTE | 2025-02-09 12:49 | PC.NURSE ---
This RN went over this patient triage with provider whom gave this RN verbal orders that were placed and asked this RN to place patient in c-collar. C-collar placed at 12:37.
[2025-02-09 13:06] LABS: Lactate (Lactic Acid) 2.6 mmol/L (0.7-2.1)
[2025-02-09 13:08] LABS: Add Manual Diff / Slide Review NO; Alanine Aminotransferase 55 IU/L (<50); Alkaline Phosphatase 52 U/L (38-126); Aspartate Aminotransferase 63 IU/L (17-59); BUN Creatinine Ratio 34.5 (6-22); Basophils Absolute Auto 0 /uL (0-100); Basophils Percent Auto 0.3 % (0-2); Bilirubin Total 0.7 mg/dL (0.2-1.3); Blood Urea Nitrogen 40 mg/dL (9-20); Calcium 9.4 mg/dL (8.4-10.2); Carbon Dioxide 21 mmol/L (22-32); Chloride 104 mmol/L (98-107); Creatine Kinase 39 U/L (55-170); Eosinophils Absolute Auto 300 /uL (0-450); Eosinophils Percent Auto 5.2 % (2-4); Estimated Glomerular Filt Rate > 60 mL/min (>60); Ethanol (ETOH) < 10 mg/dL (<10); Glucose 102 mg/dL (70-99); HEMOLYSIS < 15 (0-50); Hematocrit 40.8 % (41-53); Hemoglobin 13.8 g/dL (13.5-17.5); Lymphocytes Absolute Auto 500 /uL (1100-4500); Lymphocytes Percent Auto 9.7 % (25-40); Mean Corpuscular HGB Conc 33.7 % (30-36); Mean Corpuscular Hemoglobin 31.8 PG (26-34); Mean Corpuscular Volume 94.4 fL (80-100); Monocytes Absolute Auto 600 /uL (0-900); Neutrophils Absolute Auto 3900 /uL (1500-7000); Neutrophils Percent Auto 72.8 % (50-75); Platelet Count 144 X10^3/uL (150-400); Potassium 4.4 mmol/L (3.4-5.1); Red Blood Cell Count 4.32 X10^6/uL (4.5-5.9); Red Cell Distribution Width 14.1 % (11.6-14.8); Sodium 134 mmol/L (137-145); White Blood Cell Count 5.4 X10^3/uL (4.5-11.0)
[2025-02-09 13:19] LABS: Troponin I < 0.012 ng/mL (0.01-0.034)
[2025-02-09 13:24] LABS: Procalcitonin 0.314 ng/mL (<0.5)
--- NOTE | 2025-02-09 13:32 | DI.CT.S_ITS ---
PROCEDURE: CT THORACIC SPINE WO CON INDICATIONS: Fall/pain TECHNIQUE: Noncontrast 3 mm thick sections acquired through the region of interest in the thoracic spine. Sagittal and coronal reformats were then constructed. For radiation dose reduction, the following was used: automated exposure control. COMPARISON: [facility], CT, CT CHEST ABD PEL W CON, 12/07/2024, 12:53. FINDINGS: Image quality: Diagnostic Bones: T10 and C7 superior endplate deformity is similar to prior imaging. Mild diffuse spondylosis. No traumatic subluxation or acute vertebral body height loss identified. Scattered sclerotic bone lesions again seen, for example at the right 6 rib. Soft tissues: Vascular calcifications. Coronary calcifications. Partial left staghorn renal calculi. IMPRESSION: Degenerative thoracic spine changes. No new fracture or dislocation. Superior endplate deformities at C7 and T10 are similar to prior, probably Schmorl's nodes. If there is high concern for further derangement, consider MRI evaluation. Dictated by: Shashank Gamboa M.D. on 02/09/2025 at 14:58 Approved by: Shashank Gamboa M.D. on 02/09/2025 at 15:02
--- NOTE | 2025-02-09 13:33 | PC.NURSE ---
Rigid C-collar removed at this time by Dr. Elizondo. Patient and family updated by MD on additional CT scan being ordered. Patient has no complaints at this time.
--- NOTE | 2025-02-09 13:36 | ED.FALL ---
HPI - Fall General Chief Complaint: Fall Stated Complaint: mental health, weakness, to much anti depressant Time Seen by Provider: 02/09/25 13:02 Source: patient Mode of arrival: Wheelchair History of Present Illness HPI Narrative: Patient brought here by daughter for complaints of multiple falls in the past week. Had 3 falls recently since this past Saturday. Did hit his head. Patient is not on any blood thinners.. Complains of upper back pain lower neck pain. C-collar applied in triage. Patient is being worked up for Parkinson's by care. No neurology consult. Patient does have history seizures hypothyroidism anxiety. Patient had Zoloft dose increased by primary care recently. There was concern of SSRI toxicity. However there is no altered mental status. No nausea or vomiting. Patient states global weakness in the legs. Causing him to fall. No chest pain headache abdominal pain causing him to fall down. Patient is awake alert or x4. Does have a resting tremor. He did bump both elbows and knees but has full active range of motion of those joints. Patient lives with his at home. At this time they do not feel safe for patient to go back home. Related Data Home Medications ?Medication ?Instructions ?Recorded ?Confirmed fluoxetine 20 mg capsule 1 cap PO BEDTIME 05/15/18 02/09/25 levothyroxine 88 mcg tablet 44 mcg PO DAILY 05/15/18 02/09/25 multivitamin 1 cap PO DAILY 07/16/19 10/09/20 mirtazapine 45 mg tablet 45 mg PO BEDTIME 05/06/20 02/09/25 divalproex 250 mg tablet,extended 250 mg PO QAM 10/09/20 02/09/25 release 24 hr divalproex 500 mg tablet,extended 500 mg PO QPM 10/09/20 02/09/25 release 24 hr lamotrigine 100 mg tablet 100 mg PO BID 10/09/20 02/09/25 losartan 25 mg tablet 25 mg PO DAILY 02/09/25 02/09/25 Previous Rx's ?Medication ?Instructions ?Recorded oxycodone-acetaminophen 5 mg-325 1 tab PO Q6H PRN pain #10 tabs 02/02/23 mg tablet sulfamethoxazole 800 1 tab PO Q12H #14 tabs 03/31/23 mg-trimethoprim 160 mg tablet (Bactrim DS) oxycodone 5 mg tablet 5 mg PO QID PRN pain #20 tabs 12/07/24 Allergies Allergy/AdvReac Type Severity Reaction Status Date / Time latex Allergy Severe Rash Verified 02/09/25 12:18 Penicillins (PENICILLINS) Allergy Severe ANAPHYLAXIS Verified 02/09/25 12:18 vortioxetine (From AdvReac Severe Nausea Verified 02/09/25 12:18 Trintellix) Review of Systems Review of Systems Narrative: GENERAL: Negative chills, positive fatigue, malaise, negative fever, sweats. HEENT: Negative sinus pain, ear pain, sore throat RESPIRATORY: Negative dyspnea, cough CARDIOVASCULAR: Negative chest pain, palpitations GASTROINTESTINAL: Negative vomiting, nausea, abdominal pain : Negative dysuria, frequency, hematuria MUSCULOSKELETAL: Positive muscle or bony pain SKIN: Negative rash, skin lesions NEUROLOGIC: Negative weakness, numbness ROS Unobtainable: All systems reviewed & are unremarkable except as noted in HPI and below Patient History Medical History (Updated 02/25/25 @ 00:00 by ) GERD (gastroesophageal reflux disease) Paresthesias (~03/2018) Epilepsy History of prosthetic unicompartmental arthroplasty of left knee Suicidal ideations UTI (urinary tract infection) Hyperlipidemia Sleep apnea Depression Lupus History of ankle fracture Bone spur Hypothyroidism Kidney stones Urinary stream slowing Urinary dribbling Surgical History History of lumbar spinal fusion (01/27/18) History of prosthetic unicompartmental arthroplasty of right knee S/P right unicompartmental knee replacement S/P left unicompartmental knee replacement History of arthroscopy of both knees H/O laminectomy Hx of tonsillectomy Hx of appendectomy History of knee replacement History of cataract removal with insertion of prosthetic lens Family History Father Heart disease Hypertension High cholesterol Mother Leukemia Social History marital status: household members: spouse Smoking Status: Never smoker alcohol intake: never Smoking Status: Never smoker alcohol intake frequency: 3 or more drinks per day Exam Narrative Exam Narrative: GENERAL: in no distress, not toxic not dyspneic HEAD: Normocephalic. EYES: Pupils equal round ENT: Mucous membranes moist. NECK: Trachea midline. Mild paracervical tenderness at C7 but no step-off. CARDIOVASCULAR: Regular rate and rhythm RESPIRATORY: Clear to auscultation. Breath sounds equal bilaterally. No wheezes, rales, or rhonchi. GASTROINTESTINAL: Abdomen soft, non-tender EXTREMITIES: No gross deformities. BACK: No flank tenderness. NEURO: AOx4. Clear speech SKIN: Warm and dry PSYCH: Not anxious, is cooperative Initial Vital Signs Initial Vital Signs: Vital Signs Temperature 97.8 F 02/09/25 12:18 Pulse Rate 89 02/09/25 12:18 Respiratory Rate 20 02/09/25 12:18 Blood Pressure 104/59 L 02/09/25 12:18 Pulse Oximetry 96 02/09/25 12:18 Oxygen Delivery Method Room Air 02/09/25 12:18 Course Orders Ordered: Discontinued Medications Divalproex Sodium (Divalproex Dr 250 Mg Tablet) 500 mg PO BEDTIME [facility] Last Admin: 02/09/25 23:51 Dose: 500 mg Documented By: JHONNY Fluoxetine HCl (Fluoxetine 10 Mg Capsule) 10 mg PO BEDTIME [facility] Last Admin: 02/09/25 23:50 Dose: 10 mg Documented By: JHONNY Sodium Chloride (Normal Saline 0.9%) 1,000 mls @ 1,000 mls/hr IV BOLUS ONE Stop: 02/09/25 14:32 Last Infusion: 02/09/25 14:47 Dose: Infused Documented By: Admin: 02/09/25 13:41 Dose: 1,000 mls/hr Documented By: SAMANTHA Levothyroxine Sodium (Levothyroxine 50 Mcg Tablet) 50 mcg PO DAILY@0600 [facility] Last Admin: 02/10/25 07:01 Dose: 50 mcg Documented By: JHONNY Losartan Potassium (Losartan 25 Mg Tablet) 25 mg PO DAILY [facility] Last Admin: 02/10/25 08:29 Dose: 25 mg Documented By: JHONNY(2) Mirtazapine (Mirtazapine 15 Mg Tablet) 45 mg PO BEDTIME [facility] Last Admin: 02/09/25 23:51 Dose: 45 mg Documented By: JHONNY Oxycodone HCl (Oxycodone Ir 5 Mg Tablet) 5 mg PO NOW ONE Stop: 02/09/25 19:58 Last Admin: 02/09/25 20:09 Dose: 5 mg Documented By: Oxycodone HCl (Oxycodone Ir 5 Mg Tablet) 5 mg PO NOW ONE Stop: 02/10/25 11:56 Last Admin: 02/10/25 12:04 Dose: 5 mg Documented By: JHONNY(2) Vital Signs Vital signs: Vital Signs - 8 hr 02/10/25 14:35 Temperature 98 F Pulse Rate 74 Respiratory Rate 16 Blood Pressure 135/81 Pulse Oximetry 95 Oxygen Delivery Method Room Air MDM - Fall Lab Data 02/09/25 12:40 02/09/25 12:40 Labs: Lab Results 02/09/25 02/09/25 02/09/25 Range/Units 12:40 15:02 15:27 WBC 5.4 (4.5-11.0) X10^3/uL RBC 4.32 L (4.5-5.9) X10^6/uL Hgb 13.8 (13.5-17.5) g/dL Hct 40.8 L (41-53) % MCV 94.4 (80-100) fL MCH 31.8 (26-34) PG MCHC 33.7 (30-36) % RDW 14.1 (11.6-14.8) % Plt Count 144 L (150-400) X10^3/uL Neut % (Auto) 72.8 (50-75) % Lymph % (Auto) 9.7 L (25-40) % [place] % (Auto) 12.0 (3-14) % Eos % (Auto) 5.2 H (2-4) % Baso % (Auto) 0.3 (0-2) % Neut # (Auto) 3900 (6600-8369) /uL Lymph # (Auto) 500 L (0985-2066) /uL [place] # (Auto) 600 (0-900) /uL Eos # (Auto) 300 (0-450) /uL Baso # (Auto) 0 (0-100) /uL Sodium 134 L (137-145) mmol/L Potassium 4.4 (3.4-5.1) mmol/L Chloride 104 (98-107) mmol/L Carbon Dioxide 21 L (22-32) mmol/L BUN 40 H (9-20) mg/dL Creatinine 1.16 (0.66-1.25) mg/dL Estimated GFR > 60 (>60) mL/min BUN/Creatinine Ratio 34.5 H (6-22) Glucose 102 H (70-99) mg/dL Lactate 2.6 H 1.0 (0.7-2.1) mmol/L Calcium 9.4 (8.4-10.2) mg/dL Magnesium 2.0 (1.6-2.3) mg/dL Total Bilirubin 0.7 (0.2-1.3) mg/dL AST 63 H (17-59) IU/L ALT 55 H (<50) IU/L Alkaline Phosphatase 52 (38-126) U/L Total Creatine Kinase 39 L (55-170) U/L Troponin I < 0.012 (0.01-0.034) ng/mL Total Protein 6.0 L (6.3-8.2) g/dL Albumin 4.0 (3.5-5.0) g/dL Globulin 2.0 (1.7-4.1) g/dL Albumin/Globulin Ratio 2.0 (1.0-2.8) Procalcitonin 0.314 (<0.5) ng/mL TSH 1.37 (0.47-4.68) uIU/mL Urine RBC None seen (0-5/HPF) Urine WBC 5-10/hpf H (0-5/HPF) Ur Squamous Epith Cells None seen (0-5/HPF) Urine Bacteria None seen (None) Ur Culture Indicated? Specimen cultured Vol Urine Centrifuged Low vol <10ml (spun) A U Opiates 300ng/mL cut Negative (Negative) Ur Oxycodone Screen Negative (Negative) Urine Methadone Screen Negative (Negative) Ur Barbiturates Screen Negative (Negative) Total Valproic Acid (50-100) ug/mL U Tricyclic Antidepress Negative (Negative) Ur Phencyclidine Scrn Negative (Negative) Ur Amphetamines Screen Negative (Negative) U Methamphetamines Scrn Negative (Negative) Ur MDMA Scrn (Ecstasy) Negative (Negative) U Benzodiazepines Scrn Positive H (Negative) Urine Cocaine Screen Negative (Negative) U Marijuana (THC) Screen Positive H (Negative) Urine pH Normal (Normal) Urine Specific [place] Normal (Normal) Ethyl Alcohol < 10 (<10) mg/dL Ur Creatinine Normal (Normal) 02/09/ Range/Units 18:25 WBC (4.5-11.0) X10^3/uL RBC (4.5-5.9) X10^6/uL Hgb (13.5-17.5) g/dL Hct (41-53) % MCV (80-100) fL MCH (26-34) PG MCHC (30-36) % RDW (11.6-14.8) % Plt Count (150-400) X10^3/uL Neut % (Auto) (50-75) % Lymph % (Auto) (25-40) % [place] % (Auto) (3-14) % Eos % (Auto) (2-4) % Baso % (Auto) (0-2) % Neut # (Auto) (6883-0227) /uL Lymph # (Auto) (7031-9004) /uL [place] # (Auto) (0-900) /uL Eos # (Auto) (0-450) /uL Baso # (Auto) (0-100) /uL Sodium (137-145) mmol/L Potassium (3.4-5.1) mmol/L Chloride (98-107) mmol/L Carbon Dioxide (22-32) mmol/L BUN (9-20) mg/dL Creatinine (0.66-1.25) mg/dL Estimated GFR (>60) mL/min BUN/Creatinine Ratio (6-22) Glucose (70-99) mg/dL Lactate (0.7-2.1) mmol/L Calcium (8.4-10.2) mg/dL Magnesium (1.6-2.3) mg/dL Total Bilirubin (0.2-1.3) mg/dL AST (17-59) IU/L ALT (<50) IU/L Alkaline Phosphatase (38-126) U/L Total Creatine Kinase (55-170) U/L Troponin I (0.01-0.034) ng/mL Total Protein (6.3-8.2) g/dL Albumin (3.5-5.0) g/dL Globulin (1.7-4.1) g/dL Albumin/Globulin Ratio (1.0-2.8) Procalcitonin (<0.5) ng/mL TSH (0.47-4.68) uIU/mL Urine RBC (0-5/HPF) Urine WBC (0-5/HPF) Ur Squamous Epith Cells (0-5/HPF) Urine Bacteria (None) Ur Culture Indicated? Vol Urine Centrifuged U Opiates 300ng/mL cut (Negative) Ur Oxycodone Screen (Negative) Urine Methadone Screen (Negative) Ur Barbiturates Screen (Negative) Total Valproic Acid 71 (50-100) ug/mL U Tricyclic Antidepress (Negative) Ur Phencyclidine Scrn (Negative) Ur Amphetamines Screen (Negative) U Methamphetamines Scrn (Negative) Ur MDMA Scrn (Ecstasy) (Negative) U Benzodiazepines Scrn (Negative) Urine Cocaine Screen (Negative) U Marijuana (THC) Screen (Negative) Urine pH (Normal) Urine Specific [place] (Normal) Ethyl Alcohol (<10) mg/dL Ur Creatinine (Normal) Urine Dip Bedside Urine Glucose Negative Bedside Urine Bilirubin - Negative Bedside Urine Ketone +/- 5 Urine Specific [place] 1.025 Bedside Urine Occult Blood - Negative Bedside Urine pH 6.0 Bedside Urine Protein +/- 15 Bedside Urine Urobilinogen +/- 1mg Bedside Urine Nitrite - Negative Bedside Urine Leukocytes ++ 125 Esterase Imaging Data Chest x-ray: Radiologist's Impression: [address] [address] XRay Report Signed Patient: Dago Ferrara MR#: [id number] : 1950 Acct:[id number] Age/Sex: 74 / M Date of Service: 02/09/25 Loc: ED Accession Number: [id number] Procedure: XR chest 1V Ordering Provider: Amarjit Elizondo MD PROCEDURE: XR CHEST 1V INDICATIONS: altered mental status TECHNIQUE: One view of the chest was acquired. COMPARISON: [facility], XR CHEST 1V, 02/05/2025, 15:37. [facility], XR CHEST 1V, 08/01/2021, 11:55. FINDINGS: Surgical changes and devices: None. Lungs and pleura: Lungs are clear. No pleural effusions or pneumothorax. Mediastinum: Mediastinal contours appear normal. Heart size is normal. Bones and chest wall: No suspicious bony lesions. Overlying soft tissues appear unremarkable. IMPRESSION: No acute cardiopulmonary abnormality is seen. Dictated by: Refugio Gabriel M.D. on 02/09/2025 at 13:10 Approved by: Refugio Gabriel M.D. on 02/09/2025 at 13:17 CT scan - head: Radiologist's Impression: [address] [address] [address] Scan Report Signed Patient: Dago Ferrara MR#: [id number] : 1950 Acct:[id number] Age/Sex: 74 / M Date of Service: 02/09/25 Loc: ED Accession Number: [id number] Procedure: CT head/brain wo con Ordering Provider: Amarjit Elizondo MD PROCEDURE: CT HEAD/BRAIN WO CON INDICATIONS: 4 falls since saturday 3 head strikes TECHNIQUE: Noncontrast 4.5 mm thick angled axial sections acquired from the foramen magnum to the vertex, with coronal and sagittal reformats. For radiation dose reduction, the following was used: automated exposure control, adjustment of mA and/or kV according to patient size. COMPARISON: [facility], CT, CT HEAD/BRAIN WO CON, 02/05/2025, 15:47. FINDINGS: Image quality: Diagnostic. CSF spaces: Basal cisterns are patent. No extra-axial fluid collections. The ventricles are symmetric in size and shape. Brain: No intracranial bleeds or mass effect. There is cerebral volume loss, with resultant ventricular and sulcal prominence. There are periventricular and deep white matter chronic small vessel ischemic changes. There is intracranial internal carotid artery atherosclerosis. Skull and face: Calvarium and visualized facial bones appear intact, without suspicious lesions. Sinuses: Visualized sinuses and mastoids are clear. IMPRESSION: No acute intracranial pathology. Dictated by: Refugio Gabriel M.D. on 02/09/2025 at 13:18 Approved by: Refugio Gabriel M.D. on 02/09/2025 at 13:19 CT - cervical spine: Radiologist's Impression: [address] [address] [address] Scan Report Signed Patient: Dago Ferrara MR#: [id number] : 1950 Acct:[id number] Age/Sex: 74 / M Date of Service: 02/09/25 Loc: ED Accession Number: [id number] Procedure: CT cervical spine wo con Ordering Provider: Amarjit Elizondo MD PROCEDURE: CT CERVICAL SPINE WO CON INDICATIONS: 4 falls in 4days 3 head strikes head and neck pain TECHNIQUE: Noncontrast 3 mm thick sections acquired from the skull base to the T4 level. Sagittal and coronal reformats were then constructed. For radiation dose reduction, the following was used: automated exposure control, adjustment of mA and/or kV according to patient size. COMPARISON: [facility], CT, CT CERVICAL SPINE WO CON, 02/01/2023, 20:32. [facility], CT, CT CERVICAL SPINE WO CON, 02/05/2025, 15:47. FINDINGS: Image quality: Excellent. Bones: No fractures or dislocations. Multilevel degenerative changes of the cervical spine. Visualized superior ribs are intact. Scattered sclerotic foci are present, stable back to 2022 exam and likely representing bone islands. Soft tissues: Prevertebral soft tissues are normal in thickness. No paravertebral hematomas. No apical pneumothoraces. IMPRESSION: No displaced fracture or traumatic subluxation. Multilevel degenerative changes of the cervical spine. Dictated by: Refugio Gabriel M.D. on 02/09/2025 at 13:20 Approved by: Refugio Gabriel M.D. on 02/09/2025 at 13:23 CT thoracic spine: Radiologist's Impression: [place] [address] CT Scan Report Signed Patient: Dago Ferrara MR#: [id number] : 1950 Acct:[id number] Age/Sex: 74 / M Date of Service: 02/09/25 Loc: Accession Number: [id number] Procedure: CT thoracic spine wo con Ordering Provider: Amarjit Elizondo MD PROCEDURE: CT THORACIC SPINE WO CON INDICATIONS: Fall/pain TECHNIQUE: Noncontrast 3 mm thick sections acquired through the region of interest in the thoracic spine. Sagittal and coronal reformats were then constructed. For radiation dose reduction, the following was used: automated exposure control. COMPARISON: [facility], CT, CT CHEST ABD PEL W CON, 12/07/2024, 12:53. FINDINGS: Image quality: Diagnostic Bones: T10 and C7 superior endplate deformity is similar to prior imaging. Mild diffuse spondylosis. No traumatic subluxation or acute vertebral body height loss identified. Scattered sclerotic bone lesions again seen, for example at the right 6 rib. Soft tissues: Vascular calcifications. Coronary calcifications. Partial left staghorn renal calculi. IMPRESSION: Degenerative thoracic spine changes. No new fracture or dislocation. Superior endplate deformities at C7 and T10 are similar to prior, probably Schmorl's nodes. If there is high concern for further derangement, consider MRI evaluation. Dictated by: Shashank Gamboa M.D. on 02/09/2025 at 14:58 Approved by: Shashank Gamboa M.D. on 02/09/2025 at 15:02 [facility] Narrative Medical decision making narrative: Patient is seen at primary care office this morning just prior to arrival and saw Dr. Sargent, he spoke with me and once patient evaluated for shortness of breath. Patient has had increased shortness of breath for the past couple of days. Patient is on nasal cannula continuous at home but requiring more. Patient has history of chemo and radiation therapy for right lung cancer lobectomy, pulmonary embolism on Eliquis. Patient does see Dr. Guillen, oncology service at [facility]. Patient also sees pulmonary provider here locally doctor roesmarie. Patient was placed on antibiotics by her oncologist last week for possible pneumonia. Patient was placed on steroids by her cube machine tender recently and is still on them. Patient is to your left both and had same symptoms and improved with Valium. However she states symptoms are different today. She does not feel anxious. After history and exam, CBC CMP TSH magnesium CT head CT cervical spine CT thoracic spine urinalysis EKG troponin social work consult physical therapy consult [facility] Medical records reviewed: Patient seen here February 05, 2025 for UTI Differential considered: Includes but not limited to dehydration anemia arrhythmia Lab Test results independently reviewed as above. Pertinent findings: WBC 5.4 hemoglobin 13.8 sodium 134 potassium 4.4 BUN 40 creatinine 1.16 lactate 2.6 troponin less than 0.012 total CK 39 procalcitonin 0.314 Independently reviewed EKG normal sinus rhythm normal EKG rate 81 Imaging studies independently reviewed: CT head CT cervical spine no acute finding chest x-ray no acute finding CT thoracic spine no acute finding Consultations: Re-evaluations: 1:42 p.m.. Updated patient and daughter results so far. C-collar removed clinically. CT cervical spine no acute finding. No midline tenderness or step-off of the cervical spine. 4:30 p.m.. Updated patient and daughter results. He did feel physical therapy. They do agree for social work consult but not available until tomorrow. They will be spending the night. No admission criteria. They will be staying here in the department Discussion: 6:[address] Elizondo: Sign out to Dr. Cho, patient will need to board overnight. fellmongery worker is not available today. Patient is otherwise medically cleared. Will need social work in the morning. Patient has his home medications here. Diagnosis: Discharge Plan Departure Patient Disposition: Left Against Medical Advice Clinical Impression: Left against medical advice Prescriptions: No Action sulfamethoxazole-trimethoprim [Bactrim DS] 800-160 mg tablet 1 tab PO Q12H Qty: 14 0RF multivitamin Capsule 1 cap PO DAILY divalproex 500 mg Tablet Extended Release 24 Hr 500 mg PO QPM lamotrigine 100 mg Tablet 100 mg PO BID divalproex 250 mg Tablet Extended Release 24 Hr 250 mg PO QAM oxycodone-acetaminophen 5-325 mg tablet 1 tab PO Q6H PRN (Reason: pain) Qty: 10 0RF fluoxetine 20 mg capsule 1 cap PO BEDTIME Patient Comments: TAKE 1 CAPSULE BY MOUTH EVERY DAY levothyroxine 88 mcg Tablet 44 mcg PO DAILY mirtazapine 45 mg tablet 45 mg PO BEDTIME oxycodone 5 mg tablet 5 mg PO QID PRN (Reason: pain) Qty: 20 0RF losartan 25 mg tablet 25 mg PO DAILY Referrals: Melisa Gillespie PA-C [Primary Care Provider, Medical] Stand Alone Forms: Patient Portal/API, Against Med. Advice (Bulgarian)
[2025-02-09] MEDS: SODIUM CHLORIDE 0.9% 1,000 ML 1000 ML IV (13:41)
[2025-02-09 14:19] LABS: Thyroid Stimulating Hormone 1.37 uIU/mL (0.47-4.68)
[2025-02-09 14:25] LABS: Reflexed Lactate in 2 Hours Y
[2025-02-09 15:48] LABS: Ur Creatinine Normal (Normal); Ur Specific Gravity Normal (Normal); Urine pH Normal (Normal)
[2025-02-09 15:49] LABS: UR Morphine/Opiate cutoff 300 Negative (Negative); Urine Amphetamines Negative (Negative); Urine Barbiturates Negative (Negative); Urine Benzodiazepines Positive (Negative); Urine Cocaine Negative (Negative); Urine MDMA Negative (Negative); Urine Methadone Negative (Negative); Urine Methamphetamines Negative (Negative); Urine Oxycodone Negative (Negative); Urine Phencyclidine Negative (Negative); Urine Tetrahydrocannabinol Positive (Negative); Urine Tricyclic Antidepressant Negative (Negative)
--- NOTE | 2025-02-09 15:50 | PT.IIE ---
Surgical History (Last Reviewed 02/05/25 @ 15:41 by Pretty Caldwell PA-C) H/O laminectomy History of arthroscopy of both knees History of cataract removal with insertion of prosthetic lens History of knee replacement History of lumbar spinal fusion (01/27/18) History of prosthetic unicompartmental arthroplasty of right knee Hx of appendectomy Hx of tonsillectomy S/P left unicompartmental knee replacement S/P right unicompartmental knee replacement Medical History (Last Reviewed 02/05/25 @ 15:41 by Pretty Caldwell PA-C) Bone spur Depression Epilepsy GERD (gastroesophageal reflux disease) History of ankle fracture History of prosthetic unicompartmental arthroplasty of left knee Hyperlipidemia Hypothyroidism Kidney stones Lupus Paresthesias (~03/2018) Sleep apnea Suicidal ideations Urinary dribbling Urinary stream slowing UTI (urinary tract infection) Physical Therapy Inpatient Evaluation/Re-Eval M1 PT/OT-IP Prior Functional Status Start: 02/09/25 18:32 Freq: Status: Active Protocol: Document 02/09/25 15:50 AB (Rec: 02/09/25 18:54 AB [id number]) Medical Review Prior Functional Status Medical History Yes Reviewed Communication able to make needs known; with memory issues Mobility and Gait daughter provided most of pt's PLOF and home set up: daughter stated that pt has been using a SPC for the past 2 weeks due to falls but prior to that, without AD ; daughter stated that pt has a fall last november and had 4 rib fx and since then, has been having falls and had at least 4 falls for the last week; pt also has increase tremors and decrease memory per daughter; pt has been waiting for a neurology consult but stated that the wait list is long; Social History Household Members spouse Living Arrangements House Number of Floors ( Two Floors Floors) Number of Stairs To has no step to enter but has 14 steps B rails to get to Enter/Railing? the main level of the house Home Environment Standard Height Toilet,Tub/Shower Home Equipment Front Wheel Walker,Straight Cane,Hand Held Shower M2 PT-IP Current Condition Start: 02/09/25 18:32 Freq: Status: Active Protocol: Document 02/09/25 15:50 AB (Rec: 02/09/25 18:54 AB [id number]) Physical Therapy Current Condition Current Condition Evaluation Date 02/09/25 Treatment Diagnosis falls; difficulty in walking Onset Date 02/09/25 M3 PT-IP Subjective Start: 02/09/25 18:32 Freq: Status: Active Protocol: Document 02/09/25 15:50 AB (Rec: 02/09/25 18:54 AB [id number]) Subjective Physical Therapy Visit Type Type Initial Evaluation Visit Start Time 15:50 Visit Stop Time 16:35 Number of PPA TEACHER Visits 0 Physical Therapy Visit Comments Patient Comments agreeable to do PT Therapy Pain Assessment Pain When Pain Assessed At Rest Pain Present Pain Present Pain Reported Location Right Shoulder Intensity 7 Scale Used pain during mobility neck Intensity 7 Head Intensity 7 M4 PT-IP Mobility and Gait Start: 02/09/25 18:32 Freq: Status: Active Protocol: Document 02/09/25 15:50 AB (Rec: 02/09/25 18:54 AB [id number]) PT-Bed Mobility Assessment Supine to Sit Supine to Sit Maximum Assistance Sit to Supine Sit to Supine Maximum Assistance,2 Person Assistance PT-Transfer Assessment Sit to and From Stand Sit to and from Maximum Assistance,2 Person Assistance,Use of Upper Stand Extremities Equipment Transfer Assistive Gait Belt,Front Wheeled Walker Device Orthotic/Prosthetic No Devices or Brace: Comments Mobility Comments pt in bed. daughter in room. obtained PLOF and home set up. daughter provided most of the info. pt with resting tremors noted. BP: 123/59. pt completed supine to sit max A and max cues. increase tremors with mobility; presents with increase posterior trunk lean and LE extension. cued pt to correct and assisted pt as well but pt unable to maintain. sit to stand from EOB max A x 2 and max cues and max A x 2 for standing balance using standard walker. increase posterior lean. pt also presents with increase tremors and stiffness. pt also has difficulty following directions. assisted pt back to sit max A x 2. sit to supine max A x 2 and max cues. positioned pt in bed. call light and table placed within reach. informed nurse regarding c/o pain and level of assistance needed. Gait Assessment Comments Gait Comments unable at this time PT-Balance Assessment Sitting Balance and Reactions Static Sitting Poor Balance Ability Dynamic Sitting Poor Balance Ability Standing Balance and Reactions Static Standing Poor Balance Ability Dynamic Standing Poor Balance Ability Device Used std walker M5 PT-IP Objective Assessments Start: 02/09/25 18:32 Freq: Status: Active Protocol: Document 02/09/25 15:50 AB (Rec: 02/09/25 18:54 AB [id number]) Orientation Orientation/Cognition Level of Alertness Alert Orientation Name,Place,Situation Safety Awareness Decreased Safety Awareness Memory Description Short Term Impaired,Group Home Impaired Gross Range of Motion Lower Extremity ROM Assessment Within Functional Limits Strength Lower Extremity Strength Hip 4-/5 Knee 4-/5 Muscle Tone Muscle Tone WNL No Comments Muscle Tone Comments generalized resting tremors noted M6 PT-IP Treatment Start: 02/09/25 18:32 Freq: Status: Active Protocol: Document 02/09/25 15:50 AB (Rec: 02/09/25 18:54 AB [id number]) Physical Therapy Treatment Education Education Provided Safety M7 PT-IP Assessment and Plan Start: 02/09/25 18:32 Freq: Status: Active Protocol: Document 02/09/25 15:50 AB (Rec: 02/09/25 18:54 AB [id number]) PT Summary Assessment and Plan Potential Rehabilitation Fair Potential Status of Condition Unstable at Evaluation Summary Impairments Pain,ROM,Strength,Balance,Coordination,Sensation,Tone, Cognition,Bed Mobility,Transfers,Gait,Activity Tolerance Assessment Summary pt is a 74 y/o M who presented to the ED s/p falls. pt with increasing tremors per daughter and has been falling at home. pt was not able to see and neurologist due to long wait list to see the doctor. pt has dx of epilepsy and SLE. pt was seen a neurologist for his epilepsy but his neurologist has just retired. pt requiring max A x 2 for bed mobility, sit to stand and unable to ambulate at this time. pt needing max A x 2 for standing balance using a standard walker and presents with increase retrolean, increase resting tremors and stiffness during mobility. pt will require 24/7 assist at this time and will need SNF rehab. pt will need a tremors other symptoms address medically as this are the major factors affecting mobility at this time. will continue to assess. Goals Bed Mobility Goal Minimal Assistance Transfer Goal Minimal Assistance,Front Wheeled Walker Gait Goal Minimal Assistance,Front Wheel Walker Gait Distance 20 Other Goals improve bed mobility, transfers, ambulation using FWW ~ 50 ft SBA Days to Meet Goals 10 Frequency of Treatment Frequency Of Once a Day Treatment Treatment Plan Physical Therapy Bed Mobility Training,Transfer Training,Gait Training, Treatment Plan Therapeutic Exercise,Balance Retraining,Discharge Planning,Hot or Cold Pack,Neuromuscular Re-ed, Coordination Retraining,Manual Therapy Precautions Other Precautions falls Recommendations To Nursing Amount of Assist Mechanical Lift Needed Discharge Recommendations PT Discharge SNF Rehab Recommendations Transportation Needs Wheelchair/Cabulance,Stretcher/Ambulance at Discharge - PT assist 2
[2025-02-09 19:25] LABS: Bacteria Urine None Seen; RBC Urine None Seen (0-5/HPF); Squamous Epithelial Cell Urine None Seen (0-5/HPF); Urine Volume Low Vol <10mL (spun); WBC Urine 5-10/HPF (0-5/HPF)
[2025-02-09 19:26] LABS: Culture Indicated Urine Specimen Cultured
[2025-02-09] MEDS: OXYCODONE IR 5 MG TABLET PO (20:09)
--- NOTE | 2025-02-09 22:32 | PC.NURSE ---
Pt moved to hospital bed due to boarding in the ER.
--- NOTE | 2025-02-09 22:32 | PC.NURSE ---
Pt moved to inpatient hospital bed for skin protection and comfort.
[2025-02-09] MEDS: FLUoxetine 10 MG CAPSULE PO (23:50)
[2025-02-09] MEDS: DIVALPROEX DR 250 MG TABLET 500 MG PO (23:51)
[2025-02-09] MEDS: MIRTAZAPINE 15 MG TABLET 45 MG PO (23:51)
[2025-02-10 03:55] VITALS: O2SAT 93
[2025-02-10 03:56] VITALS: BP 142/87; PULSE 75; O2SAT 95
[2025-02-10 03:59] VITALS: BP 142/87; PULSE 77; RESP 20; O2SAT 94
[2025-02-10] MEDS: LEVOTHYROXINE 50 MCG TABLET PO (07:01)
[2025-02-10 08:29] VITALS: BP 135/83; PULSE 76; PULSE 78; RESP 18; TEMP 36.6; O2SAT 96
[2025-02-10] MEDS: LOSARTAN 25 MG TABLET PO (08:29)
[2025-02-10] MEDS: OXYCODONE IR 5 MG TABLET PO (12:04)
--- NOTE | 2025-02-10 14:09 | CM.DANOTE ---
ED AS400 ADMINISTRATOR Assessment Note: Pt is a 74yo male, resident of [place], is seen in the ED for multiple falls and rapid decline in the past 5 days with a new Parkinson's diagnosis. Pt lives in a house with his Humberto, his daughter, Stella, lives two minutes away from them. Pt's Primary Care Provider is Melisa Gillespie PA-C and insurance is Medicare and [facility]. Reviewed chart and discussed with multidisciplinary team pt's medical status and initial discharge needs. Per MD, no admittable diagnosis and more appropriate for SNF Rehab. PT evaluation recommending SNF Rehab, 2 person assist. AS400 ADMINISTRATOR entered room to meet with patient, introduced self and role. Present in the room are pt's family members, and daughter. All express concern that pt is being recommended for SNF Rehab when they feel he needs to be seen by a neurologist due to his sudden Parkinson's symptoms acceleration in the last five days. They state they have been in communication with pt PCP and neuropsychologist who recommends neurologist consult or admission to stabilize on appropriate medications; requesting transfer to [facility] or [facility]. AS400 ADMINISTRATOR reviews this with ED provider Dr. Gross who indicates agreement and understanding, stated he will attempt to transfer at pt request but due to triaging needs, he is not able to get to it before pt family endorsed strong preference to leave AMA. AS400 ADMINISTRATOR reviewed this with pt TAWANNA Carney. Both this AS400 ADMINISTRATOR and RN returned to pt room with family present, discussed current status of ED Provider and they still request to leave AMA. Plan: Pt to discharge with family against medical advice. CAROL Ramos
--- NOTE | 2025-02-10 14:29 | PC.NURSE ---
Pt and family expressed desires to leave AMA. Pt and family educated on risks of leaving prior to completion of treatment and workup. Family expresses strong desire to go to [facility] to seek in-person neurology d/t pt's six day decline. Pt and signed AMA paperwork. Sports Bookmaker (Amisha) and MD (Renato) made aware of pt desire to leave. Renato stated he was not able to finish workup to consult outside facilities about transfer. Pt assisted to vehicle with wheelchair and gait belt. Family and pt expressed gratitude for work up completed in ER.
[2025-02-10 14:35] VITALS: BP 135/81; PULSE 74; RESP 16; TEMP 36.6; O2SAT 95
[2025-02-11 04:40] LABS: Valproic Acid (Depakene) Total 71 ug/mL (50-100)
== END 2025-02-10 14:35 | disposition left against medical advice (07) ==
PROVIDERS: Emergency Medicine; Emergency Provider Family Medicine; PCP Physician Assistant
DX: S09.90XA Unspecified injury of head, initial encounter (principal); M54.6 Pain in thoracic spine; M54.2 Cervicalgia; R29.6 Repeated falls; W18.30XA Fall on same level, unspecified, initial encounter; G20.A1 Parkinson's disease without dyskinesia, without mention of fluctuations
CPT/HCPCS: 36415; 70450; 71045; 72125; 72128; 80053; 80164; 80305; 80320; 81003; 81015; 82550; 83605; 83735; 84145; 84443; 84484; 85025; 87040; 87086; 93005; 93010; 96360; 97163; 97530; 99285

== ENCOUNTER → 2025-04-05 08:52 | Outpatient (CLI) | payer MEDICARE, OTHER, SELFPAY ==
[2020-10-09 22:27] VITALS: BMI 23.6
[2020-10-11 10:27] VITALS: PULSE 68; RESP 11; O2SAT 99
[2025-04-05 09:51] LABS: Add Manual Diff / Slide Review NO; Hematocrit 42.3 % (41-53); Hemoglobin 14.4 g/dL (13.5-17.5); Lymphocytes Absolute Auto 2300 /uL (1100-4500); Mean Corpuscular HGB Conc 34.1 % (30-36); Mean Corpuscular Hemoglobin 31.6 PG (26-34); Mean Corpuscular Volume 92.8 fL (80-100); Platelet Count 153 X10^3/uL (150-400)
[2025-04-05 10:03] LABS: Appearance Urine UA CLOUDY; Bilirubin Urine UA NEGATIVE (NEGATIVE); Color Urine UA YELLOW; Glucose Urine UA NEGATIVE (Negative); Ketones Urine UA NEGATIVE (NEGATIVE); Leukocyte Esterase Urine UA TRACE (NEGATIVE); Nitrite Urine UA NEGATIVE (Negative); Occult Blood Urine UA NEGATIVE (Negative); Protein Urine UA NEGATIVE (Negative); Specific Gravity Urine UA 1.010 (1.000-1.035); Urobilinogen Urine UA 0.2 E.U./dL (0.2); pH Urine UA 7.0 (4.5-8.0)
[2025-04-05 10:06] LABS: HEMOLYSIS < 15 (0-50)
[2025-04-05 10:07] LABS: Culture Indicated Urine Cult Not Indicated
[2025-04-05 10:12] LABS: Alanine Aminotransferase 6 IU/L (<50); Albumin 4.3 g/dL (3.5-5.0); Albumin Globulin Ratio 2.3 (1.0-2.8); Alkaline Phosphatase 54 U/L (38-126); Blood Urea Nitrogen 28 mg/dL (9-20); Calcium 9.6 mg/dL (8.4-10.2); Carbon Dioxide 28 mmol/L (22-32); Chloride 104 mmol/L (98-107); Estimated Glomerular Filt Rate > 60 mL/min (>60); Globulin 1.9 g/dL (1.7-4.1); Glucose 93 mg/dL (70-99); Potassium 4.9 mmol/L (3.4-5.1); Sodium 139 mmol/L (137-145); Total Protein 6.2 g/dL (6.3-8.2)
[2025-04-05 10:52] LABS: Prostate Specific Antigen 1.71 ng/mL (0.10-4.00)
== END ==
PROVIDERS: PCP Physician Assistant; Referring Provider Physician Assistant; Visit Provider Physician Assistant
DX: R26.89 Other abnormalities of gait and mobility (principal); R35.0 Frequency of micturition; R35.1 Nocturia
CPT/HCPCS: 36415; 80053; 81001; 84153; 85025